=== PATIENT | female | born 1970 | race Caucasian/White ===

== ENCOUNTER 2016-08-20 00:03 | Observation (INO) | payer BC ==
[2016-08-20] VITALS (12 sets, daily range): BP systolic 111–189; BP diastolic 56–89; PULSE 49–61; RESP 12–18; TEMP 97.1–98; O2SAT 96–99
[~2016-08-20] VITALS: Ht 165.1 cm; Wt 93.0 kg
[~2016-08-20 00:03] MED LIST: CLOP75 PO; LEVEMIR SC; METO25 PO; NITR0.4S SL; NOVOLOGP2 SQ; PAXI20TA26 PO; ST J81CH PO
[2016-08-20] MEDS ORDERED: SODIUM CHLORIDE 0.9% FLUSH 5 ML FLUSH IVF PRN (00:30)
[2016-08-20] MEDS ORDERED: NITROGLYCERIN 2% OINT 1 GM PACKET TOP ONE (00:30)
[2016-08-20] MEDS ORDERED: NITROGLYCERIN 0.4 MG SL 25 TABS/BTL SL ONE (00:30)
[2016-08-20] MEDS ORDERED: PLAV75TA29 PO ×2 (00:32→17:28)
[2016-08-20 00:46] LABS: AUTOMATED NEUTROPHIL # 5.2 TH/MM3 (1.8-7.7); BASOPHIL # 0.1 TH/MM3 (0-0.2); BASOPHIL % 0.8 % (0.0-2.0); EOSINOPHIL # 0.2 TH/MM3 (0-0.4); EOSINOPHIL % 2.3 % (0.0-4.0); HEMO FLAGS DIFF FINAL; LYMPH % 34.3 % (9.0-44.0); LYMPHOCYTE # 3.3 TH/MM3 (1.0-4.8); MEAN CELL VOLUME 86.9 FL (80.0-100.0); MEAN CORPUSCULAR HEMOGLOBIN 29.4 PG (27.0-34.0); MEAN CORPUSCULAR HGB CONC 33.8 % (32.0-36.0); MONO % 8.4 % (0.0-8.0); NEUT % 54.2 % (16.0-70.0); PLATELET COUNT 249 TH/MM3 (150-450); RED CELL DISTRIBUTION WIDTH 14.1 % (11.6-17.2); WHITE BLOOD COUNT 9.5 TH/MM3 (4.0-11.0)
[2016-08-20 00:53] LABS: APTT (PATIENT) 27.6 SEC (24.3-30.1); INTERNATIONAL NORMALIZED RATIO 0.9 RATIO; PROTHROMBIN TIME - PATIENT 9.6 SEC (9.8-11.6)
--- NOTE | 2016-08-20 00:59 | RADRPT ---
EXAM DATE/TIME: 08/20/2016 00:28 [facility] COMPARISON: CHEST SINGLE AP, June 07, 2016, 5:30. INDICATIONS : Chest pain. MEDICAL HISTORY : None. SURGICAL HISTORY : None. ENCOUNTER: Initial ACUITY: 1 day PAIN SCORE: 5/10 LOCATION: Bilateral chest FINDINGS: A single view of the chest demonstrates the lungs to be symmetrically aerated without evidence of mas s, infiltrate or effusion. The cardiomediastinal contours are unremarkable. Osseous structures are intact. CONCLUSION: No acute disease. Phil Jang Jr., MD on August 20, 2016 at 0:58 Board Certified Radiologist. This report was verified electronically.
[2016-08-20 01:03] LABS: ALKALINE PHOSPHATASE 106 U/L (45-117); TOTAL BILIRUBIN ADULT 0.1 MG/DL (0.2-1.0)
[2016-08-20 01:05] LABS: ALT (GPT) 22 U/L (10-53); ANION GAP 9 MEQ/L (5-15); AST (GOT) 13 U/L (15-37); BLOOD UREA NITROGEN 13 MG/DL (7-18); CHLORIDE 103 MEQ/L (98-107); CREATINE KINASE 55 U/L (26-192); GLOMERULAR FILTRATION RATE 95 ML/MIN (>89); MAGNESIUM 1.8 MG/DL (1.5-2.5); POTASSIUM 3.7 MEQ/L (3.5-5.1); SODIUM (NA) 137 MEQ/L (136-145)
[2016-08-20] MEDS ORDERED: ASPI-110 PO (01:09)
[2016-08-20] MEDS ORDERED: NOVOLOGP2 SQ (01:09)
[2016-08-20] MEDS ORDERED: METO25TA3 PO (01:09)
[2016-08-20] MEDS ORDERED: PAXI20TA PO (01:09)
[2016-08-20] MEDS ORDERED: NITR0.4S SL (01:09)
[2016-08-20] MEDS ORDERED: LEVEMIR SQ (01:09)
[2016-08-20] MEDS ORDERED: ONDANSETRON HCL 4 MG/2 ML VIAL IV PUSH ONE (01:30)
[2016-08-20] MEDS ORDERED: SODIUM CHLORID 0.9% 500 ML INJ 500 ML IV ONE (01:30)
[2016-08-20] MEDS ORDERED: MORPHINE SULFATE 4 MG/ML INJ IV PUSH ONE (01:30)
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
[2016-08-20] MEDS ORDERED: PANTOPRAZOLE SODIUM 40 MG VIAL IV PUSH ONE (02:00)
[2016-08-20] MEDS ORDERED: CLOPIDOGREL 75 MG TAB PO ONE (02:00)
[2016-08-20] MEDS ORDERED: SODIUM CHLORIDE 0.9% FLUSH 5 ML FLUSH FLUSH PRN (04:45)
[2016-08-20] MEDS ORDERED: ONDANSETRON HCL 4 MG/2 ML VIAL IVP PRN (04:45)
[2016-08-20] MEDS ORDERED: NALOXONE HCL 0.4 MG/ML AMP IV PRN (04:45)
[2016-08-20] MEDS ORDERED: ENOXAPARIN SODIUM 40 MG/0.4 ML SYRINGE SQ SCH (05:00)
[2016-08-20] MEDS: ACETAMINOPHEN 325 MG TAB PO PRN ×2 (05:52→11:44)
[2016-08-20] MEDS ORDERED: SODIUM CHLORIDE 0.9% FLUSH 5 ML FLUSH FLUSH SCH (09:00)
[2016-08-20] MEDS ORDERED: INSULIN DETEMIR 100 UNITS/ML VIAL SQ SCH (10:00)
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
[2016-08-20] MEDS ORDERED: CLOPIDOGREL 75 MG TAB PO SCH (11:00)
[2016-08-20] MEDS ORDERED: PARoxetine HCL 20 MG TAB PO SCH (11:00)
[2016-08-20] MEDS ORDERED: PRAVASTATIN SOD 20 MG TAB PO ONE (11:00)
--- NOTE | 2016-08-20 13:08 | MB ---
cc: BRENDEN ROUSSEAU MD DATE OF CONSULTATION: 08/20/2016 REASON FOR CONSULTATION Chest pain. HISTORY OF PRESENT ILLNESS Ms. Jazz Lambert is a 46-year-old, patient of Dr. Ever Cardoso, for whom I am covering this weekend. The patient does have a prior history of hypertension, hyperlipidemia, diabetes and stenting of her LAD. She also has a history of atypical pain with a stable heart cath showing widely patent stents and no significant aortic gradient in January 2015. She subsequently presented for chest discomfort and underwent a stress test in April of 2015 that was remarkable. At this visit the patient reports that she had been doing well and subsequently had some left-sided chest discomfort that radiated to her left arm. She reports that it was moderately severe, persisted despite her nitroglycerin, and subsequently precipitated her emergency room visit. She is currently pain free. PAST MEDICAL HISTORY 1. Hypertension. 2. Hyperlipidemia. 3. Diabetes. 4. Obesity. 5. CAD as described above. FAMILY HISTORY Noncontributory. ALLERGIES PENICILLIN. MEDICATIONS Outpatient medications include: 1. Paxil. 2. Metoprolol. 3. Insulin. 4. Sublingual nitroglycerin. 5. Aspirin. 6. Plavix. SOCIAL HISTORY The patient does not drink or smoke. REVIEW OF SYSTEMS Except for what is mentioned in the HPI all 12 systems are negative. PHYSICAL EXAMINATION VITAL SIGNS: On presentation showed blood pressure 189/89. Currently 111/56, respiratory rate 18, heart rate 58, temperature of 97.1. GENERAL: An obese female in no apparent distress. NECK: Free from JVD. LUNGS: Bilaterally clear to auscultation. CARDIOVASCULAR: Normal S1 and S2. I do not appreciate any murmurs, rubs or gallops. ABDOMEN: Soft. EXTREMITIES: Free from edema. LABORATORY DATA Lab values are significant for serial troponins of less than 0.02/less than 0.02. EKG DATA EKG shows normal sinus rhythm and nonspecific ST-T wave changes. IMPRESSIONS/RECOMMENDATIONS 1. Atypical chest pain: The patient certainly does have a history of CAD. Her most recent cath was in January 2015 that revealed widely patent stents. She did have a subsequent stress test that was non-ischemic on May 16, 2015. She has not had any further testing since that time. At this point I do think she should have further evaluation with a stress test as it has been over a year. I will check a beta hCG prior to getting the study. It is possible that the pain may be secondary to hypertension as her blood pressure was quite high on arrival. In it has settled down and is reasonable today. I would like to add amlodipine, however, to assist with both the blood pressure and vasodilator properties for her CAD. If the study is non-ischemic, it is reasonable for her to be discharged to follow-up with Dr. Cardoso. 2. Hypertension: As above. 3. Hyperlipidemia: Consideration should be given towards putting the patient on a statin per guidelines. Brenden Rousseau M.D. MAGO/JOSIAH /12:17 PM /12:58 PM
[2016-08-20 13:10] LABS: BETA HCG QUANT LESS THAN 1 MIU/ML (0-5)
[2016-08-20] MEDS ORDERED: REGADENOSON INJ 0.4 MG/5 ML SYR ONE (13:53)
--- NOTE | 2016-08-20 14:54 | RADRPT ---
EXAM DATE/TIME: 08/20/2016 13:25 [facility] COMPARISON: MYOCARDIAL PERF PHARM SPECT, GATED W/EF, May 16, 2015, 11:02. INDICATIONS : Substernal chest pain radiating to left arm with dyspnea and nausea. Angina. Coronary artery disease. DOSE: 25.5 mCi Tc99m Myoview at stress. 8.1 mCi Tc99m Myoview at rest. 0.4 mg Lexiscan STRESS SYMPTOMS: Nausea. EJECTION FRACTION: 67% MEDICAL HISTORY : Hypertension. Diabetes mellitus type 2. SURGICAL HISTORY : Coronary artery stent. Tubal ligation. section. ENCOUNTER: Initial ACUITY: 1 day PAIN SCALE: 6/10 LOCATION: Substernal chest TECHNIQUE: The patient underwent pharmacologic stress with infusion of prescribed dose. Continuous ECG tracing was monitored during stress. Gated SPECT imaging was performed after stress and conventional SPECT i maging was performed at rest. The examination was performed on a SPECT/CT scanner, both attenuation and non-corrected datasets were reviewed. FINDINGS: DISTRIBUTION: The maximum perfused segment at stress is in the lateral wall. PERFUSION STUDY: The pattern of perfusion at stress is within normal limits. GATED STUDY: There is intact wall motion and thickening without hypokinetic or dyskinetic segments. CONCLUSION: No definite reversible perfusion defects are identified to suggest stress-induced myocardial ischemia . RISK CATEGORY: Low (<1% Annual Mortality Rate) Mason Ace MD on August 20, 2016 at 14:51 Board Certified Radiologist. This report was verified electronically.
[2016-08-20] MEDS ORDERED: AMLO2.5T PO (17:28)
[2016-08-20] MEDS ORDERED: PRAV20TA2 PO (17:28)
--- NOTE | 2016-08-20 17:30 | HHI.PR ---
Objective Objective Results - Vital Signs Date Time Temp Pulse Resp B/P Pulse Ox O2 Delivery O2 Flow Rate FiO2 08/20/16 15:05 97.6 50 16 149/73 99 08/20/16 13:10 18 08/20/16 12:00 97.9 53 12 131/67 96 08/20/16 07:29 97.1 58 18 111/56 98 08/20/16 07:28 98 21 08/20/16 07:15 50 08/20/16 05:58 49 08/20/16 05:37 96 08/20/16 05:34 97.8 54 16 119/63 98 08/20/16 05:18 51 16 125/57 97 Room Air 08/20/16 01:00 55 16 151/70 97 Room Air 08/20/16 00:23 53 16 144/83 98 Room Air 08/20/16 00:18 95 08/20/16 00:07 98.0 61 16 189/89 98 Room Air Result Diagram: 08/20/16 0020 08/20/16 0020 Other Results Laboratory Tests Test 08/20/16 08/20/16 08/20/16 00:20 05:01 11:30 White Blood Count 9.5 Red Blood Count 4.60 Hemoglobin 13.5 Hematocrit 40.0 Mean Corpuscular Volume 86.9 Mean Corpuscular Hemoglobin 29.4 Mean Corpuscular Hemoglobin 33.8 Concent Red Cell Distribution Width 14.1 Platelet Count 249 Mean Platelet Volume 9.2 Neutrophils (%) (Auto) 54.2 Lymphocytes (%) (Auto) 34.3 Monocytes (%) (Auto) 8.4 Eosinophils (%) (Auto) 2.3 Basophils (%) (Auto) 0.8 Neutrophils # (Auto) 5.2 Lymphocytes # (Auto) 3.3 Monocytes # (Auto) 0.8 Eosinophils # (Auto) 0.2 Basophils # (Auto) 0.1 CBC Comment DIFF FINAL Differential Comment Prothrombin Time 9.6 Prothromb Time International 0.9 Ratio Activated Partial 27.6 Thromboplast Time Sodium Level 137 Potassium Level 3.7 Chloride Level 103 Carbon Dioxide Level 25.0 Anion Gap 9 Blood Urea Nitrogen 13 Creatinine 0.67 Estimat Glomerular Filtration 95 Rate Random Glucose 244 Calcium Level 8.9 Magnesium Level 1.8 Total Bilirubin 0.1 Aspartate Amino Transf 13 (AST/SGOT) Alanine Aminotransferase 22 (ALT/SGPT) Alkaline Phosphatase 106 Total Creatine Kinase 55 Troponin I LESS THAN 0.02 LESS THAN 0.02 LESS THAN 0.02 B-Type Natriuretic Peptide 14 Total Protein 8.0 Albumin 3.6 Lipase 115 Human Chorionic Gonadotropin, LESS THAN 1 Quant Physical Exam Physical Exam ADDENDUM 5.30 pm APPRECIATE CARD INPUT STRESS TEST NEG FOR ISCHEMIA CLEARED BY CARD FOR D/C STABLE FOR D/C d/c home today ] see MRS see Orders f/u pcp f/u card d/w PT note for work written Gabriela Oscar MD Aug 20, 2016 17:30
--- NOTE | 2016-08-20 17:54 | EKG ---
Date Performed: 08/20/2016 Time Performed: 00:26:04 PTAGE: 46 years EKG: SINUS BRADYCARDIA Since previous tracing, no significant change noted BORDERLINE ECG PREVIOUS TRACING : 06/07/2016 11.16 DOCTOR: Carmella Agudelo Interpretating Date/Time 08/20/2016 18:05:53
--- NOTE | 2016-08-20 17:54 | EKG ---
Date Performed: 08/20/2016 Time Performed: 05:22:46 PTAGE: 46 years EKG: SINUS BRADYCARDIA Since previous tracing, no significant change noted BORDERLINE ECG PREVIOUS TRACING : 08/20/2016 00.26 DOCTOR: Carmella Agudelo Interpretating Date/Time 08/20/2016 18:03:08
[2016-08-20] MEDS ORDERED: METOPROLOL TARTRATE 25 MG TAB PO SCH (21:00)
[2016-08-21] MEDS ORDERED: PRAVASTATIN SOD 20 MG TAB PO SCH (09:00)
[2016-08-21] MEDS ORDERED: ASPIRIN EC 81 MG TABEC PO SCH (09:00)
[2016-08-21] MEDS ORDERED: amLODIPine BESYLATE 5 MG TAB PO SCH (09:00)
--- NOTE | 2016-08-22 00:02 | EKG ---
Date Performed: 08/20/2016 Time Performed: 12:21:32 PTAGE: 46 years EKG: SINUS BRADYCARDIA BORDERLINE ECG PREVIOUS TRACING : 08/20/2016 05.22 DOCTOR: Samantha Mcdowell Interpretating Date/Time 08/21/2016 23:51:55
== END 2016-08-20 21:18 | disposition home or self-care (01) ==
LOC: NEPE 00:03 → NEDA 02:10 → NEPGCP 05:27
PROVIDERS: ADMIT Specialist; ATTEND Specialist
DX: R07.9 Chest pain, unspecified (principal); M79.602 Pain in left arm; R20.0 Anesthesia of skin; R06.02 Shortness of breath; R61 Generalized hyperhidrosis; R11.0 Nausea; I25.10 Atherosclerotic heart disease of native coronary artery without angina pectoris; Z95.5 Presence of coronary angioplasty implant and graft; I10 Essential (primary) hypertension; E11.9 Type 2 diabetes mellitus without complications; F32.9 Major depressive disorder, single episode, unspecified; Z79.01 Long term (current) use of anticoagulants; F41.9 Anxiety disorder, unspecified; R01.1 Cardiac murmur, unspecified; E78.00 Pure hypercholesterolemia, unspecified; Z79.4 Long term (current) use of insulin; K21.9 Gastro-esophageal reflux disease without esophagitis; R51 Headache; Z79.899 Other long term (current) drug therapy; R00.1 Bradycardia, unspecified; E78.5 Hyperlipidemia, unspecified; E66.9 Obesity, unspecified; M54.9 Dorsalgia, unspecified; G89.21 Chronic pain due to trauma
CPT/HCPCS: 71010; 78452; 80053; 82550; 83690; 83735; 83880; 84484; 84702; 85025; 85610; 85730; 93005; 93017; 96361; 96374; 96375; 99285; A9502; C9113; G0378; J1650; J2270; J2405; J2785; J7040

== ENCOUNTER 2016-11-14 08:42 | Observation (INO) | payer BC ==
[~2016-11-14] VITALS: Ht 165.1 cm; Wt 108.0 kg
[2016-11-14] VITALS (10 sets, daily range): BP systolic 125–156; BP diastolic 60–77; PULSE 51–64; RESP 14–20; TEMP 98–98.2; O2SAT 96–99
[~2016-11-14 08:42] MED LIST changes: +AMLO2.5T PO; +ASPI-110 PO; -CLOP75 PO; -LEVEMIR SC; +LEVEMIR SQ; -METO25 PO; +METO25TA3 PO; +PAXI20TA PO; -PAXI20TA26 PO; +PLAV75TA29 PO; +PRAV20TA2 PO; -ST J81CH PO
[2016-11-14] MEDS ORDERED: SODIUM CHLORIDE 0.9% FLUSH 10 ML FLUSH IVF PRN (09:00)
[2016-11-14] MEDS ORDERED: SODIUM CHLORID 0.9% 500 ML INJ 500 ML IV ONE (09:00)
--- NOTE | 2016-11-14 09:07 | PD ---
HPI Chief Complaint: Chest Pain Time Seen by Provider: 08:57 Travel History International Travel<30 days: No Contact w/Intl Traveler<30days: No Traveled to known affect area: No History of Present Illness HPI Patient is a 46-year-old female with history of hypertension, hyperlipidemia, diabetes, coronary artery disease with history of 3 cardiac stents, presents to emergency room with complaints of chest pain. Patient reports that she was at work today and reports that she began to have left-sided chest pain which started around 7:52am. Patient reports that the chest pain radiates for her back, reports that it felt like a "pressure to my chest." Patient reports that she had diaphoresis with nausea with her symptoms. Patient reports that she felt lightheaded and felt near syncopal with this chest pain event. Patient reports that symptoms are similar to when she has had chest pain the past and had cardiac stents placed by Dr. tompkins. Patient reports that her last stent was placed in August [address] tompkins, she did follow with him a few months ago and reports that everything was fine. Reports that she does take aspirin and Plavix daily, she did take her morning doses today. She reports that she was prescribed a prescription for SL nitro, reports that she couldn't find her prescription this morning and may just need a refill. Patient at this point with continued pain to her left chest which radiates her back. PFSH Past Medical History Hx Anticoagulant Therapy: Yes Autoimmune Disease: No Anxiety: Yes Depression: Yes Heart Rhythm Problems: Yes (MURMUR) Cancer: No Cardiac Catheterization: Yes Cardiovascular Problems: Yes High Cholesterol: Yes Chest Pain: Yes Congestive Heart Failure: No Coronary Artery Disease: Yes Diabetes: Yes (INSULIN DEPENDENT) Patient Takes Glucophage: No Dialysis: No Diminished Hearing: No Endocrine: Yes GERD: Yes Glaucoma: No Genitourinary: No Headaches: Yes Hepatitis: No Hiatal Hernia: No Hypertension: Yes Immune Disorder: No Implanted Vascular Access Dvce: Yes Musculoskeletal: No Psychiatric: Yes Reproductive: No Respiratory: No Integumentary: No Immunizations Current: Yes Myocardial Infarction: No Thyroid Disease: No PNEUMOCCOCAL Vaccine (Year): 2 ?: Not : 2 Para: 2 Miscarriage: 0 : 0 Tubal Ligation: Yes Past Surgical History Body Medical Devices: CARDIAC STENT X3 Cardiac Surgery: Yes Section: Yes (X2) Coronary Artery Bypass Graft: No Coronary Stent: Yes (X 3 2012, 2014, 2015) Gynecologic Surgery: Yes ( X 2 ) Other Surgery: Yes (STENTS X3) Family History Family Myocardial Infarction: Yes Social History Alcohol Use: No Tobacco Use: No Substance Use: No Allergies-Medications (Allergen,Severity, Reaction): Coded Allergies: Prednisone (Verified Allergy, Severe, 11/14/16) Uncoded Allergies: STEROIDS (Allergy, Severe, Anaphylaxis, 03/18/14) Reported Meds & Prescriptions Reported Meds & Active Scripts Active Pravastatin 20 Mg Tab 20 Mg PO DAILY Plavix (Clopidogrel Bisulfate) 75 Mg Tab 75 Mg PO DAILY Reported Paxil (Paroxetine HCl) 20 Mg Tab 30 Mg PO DAILY Novolog Inj (Insulin Aspart) 1,000 Unit/10 Ml Vial 0 SQ TID PRN Sliding Scale as directed. Nitrostat SL (Nitroglycerin) 0.4 Mg Subl 0.4 Mg SL DIRECTED PRN 1 tablet under the tongue as needed for chest pain. Repeat every 5 minutes for a total of 3 DOSES or call 911 if NO relief. Metoprolol Tartrate 25 Mg Tab 25 Mg PO BID Levemir Inj (Insulin Detemir) 1,000 unit/ 10 ML Vial 5 Units SQ BID Do not mix with any other Insulin. Aspirin 81 (Aspirin) 81 Mg Tabdr 81 Mg PO DAILY Review of Systems General / Constitutional: No: Fever Eyes: No: Visual changes HENT: No: Headaches Cardiovascular: Positive: Chest Pain or Discomfort, Diaphoresis Respiratory: Positive: Shortness of Breath Gastrointestinal: No: Abdominal Pain Genitourinary: No: Dysuria Musculoskeletal: No: Pain Skin: No Rash Neurologic: No: Weakness Psychiatric: No: Depression Endocrine: No: Polydipsia Hematologic/Lymphatic: No: Easy Bruising Physical Exam Narrative GENERAL: Mild distress SKIN: Focused skin assessment warm/dry. HEAD: Atraumatic. Normocephalic. EYES: Pupils equal and round. ENT: No nasal bleeding or discharge. Mucous membranes pink and moist. NECK: Trachea midline. No JVD. CARDIOVASCULAR: Regular rate and rhythm. No murmur appreciated. RESPIRATORY: No accessory muscle use. Clear to auscultation. Breath sounds equal bilaterally. GASTROINTESTINAL: Abdomen soft, non-tender, nondistended. Hepatic and splenic margins not palpable. MUSCULOSKELETAL: No obvious deformities. No clubbing. No cyanosis. No edema. NEUROLOGICAL: Awake and alert. No obvious cranial nerve deficits. Motor grossly within normal limits. Normal speech. PSYCHIATRIC: Appropriate mood and affect; insight and judgment normal. Data Data Last Documented VS Vital Signs Date Time Temp Pulse Resp B/P Pulse Ox O2 Delivery O2 Flow Rate FiO2 11/14/16 11:15 55 14 144/60 99 11/14/16 09:00 Room Air 11/14/16 08:52 98.2 Orders B-Type Natriuretic Peptide (11/14/16 08:59) Ckmb (Isoenzyme) Profile (11/14/16 08:59) Complete Blood Count With Diff (11/14/16 08:59) Comprehensive Metabolic Panel (11/14/16 08:59) Magnesium (Mg) (11/14/16 08:59) Prothrombin Time / Inr (Pt) (11/14/16 08:59) Act Partial Throm Time (Ptt) (11/14/16 08:59) Troponin I (11/14/16 08:59) Chest, Single Ap (11/14/16 08:59) Ecg Monitoring (11/14/16 08:59) Bilateral Bp Monitoring (11/14/16 08:59) Iv Access Insert/Monitor (11/14/16 08:59) Oximetry (11/14/16 08:59) Sodium Chloride 0.9% Flush (Ns Flush) (11/14/16 09:00) Nitroglycerin Sl (Nitrostat Sl) (11/14/16 09:00) Sodium Chlorid 0.9% 500 Ml Inj (Ns 500 M (11/14/16 09:00) Cta Thor Abd Aorta W Iv C W3d (11/14/16 08:59) Ed Urine Pregnancytest Poc (11/14/16 08:59) Insulin Human Regular Inj (Novolin R Inj (11/14/16 10:45) Sodium Chlor 0.9% 1000 Ml Inj (Ns 1000 M (11/14/16 10:45) Iohexol 350 Inj (Omnipaque 350 Inj) (11/14/16 11:14) Bedside Glucose MAUDE.AC&HS (11/14/16 12:45) Admit Order (Ed Use Only) (11/14/16 12:52) Labs Laboratory Tests Test 11/14/16 09:06 White Blood Count 7.9 TH/MM3 Red Blood Count 4.74 MIL/MM3 Hemoglobin 13.3 GM/DL Hematocrit 41.2 % Mean Corpuscular Volume 86.7 FL Mean Corpuscular Hemoglobin 28.0 PG Mean Corpuscular Hemoglobin 32.3 % Concent Red Cell Distribution Width 13.3 % Platelet Count 240 TH/MM3 Mean Platelet Volume 9.1 FL Neutrophils (%) (Auto) 67.1 % Lymphocytes (%) (Auto) 24.7 % Monocytes (%) (Auto) 6.0 % Eosinophils (%) (Auto) 1.8 % Basophils (%) (Auto) 0.4 % Neutrophils # (Auto) 5.3 TH/MM3 Lymphocytes # (Auto) 2.0 TH/MM3 Monocytes # (Auto) 0.5 TH/MM3 Eosinophils # (Auto) 0.1 TH/MM3 Basophils # (Auto) 0.0 TH/MM3 CBC Comment DIFF FINAL Differential Comment Prothrombin Time 10.0 SEC Prothromb Time International 0.9 RATIO Ratio Activated Partial 27.2 SEC Thromboplast Time Sodium Level 134 MEQ/L Potassium Level 4.0 MEQ/L Chloride Level 98 MEQ/L Carbon Dioxide Level 23.9 MEQ/L Anion Gap 12 MEQ/L Blood Urea Nitrogen 15 MG/DL Creatinine 0.75 MG/DL Estimat Glomerular Filtration 84 ML/MIN Rate Random Glucose 434 MG/DL Calcium Level 9.1 MG/DL Magnesium Level 1.9 MG/DL Total Bilirubin 0.3 MG/DL Aspartate Amino Transf 14 U/L (AST/SGOT) Alanine Aminotransferase 22 U/L (ALT/SGPT) Alkaline Phosphatase 115 U/L Total Creatine Kinase 68 U/L Troponin I LESS THAN 0.02 NG/ML B-Type Natriuretic Peptide 22 PG/ML Total Protein 8.2 GM/DL Albumin 3.7 GM/DL MDM Medical Decision Making Medical Screen Exam Complete: Yes Emergency Medical Condition: Yes Interpretation(s) EKG at 0849: Sinus bradycardia at 58 bpm, QT/QTc: 418/415, no acute ST or T- wave changes Vital Signs Date Time Temp Pulse Resp B/P Pulse Ox O2 Delivery O2 Flow Rate FiO2 11/14/16 08:52 98.2 60 15 156/77 96 Laboratory Tests Test 11/14/16 09:06 White Blood Count 7.9 TH/MM3 (4.0-11.0) Red Blood Count 4.74 MIL/MM3 (4.00-5.30) Hemoglobin 13.3 GM/DL (11.6-15.3) Hematocrit 41.2 % (35.0-46.0) Mean Corpuscular Volume 86.7 FL (80.0-100.0) Mean Corpuscular Hemoglobin 28.0 PG (27.0-34.0) Mean Corpuscular Hemoglobin 32.3 % Concent (32.0-36.0) Red Cell Distribution Width 13.3 % (11.6-17.2) Platelet Count 240 TH/MM3 (150-450) Mean Platelet Volume 9.1 FL (7.0-11.0) Neutrophils (%) (Auto) 67.1 % (16.0-70.0) Lymphocytes (%) (Auto) 24.7 % (9.0-44.0) Monocytes (%) (Auto) 6.0 % (0.0-8.0) Eosinophils (%) (Auto) 1.8 % (0.0-4.0) Basophils (%) (Auto) 0.4 % (0.0-2.0) Neutrophils # (Auto) 5.3 TH/MM3 (1.8-7.7) Lymphocytes # (Auto) 2.0 TH/MM3 (1.0-4.8) Monocytes # (Auto) 0.5 TH/MM3 (0-0.9) Eosinophils # (Auto) 0.1 TH/MM3 (0-0.4) Basophils # (Auto) 0.0 TH/MM3 (0-0.2) CBC Comment DIFF FINAL Differential Comment Prothrombin Time 10.0 SEC (9.8-11.6) Prothromb Time International 0.9 RATIO Ratio Activated Partial 27.2 SEC Thromboplast Time (24.3-30.1) Sodium Level 134 MEQ/L (136-145) Potassium Level 4.0 MEQ/L (3.5-5.1) Chloride Level 98 MEQ/L (98-107) Carbon Dioxide Level 23.9 MEQ/L (21.0-32.0) Anion Gap 12 MEQ/L (5-15) Blood Urea Nitrogen 15 MG/DL (7-18) Creatinine 0.75 MG/DL (0.50-1.00) Estimat Glomerular Filtration 84 ML/MIN (>89) Rate Random Glucose 434 MG/DL (74-106) Calcium Level 9.1 MG/DL (8.5-10.1) Magnesium Level 1.9 MG/DL (1.5-2.5) Total Bilirubin 0.3 MG/DL (0.2-1.0) Aspartate Amino Transf 14 U/L (15-37) (AST/SGOT) Alanine Aminotransferase 22 U/L (10-53) (ALT/SGPT) Alkaline Phosphatase 115 U/L (45-117) Total Creatine Kinase 68 U/L (26-192) Troponin I LESS THAN 0.02 NG/ML (0.02-0.05) B-Type Natriuretic Peptide 22 PG/ML (0-100) Total Protein 8.2 GM/DL (6.4-8.2) Albumin 3.7 GM/DL (3.4-5.0) Last Impressions Chest X-Ray 11/14/16858 Signed Impressions: Service Date/Time: Monday, November 14, 2016 09:02 - CONCLUSION: No acute disease. Nixon Peña MD FACR Aorta CTA 11/14/16858 Signed Impressions: Service Date/Time: Monday, November 14, 2016 10:50 - CONCLUSION: 1. Thoracoabdominal aorta is normal in caliber throughout its length with minimal atherosclerotic calcification. No aneurysmal disease or dissection. 2. Single right with a main and accessory left renal artery. The renal and mesenteric vessels are patent. 3. Otherwise negative Roberth Finney MD ADDENDUM: Also noted, 2.8 cm, low density right adrenal mass lesion. Statistically, this likely represents an adenoma Roberth Finney MD Differential Diagnosis ACS, arrhythmia, electrolyte abnormality, aortic dissection, unstable angina, Narrative Course Patient is a 46-year-old female who presents to emergency room with complaints of left-sided chest pain radiating to her back. Patient does have history of coronary disease, hypertension, hyperlipidemia, diabetes, she does see Dr. tompkins in the office. Patient reports that her symptoms are very similar to her previous episodes where she required a coronary artery stent. Upon presentation to emergency room, EKG obtained. EKG was sinus bradycardia with no acute ST-T wave changes. Patient was placed on a machine stonecutter. Sublingual nitroglycerin ordered to see if this helps with her chest pain. Labs as well as cardiac enzymes ordered. X-ray of the chest ordered. Will rule out aortic dissection as patient does have complaints of chest pain radiating to her back with CTA. Blood sugar 434, patient is a type I diabetic and normally covers with 10 units of insulin for blood sugar over 400. 10 units of insulin SQ ordered case reviewed with dr. leone who accepts pt to service Diagnosis Primary Impression: Chest pain Qualified Code: R07.9 - Chest pain, unspecified type Additional Impression: Hyperglycemia Admitting Information Admitting Physician Requests: Ramandeep Merritt DO Nov 14, 2016 09:06
[2016-11-14] MEDS: NITROGLYCERIN 0.4 MG SL 25 TABS/BTL SL SCH ×3 (09:10→09:41)
[2016-11-14 09:18] LABS: AUTOMATED NEUTROPHIL # 5.3 TH/MM3 (1.8-7.7); BASOPHIL % 0.4 % (0.0-2.0); EOSINOPHIL # 0.1 TH/MM3 (0-0.4); EOSINOPHIL % 1.8 % (0.0-4.0); HEMATOCRIT 41.2 % (35.0-46.0); HEMO FLAGS DIFF FINAL; LYMPH % 24.7 % (9.0-44.0); MEAN CELL VOLUME 86.7 FL (80.0-100.0); MEAN CORPUSCULAR HGB CONC 32.3 % (32.0-36.0); NEUT % 67.1 % (16.0-70.0); PLATELET COUNT 240 TH/MM3 (150-450); RED BLOOD COUNT 4.74 MIL/MM3 (4.00-5.30); RED CELL DISTRIBUTION WIDTH 13.3 % (11.6-17.2); WHITE BLOOD COUNT 7.9 TH/MM3 (4.0-11.0)
[2016-11-14 09:35] LABS: APTT (PATIENT) 27.2 SEC (24.3-30.1); INTERNATIONAL NORMALIZED RATIO 0.9 RATIO
--- NOTE | 2016-11-14 09:38 | RADHPO ---
EXAM DATE/TIME: 11/14/2016 09:02 [facility] COMPARISON: CHEST SINGLE AP, August 20, 2016, 0:28. INDICATIONS : Chest pain, short of breath, dizziness. MEDICAL HISTORY : Cardiovascular disease. SURGICAL HISTORY : 3 cardiac stents ENCOUNTER: Initial ACUITY: 3 days PAIN SCORE: 6/10 LOCATION: Bilateral chest FINDINGS: The lungs are clear. The heart is minimally enlarged. The pulmonary vascularity is normal. There is n o evidence for infiltrate or failure. The portion of the bony skeleton visualized is unremarkable. CONCLUSION: No acute disease. Nixon Peña MD FACR on November 14, 2016 at 9:36 Board Certified Radiologist. This report was verified electronically.
[2016-11-14 09:58] LABS: CHLORIDE 98 MEQ/L (98-107); SODIUM (NA) 134 MEQ/L (136-145)
[2016-11-14 10:05] LABS: ANION GAP 12 MEQ/L (5-15); BICARBONATE 23.9 MEQ/L (21.0-32.0); MAGNESIUM 1.9 MG/DL (1.5-2.5)
[2016-11-14 10:21] LABS: ALKALINE PHOSPHATASE 115 U/L (45-117); ALT (GPT) 22 U/L (10-53); AST (GOT) 14 U/L (15-37); BLOOD UREA NITROGEN 15 MG/DL (7-18); GLOMERULAR FILTRATION RATE 84 ML/MIN (>89); TOTAL BILIRUBIN ADULT 0.3 MG/DL (0.2-1.0)
[2016-11-14 10:26] LABS: CREATINE KINASE 68 U/L (26-192)
[2016-11-14] MEDS ORDERED: SODIUM CHLOR 0.9% 1000 ML INJ 1,000 ML IV ONE (10:45)
[2016-11-14] MEDS ORDERED: INSULIN HUMAN REGULAR 1,000 UNITS/10 ML VIAL SQ ONE (10:45)
[2016-11-14] MEDS ORDERED: IOHEXOL 350 MG/ML 10 ML VIAL (for RAD DIAG) IV ONE (11:14)
--- NOTE | 2016-11-14 12:30 | RADHPO ---
EXAM DATE/TIME: 11/14/2016 10:50 This report includes an Addendum and supersedes previous reports for this exam. [facility] COMPARISON: No previous studies available for comparison. INDICATIONS : Left sided chest pain radiating posteriorly, with diaphoresis and nausea. Evaluate for aortic dissect ion. IV CONTRAST: 100 cc Omnipaque 350 (iohexol) IV RADIATION DOSE: 24.61 CTDIvol (mGy) MEDICAL HISTORY : Cardiovascular disease. Hypertension. Gastroesophageal reflux disease.Diabetes. SURGICAL HISTORY : Coronary artery stent. section.Tubal ligation. ENCOUNTER: Initial ACUITY: 1 day PAIN SCALE: 5/10 LOCATION: Left chest TECHNIQUE: Volumetric scanning was performed using a multi-row detector CT scanner. The data was post processed with a variety of visualization algorithms including full volume maximum intensity projection, multi -planar sliding thin slab reformation, curved planar reformation, and surface rendering techniques. Using automated exposure control and adjustment of the mA and/or kV according to patient size, radiat ion dose was kept as low as reasonably achievable to obtain optimal diagnostic quality images. FINDINGS: LUNGS: There is no consolidation or pneumothorax. No concerning pulmonary nodule is visualized. No pleural fluid is present. MEDIASTINUM: No abnormally enlarged lymph nodes by CT criteria. No axillary or hilar abnormalities are identified. ABDOMEN: The liver and spleen are free of focal defects. The gallbladder and pancreas demonstrate no abnormali ty. Low-density, 2.8 cm adrenal mass on the right.. The kidneys demonstrate no evidence of solid ojs l mass or hydronephrosis. No free fluid or abdominal masses are identified. No para-aortic adenopathy is seen. Air in the subcutaneous tissues of the right lower abdominal quadrant are characteristic of a recent hypodermic injection PELVIS: No evidence of free fluid or pelvic mass. No abnormally enlarged inguinal or retroperitoneal lymph no mark anthony are present. The bladder is unremarkable. THORACIC AORTA: The thoracic aortic root is normal with normal branching of the great vessels. There is no evidence of aneurysm or dissection. ABDOMINAL AORTA: The aorta is normal in caliber without aneurysm or dissection. The renal arteries are patent bilater ally with a single right and main and accessory left. The proximal celiac and superior mesenteric ar teries are patent and normal in diameter. PELVIC VESSELS: The internal iliac and external iliac vessels are patent without aneurysm or stenosis. CONCLUSION: 1. Thoracoabdominal aorta is normal in caliber throughout its length with minimal atherosclerotic kady cification. No aneurysmal disease or dissection. 2. Single right with a main and accessory left renal artery. The renal and mesenteric vessels are pat ent. 3. Otherwise negative Roberth Finney MD on November 14, 2016 at 12:01 Board Certified Radiologist. This report was verified electronically. ADDENDUM: Also noted, 2.8 cm, low density right adrenal mass lesion. Statistically, this likely represents an a denoma Roberth Finney MD on November 14, 2016 at 12:31 Board Certified Radiologist. This report was verified electronically.
[2016-11-14] MEDS ORDERED: SODIUM CHLORIDE 0.9% FLUSH 10 ML FLUSH IV FLUSH PRN (13:30)
[2016-11-14] MEDS ORDERED: ONDANSETRON HCL 4 MG/2 ML VIAL IVP PRN (13:30)
[2016-11-14] MEDS ORDERED: NALOXONE HCL 0.4 MG/ML AMP IV PRN (13:30)
[2016-11-14] MEDS ORDERED: ACETAMINOPHEN 325 MG TAB PO PRN (13:30)
[2016-11-14] MEDS ORDERED: NITROGLYCERIN 0.4 MG SL 25 TABS/BTL SL PRN (13:45)
[2016-11-14] MEDS ORDERED: PILL SPLITTER OTHER PRN (13:45)
[2016-11-14] MEDS ORDERED: DEXTROSE 50% IN WATER 50 ML VIAL(D50) IV PUSH PRN (14:30)
[2016-11-14] MEDS ORDERED: GLUCAGON 1 MG/ML VIAL OTHER PRN (14:30)
[2016-11-14] MEDS: ENOXAPARIN SODIUM 40 MG/0.4 ML SYRINGE SQ SCH (14:30)
[2016-11-14] MEDS: SODIUM CHLOR 0.9% 1000 ML INJ 1,000 ML IV SCH (14:30)
[2016-11-14] MEDS: INSULIN ASPART SUPPLEMENTAL SCALE SQ SCH ×2 (16:56→21:15)
[2016-11-14] MEDS: MORPHINE SULFATE 4 MG/ML INJ IV PRN ×2 (17:55→22:39)
[2016-11-14] MEDS: NITROGLYCERIN 2% OINT 1 GM PACKET TOPICAL SCH ×2 (18:33→23:49)
[2016-11-14] MEDS: METOPROLOL TARTRATE 25 MG TAB PO SCH (20:27)
[2016-11-14] MEDS: INSULIN DETEMIR 100 UNITS/ML VIAL SQ SCH (20:27)
[2016-11-14] MEDS: SODIUM CHLORIDE 0.9% FLUSH 10 ML FLUSH IV FLUSH SCH (20:27)
[2016-11-15] VITALS (11 sets, daily range): BP systolic 118–140; BP diastolic 53–90; PULSE 48–55; RESP 12–20; TEMP 96.4–98.3; O2SAT 96–99
[2016-11-15] MEDS: NITROGLYCERIN 2% OINT 1 GM PACKET TOPICAL SCH ×3 (06:28→18:00)
[2016-11-15] MEDS: INSULIN ASPART SUPPLEMENTAL SCALE SQ SCH ×4 (06:30→21:00)
[2016-11-15] MEDS: MORPHINE SULFATE 4 MG/ML INJ IV PRN ×4 (06:48→21:08)
[2016-11-15 08:24] LABS: AUTOMATED NEUTROPHIL # 3.2 TH/MM3 (1.8-7.7); BASOPHIL # 0.1 TH/MM3 (0-0.2); BASOPHIL % 0.9 % (0.0-2.0); EOSINOPHIL # 0.2 TH/MM3 (0-0.4); EOSINOPHIL % 2.8 % (0.0-4.0); HEMATOCRIT 38.3 % (35.0-46.0); HEMO FLAGS DIFF FINAL; LYMPH % 31.5 % (9.0-44.0); LYMPHOCYTE # 1.8 TH/MM3 (1.0-4.8); MEAN CELL VOLUME 87.3 FL (80.0-100.0); MEAN CORPUSCULAR HEMOGLOBIN 28.5 PG (27.0-34.0); MEAN CORPUSCULAR HGB CONC 32.6 % (32.0-36.0); MONO % 9.2 % (0.0-8.0); NEUT % 55.6 % (16.0-70.0); PLATELET COUNT 203 TH/MM3 (150-450); RED BLOOD COUNT 4.39 MIL/MM3 (4.00-5.30); RED CELL DISTRIBUTION WIDTH 13.1 % (11.6-17.2); WHITE BLOOD COUNT 5.8 TH/MM3 (4.0-11.0)
[2016-11-15 08:30] LABS: POTASSIUM 3.7 MEQ/L (3.5-5.1)
[2016-11-15 08:33] LABS: BICARBONATE 29.8 MEQ/L (21.0-32.0)
[2016-11-15] MEDS: INSULIN DETEMIR 100 UNITS/ML VIAL SQ SCH ×2 (09:00→21:06)
[2016-11-15] MEDS: SODIUM CHLORIDE 0.9% FLUSH 10 ML FLUSH IV FLUSH SCH ×2 (09:00→21:06)
[2016-11-15] MEDS: PARoxetine HCL 20 MG TAB PO SCH (09:00)
[2016-11-15] MEDS: PRAVASTATIN SOD 20 MG TAB PO SCH (09:00)
[2016-11-15] MEDS: CLOPIDOGREL 75 MG TAB PO SCH (09:01)
[2016-11-15] MEDS: METOPROLOL TARTRATE 25 MG TAB PO SCH ×2 (09:01→21:05)
[2016-11-15] MEDS: ASPIRIN EC 81 MG TABEC PO SCH (09:12)
[2016-11-15] MEDS: SODIUM CHLOR 0.9% 1000 ML INJ 1,000 ML IV SCH (09:23)
--- NOTE | 2016-11-15 11:29 | MH ---
cc: HECTOR JAVIER MD DATE OF ADMISSION 11/14/2016 CHIEF COMPLAINT Chest pain HISTORY OF PRESENT ILLNESS This is a 46-year-old female with a past medical-surgical history significant for hypertension, hyperlipidemia, diabetes mellitus, coronary artery disease, history of cardiac stent x3 in the past, history of anxiety/depression, history of heart murmur, gastroesophageal reflux disease, history of tubal ligation who came to the ER at [facility] complaining of chest pain. The pain started at work today and reported that she began to have left-sided chest pain which started around 07:52 a.m. The patient reports that the chest pain radiated to her back. Reports that it felt like a pressure to my chest. The patient reports that she has a diaphoresis with nausea with her symptoms. The patient reports that she felt lightheaded and felt near syncope with this chest pain event. The patient reports the symptoms are similar to when she had chest pain in the past. She had a cardiac stent placed by Dr. Cardoso. The patient reports that her last stent was placed in August [address] Cardoso. She did a followup with him a few months ago and reports that everything was fine. She reports that she does take aspirin and Plavix daily. She did take her morning doses today. She reports that she was prescribed a prescription of sublingual nitro and reported that she could not find her prescription this morning and may just need a refill. When I examined the patient, the patient was still having chest pain and denies any other symptom or complaint. Other than that, nothing significant. PAST MEDICAL/SURGICAL HISTORY As dictated above. SOCIAL HISTORY Denies smoking, drinking or taking any drugs. Lives at home with her and kids. 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 FAMILY HISTORY Significant for coronary artery disease in mom and dad. ALLERGIES PREDNISONE AND STEROIDS MEDICATIONS Include: 1. Pravastatin 20 mg p.o. daily 2. Plavix 75 mg daily 3. Paxil 30 mg p.o. daily 4. NovoLog injection according to sliding scale 5. Nitro sublingual 0.4 mg as directed p.r.n. chest pain 6. Metoprolol 25 mg p.o. b.i.d. 7. Levemir 5 units subcutaneous b.i.d. 8. Aspirin 81 mg p.o. daily REVIEW OF SYSTEMS Positive for chest pain, all other review of systems are negative. PHYSICAL EXAMINATION This is 46-year female sitting on the bed not in acute distress. VITAL SIGNS: Temperature 97.0, heart rate 50, respirations 16, blood pressure 120/90, O2 saturation 98% on room air. HEENT: Normocephalic, atraumatic. EOMI. PERRL. Oral mucosa moist. NECK: Supple. No visible thyromegaly or neck mass. Trachea is central. CVS: Regular rate and rhythm. Respirations clear to auscultation bilaterally. ABDOMEN: Soft, nontender. Bowel sounds. EXTREMITIES: No cyanosis or clubbing. Full range of motion of all extremities. NEUROLOGIC: Awake, alert, and oriented x4. No focal deficits. SKIN: Warm and dry. PSYCH: The patient is cooperative mood, affect is normal. LABORATORY DATA Include CBC is totally unremarkable. BMP totally unremarkable except for glucose 232 high, troponin-I less than 0.02, creatinine kinase 56 and 62, PT 10.0, INR 0.9, APTT 27.2. Chest x-ray was done shows no acute disease. Aorta CT done shows thoracoabdominal aorta is normal in caliber throughout its length with minimal atherosclerotic calcification no aneurysmal disease or dissection, single right with a main and accessory left renal artery. The renal and the mesenteric vessels are patent, otherwise negative. 2.8 cm low density right adrenal mass lesion. Statistically this likely represented adenoma. ASSESSMENT/PLAN 1. This is a 46-year female who came to the ER diagnosed with chest pain rule out acute coronary syndrome. The patient is on aspirin and Plavix. The patient has a history of coronary artery disease and stenting in the past. Cardiology consulted. Further recommendation per cardiology. 2. History of diabetes mellitus. The patient on insulin sliding scale. Monitor blood sugar closely. 3. History of hyperlipidemia. Continue pravastatin 20 mg p.o. daily. 4. History of hypertension. Continue home medication. 5. Insomnia. Continue with Ambien. 6. History of depression. Continue with Paxil. 7. DVT prophylaxis Lovenox 40 mg subcutaneous. 8. GI prophylaxis Protonix 40 mA daily. We are going to manage the patient on a daily basis and make recommendation on a daily basis. Hector Javier MD EA/JUANCHO /10:56 AM /11:10 AM
--- NOTE | 2016-11-15 13:35 | EKG ---
Date Performed: 11/14/2016 Time Performed: 08:49:22 PTAGE: 46 years EKG: Sinus bradycardia Normal ECG except for rate PREVIOUS TRACING : 08/20/2016 12.21 Compared to prior tracing no significant change DOCTOR: Isael Villa Interpretating Date/Time 11/15/2016 13:33:56
[2016-11-15] MEDS: ENOXAPARIN SODIUM 40 MG/0.4 ML SYRINGE SQ SCH (15:01)
[2016-11-15] MEDS ORDERED: ACETAMINOPHEN 325 MG TAB PO PRN (15:30)
[2016-11-15] MEDS ORDERED: NITROGLYCERIN 2% OINT 1 GM PACKET TOP SCH (18:00)
[2016-11-16] VITALS (36 sets, daily range): BP systolic 126–158; BP diastolic 66–82; PULSE 48–80; RESP 8–26; TEMP 98.2–99; O2SAT 95–98
[2016-11-16] MEDS: NITROGLYCERIN 2% OINT 1 GM PACKET TOPICAL SCH ×5 (00:04→23:40)
[2016-11-16] MEDS: MORPHINE SULFATE 4 MG/ML INJ IV PRN ×3 (00:53→20:44)
[2016-11-16] MEDS: INSULIN ASPART SUPPLEMENTAL SCALE SQ SCH ×4 (06:50→20:40)
--- NOTE | 2016-11-16 07:56 | PD.CONS ---
HPI Service CV Consult Requested By Primary Care Physician Hayden Mcgovern MD History of Present Illness Here with CAD with angina s/p PCI J CARLOS x 2 LAD (08/2014) s/p C 01/2015 showing patent stents, HTN and hyperlipidemia admitted for chest pain. She states this started Saturday. She say the it has been constantly waxing and waning. When it is on it lasts 2 hours. It radiates to her back. It is associated with nausea/ vomiting and diaphoresis.There are no precipitating or alleviating factors Review of Systems Consitutional: DENIES: Fatigue, Fever, Chills, Weight gain, Weight loss Eyes: DENIES: Amaurosis [place], Change in vision HEENT: DENIES: Lightheadedness, Change in hearing Respiratory: DENIES: See HPI, Cough, Snoring, Shortness of breath, Wheezing, Sputum production Cardiovascular: COMPLAINS OF: See HPI Gastrointestinal: DENIES: Nausea, Vomiting, Change in bowel habits, Reflux, Bloody stools, Melena Genitourinary: DENIES: Urinary incontinence, Difficulty voiding Integumentary: DENIES: Rash Neurologic: DENIES: Tingling or numbness, Memory problems, Poor Balance, Stroke symptoms Musculoskeletal: DENIES: Joint pain, Muscle pain, Limited range of motion, Back pain Psychiatric: DENIES: Anxiety, Depression, Sleep disturbances Hematologic: DENIES: Bruising tendencies, Bleeding tendencies Endocrine: DENIES: Weight gain, Weight loss, Thyroid disease Past Family Social History Allergies: Coded Allergies: Prednisone (Verified Allergy, Severe, 11/14/16) Uncoded Allergies: STEROIDS (Allergy, Severe, Anaphylaxis, 03/18/14) Past Medical History see HPI adjustment disorder with depressed mood anxiety type 2 Diabetes GERD Past Surgical History see HPI section tubal ligation Reported Medications Reported Meds & Active Scripts Active Pravastatin 20 Mg Tab 20 Mg PO DAILY Plavix (Clopidogrel Bisulfate) 75 Mg Tab 75 Mg PO DAILY Reported Paxil (Paroxetine HCl) 20 Mg Tab 30 Mg PO DAILY Novolog Inj (Insulin Aspart) 1,000 Unit/10 Ml Vial 0 SQ TID PRN Sliding Scale as directed. Nitrostat SL (Nitroglycerin) 0.4 Mg Subl 0.4 Mg SL DIRECTED PRN 1 tablet under the tongue as needed for chest pain. Repeat every 5 minutes for a total of 3 DOSES or call 911 if NO relief. Metoprolol Tartrate 25 Mg Tab 25 Mg PO BID Levemir Inj (Insulin Detemir) 1,000 unit/ 10 ML Vial 5 Units SQ BID Do not mix with any other Insulin. Aspirin 81 (Aspirin) 81 Mg Tabdr 81 Mg PO DAILY Active Ordered Medications Current Medications Medications (Trade) Dose Ordered Sig/Susanne Route Start Time Stop Time Status Last Admin (NS 1000 ml Inj) 1,000 ml @ 50 mls/hr Q20H IV 11/14/16 13:23 11/14/16 14:30 (NS Flush) 2 ml UNSCH PRN IV FLUSH 11/14/16 13:30 (NS Flush) 2 ml BID IV FLUSH 11/14/16 21:00 11/15/16 21:06 (Tylenol) 650 mg Q4H PRN PO 11/14/16 13:30 (Zofran Inj) 4 mg Q6H PRN IVP 11/14/16 13:30 11/16/16 06:41 (Narcan Inj) 0.4 mg UNSCH PRN IV 11/14/16 13:30 (Ecotrin Ec) 81 mg DAILY PO 11/15/16 09:00 11/15/16 09:12 (Plavix) 75 mg DAILY PO 11/15/16 09:00 11/15/16 09:01 (Levemir Inj) 5 units BID SQ 11/14/16 21:00 11/15/16 21:06 (Lopressor) 25 mg BID PO 11/14/16 21:00 11/15/16 21:05 (Paxil) 30 mg DAILY PO 11/15/16 09:00 11/15/16 09:00 (Pravachol) 20 mg DAILY PO 11/15/16 09:00 11/15/16 09:00 (Pill Splitter) 1 ea UNSCH PRN OTHER 11/14/16 13:45 (D50w (Vial) Inj) 25 ml UNSCH PRN IV PUSH 11/14/16 14:30 (Glucagon Inj) 1 mg UNSCH PRN OTHER 11/14/16 14:30 (Morphine Inj) 4 mg Q4H PRN IV 11/14/16 17:45 11/16/16 06:41 (Nitroglycerin 2% Oint) 1 inch Q6HR TOPICAL 11/14/16 18:00 11/16/16 06:00 (Tylenol) 650 mg Q6H PRN PO 11/15/16 15:30 11/15/16 15:37 Family History noncontributory Social History never smoker, rare EtOH, denies substance abuse Physical Exam Vital Signs Vital Signs Date Time Temp Pulse Resp B/P Pulse Ox O2 Delivery O2 Flow Rate FiO2 11/16/16 04:00 98.4 63 14 151/76 96 11/16/16 00:30 98.2 48 12 143/71 98 11/15/16 22:30 98.0 55 12 125/53 97 11/15/16 20:02 98.2 55 18 132/78 98 11/15/16 20:02 55 11/15/16 20:00 98.0 55 12 125/53 97 11/15/16 16:00 97.0 49 18 140/79 99 11/15/16 12:00 96.4 50 18 120/74 99 11/15/16 08:00 97.0 50 16 120/90 98 Physical Exam GENERAL: Well-nourished, well-developed patient in no apparent distress. NECK: No JVD. No carotid bruit. CARDIOVASCULAR: Regular rate and rhythm. S1/S2 no murmur, rub, or gallop. RESPIRATORY: No accessory muscle use. Clear to auscultation. Breath sounds equal bilaterally. GASTROINTESTINAL: Abdomen soft, non-tender, nondistended. MUSCULOSKELETAL: Extremities without clubbing, cyanosis, or edema. Laboratory Laboratory Tests Test 11/15/16 08:00 White Blood Count 5.8 Red Blood Count 4.39 Hemoglobin 12.5 Hematocrit 38.3 Mean Corpuscular Volume 87.3 Mean Corpuscular Hemoglobin 28.5 Mean Corpuscular Hemoglobin 32.6 Concent Red Cell Distribution Width 13.1 Platelet Count 203 Mean Platelet Volume 9.2 Neutrophils (%) (Auto) 55.6 Lymphocytes (%) (Auto) 31.5 Monocytes (%) (Auto) 9.2 Eosinophils (%) (Auto) 2.8 Basophils (%) (Auto) 0.9 Neutrophils # (Auto) 3.2 Lymphocytes # (Auto) 1.8 Monocytes # (Auto) 0.5 Eosinophils # (Auto) 0.2 Basophils # (Auto) 0.1 CBC Comment DIFF FINAL Differential Comment Sodium Level 139 Potassium Level 3.7 Chloride Level 102 Carbon Dioxide Level 29.8 Anion Gap 7 Blood Urea Nitrogen 11 Creatinine 0.52 Estimat Glomerular Filtration 128 Rate Random Glucose 232 Calcium Level 8.6 Result Diagram: 11/15/16 0800 11/15/16 0800 Assessment and Plan Problem List: (1) CAD (coronary artery disease) (2) Chest pain, rule out acute myocardial infarction (3) Hypertension Assessment and Plan Plan is for coronary angiogram this morning, further recommendations will depend on that outcome Will start amlodipine 5 mg daily which she takes as an outpatient Chintan Roper Nov 16, 2016 07:56
[2016-11-16] MEDS ORDERED: MIDAZOLAM HCL 2 MG/2 ML VIAL IV SCH (08:00)
[2016-11-16] MEDS: SODIUM CHLOR 0.9% 1000 ML INJ 1,000 ML IV SCH (08:30)
[2016-11-16] MEDS: amLODIPine BESYLATE 5 MG TAB PO SCH (08:55)
[2016-11-16] MEDS: ASPIRIN EC 81 MG TABEC PO SCH (08:55)
[2016-11-16] MEDS: METOPROLOL TARTRATE 25 MG TAB PO SCH ×2 (08:55→20:39)
[2016-11-16] MEDS: SODIUM CHLORIDE 0.9% FLUSH 10 ML FLUSH IV FLUSH SCH ×2 (08:56→20:41)
[2016-11-16] MEDS: CLOPIDOGREL 75 MG TAB PO SCH (08:56)
[2016-11-16] MEDS: PARoxetine HCL 20 MG TAB PO SCH (09:00)
[2016-11-16] MEDS: PRAVASTATIN SOD 20 MG TAB PO SCH (09:03)
[2016-11-16] MEDS ORDERED: HEPARIN-NS/PF INJ 500 ML ONE (09:46)
[2016-11-16] MEDS ORDERED: MIDAZOLAM HCL 2 MG/2 ML VIAL ONE (09:47)
[2016-11-16] MEDS ORDERED: HEPARIN SODIUM - IV 10,000 UNITS/10 ML VIAL ONE (09:47)
[2016-11-16] MEDS ORDERED: ONDANSETRON HCL 4 MG/2 ML VIAL ONE (10:12)
[2016-11-16] MEDS: INSULIN DETEMIR 100 UNITS/ML VIAL SQ SCH ×2 (11:00→20:40)
[2016-11-16] MEDS ORDERED: BACITRACIN OINT 0.9 GM PKT TOP ONE (11:00)
[2016-11-16] MEDS ORDERED: MISC INFORMATION XX ONE (11:00)
--- NOTE | 2016-11-16 12:46 | MA ---
cc: CELESTINO CURRIE DATE 11/16/2016 PROCEDURE PERFORMED 1. Fluoroscopy with interpretation 2. Coronary angiography 3. Left heart catheterization 4. Ascending aortography METHOD The risks, benefits and alternatives discussed with the patient. The patient understood and consented to the procedure. PROCEDURE The patient brought into the catheterization lab, placed on the catheterization table. The right wrist was prepped and draped in a sterile fashion. The right wrist was anesthetized with 2% lidocaine. The right radial artery was cannulated. A 6-[place] 7 cm sheath was placed without difficulty. LEFT HEART CATHETERIZATION A 6-[place] JR-5 catheter was advanced across the aortic valve without difficulty. Intraventricular hemodynamics measured at 132/60 mmHg. CORONARY ANGIOGRAPHY 1. Left main coronary is short but angiographically normal. 2. Left anterior descending coronary has a stent present in the mid segment. The stent appears to be patent without significant stenosis. At the distal stent margin, there is some mild in-stent restenosis, estimated severity 30%. The remainder of the left anterior descending coronary is widely patent. 3. Left circumflex has minor luminal irregularities. 4. Right coronary is a dominant vessel giving rise to a posterior descending branch. The right coronary artery has minor luminal irregularities. ASCENDING AORTOGRAPHY Ascending aortography; given the patient's continued chest pain, but no significant coronary obstruction, we elected to proceed with aortography. A 6-[place] pigtail catheter was advance to the ascending aorta. Ascending aortography was performed in a left anterior oblique view using a 40 cc contrast injection with good opacification. The ascending aorta is normal in size. No dissection noted. The origin of the great vessels appear to be normal. CONCLUSIONS 1. Widely patent left anterior descending coronary stent. 2. Normal left-sided filling pressures. 3. Normal ascending aorta. PLAN The patient will have to have a workup for potentially noncardiac causes. She has had some ongoing intermittent nausea. I suspect that this may be a GI etiology. We will defer the remainder of her care to the primary care physician. MD AUGIE Cloud/JUANCHO /10:53 AM /12:42 PM
--- NOTE | 2016-11-16 12:48 | HHI.PR ---
Subjective History of Present Illness Patient s/p cardic cath. within normal limits d/w cardiology. ok to dc home today. Review of Systems Constitutional Constitutional: Fatigue, Weakness Vitals/Results Intake & Output 11/15/16 11/15/16 11/16/16 15:00 23:00 07:00 Intake Total 600 ml 240 ml Balance 600 ml 240 ml Intake Oral 600 ml 240 ml # Voids 3 2 Vital Signs Vital Signs Date Time Temp Pulse Resp B/P Pulse Ox O2 Delivery O2 Flow Rate FiO2 11/16/16 12:03 59 16 148/78 11/16/16 12:00 58 11/16/16 12:00 98.4 11/16/16 11:33 56 16 158/81 11/16/16 11:18 55 20 145/76 11/16/16 11:03 59 16 137/72 95 11/16/16 11:00 58 11/16/16 10:48 98.4 55 16 147/72 96 11/16/16 09:00 57 11/16/16 08:00 98.8 58 8 145/66 95 11/16/16 08:00 56 11/16/16 07:00 58 11/16/16 06:00 54 11/16/16 05:00 64 11/16/16 04:00 98.4 63 14 151/76 96 11/16/16 04:00 56 11/16/16 03:00 55 11/16/16 02:00 56 11/16/16 01:00 50 11/16/16 00:30 98.2 48 12 143/71 98 11/16/16 00:00 50 11/15/16 23:00 48 11/15/16 22:30 98.0 55 12 125/53 97 11/15/16 22:00 54 11/15/16 21:00 52 11/15/16 20:02 98.2 55 18 132/78 98 11/15/16 20:02 55 11/15/16 20:00 98.0 55 12 125/53 97 11/15/16 16:00 97.0 49 18 140/79 99 CBC/BMP: 11/15/16 0800 11/15/16 0800 Physical Exam General General Appearance: No Acute Distress, Comfortable Eyes Eye Exam: Pupils Equal, Pupils Reactive, Sclera White, Extraocular Movement Intact Throat Throat Exam: Oral Mucosa [place] & Moist, Oral Pharynx Normal Neck Neck Exam: Neck Supple, Trachea Midline Pulmonary Resp Exam: Clear Bilaterally, Breath Sounds Equal Cardiology CV Exam: Regular, Normal Sinus Rhythm Gastrointestinal/Abdomen GI Exam: Soft, Non-Tender, Bowel Sounds Present Musculoskeletal MS Exam: Normal Tone Integumentary Skin Exam: Clear, Warm, Dry, Intact Neurologic Neuro Exam: Alert, Awake, Oriented, Speech Clear, Moving All Extremities, No Focal Deficits VTE Prophylaxis VTE Prophylaxis Meds: Heparin PUD Prophylasis PUD Prophylaxis: Protonix Assessment/Plan Assessment/Plan ASSESSMENT/PLAN 1. This is a 46-year female who came to the ER diagnosed with chest pain rule out acute coronary syndrome. The patient is on aspirin and Plavix. The patient has a history of coronary artery disease and stenting in the past. Cardiology input noted s/p cardic cath within normal limits ok to dc home today.. 2. History of diabetes mellitus. The patient on insulin sliding scale. Monitor blood sugar closely. 3. History of hyperlipidemia. Continue pravastatin 20 mg p.o. daily. 4. History of hypertension. Continue home medication. 5. Insomnia. Continue with Ambien. 6. History of depression. Continue with Paxil. 7. DVT prophylaxis Lovenox 40 mg subcutaneous. 8. GI prophylaxis Protonix 40 mA daily. s/p cardic cath within normal limits ok to dc home today. f/u with pcp /GI 1 week condition at discharge good activity as tolerated diet regular. medicine see discharge medicine list, Discussed Condition with: Patient Hector Arroyo MD Nov 16, 2016 12:48
[2016-11-16] MEDS ORDERED: diphenhydrAMINE HCL 25 MG CAP PO ONE (21:15)
[2016-11-17] VITALS (9 sets, daily range): BP systolic 119–123; BP diastolic 63–75; PULSE 46–54; RESP 14–16; TEMP 97.8–97.9; O2SAT 95–96
[2016-11-17] MEDS: MORPHINE SULFATE 4 MG/ML INJ IV PRN (05:56)
[2016-11-17] MEDS: NITROGLYCERIN 2% OINT 1 GM PACKET TOPICAL SCH (05:57)
[2016-11-17] MEDS: INSULIN ASPART SUPPLEMENTAL SCALE SQ SCH (06:00)
[2016-11-17 06:22] LABS: POTASSIUM 3.5 MEQ/L (3.5-5.1)
[2016-11-17 06:59] LABS: BASOPHIL # 0.1 TH/MM3 (0-0.2); BASOPHIL % 0.7 % (0.0-2.0); EOSINOPHIL # 0.1 TH/MM3 (0-0.4); EOSINOPHIL % 1.7 % (0.0-4.0); HEMATOCRIT 34.6 % (35.0-46.0); HEMO FLAGS DIFF FINAL; LYMPH % 31.9 % (9.0-44.0); LYMPHOCYTE # 2.2 TH/MM3 (1.0-4.8); MEAN CELL VOLUME 86.5 FL (80.0-100.0); MEAN CORPUSCULAR HGB CONC 33.6 % (32.0-36.0); MONO % 8.9 % (0.0-8.0); NEUT % 56.8 % (16.0-70.0); PLATELET COUNT 188 TH/MM3 (150-450); RED BLOOD COUNT 3.99 MIL/MM3 (4.00-5.30); RED CELL DISTRIBUTION WIDTH 13.5 % (11.6-17.2)
[2016-11-17] MEDS: SODIUM CHLOR 0.9% 1000 ML INJ 1,000 ML IV SCH ×3 (09:20→09:21)
[2016-11-17] MEDS: SODIUM CHLORIDE 0.9% FLUSH 10 ML FLUSH IV FLUSH SCH (09:21)
[2016-11-17] MEDS: CLOPIDOGREL 75 MG TAB PO SCH (09:22)
[2016-11-17] MEDS: ASPIRIN EC 81 MG TABEC PO SCH (09:22)
[2016-11-17] MEDS: PARoxetine HCL 20 MG TAB PO SCH (09:23)
[2016-11-17] MEDS: amLODIPine BESYLATE 5 MG TAB PO SCH (09:23)
[2016-11-17] MEDS: INSULIN DETEMIR 100 UNITS/ML VIAL SQ SCH (09:23)
[2016-11-17] MEDS: METOPROLOL TARTRATE 25 MG TAB PO SCH (09:23)
[2016-11-17] MEDS: PRAVASTATIN SOD 20 MG TAB PO SCH (09:23)
--- NOTE | 2016-11-17 09:32 | HHI.PR ---
Subjective History of Present Illness Patient s/p cardic cath. within normal limits d/w cardiology. ok to dc home today. Review of Systems Constitutional Constitutional: Fatigue, Weakness Vitals/Results Intake & Output 11/16/16 11/16/16 11/17/16 15:00 23:00 07:00 Intake Total 925 ml 720 ml Output Total 600 ml 200 ml Balance 325 ml 520 ml Intake Oral 425 ml 720 ml IV Total 500 ml Output Urine Total 600 ml 200 ml # Voids 6 3 Vital Signs Vital Signs Date Time Temp Pulse Resp B/P Pulse Ox O2 Delivery O2 Flow Rate FiO2 11/17/16 08:00 97.9 51 16 121/75 96 11/17/16 07:00 46 11/17/16 06:00 50 11/17/16 05:00 50 11/17/16 04:00 97.8 54 14 123/66 96 11/17/16 04:00 50 11/17/16 03:00 53 11/17/16 02:00 50 11/17/16 01:00 48 11/17/16 00:00 50 11/17/16 00:00 97.9 49 14 119/63 95 11/16/16 23:00 51 11/16/16 22:00 54 11/16/16 21:00 60 11/16/16 20:00 99.0 68 14 126/70 96 11/16/16 20:00 58 11/16/16 19:00 61 11/16/16 18:00 66 11/16/16 17:33 98.4 68 18 150/72 11/16/16 17:00 68 11/16/16 16:33 66 16 126/82 11/16/16 16:00 68 11/16/16 16:00 98.5 128/66 11/16/16 15:33 144/82 11/16/16 15:00 80 11/16/16 15:00 80 11/16/16 14:33 80 20 145/80 11/16/16 14:00 68 11/16/16 13:33 68 16 158/81 11/16/16 13:03 58 18 145/78 11/16/16 13:00 56 11/16/16 12:33 98.5 55 26 141/75 11/16/16 12:03 59 16 148/78 11/16/16 12:00 58 3/31/17 12:00 98.4 11/16/16 11:33 56 16 158/81 11/16/16 11:18 55 20 145/76 11/16/16 11:03 59 16 137/72 95 11/16/16 11:00 58 11/16/16 10:48 98.4 55 16 147/72 96 CBC/BMP: 11/17/16 0518 11/17/16 0518 Lab Results Laboratory Tests Test 11/17/16 05:18 White Blood Count 7.0 TH/MM3 Red Blood Count 3.99 MIL/MM3 Hemoglobin 11.6 GM/DL Hematocrit 34.6 % Mean Corpuscular Volume 86.5 FL Mean Corpuscular Hemoglobin 29.0 PG Mean Corpuscular Hemoglobin 33.6 % Concent Red Cell Distribution Width 13.5 % Platelet Count 188 TH/MM3 Mean Platelet Volume 9.1 FL Neutrophils (%) (Auto) 56.8 % Lymphocytes (%) (Auto) 31.9 % Monocytes (%) (Auto) 8.9 % Eosinophils (%) (Auto) 1.7 % Basophils (%) (Auto) 0.7 % Neutrophils # (Auto) 4.0 TH/MM3 Lymphocytes # (Auto) 2.2 TH/MM3 Monocytes # (Auto) 0.6 TH/MM3 Eosinophils # (Auto) 0.1 TH/MM3 Basophils # (Auto) 0.1 TH/MM3 CBC Comment DIFF FINAL Differential Comment Sodium Level 136 MEQ/L Potassium Level 3.5 MEQ/L Chloride Level 102 MEQ/L Carbon Dioxide Level 27.0 MEQ/L Anion Gap 7 MEQ/L Blood Urea Nitrogen 8 MG/DL Creatinine 0.44 MG/DL Estimat Glomerular Filtration 155 ML/MIN Rate Random Glucose 253 MG/DL Calcium Level 9.0 MG/DL Physical Exam General General Appearance: No Acute Distress, Comfortable Eyes Eye Exam: Pupils Equal, Pupils Reactive, Sclera White, Extraocular Movement Intact Throat Throat Exam: Oral Mucosa [place] & Moist, Oral Pharynx Normal Neck Neck Exam: Neck Supple, Trachea Midline Pulmonary Resp Exam: Clear Bilaterally, Breath Sounds Equal Cardiology CV Exam: Regular, Normal Sinus Rhythm Gastrointestinal/Abdomen GI Exam: Soft, Non-Tender, Bowel Sounds Present Musculoskeletal MS Exam: Normal Tone Integumentary Skin Exam: Clear, Warm, Dry, Intact Neurologic Neuro Exam: Alert, Awake, Oriented, Speech Clear, Moving All Extremities, No Focal Deficits VTE Prophylaxis VTE Prophylaxis Meds: Heparin PUD Prophylasis PUD Prophylaxis: Protonix Assessment/Plan Assessment/Plan ASSESSMENT/PLAN 1. This is a 46-year female who came to the ER diagnosed with chest pain rule out acute coronary syndrome. The patient is on aspirin and Plavix. The patient has a history of coronary artery disease and stenting in the past. Cardiology input noted s/p cardic cath within normal limits ok to dc home today.. 2. History of diabetes mellitus. The patient on insulin sliding scale. Monitor blood sugar closely. 3. History of hyperlipidemia. Continue pravastatin 20 mg p.o. daily. 4. History of hypertension. Continue home medication. 5. Insomnia. Continue with Ambien. 6. History of depression. Continue with Paxil. 7. DVT prophylaxis Lovenox 40 mg subcutaneous. 8. GI prophylaxis Protonix 40 mA daily. s/p cardic cath within normal limits ok to dc home today. f/u with pcp /GI 1 week condition at discharge good activity as tolerated diet regular. medicine see discharge medicine list, Discussed Condition with: Patient Hector Arroyo MD Nov 17, 2016 09:32
== END 2016-11-17 11:00 | disposition home or self-care (01) ==
LOC: PHED 08:42 → PHEDA 12:54 → PHEDH 16:54 → PH3A 21:27 → HCIS 11-15 20:38
PROVIDERS: ADMIT Family Medicine; ATTEND Family Medicine
DX: I25.10 Atherosclerotic heart disease of native coronary artery without angina pectoris (principal); T82.855A Stenosis of coronary artery stent, initial encounter; I10 Essential (primary) hypertension; E78.5 Hyperlipidemia, unspecified; E11.9 Type 2 diabetes mellitus without complications; F41.9 Anxiety disorder, unspecified; F32.9 Major depressive disorder, single episode, unspecified; K21.9 Gastro-esophageal reflux disease without esophagitis; G47.00 Insomnia, unspecified; E78.00 Pure hypercholesterolemia, unspecified; Z79.02 Long term (current) use of antithrombotics/antiplatelets; Z95.5 Presence of coronary angioplasty implant and graft; Z79.82 Long term (current) use of aspirin; Z79.4 Long term (current) use of insulin; Z88.8 Allergy status to other drugs, medicaments and biological substances; Y83.1 Surgical operation with implant of artificial internal device as the cause of abnormal reaction of the patient, or of later complication, without mention of misadventure at the time of the procedure
CPT/HCPCS: 71010; 71275; 74174; 80048; 80053; 82550; 82948; 83735; 83880; 84484; 84703; 85025; 85610; 85730; 93005; 93454; 93458; 93567; 96361; 96374; 99285; C1769; C1893; G0378; J1644; J1650; J1815; J2250; J2270; J2405; J3010; J7030; J7040; Q9967; C1760

== ENCOUNTER 2017-02-06 08:47 | Emergency (ER) | payer BC ==
[~2017-02-06] VITALS: Ht 165.1 cm; Wt 100.0 kg
[~2017-02-06 08:47] MED LIST changes: -AMLO2.5T PO
[2017-02-06 08:55] VITALS: BP 166/74; PULSE 69; RESP 20; TEMP 97.8; O2SAT 97
[2017-02-06 09:11] VITALS: O2SAT 97
--- NOTE | 2017-02-06 09:12 | PD ---
HPI Chief Complaint: Chest Pain Time Seen by Provider: 08:53 Travel History International Travel<30 days: No Contact w/Intl Traveler<30days: No Traveled to known affect area: No History of Present Illness HPI The patient is a 46-year-old female who presents emergency department for left-sided chest pain. The patient states her chest pain started yesterday , initially was intermittent, now is constant since last evening. The pain is described as pressure, gripping, nonradiating, and associated mild nausea, diaphoresis, and shortness of breath. The patient does have a history of CAD with previous stent placement, one stent placed by Dr. Lai and 2 stents placed by her products mechanical design engineer, Dr. Cardoso. The patient does have a history of hypertension, hyperlipidemia, CAD with previous stent placement, and significant family medical history. The patient denies any recent exertional symptoms. The patient's symptoms are moderate, there are no current alleviating or exacerbating factors. The patient did take her aspirin, Plavix, and nitroglycerin sublingual prior to arrival without any alleviation of her symptoms. She denies any history pancreatitis or gallbladder-related pathology. She does have a history of GERD but denies any history of esophageal spasm. PFSH Past Medical History Hx Anticoagulant Therapy: Yes Arthritis: No Autoimmune Disease: No Anxiety: Yes Depression: Yes Heart Rhythm Problems: Yes (MURMUR) Cancer: No Cardiac Catheterization: Yes Cardiovascular Problems: Yes High Cholesterol: Yes Chest Pain: Yes Congestive Heart Failure: No Cerebrovascular Accident: No Coronary Artery Disease: Yes Diabetes: Yes (INSULIN DEPENDENT) Dialysis: No Diminished Hearing: No Endocrine: Yes GERD: Yes Glaucoma: No Genitourinary: No Headaches: Yes Hepatitis: No Hiatal Hernia: No Hypertension: Yes Immune Disorder: No Implanted Vascular Access Dvce: Yes Kidney Stones: No Musculoskeletal: Yes Neurologic: Yes ( ) Psychiatric: Yes Reproductive: No Respiratory: No Integumentary: No Immunizations Current: Yes Migraines: No Myocardial Infarction: No Seizures: No Thyroid Disease: No Ulcer: No PNEUMOCCOCAL Vaccine (Year): 2 ?: Not : 2 Para: 2 Miscarriage: 0 : 0 Tubal Ligation: Yes Past Surgical History Abdominal Surgery: No Body Medical Devices: CARDIAC STENT X3 Cardiac Surgery: Yes (stent x 3.) Section: Yes (X2) Coronary Artery Bypass Graft: No Coronary Stent: Yes (X 3 2013, 2013, 2015) Ear Surgery: No Endocrine Surgery: No Eye Surgery: No Genitourinary Surgery: No Gynecologic Surgery: Yes ( X 2 /tubal) Thoracic Surgery: No Other Surgery: Yes (STENTS X3) Social History Alcohol Use: No Tobacco Use: No Substance Use: No Allergies-Medications (Allergen,Severity, Reaction): Coded Allergies: Prednisone (Verified Allergy, Severe, 02/06/17) Uncoded Allergies: STEROIDS (Allergy, Severe, Anaphylaxis, 03/18/14) Reported Meds & Prescriptions Reported Meds & Active Scripts Active Pravastatin 20 Mg Tab 20 Mg PO DAILY Plavix (Clopidogrel Bisulfate) 75 Mg Tab 75 Mg PO DAILY Reported Bupropion HCl ER 24 HR (Bupropion HCl) 150 Mg Tab 150 Mg PO DAILY Novolog Inj (Insulin Aspart) 1,000 Unit/10 Ml Vial 0 SQ TID PRN Sliding Scale as directed. Nitrostat SL (Nitroglycerin) 0.4 Mg Subl 0.4 Mg SL DIRECTED PRN 1 tablet under the tongue as needed for chest pain. Repeat every 5 minutes for a total of 3 DOSES or call 911 if NO relief. Metoprolol Tartrate 25 Mg Tab 25 Mg PO BID Levemir Inj (Insulin Detemir) 1,000 unit/ 10 ML Vial 5 Units SQ BID Do not mix with any other Insulin. Aspirin 81 (Aspirin) 81 Mg Tabdr 81 Mg PO DAILY Review of Systems Except as stated in HPI: all other systems reviewed are Neg General / Constitutional: No: Fever HENT: No: Lightheadedness Cardiovascular: Positive: Chest Pain or Discomfort, Diaphoresis, No: Dyspnea on exertion Respiratory: Positive: Shortness of Breath Gastrointestinal: Positive: Nausea, No: Vomiting, Abdominal Pain Musculoskeletal: No: Edema Neurologic: No: Dizziness Physical Exam Narrative GENERAL: Awake, alert, pleasant 46-year-old female who appears her stated age and is in no acute respiratory distress. SKIN: Focused skin assessment warm/dry. HEAD: Atraumatic. Normocephalic. Thinning of the hair noted. EYES: Pupils equal and round. No scleral icterus. No injection or drainage. ENT: No nasal bleeding or discharge. Mucous membranes pink and moist. NECK: Trachea midline. No JVD. CARDIOVASCULAR: Regular rate and rhythm. No murmur appreciated. RESPIRATORY: No accessory muscle use. Clear to auscultation. Breath sounds equal bilaterally. GASTROINTESTINAL: Abdomen soft, non-tender, nondistended. No rebound tenderness. Negative Harvey's. No epigastric tenderness. MUSCULOSKELETAL: No obvious deformities. No clubbing. No cyanosis. No edema. NEUROLOGICAL: Awake and alert. No obvious cranial nerve deficits. Motor grossly within normal limits. Normal speech. PSYCHIATRIC: Appropriate mood and affect; insight and judgment normal. Data Data Last Documented VS Vital Signs Date Time Temp Pulse Resp B/P Pulse Ox O2 Delivery O2 Flow Rate FiO2 02/06/17 12:20 58 18 108/55 97 Room Air 02/06/17 08:55 97.8 Orders Electrocardiogram (02/06/17 09:05) Basic Metabolic Panel (Bmp) (02/06/17 09:05) Ckmb (Isoenzyme) Profile (02/06/17 09:05) Complete Blood Count With Diff (02/06/17 09:05) Magnesium (Mg) (02/06/17 09:05) Prothrombin Time / Inr (Pt) (02/06/17 09:05) Act Partial Throm Time (Ptt) (02/06/17 09:05) Troponin I (02/06/17 09:05) Lipase (02/06/17 09:05) Chest, Single Ap (02/06/17 09:05) Ecg Monitoring (02/06/17 09:05) Bilateral Bp Monitoring (02/06/17 09:05) Iv Access Insert/Monitor (02/06/17 09:05) Oximetry (02/06/17 09:05) Oxygen Administration (02/06/17 09:05) Morphine Inj (Morphine Inj) (02/06/17 09:15) Nitroglycerin 2% Oint (Nitroglycerin 2% (02/06/17 09:15) Sodium Chloride 0.9% Flush (Ns Flush) (02/06/17 09:15) Sodium Chlorid 0.9% 500 Ml Inj (Ns 500 M (02/06/17 09:15) Ondansetron Inj (Zofran Inj) (02/06/17 09:15) Insulin Aspart Inj (Novolog Inj) (02/06/17 09:45) Ketorolac Inj (Toradol Inj) (02/06/17 10:30) Morphine Inj (Morphine Inj) (02/06/17 10:30) Troponin I (02/06/17 12:10) Labs Laboratory Tests Test 02/06/17 02/06/17 09:10 12:08 White Blood Count 8.5 TH/MM3 Red Blood Count 5.32 MIL/MM3 Hemoglobin 14.8 GM/DL Hematocrit 46.3 % Mean Corpuscular Volume 87.0 FL Mean Corpuscular Hemoglobin 27.8 PG Mean Corpuscular Hemoglobin 31.9 % Concent Red Cell Distribution Width 13.3 % Platelet Count 269 TH/MM3 Mean Platelet Volume 9.0 FL Neutrophils (%) (Auto) 59.8 % Lymphocytes (%) (Auto) 29.9 % Monocytes (%) (Auto) 6.2 % Eosinophils (%) (Auto) 3.5 % Basophils (%) (Auto) 0.6 % Neutrophils # (Auto) 5.1 TH/MM3 Lymphocytes # (Auto) 2.5 TH/MM3 Monocytes # (Auto) 0.5 TH/MM3 Eosinophils # (Auto) 0.3 TH/MM3 Basophils # (Auto) 0.1 TH/MM3 CBC Comment DIFF FINAL Differential Comment Prothrombin Time 10.0 SEC Prothromb Time International 0.9 RATIO Ratio Activated Partial 28.3 SEC Thromboplast Time Sodium Level 136 MEQ/L Potassium Level 4.0 MEQ/L Chloride Level 98 MEQ/L Carbon Dioxide Level 24.9 MEQ/L Anion Gap 11 MEQ/L Blood Urea Nitrogen 9 MG/DL Creatinine 0.40 MG/DL Estimat Glomerular Filtration 173 ML/MIN Rate Random Glucose 360 MG/DL Calcium Level 9.3 MG/DL Magnesium Level 1.8 MG/DL Total Creatine Kinase 47 U/L Troponin I LESS THAN 0.02 LESS THAN 0.02 NG/ML NG/ML Lipase 103 U/L Exceptions Acute Myocardial Infarction ASA Not Given on Arrival: Already taken by patient MDM Medical Decision Making Medical Screen Exam Complete: Yes Emergency Medical Condition: Yes Medical Record Reviewed: Yes Interpretation(s) EKG reveals normal sinus rhythm with a rate of 70. Inverted T waves noted in lead 3. No significant ST elevations or depressions noted. Last Impressions Chest X-Ray 02/06/17904 Signed Impressions: Service Date/Time: Monday, February 06, 2017 09:13 - CONCLUSION: 1. No acute cardiopulmonary findings identified. Bertin Peña MD Laboratory Tests Test 02/06/17 09:10 White Blood Count 8.5 TH/MM3 Red Blood Count 5.32 MIL/MM3 Hemoglobin 14.8 GM/DL Hematocrit 46.3 % Mean Corpuscular Volume 87.0 FL Mean Corpuscular Hemoglobin 27.8 PG Mean Corpuscular Hemoglobin 31.9 % Concent Red Cell Distribution Width 13.3 % Platelet Count 269 TH/MM3 Mean Platelet Volume 9.0 FL Neutrophils (%) (Auto) 59.8 % Lymphocytes (%) (Auto) 29.9 % Monocytes (%) (Auto) 6.2 % Eosinophils (%) (Auto) 3.5 % Basophils (%) (Auto) 0.6 % Neutrophils # (Auto) 5.1 TH/MM3 Lymphocytes # (Auto) 2.5 TH/MM3 Monocytes # (Auto) 0.5 TH/MM3 Eosinophils # (Auto) 0.3 TH/MM3 Basophils # (Auto) 0.1 TH/MM3 CBC Comment DIFF FINAL Differential Comment Prothrombin Time 10.0 SEC Prothromb Time International 0.9 RATIO Ratio Activated Partial 28.3 SEC Thromboplast Time Sodium Level 136 MEQ/L Potassium Level 4.0 MEQ/L Chloride Level 98 MEQ/L Carbon Dioxide Level 24.9 MEQ/L Anion Gap 11 MEQ/L Blood Urea Nitrogen 9 MG/DL Creatinine 0.40 MG/DL Estimat Glomerular Filtration 173 ML/MIN Rate Random Glucose 360 MG/DL Calcium Level 9.3 MG/DL Magnesium Level 1.8 MG/DL Total Creatine Kinase 47 U/L Troponin I LESS THAN 0.02 NG/ML Lipase 103 U/L Second troponin is less than 0.02 Differential Diagnosis Differential diagnoses includes ACS, GERD, esophageal spasm, pulmonary embolism , pneumonia, atelectasis, pancreatitis, biliary colic. Narrative Course IV was established, labs are drawn and sent, and the patient was placed on cardiac telemetry monitoring and continuous pulse oximetry monitoring. EKG was ordered and interpreted. Chest x-ray was obtained. The patient took aspirin and Plavix as well as nitroglycerin sublingual prior to arrival, without any alleviation of her symptoms. Therefore, the patient was administered IV fluids , morphine, Zofran, and Nitropaste. I reviewed the patient's EMR, she had a negative nuclear medicine myocardial perfusion scan performed on August 20, 2016 , negative, low risk. She also had a cardiac catheterization perform are 2016 by her products mechanical design engineer, Dr. Cardoso, which revealed widely patent arteries, possible 30% stenosis of distal stent, but no intervention indicated at that time. The patient was reassessed at 10:20 AM, still has pain. Therefore, patient was administered Morphine and Toradol, her initial troponin was negative. Dr. Cardoso was paged at 10:22 AM. I discussed the patient with Dr. Cardoso at 10:26 AM who states that if the patient's to enzymes are negative she can be discharged home on Imdur and follow-up as an outpatient, she recently had a negative cardiac catheterization. She may have some small vessel disease that is not amenable to catheterization/stent placement. The patient's second troponin is less than 0.02. The patient will be discharged home, she'll be placed on low-dose Imdur and is advised to follow-up with her primary physician for possible referral to GI. Patient agrees and understands. Diagnosis Primary Impression: Chest pain Qualified Code: R07.9 - Chest pain, unspecified type Patient Instructions: General Instructions, Narcotic given in the ED Additional Instructions: Work excuse for 3 days. Imdur as directed. Follow-up with her primary physician, you may benefit from outpatient referral to gastroenterology. Return if symptoms worsen or progress. Please provide the patient a copy of her x-ray results and lab results at discharge. Med/Other Pt SpecificInfo: Prescription(s) given Scripts Isosorbide Mononitrate ER 30 Mg Taber30 Mg PO DAILY #30 TAB Ref 0 Prov:Philip Torres MD 02/06/17 Disposition: 01 DISCHARGE HOME Condition: Stable Philip Torres MD Feb 06, 2017 09:12
[2017-02-06] MEDS ORDERED: SODIUM CHLORID 0.9% 500 ML INJ 500 ML IV ONE (09:15)
[2017-02-06] MEDS ORDERED: MORPHINE SULFATE 4 MG/ML INJ IV PUSH ONE ×2 (09:15→10:30)
[2017-02-06] MEDS ORDERED: SODIUM CHLORIDE 0.9% FLUSH 10 ML FLUSH IVF PRN (09:15)
[2017-02-06] MEDS ORDERED: ONDANSETRON HCL 4 MG/2 ML VIAL IV PUSH ONE (09:15)
[2017-02-06] MEDS ORDERED: NITROGLYCERIN 2% OINT 1 GM PACKET TOP ONE (09:15)
[2017-02-06 09:20] VITALS: BP_SYST 148; BP_SYST 166; BP_DIAS 74; BP_DIAS 76; PULSE 69
[2017-02-06 09:29] LABS: APTT (PATIENT) 28.3 SEC (24.3-30.1); AUTOMATED NEUTROPHIL # 5.1 TH/MM3 (1.8-7.7); BASOPHIL # 0.1 TH/MM3 (0-0.2); BASOPHIL % 0.6 % (0.0-2.0); EOSINOPHIL # 0.3 TH/MM3 (0-0.4); EOSINOPHIL % 3.5 % (0.0-4.0); HEMATOCRIT 46.3 % (35.0-46.0); HEMO FLAGS DIFF FINAL; INTERNATIONAL NORMALIZED RATIO 0.9 RATIO; LYMPH % 29.9 % (9.0-44.0); LYMPHOCYTE # 2.5 TH/MM3 (1.0-4.8); MEAN CORPUSCULAR HEMOGLOBIN 27.8 PG (27.0-34.0); MEAN CORPUSCULAR HGB CONC 31.9 % (32.0-36.0); MONO % 6.2 % (0.0-8.0); NEUT % 59.8 % (16.0-70.0); PLATELET COUNT 269 TH/MM3 (150-450); RED BLOOD COUNT 5.32 MIL/MM3 (4.00-5.30); RED CELL DISTRIBUTION WIDTH 13.3 % (11.6-17.2); WHITE BLOOD COUNT 8.5 TH/MM3 (4.0-11.0)
--- NOTE | 2017-02-06 09:30 | RADRPT ---
EXAM DATE/TIME: 02/06/2017 09:13 [facility] COMPARISON: CHEST SINGLE AP, November 14, 2016, 9:02. INDICATIONS : Chest pain. MEDICAL HISTORY : Hypercholesterolemia. Myocardial infarction. Gastroesophageal reflux disease. CAD. Hear murmur. D iabetic. SURGICAL HISTORY : section. Tubal ligation. Cardiac cath w/stent. ENCOUNTER: Initial ACUITY: 1 day PAIN SCORE: 7/10 LOCATION: chest FINDINGS: A single view of the chest demonstrates the lungs to be symmetrically aerated without evidence of mas s, infiltrate or effusion. The cardiomediastinal contours are unremarkable. Osseous structures are intact. CONCLUSION: 1. No acute cardiopulmonary findings identified. Bertin Peña MD on February 06, 2017 at 9:28 Board Certified Radiologist. This report was verified electronically.
[2017-02-06 09:33] LABS: BLOOD UREA NITROGEN 9 MG/DL (7-18); CHLORIDE 98 MEQ/L (98-107); GLOMERULAR FILTRATION RATE 173 ML/MIN (>89); SODIUM (NA) 136 MEQ/L (136-145)
[2017-02-06] MEDS ORDERED: INSULIN ASPART 1,000 UNITS/10 ML VIAL SQ ONE (09:45)
--- NOTE | 2017-02-06 09:50 | EKG ---
Date Performed: 02/06/2017 Time Performed: 08:54:36 PTAGE: 46 years EKG: Sinus rhythm NORMAL ECG NO PREVIOUS TRACING DOCTOR: Harry Natarajan Interpretating Date/Time 02/06/2017 09:49:24
[2017-02-06] MEDS ORDERED: BUPR150T3 PO (10:00)
[2017-02-06 10:04] LABS: ANION GAP 11 MEQ/L (5-15); BICARBONATE 24.9 MEQ/L (21.0-32.0); MAGNESIUM 1.8 MG/DL (1.5-2.5)
[2017-02-06 10:17] LABS: CREATINE KINASE 47 U/L (26-192)
[2017-02-06 10:20] VITALS: BP 132/69; PULSE 58; RESP 18; O2SAT 96
[2017-02-06] MEDS ORDERED: KETOROLAC TROMETHAMINE 30 MG/ML (IVP) VIAL IV PUSH ONE (10:30)
[2017-02-06 11:20] VITALS: BP 106/60; PULSE 55; RESP 18; O2SAT 95
[2017-02-06 12:20] VITALS: BP 108/55; PULSE 58; RESP 18; O2SAT 97
[2017-02-06] MEDS ORDERED: ISOS30TA3 PO (12:40)
== END 2017-02-06 13:03 | disposition home or self-care (01) ==
LOC: PHED 08:47
DX: R07.9 Chest pain, unspecified (principal); R11.0 Nausea; R61 Generalized hyperhidrosis; R06.02 Shortness of breath; E78.00 Pure hypercholesterolemia, unspecified; I10 Essential (primary) hypertension; E78.5 Hyperlipidemia, unspecified; I25.10 Atherosclerotic heart disease of native coronary artery without angina pectoris; E11.9 Type 2 diabetes mellitus without complications; K21.9 Gastro-esophageal reflux disease without esophagitis; Z95.5 Presence of coronary angioplasty implant and graft; Z79.01 Long term (current) use of anticoagulants
CPT/HCPCS: 71010; 80048; 82550; 83690; 83735; 84484; 85025; 85610; 85730; 93005; 96361; 96372; 96374; 96375; 96376; 99285; J1815; J1885; J2270; J2405; J7040

== ENCOUNTER 2017-02-21 08:08 | Observation (INO) | payer BC ==
[2017-02-21] VITALS (10 sets, daily range): BP systolic 141–167; BP diastolic 65–72; PULSE 50–142; RESP 18; TEMP 96.6–98.5; O2SAT 97–99
[~2017-02-21] VITALS: Ht 165.1 cm; Wt 95.0 kg
[~2017-02-21 08:08] MED LIST changes: +BUPR150T3 PO; +ISOS30TA3 PO; -PAXI20TA PO
[2017-02-21] MEDS ORDERED: SODIUM CHLOR 0.9% 1000 ML INJ 1,000 ML IV ONE ×2 (08:20→09:45)
[2017-02-21] MEDS ORDERED: MECLIZINE HCL 25 MG TAB PO ONE (08:30)
[2017-02-21] MEDS ORDERED: ONDANSETRON ODT 4 MG TAB PO/SL ONE (08:30)
[2017-02-21] MEDS ORDERED: SODIUM CHLORIDE 0.9% FLUSH 10 ML FLUSH IVF PRN (08:30)
[2017-02-21 08:40] LABS: AUTOMATED NEUTROPHIL # 4.1 TH/MM3 (1.8-7.7); BASOPHIL # 0.1 TH/MM3 (0-0.2); BASOPHIL % 0.9 % (0.0-2.0); EOSINOPHIL # 0.2 TH/MM3 (0-0.4); EOSINOPHIL % 2.4 % (0.0-4.0); HEMATOCRIT 39.7 % (35.0-46.0); HEMO FLAGS DIFF FINAL; LYMPH % 28.5 % (9.0-44.0); LYMPHOCYTE # 1.9 TH/MM3 (1.0-4.8); MEAN CELL VOLUME 86.1 FL (80.0-100.0); MEAN CORPUSCULAR HEMOGLOBIN 28.6 PG (27.0-34.0); MEAN CORPUSCULAR HGB CONC 33.2 % (32.0-36.0); NEUT % 61.2 % (16.0-70.0); PLATELET COUNT 211 TH/MM3 (150-450); RED BLOOD COUNT 4.61 MIL/MM3 (4.00-5.30); RED CELL DISTRIBUTION WIDTH 14.2 % (11.6-17.2); WHITE BLOOD COUNT 6.8 TH/MM3 (4.0-11.0)
--- NOTE | 2017-02-21 08:49 | PD ---
HPI Chief Complaint: Syncope/Near-Syncope Time Seen by Provider: 08:19 Travel History International Travel<30 days: No Contact w/Intl Traveler<30days: No Traveled to known affect area: No History of Present Illness HPI 46-year-old female arrives to the ER due to syncope while working. 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 While working this morning she became very weak and dizzy, vertiginous in nature. She went to sit down and then lost consciousness. EMS reports blood pressure on scene of 144/68 with a heart rate of 53 and an O2 sat of 99% and a fingerstick glucose of 323. She reports feeling generally quite weak for the past couple days. There has been no new or different medication or change in medications. The right at the time of onset of the loss of consciousness and she experienced some sweating and nausea. In the ER she describes some mild lightheadedness however has had no chest pain or shortness of breath. She's had no abdominal pain. No blood in her stool has been observed recently. PFSH Past Medical History Hx Anticoagulant Therapy: Yes Arthritis: No Autoimmune Disease: No Anxiety: Yes Depression: Yes Heart Rhythm Problems: Yes (MURMUR) Cancer: No Cardiac Catheterization: Yes Cardiovascular Problems: Yes High Cholesterol: Yes Chest Pain: Yes Congestive Heart Failure: No Cerebrovascular Accident: No Coronary Artery Disease: Yes Diabetes: Yes (INSULIN DEPENDENT) Patient Takes Glucophage: No Dialysis: No Diminished Hearing: No Endocrine: Yes GERD: Yes Glaucoma: No Genitourinary: No Headaches: Yes Hepatitis: No Hiatal Hernia: No Hypertension: Yes Immune Disorder: No Implanted Vascular Access Dvce: Yes Kidney Stones: No Musculoskeletal: Yes Neurologic: Yes ( ) Psychiatric: Yes Reproductive: No Respiratory: No Integumentary: No Immunizations Current: Yes Migraines: No Myocardial Infarction: No Seizures: No Thyroid Disease: No Ulcer: No Tetanus Vaccination: > 5 Years Influenza Vaccination: Yes PNEUMOCCOCAL Vaccine (Year): 2 ?: Not : 2 Para: 2 Miscarriage: 0 : 0 Tubal Ligation: Yes Past Surgical History Abdominal Surgery: No Body Medical Devices: CARDIAC STENT X3 Cardiac Surgery: Yes (stent x 3.) Section: Yes (X2) Coronary Artery Bypass Graft: No Coronary Stent: Yes (X 3 2012, 2013, 2014) Ear Surgery: No Endocrine Surgery: No Eye Surgery: No Genitourinary Surgery: No Gynecologic Surgery: Yes ( X 2 /tubal) Thoracic Surgery: No Other Surgery: Yes (STENTS X3) Family History Family Myocardial Infarction: Yes (FATHER AND MOTHER BOTH ALIVE) Social History Alcohol Use: No Tobacco Use: No Substance Use: No Allergies-Medications (Allergen,Severity, Reaction): Coded Allergies: Prednisone (Verified Allergy, Severe, 02/21/17) Uncoded Allergies: STEROIDS (Allergy, Intermediate, Anaphylaxis, 02/21/17) Reported Meds & Prescriptions Reported Meds & Active Scripts Active Isosorbide Mononitrate ER (Isosorbide Mononitrate) 30 Mg Hayes 30 Mg PO DAILY Pravastatin 20 Mg Tab 20 Mg PO DAILY Plavix (Clopidogrel Bisulfate) 75 Mg Tab 75 Mg PO DAILY Reported Bupropion HCl ER 24 HR (Bupropion HCl) 150 Mg Tab 150 Mg PO DAILY Novolog Inj (Insulin Aspart) 1,000 Unit/10 Ml Vial 0 SQ TID PRN Sliding Scale as directed. Nitrostat SL (Nitroglycerin) 0.4 Mg Subl 0.4 Mg SL DIRECTED PRN 1 tablet under the tongue as needed for chest pain. Repeat every 5 minutes for a total of 3 DOSES or call 911 if NO relief. Metoprolol Tartrate 25 Mg Tab 25 Mg PO BID Levemir Inj (Insulin Detemir) 1,000 unit/ 10 ML Vial 5 Units SQ BID Do not mix with any other Insulin. Aspirin 81 (Aspirin) 81 Mg Tabdr 81 Mg PO DAILY Review of Systems Except as stated in HPI: all other systems reviewed are Neg General / Constitutional: No: Fever Cardiovascular: Positive: Diaphoresis, Syncope Physical Exam Narrative GENERAL: 46-year-old female pleasant well-nourished well-developed SKIN: Focused skin assessment warm/dry. HEAD: Atraumatic. Normocephalic. EYES: Pupils equal and round. No scleral icterus. No injection or drainage. ENT: No nasal bleeding or discharge. Mucous membranes pink and moist. NECK: Trachea midline. No JVD. CARDIOVASCULAR: Regular rate and rhythm. No murmur appreciated. RESPIRATORY: No accessory muscle use. Clear to auscultation. Breath sounds equal bilaterally. GASTROINTESTINAL: Abdomen soft, non-tender, nondistended. Hepatic and splenic margins not palpable. MUSCULOSKELETAL: No obvious deformities. No clubbing. No cyanosis. No edema. NEUROLOGICAL: Awake and alert. No obvious cranial nerve deficits. Motor grossly within normal limits. Normal speech. PSYCHIATRIC: Appropriate mood and affect; insight and judgment normal. Data Data Last Documented VS Vital Signs Date Time Temp Pulse Resp B/P Pulse Ox O2 Delivery O2 Flow Rate FiO2 02/21/17 08:36 18 97 Room Air 02/21/17 08:32 54 162/72 57 157/68 70 144/65 02/21/17 08:22 98.5 Orders Electrocardiogram (02/21/17 08:20) Basic Metabolic Panel (Bmp) (02/21/17 08:20) Ed Urine Pregnancytest Poc (02/21/17 08:20) Complete Blood Count With Diff (02/21/17 08:20) Magnesium (Mg) (02/21/17 08:20) Ckmb (Isoenzyme) Profile (02/21/17 08:20) Troponin I (02/21/17 08:20) Urinalysis - C+S If Indicated (02/21/17 08:20) Chest, Single Ap (02/21/17 08:20) Blood Glucose (02/21/17 08:20) Ecg Monitoring (02/21/17 08:20) Iv Access Insert/Monitor (02/21/17 08:20) Oximetry (02/21/17 08:20) Oxygen Administration (02/21/17 08:20) Meclizine (Antivert) (02/21/17 08:30) Ondansetron Odt (Zofran Odt) (02/21/17 08:30) Sodium Chloride 0.9% Flush (Ns Flush) (02/21/17 08:30) Sodium Chlor 0.9% 1000 Ml Inj (Ns 1000 M (02/21/17 08:20) Orthostatic Vital Signs (02/21/17 08:20) Labs Laboratory Tests Test 02/21/17 02/21/17 08:25 08:41 White Blood Count 6.8 TH/MM3 Red Blood Count 4.61 MIL/MM3 Hemoglobin 13.2 GM/DL Hematocrit 39.7 % Mean Corpuscular Volume 86.1 FL Mean Corpuscular Hemoglobin 28.6 PG Mean Corpuscular Hemoglobin 33.2 % Concent Red Cell Distribution Width 14.2 % Platelet Count 211 TH/MM3 Mean Platelet Volume 9.5 FL Neutrophils (%) (Auto) 61.2 % Lymphocytes (%) (Auto) 28.5 % Monocytes (%) (Auto) 7.0 % Eosinophils (%) (Auto) 2.4 % Basophils (%) (Auto) 0.9 % Neutrophils # (Auto) 4.1 TH/MM3 Lymphocytes # (Auto) 1.9 TH/MM3 Monocytes # (Auto) 0.5 TH/MM3 Eosinophils # (Auto) 0.2 TH/MM3 Basophils # (Auto) 0.1 TH/MM3 CBC Comment DIFF FINAL Differential Comment Sodium Level 134 MEQ/L Potassium Level 4.1 MEQ/L Chloride Level 101 MEQ/L Carbon Dioxide Level 24.1 MEQ/L Anion Gap 9 MEQ/L Blood Urea Nitrogen 11 MG/DL Creatinine 0.70 MG/DL Estimat Glomerular Filtration 90 ML/MIN Rate Random Glucose 356 MG/DL Calcium Level 8.9 MG/DL Magnesium Level 1.7 MG/DL Total Creatine Kinase 60 U/L Troponin I LESS THAN 0.02 NG/ML Urine Color LIGHT-YELLOW Urine Turbidity CLEAR Urine pH 5.0 Urine Specific [place] 1.031 Urine Protein NEG mg/dL Urine Glucose (UA) 1000 mg/dL Urine Ketones NEG mg/dL Urine Occult Blood NEG Urine Nitrite NEG Urine Bilirubin NEG Urine Urobilinogen LESS THAN 2.0 MG/DL Urine Leukocyte Esterase TRACE Urine RBC 1 /hpf Urine WBC 2 /hpf Urine Squamous Epithelial 2 /hpf Cells Urine Bacteria RARE /hpf Urine Mucus FEW /lpf Microscopic Urinalysis Comment CULT NOT INDICATED MDM Medical Decision Making Medical Screen Exam Complete: Yes Emergency Medical Condition: Yes Medical Record Reviewed: Yes Differential Diagnosis Arrhythmia, anemia, likely imbalance, renal failure, vasovagal episode Narrative Course EKG reveals a sinus bradycardia with a rate of 51, normal axis and intervals CBC & BMP Diagram 02/21/17 08:25 Troponin less than 0.02 Urinalysis: No UTI Plan care negative Chest x-ray: No acute cardiopulmonary disease Reassessment at 9:10 AM the patient's found resting comfortably in bed. She reports mild persistent dizziness. We discussed possible benefit of outpatient Holter monitor evaluation. Patient reports she'll follow-up with her primary care provider in 2 days. 17 point change in heart rate with orthostasis evaluation as noted concerning for possible low volume. Peripheral vertigo is also concerned. Diagnosis Primary Impression: Sinus bradycardia Additional Impressions: Syncope Qualified Code: R55 - Syncope, unspecified syncope type Dizziness Referrals: Hayden Mcgovern MD 2 days Additional Instructions: You have a choice when it comes to health care, and we are glad that you chose [facility]. Hopefully, we have met your expectations on today's visit. You are welcome to return to [facility] at any time, as we are committed to meeting the health care needs of our community. Med/Other Pt SpecificInfo: Prescription(s) given Scripts Meclizine 25 Mg Tab25 Mg PO DIRECTED PRN (VERTIGO) #30 TAB Ref 0 Prov:Bertin Fuentes MD 02/21/17 Disposition: 01 DISCHARGE HOME Condition: Stable Bertin Fuentes MD Feb 21, 2017 08:49
[2017-02-21 08:57] LABS: ANION GAP 9 MEQ/L (5-15); BICARBONATE 24.1 MEQ/L (21.0-32.0); BLOOD UREA NITROGEN 11 MG/DL (7-18); CHLORIDE 101 MEQ/L (98-107); CREATINE KINASE 60 U/L (26-192); GLOMERULAR FILTRATION RATE 90 ML/MIN (>89); MAGNESIUM 1.7 MG/DL (1.5-2.5); POTASSIUM 4.1 MEQ/L (3.5-5.1); SODIUM (NA) 134 MEQ/L (136-145)
[2017-02-21 08:59] LABS: BACTERIA, URINE RARE /hpf; BLOOD, URINE NEG (NEG); COMMENT (UR) CULT NOT INDICATED; CULTURE IF INDICATED CULT NOT INDICATED; GLUCOSE,URINE 1000 mg/dL (NEG); KETONE, URINE NEG (NEG); MUCUS URINE FEW /lpf (OCC); NITRITE,URINE NEG (NEG); SQUAMOUS EPITHELIAL CELL URINE 2 /hpf (0-5); URINE COLOR LIGHT-YELLOW (YELLW/STRAW)
--- NOTE | 2017-02-21 09:02 | RADRPT ---
EXAM DATE/TIME: 02/21/2017 08:16 [facility] COMPARISON: CHEST SINGLE AP, February 06, 2017, 9:13. INDICATIONS : Syncope MEDICAL HISTORY : Hypercholesterolemia. Myocardial infarction. Gastroesophageal reflux disease. CAD. Hear murmur. D iabetic. SURGICAL HISTORY : section. Tubal ligation. Cardiac cath w/stent. ENCOUNTER: Initial ACUITY: 2 days PAIN SCORE: 5/10 LOCATION: chest FINDINGS: A single view of the chest demonstrates the lungs to be symmetrically aerated without evidence of mas s, infiltrate or effusion. The cardiomediastinal contours are unremarkable. Osseous structures are intact.CONCLUSION: 1. No acute cardiopulmonary disease. Jonatan Farley MD on February 21, 2017 at 8:59 Board Certified Radiologist. This report was verified electronically.
[2017-02-21] MEDS ORDERED: MECL-62 PO (09:12)
[2017-02-21] MEDS ORDERED: ACETAMINOPHEN 325 MG TAB PO ONE (09:45)
[2017-02-21] MEDS ORDERED: NITROGLYCERIN 0.4 MG SL 25 TABS/BTL SL PRN (10:45)
[2017-02-21] MEDS ORDERED: SENNOSIDES 8.6 MG TAB PO PRN (10:45)
[2017-02-21] MEDS ORDERED: BISACODYL 10 MG SUPP RECTAL PRN (10:45)
[2017-02-21] MEDS ORDERED: ONDANSETRON HCL 4 MG/2 ML VIAL IVP PRN (10:45)
[2017-02-21] MEDS ORDERED: LACTULOSE SYRUP 20 GM/30 ML CUP PO PRN (10:45)
[2017-02-21] MEDS ORDERED: GLUCAGON 1 MG/ML VIAL OTHER PRN (10:45)
[2017-02-21] MEDS ORDERED: MECLIZINE HCL 25 MG TAB PO PRN (10:45)
[2017-02-21] MEDS ORDERED: LORazepam 2 MG/ML VIAL IV PUSH ONE (10:45)
[2017-02-21] MEDS ORDERED: DEXTROSE 50% IN WATER 50 ML VIAL(D50) IV PRN (10:45)
[2017-02-21] MEDS ORDERED: MAGNESIUM HYDROXIDE SUSP 30 ML CUP PO PRN (10:45)
[2017-02-21] MEDS ORDERED: NALOXONE HCL 0.4 MG/ML AMP IV PRN (10:45)
[2017-02-21] MEDS: HEPARIN SODIUM - SQ 10,000 UNITS/ML VIAL SQ SCH ×2 (11:00→23:55)
[2017-02-21] MEDS: INSULIN ASPART SUPPLEMENTAL SCALE SQ SCH ×3 (11:35→21:41)
[2017-02-21] MEDS: ASPIRIN EC 81 MG TABEC PO SCH (11:39)
[2017-02-21] MEDS: CLOPIDOGREL 75 MG TAB PO SCH (11:39)
[2017-02-21] MEDS: SODIUM CHLOR 0.9% 1000 ML INJ 1,000 ML IV SCH ×2 (11:39→20:38)
[2017-02-21 13:11] LABS: CREATINE KINASE 46 U/L (26-192)
--- NOTE | 2017-02-21 16:06 | HHI.HP ---
HPI Service [facility] Primary Care Physician Hayden Mcgovern MD Admission Diagnosis Syncope, Orthostasis, Vertigo Diagnoses: Travel History International Travel<30 Days: No Contact w/Intl Traveler <30 Da: No Traveled to Known Affected Are: No History of Present Illness This is a 46-year-old female who was brought into the emergency department at the [facility] due to an episode of syncope while working. 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 She became very dizzy standing up and the next thing she knew she was on the floor and woken up by her coworkers. She was seen by the undersigned in room H 96. She is alert and oriented. She denies any chest pain. Difficulty breathing. No cough no sputum. No difficulty with bowel habits. No dysuria. Her fingerstick on arrival was 323. She has been feeling weak for the last 2 days. Review of Systems Other 10 systems reviewed and negative except for the above Past Family Social History Past Medical History Diabetes Obesity Chronic neck pain Headache Myocardial infarction Coronary disease Cardiac catheterization Hyperlipidemia Cardiac murmur Hypertension Acid reflux Depression Anxiety Past Surgical History Coronary stenting, 3 times, 2012, 2013, 2014 section Tubal ligation Reported Medications Reported Meds & Active Scripts Active Meclizine (Meclizine HCl) 25 Mg Tab 25 Mg PO DIRECTED PRN Isosorbide Mononitrate ER (Isosorbide Mononitrate) 30 Mg Hayes 30 Mg PO DAILY Pravastatin 20 Mg Tab 20 Mg PO DAILY Plavix (Clopidogrel Bisulfate) 75 Mg Tab 75 Mg PO DAILY Reported Bupropion HCl ER 24 HR (Bupropion HCl) 150 Mg Tab 150 Mg PO DAILY Novolog Inj (Insulin Aspart) 1,000 Unit/10 Ml Vial 0 SQ TID PRN Sliding Scale as directed. Nitrostat SL (Nitroglycerin) 0.4 Mg Subl 0.4 Mg SL DIRECTED PRN 1 tablet under the tongue as needed for chest pain. Repeat every 5 minutes for a total of 3 DOSES or call 911 if NO relief. Metoprolol Tartrate 25 Mg Tab 25 Mg PO BID Levemir Inj (Insulin Detemir) 1,000 unit/ 10 ML Vial 5 Units SQ BID Do not mix with any other Insulin. 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 SKIN: No rashes, ecchymoses or lesions. Cool and dry. HEAD: Atraumatic. Normocephalic. No temporal or scalp tenderness. EYES: Pupils equal round and reactive. Extraocular motions intact. No scleral icterus. No injection or drainage. ENT: Nose without bleeding, purulent drainage or septal hematoma. Throat without erythema, tonsillar hypertrophy or exudate. Uvula midline. Airway patent. NECK: Trachea midline. No JVD or lymphadenopathy. Supple, nontender, no meningeal signs. CARDIOVASCULAR: Regular rate and rhythm without murmurs, gallops, or rubs. RESPIRATORY: Clear to auscultation. Breath sounds equal bilaterally. No wheezes , rales, or rhonchi. GASTROINTESTINAL: Abdomen soft, non-tender, nondistended. No hepato-splenomegaly , or palpable masses. No guarding. MUSCULOSKELETAL: Extremities without clubbing, cyanosis, or edema. No joint tenderness, effusion, or edema noted. No calf tenderness. Negative Homans sign bilaterally. NEUROLOGICAL: Awake and alert. Cranial nerves II through XII intact. Normal speech. Laboratory Laboratory Tests Test 02/21/17 02/21/17 02/21/17 08:25 08:41 12:08 White Blood Count 6.8 Red Blood Count 4.61 Hemoglobin 13.2 Hematocrit 39.7 Mean Corpuscular Volume 86.1 Mean Corpuscular Hemoglobin 28.6 Mean Corpuscular Hemoglobin 33.2 Concent Red Cell Distribution Width 14.2 Platelet Count 211 Mean Platelet Volume 9.5 Neutrophils (%) (Auto) 61.2 Lymphocytes (%) (Auto) 28.5 Monocytes (%) (Auto) 7.0 Eosinophils (%) (Auto) 2.4 Basophils (%) (Auto) 0.9 Neutrophils # (Auto) 4.1 Lymphocytes # (Auto) 1.9 Monocytes # (Auto) 0.5 Eosinophils # (Auto) 0.2 Basophils # (Auto) 0.1 CBC Comment DIFF FINAL Differential Comment Sodium Level 134 Potassium Level 4.1 Chloride Level 101 Carbon Dioxide Level 24.1 Anion Gap 9 Blood Urea Nitrogen 11 Creatinine 0.70 Estimat Glomerular Filtration 90 Rate Random Glucose 356 Calcium Level 8.9 Magnesium Level 1.7 Total Creatine Kinase 60 46 Troponin I LESS THAN 0.02 LESS THAN 0.02 Urine Color LIGHT-YELLOW Urine Turbidity CLEAR Urine pH 5.0 Urine Specific [place] 1.031 Urine Protein NEG Urine Glucose (UA) 1000 Urine Ketones NEG Urine Occult Blood NEG Urine Nitrite NEG Urine Bilirubin NEG Urine Urobilinogen LESS THAN 2.0 Urine Leukocyte Esterase TRACE Urine RBC 1 Urine WBC 2 Urine Squamous Epithelial 2 Cells Urine Bacteria RARE Urine Mucus FEW Microscopic Urinalysis Comment CULT NOT INDICATED Result Diagram: 02/21/17 0825 02/21/17 0825 Assessment and Plan Assessment and Plan Assessment Syncope Orthostatic hypotension Strong history of coronary disease Obesity Diabetes Hyperlipidemia Management Place on observation Telemetry IV fluids Serial CKs and troponins Continue home medications Accu-Cheks Sliding scale of insulin Consult her pitching coach Dr. Cardoso Discussed with patient Discussed with nurse Discussed with emergency physician 40 minutes spent Discussed With: Nurse Jc Lagunas MD Feb 21, 2017 16:06
--- NOTE | 2017-02-21 18:03 | EKG ---
Date Performed: 02/21/2017 Time Performed: 08:20:41 PTAGE: 46 years EKG: SINUS BRADYCARDIA BORDERLINE ECG PREVIOUS TRACING : 02/06/2017 08.54 Compared to prior tracing no significant change DOCTOR: Lalitha Causey Interpretating Date/Time 02/21/2017 18:01:51
[2017-02-21] MEDS: SODIUM CHLORIDE 0.9% FLUSH 10 ML FLUSH IV FLUSH SCH (21:00)
[2017-02-21] MEDS ORDERED: METOPROLOL TARTRATE 25 MG TAB PO SCH (21:00)
[2017-02-21 21:12] LABS: CREATINE KINASE 44 U/L (26-192)
[2017-02-21] MEDS: INSULIN DETEMIR 100 UNITS/ML VIAL SQ SCH (21:40)
[2017-02-21] MEDS: PRAVASTATIN SOD 20 MG TAB PO SCH (21:42)
[2017-02-21] MEDS: DOCUSATE SODIUM 50 MG/SENNA 8.6 MG TAB PO SCH (21:43)
[2017-02-22] VITALS (10 sets, daily range): BP systolic 124–159; BP diastolic 57–73; PULSE 45–63; RESP 14–20; TEMP 98–98.2; O2SAT 94–98
[2017-02-22] MEDS: SODIUM CHLOR 0.9% 1000 ML INJ 1,000 ML IV SCH ×2 (04:14→18:15)
[2017-02-22] MEDS: INSULIN ASPART SUPPLEMENTAL SCALE SQ SCH ×4 (06:31→22:20)
[2017-02-22 06:51] LABS: AUTOMATED NEUTROPHIL # 2.6 TH/MM3 (1.8-7.7); BASOPHIL % 0.7 % (0.0-2.0); EOSINOPHIL # 0.2 TH/MM3 (0-0.4); EOSINOPHIL % 2.9 % (0.0-4.0); HEMATOCRIT 37.6 % (35.0-46.0); HEMO FLAGS DIFF FINAL; LYMPH % 40.7 % (9.0-44.0); LYMPHOCYTE # 2.2 TH/MM3 (1.0-4.8); MEAN CELL VOLUME 86.8 FL (80.0-100.0); MEAN CORPUSCULAR HEMOGLOBIN 27.5 PG (27.0-34.0); MEAN CORPUSCULAR HGB CONC 31.7 % (32.0-36.0); MONO % 7.9 % (0.0-8.0); NEUT % 47.8 % (16.0-70.0); PLATELET COUNT 166 TH/MM3 (150-450); RED BLOOD COUNT 4.33 MIL/MM3 (4.00-5.30); WHITE BLOOD COUNT 5.4 TH/MM3 (4.0-11.0)
--- NOTE | 2017-02-22 07:22 | PD.CONS ---
HPI Service CV Consult Requested By Reason for Consult syncope Primary Care Physician Hayden Mcgovern MD History of Present Illness Here with CAD with angina s/p PCI J CARLOS x 2 LAD (08/2014) s/p C 01/2015 and 2016 showing patent stents, HTN and hyperlipidemia admitted for syncope. She states this happened at work and just before the room started spinning. She denies chest pain, shortness of breath or palpitation. Here it is noted that her heart rate is in the 40's (Chintan Roper) Review of Systems Consitutional: DENIES: Fatigue, Fever, Chills, Weight gain, Weight loss Eyes: DENIES: Amaurosis Fugax, Change in vision HEENT: DENIES: Lightheadedness, Change in hearing Respiratory: DENIES: See HPI, Cough, Snoring, Shortness of breath, Wheezing, Sputum production Cardiovascular: COMPLAINS OF: See HPI Gastrointestinal: DENIES: Nausea, Vomiting, Change in bowel habits, Reflux, Bloody stools, Melena Genitourinary: DENIES: Urinary incontinence, Difficulty voiding Integumentary: DENIES: Rash Neurologic: DENIES: Tingling or numbness, Memory problems, Poor Balance, Stroke symptoms Musculoskeletal: DENIES: Joint pain, Muscle pain, Limited range of motion, Back pain Psychiatric: DENIES: Anxiety, Depression, Sleep disturbances Hematologic: DENIES: Bruising tendencies, Bleeding tendencies Endocrine: DENIES: Weight gain, Weight loss, Thyroid disease (Chintan Roper ) Past Family Social History Allergies: Coded Allergies: Prednisone (Verified Allergy, Severe, 02/21/17) Uncoded Allergies: STEROIDS (Allergy, Intermediate, Anaphylaxis, 02/21/17) Past Medical History see HPI adjustment disorder with depressed mood anxiety type 2 Diabetes GERD Past Surgical History see HPI section tubal ligation Reported Medications Reported Meds & Active Scripts Active Meclizine (Meclizine HCl) 25 Mg Tab 25 Mg PO DIRECTED PRN Isosorbide Mononitrate ER (Isosorbide Mononitrate) 30 Mg Hayes 30 Mg PO DAILY Pravastatin 20 Mg Tab 20 Mg PO DAILY Plavix (Clopidogrel Bisulfate) 75 Mg Tab 75 Mg PO DAILY Reported Bupropion HCl ER 24 HR (Bupropion HCl) 150 Mg Tab 150 Mg PO DAILY Novolog Inj (Insulin Aspart) 1,000 Unit/10 Ml Vial 0 SQ TID PRN Sliding Scale as directed. Nitrostat SL (Nitroglycerin) 0.4 Mg Subl 0.4 Mg SL DIRECTED PRN 1 tablet under the tongue as needed for chest pain. Repeat every 5 minutes for a total of 3 DOSES or call 911 if NO relief. Metoprolol Tartrate 25 Mg Tab 25 Mg PO BID Levemir Inj (Insulin Detemir) 1,000 unit/ 10 ML Vial 5 Units SQ BID Do not mix with any other Insulin. Aspirin 81 (Aspirin) 81 Mg Tabdr 81 Mg PO DAILY Active Ordered Medications Current Medications Medications (Trade) Dose Ordered Sig/Susanne Route Start Time Stop Time Status Last Admin (NS 1000 ml Inj) 1,000 ml @ 100 mls/hr Q10H IV 02/21/17 10:38 02/22/17 04:14 (NS Flush) 2 ml UNSCH PRN IV FLUSH 02/21/17 10:45 (NS Flush) 2 ml BID IV FLUSH 02/21/17 21:00 (Zofran Inj) 4 mg Q6H PRN IVP 02/21/17 10:45 02/21/17 21:54 (Heparin Inj) 5,000 units Q12H SQ 02/21/17 11:00 02/21/17 23:55 (Narcan Inj) 0.4 mg UNSCH PRN IV 02/21/17 10:45 (Jhoana-Colace) 1 tab BID PO 02/21/17 21:00 02/21/17 21:43 (Milk Of Magnesia Liq) 30 ml Q12H PRN PO 02/21/17 10:45 (Senokot) 17.2 mg Q12H PRN PO 02/21/17 10:45 (Dulcolax Supp) 10 mg DAILY PRN RECTAL 02/21/17 10:45 (Lactulose Liq) 30 ml DAILY PRN PO 02/21/17 10:45 (Ecotrin Ec) 81 mg DAILY PO 02/21/17 10:45 02/21/17 11:39 (Wellbutrin Sr) 150 mg DAILY PO 02/22/17 09:00 (Plavix) 75 mg DAILY PO 02/21/17 10:45 02/21/17 11:39 (Levemir Inj) 5 units BID SQ 02/21/17 21:00 02/21/17 21:40 (Imdur) 30 mg DAILY PO 02/22/17 09:00 (Antivert) 25 mg Q6H PRN PO 02/21/17 10:45 (Lopressor) 25 mg BID PO 02/21/17 21:00 02/21/17 21:44 (Pravachol) 20 mg HS PO 02/21/17 21:00 02/21/17 21:42 (D50w (Vial) Inj) 50 ml UNSCH PRN IV 02/21/17 10:45 (Glucagon Inj) 1 mg UNSCH PRN OTHER 02/21/17 10:45 Family History noncontributory Social History never smoker, rare EtOH, denies substance abuse (Chintan Roper) Physical Exam Vital Signs Vital Signs Date Time Temp Pulse Resp B/P Pulse Ox O2 Delivery O2 Flow Rate FiO2 02/22/17 04:06 45 02/22/17 03:27 98.1 48 17 139/66 94 02/22/17 00:31 51 02/21/17 23:06 98.2 50 18 155/70 98 02/21/17 20:05 57 02/21/17 19:09 98.0 62 18 147/69 97 02/21/17 18:35 63 02/21/17 14:40 96.6 55 18 141/72 99 02/21/17 10:58 53 18 154/69 97 Room Air 02/21/17 08:36 18 97 Room Air 02/21/17 08:32 54 18 162/72 57 18 157/68 70 18 144/65 02/21/17 08:27 52 18 97 Room Air 02/21/17 08:22 98.5 55 18 167/70 97 Physical Exam GENERAL: Well-nourished, well-developed patient in no apparent distress. NECK: No JVD. No carotid bruit. CARDIOVASCULAR: Bradycardic, regular rhythm. S1/S2 no rub, or gallop. II/ CHUN RSB RESPIRATORY: No accessory muscle use. Clear to auscultation. Breath sounds equal bilaterally. GASTROINTESTINAL: Abdomen soft, non-tender, nondistended. MUSCULOSKELETAL: Extremities without clubbing, cyanosis, or edema. Laboratory Laboratory Tests Test 02/21/17 02/21/17 02/21/17 02/21/17 08:25 08:41 12:08 19:55 White Blood Count 6.8 Red Blood Count 4.61 Hemoglobin 13.2 Hematocrit 39.7 Mean Corpuscular Volume 86.1 Mean Corpuscular Hemoglobin 28.6 Mean Corpuscular Hemoglobin 33.2 Concent Red Cell Distribution Width 14.2 Platelet Count 211 Mean Platelet Volume 9.5 Neutrophils (%) (Auto) 61.2 Lymphocytes (%) (Auto) 28.5 Monocytes (%) (Auto) 7.0 Eosinophils (%) (Auto) 2.4 Basophils (%) (Auto) 0.9 Neutrophils # (Auto) 4.1 Lymphocytes # (Auto) 1.9 Monocytes # (Auto) 0.5 Eosinophils # (Auto) 0.2 Basophils # (Auto) 0.1 CBC Comment DIFF FINAL Differential Comment Sodium Level 134 Potassium Level 4.1 Chloride Level 101 Carbon Dioxide Level 24.1 Anion Gap 9 Blood Urea Nitrogen 11 Creatinine 0.70 Estimat Glomerular Filtration 90 Rate Random Glucose 356 Calcium Level 8.9 Magnesium Level 1.7 Total Creatine Kinase 60 46 44 Troponin I LESS THAN 0.02 LESS THAN 0.02 LESS THAN 0.02 Urine Color LIGHT-YELLOW Urine Turbidity CLEAR Urine pH 5.0 Urine Specific [place] 1.031 Urine Protein NEG Urine Glucose (UA) 1000 Urine Ketones NEG Urine Occult Blood NEG Urine Nitrite NEG Urine Bilirubin NEG Urine Urobilinogen LESS THAN 2.0 Urine Leukocyte Esterase TRACE Urine RBC 1 Urine WBC 2 Urine Squamous Epithelial 2 Cells Urine Bacteria RARE Urine Mucus FEW Microscopic Urinalysis Comment CULT NOT INDICATED Test 02/22/17 05:56 White Blood Count 5.4 Red Blood Count 4.33 Hemoglobin 11.9 Hematocrit 37.6 Mean Corpuscular Volume 86.8 Mean Corpuscular Hemoglobin 27.5 Mean Corpuscular Hemoglobin 31.7 Concent Red Cell Distribution Width 14.0 Platelet Count 166 Mean Platelet Volume 9.3 Neutrophils (%) (Auto) 47.8 Lymphocytes (%) (Auto) 40.7 Monocytes (%) (Auto) 7.9 Eosinophils (%) (Auto) 2.9 Basophils (%) (Auto) 0.7 Neutrophils # (Auto) 2.6 Lymphocytes # (Auto) 2.2 Monocytes # (Auto) 0.4 Eosinophils # (Auto) 0.2 Basophils # (Auto) 0.0 CBC Comment DIFF FINAL Differential Comment (Chintan Roper) Result Diagram: 02/22/17 0556 02/21/17 0825 Assessment and Plan Problem List: (1) Coronary artery disease (2) Hypertension (3) Bradycardia Assessment and Plan bradycardia/syncope - stop metoprolol and get 24 hour Holter CAD - cardiac work up negative, if her heart rate remains low after stopping beta rene we will get SPECT to r/o inferior ischemia (Chintan Roper) Assessment and Plan syncope - unclear etiology. EKG unremarkable. no prodrome symptoms of palpitions, just dizziness. Telemetry shows bradycardia, particularly at night , which is due to increased vagal tone. hold metoprolol encourage aggressive PO hydration 24 hr holter pending ok for DC and FU in OPD. + murmur. last echo 2014 showed mild MR. plan for outpatient echo. if recurrence of syncope, will need loop recorder. (Ever Cardoso MD) Chintan Roper Feb 22, 2017 07:22 Ever Cardoso MD Feb 22, 2017 12:43
[2017-02-22 07:23] LABS: BICARBONATE 27.5 MEQ/L (21.0-32.0)
[2017-02-22] MEDS: SODIUM CHLORIDE 0.9% FLUSH 10 ML FLUSH IV FLUSH SCH ×2 (09:00→22:13)
[2017-02-22] MEDS: CLOPIDOGREL 75 MG TAB PO SCH (09:06)
[2017-02-22] MEDS: DOCUSATE SODIUM 50 MG/SENNA 8.6 MG TAB PO SCH ×2 (09:06→22:13)
[2017-02-22] MEDS: ASPIRIN EC 81 MG TABEC PO SCH (09:07)
[2017-02-22] MEDS: ISOSORBIDE MONONITRATE 30 MG TAB PO SCH (09:07)
[2017-02-22] MEDS: buPROPion HCL 150 MG SUSTAINED RELEASE TAB PO SCH (09:07)
[2017-02-22] MEDS: INSULIN DETEMIR 100 UNITS/ML VIAL SQ SCH ×2 (09:08→22:19)
[2017-02-22 10:56] LABS: BETA HCG QUANT 1 MIU/ML (0-5)
--- NOTE | 2017-02-22 11:00 | RADRPT ---
EXAM DATE/TIME: 02/22/2017 10:39 [place] COMPARISON: No previous studies available for comparison. INDICATIONS : Abdominal pain. MEDICAL HISTORY : Gastroesophageal reflux disease. SURGICAL HISTORY : Tubal ligation. ENCOUNTER: Initial ACUITY: 2 days PAIN SCORE: 7/10 LOCATION: Right lower quadrant abdomen FINDINGS: Large amount of stool throughout the colon. No dilated loops of bowel. General paucity of small bowel gas. No air-fluid levels. No pneumatosis or gross free air. No abnormal calcifications. Osseous stru ctures appear intact. CONCLUSION: 1. Findings consistent with moderate constipation. 2. Paucity of small bowel gas is a nonspecific finding. Jonatan Farley MD on February 22, 2017 at 10:56 Board Certified Radiologist. This report was verified electronically.
--- NOTE | 2017-02-22 11:15 | HHI.PR ---
Subjective Interval History Alert, oriented, complaining of right lower quadrant abdominal pain, no more lightheadedness or syncope, no chest pain Review of Systems Constitutional Constitutional Remarks 10 systems reviewed and otherwise negative Vitals/Results Intake & Output 02/21/17 02/21/17 02/22/17 15:00 23:00 07:00 Intake Total 1180 ml Balance 1180 ml Intake IV Total 1180 ml # Voids 2 Vital Signs Vital Signs Date Time Temp Pulse Resp B/P Pulse Ox O2 Delivery O2 Flow Rate FiO2 02/22/17 08:11 98.0 16 130/61 96 146/63 159/70 02/22/17 04:06 45 02/22/17 03:27 98.1 48 17 139/66 94 02/22/17 00:31 51 02/21/17 23:06 98.2 50 18 155/70 98 02/21/17 20:05 57 02/21/17 19:09 98.0 62 18 147/69 97 02/21/17 18:35 63 02/21/17 14:40 96.6 55 18 141/72 99 CBC/BMP: 02/22/17 0556 02/22/17 0556 Lab Results Laboratory Tests Test 02/21/17 02/21/17 02/22/17 02/22/17 12:08 19:55 05:56 10:32 Total Creatine Kinase 46 U/L 44 U/L Troponin I LESS THAN 0.02 LESS THAN 0.02 NG/ML NG/ML White Blood Count 5.4 TH/MM3 Red Blood Count 4.33 MIL/MM3 Hemoglobin 11.9 GM/DL Hematocrit 37.6 % Mean Corpuscular Volume 86.8 FL Mean Corpuscular Hemoglobin 27.5 PG Mean Corpuscular Hemoglobin 31.7 % Concent Red Cell Distribution Width 14.0 % Platelet Count 166 TH/MM3 Mean Platelet Volume 9.3 FL Neutrophils (%) (Auto) 47.8 % Lymphocytes (%) (Auto) 40.7 % Monocytes (%) (Auto) 7.9 % Eosinophils (%) (Auto) 2.9 % Basophils (%) (Auto) 0.7 % Neutrophils # (Auto) 2.6 TH/MM3 Lymphocytes # (Auto) 2.2 TH/MM3 Monocytes # (Auto) 0.4 TH/MM3 Eosinophils # (Auto) 0.2 TH/MM3 Basophils # (Auto) 0.0 TH/MM3 CBC Comment DIFF FINAL Differential Comment Sodium Level 139 MEQ/L Potassium Level 4.0 MEQ/L Chloride Level 106 MEQ/L Carbon Dioxide Level 27.5 MEQ/L Anion Gap 6 MEQ/L Blood Urea Nitrogen 7 MG/DL Creatinine 0.46 MG/DL Estimat Glomerular Filtration 147 ML/MIN Rate Random Glucose 216 MG/DL Calcium Level 8.6 MG/DL Human Chorionic Gonadotropin, 1 MIU/ML Quant Physical Exam General General Appearance: Comfortable, Obese Eyes Eye Exam: Pupils Reactive Ears & Nose Ears & Nose Exam: Nasal Mucosa [place] Throat Throat Exam: Oral Mucosa [place] & Moist Neck Neck Exam: Trachea Midline Pulmonary Resp Exam: Breath Sounds Equal, No Distress Cardiology CV Exam: Normal Sinus Rhythm, Good Perfusion Gastrointestinal/Abdomen GI Exam: Bowel Sounds Hypoactive GI Remarks Tender right lower quadrant Musculoskeletal MS Exam: Normal Tone Integumentary Skin Exam: Warm, Dry Neurologic Neuro Exam: Alert, Awake, Oriented, Speech Clear, Moving All Extremities, Huc Equal, No Focal Deficits Psychiatric Psych Exam: Appropriate Responses VTE Prophylaxis VTE Prophylaxis Meds: Heparin Assessment/Plan Assessment/Plan Assessment Syncope on admission Bradycardia, unclear if it is related to the presenting syncope Orthostatic hypotension, improved Strong history of coronary disease Obesity Diabetes Hyperlipidemia Management Stop metoprolol Telemetry IV fluids Cardiology following Accu-Cheks Sliding scale of insulin Possible need for a SPECT scan per cardiology She will be staying in hospital again tonight Discussed with patient Discussed with nurse 35 minutes Jc Lagunas MD Feb 22, 2017 11:15
[2017-02-22] MEDS ORDERED: DOCUSATE SODIUM 100 MG CAP PO ONE (12:00)
[2017-02-22] MEDS: SODIUM CHLORIDE 0.9% FLUSH 10 ML FLUSH IV FLUSH PRN ×2 (12:09→18:16)
[2017-02-22] MEDS: MORPHINE SULFATE 4 MG/ML INJ IV PUSH PRN ×2 (12:09→18:16)
[2017-02-22] MEDS: HEPARIN SODIUM - SQ 10,000 UNITS/ML VIAL SQ SCH ×2 (12:10→22:13)
[2017-02-22] MEDS: PSYLLIUM FIBER SF/GF 6 GM POWD PKT PO SCH (15:07)
[2017-02-22] MEDS: PRAVASTATIN SOD 20 MG TAB PO SCH (22:13)
[2017-02-23] VITALS (8 sets, daily range): BP systolic 122–190; BP diastolic 61–94; PULSE 50–96; RESP 14–16; TEMP 97.6–98.3; O2SAT 60–97
[2017-02-23] MEDS: SODIUM CHLOR 0.9% 1000 ML INJ 1,000 ML IV SCH ×2 (02:38→13:03)
[2017-02-23] MEDS: INSULIN ASPART SUPPLEMENTAL SCALE SQ SCH ×3 (07:30→17:40)
[2017-02-23] MEDS ORDERED: MAGNESIUM CITRATE SOLN 300 ML BTL PO ONE (07:45)
[2017-02-23] MEDS ORDERED: hydrALAZINE HCL 20 MG/ML VIAL IV PUSH PRN (07:45)
[2017-02-23] MEDS: PSYLLIUM FIBER SF/GF 6 GM POWD PKT PO SCH (09:00)
[2017-02-23] MEDS: SODIUM CHLORIDE 0.9% FLUSH 10 ML FLUSH IV FLUSH SCH (09:00)
[2017-02-23] MEDS: ASPIRIN EC 81 MG TABEC PO SCH (09:38)
[2017-02-23] MEDS: buPROPion HCL 150 MG SUSTAINED RELEASE TAB PO SCH (09:39)
[2017-02-23] MEDS: DOCUSATE SODIUM 50 MG/SENNA 8.6 MG TAB PO SCH (09:39)
[2017-02-23] MEDS: CLOPIDOGREL 75 MG TAB PO SCH (09:39)
[2017-02-23] MEDS: ISOSORBIDE MONONITRATE 30 MG TAB PO SCH (09:39)
[2017-02-23] MEDS: INSULIN DETEMIR 100 UNITS/ML VIAL SQ SCH (09:54)
[2017-02-23] MEDS ORDERED: ENALAPRILAT 1.25 MG/ML VIAL IV PUSH PRN (10:15)
--- NOTE | 2017-02-23 10:49 | HHI.PR ---
Subjective Remarks Resting in bed Constipation, BM 2 days ago small formed Afebrile Still has some syncope with room spinning around her Nausea no emesis Hyperglycemia Objective Objective Results - Vital Signs Date Time Temp Pulse Resp B/P Pulse Ox O2 Delivery O2 Flow Rate FiO2 02/23/17 07:17 98.1 60 14 187/85 95 02/23/17 04:25 98.3 61 16 163/70 60 02/22/17 23:54 98.0 55 18 144/70 96 02/22/17 19:27 98.2 63 20 133/70 96 02/22/17 15:28 98.0 58 14 124/57 98 02/22/17 13:10 56 02/22/17 11:32 98.0 16 127/67 98 125/64 136/73 I/O 02/22/17 02/22/17 02/22/17 02/23/17 02/23/17 02/23/17 07:00 15:00 23:00 07:00 15:00 23:00 Intake Total 1180 ml 1860 ml 400 ml Balance 1180 ml 1860 ml 400 ml Intake Oral 960 ml 400 ml IV Total 1180 ml 900 ml # Voids 3 Result Diagram: 02/22/17 0556 02/22/17 0556 ROS General: Fatigue, Weakness, Other (10 point ROS done positives noted including obesity, hypertension mild) GI: N/V (nausea but no vomiting) Neuro/MS: Lightheaded (room spins around her) Physical Exam Physical Exam PHYSICAL EXAMINATION GENERAL: This is a well-developed, obese female who appears to be in no acute distress. She is alert and awake, HEAD: Normocephalic Facial features appear symmetric. OROPHARYNGEAL: Oropharynx clear NECK: Supple. Trachea midline without deviation. CARDIAC: Regular rhythm, regular rate, S1 and S2 are heard LUNGS: Clear to auscultation bilaterally. No rhonchi or wheezing. Adequate lung volumes ABDOMEN: Soft, nontender, obese Bowel sounds active. EXTREMITIES: edema. Pulses equal bilateral. NEUROLOGICAL: Patient mood and affect appropriate. 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 216, still uncontrolled over the past 24 hours, increase Levemir dose to 10 units subcutaneous twice a day Hyperlipidemia, medical management Constipation, possibly secondary to some dehydration. Encourage patient to attempt BM this a.m., if not mag citrate 1 ordered monitor bowel regimen Headache, Motrin ordered as needed, to be taken with food Discussed with patient Discussed with nurse Discussed with Dr. Hernandez, seen on his behalf 3 Discussed With: Trish Kapoor Feb 23, 2017 10:49
[2017-02-23] MEDS: HEPARIN SODIUM - SQ 10,000 UNITS/ML VIAL SQ SCH (13:03)
[2017-02-23] MEDS: MORPHINE SULFATE 4 MG/ML INJ IV PUSH PRN (13:04)
--- NOTE | 2017-02-23 17:13 | HM ---
Date Performed: 02/22/2017 Time Performed: 08:04:00 HOOKUP DATE: 02/22/17 08:04:00 AM Fri ANALYSIS START TIME: 02/22/2017 8:09:00 AM ANALYSIS END TIME: 02/23/2017 8:12:59 AM PATIENT AGE: 46 PATIENT HEIGHT: 65 PATIENT WEIGHT: 209 DRUG LIST PATIENT DIAGNOSIS: SYNCOPE ORTHOSTASIS VERTIGO TEST NARRATIVE: The patient's average heart rate was 59 BPM. Heart rates greater than 120 B PM were noted < 1% of the time. Heart rates less than 50 BPM were noted 21% of the time. No paus es exceeding 2.0 seconds were noted. 1 ventricular ectopics, which represented < 1% of the total beat count, were noted. The highest ventricular ectopic frequency occurred from 10:00 PM to 11:00 PM Fri. During this time 1 VE(s) occurred. Ventricular ectopics were observed as 1 isolated beat(s) o nly. No couplets or runs were noted. 67 supraventricular ectopics, which represented < 1% of the total beat count, were noted. The highest supraventricular ectopic frequency occurred from 06:00 AM to 07:00 AM Sat. During this time 15 SVE(s) occurred. No episodes of ST depression (defined as -1.0 mm or more) were noted in channel 1. No episodes of ST depression (defined as -1.0 mm or more) were noted in channel 2. No episodes of ST depression (defined as -1.0 mm or more) were noted in benjamin nnel 3. No diary events were reported by the patient. TEST INTERPRETATION: 1) Sinus/Sinus Bradycardia, heart rate less than 50 BPM 21% of the time 2) Rare PAC, with occasional Atrial Couplet/Triplet 3) No episodes of ST depression noted 4) No AV murtaza blocks noted 5) No diary with symptoms return Signed by : Mc Fuentes
[2017-02-23] MEDS ORDERED: IBUPROFEN 800 MG TAB PO PRN (18:00)
[2017-02-23] MEDS ORDERED: INSULIN DETEMIR 100 UNITS/ML VIAL SQ SCH (21:00)
== END 2017-02-23 20:52 | disposition home or self-care (01) ==
LOC: NEPE 08:08 → NEDA 10:38 → NEPHCDU 13:52
PROVIDERS: ADMIT Specialist; ATTEND Specialist
DX: R55 Syncope and collapse (principal); I95.1 Orthostatic hypotension; R42 Dizziness and giddiness; R53.1 Weakness; R11.0 Nausea; R61 Generalized hyperhidrosis; R00.1 Bradycardia, unspecified; H81.399 Other peripheral vertigo, unspecified ear; R10.31 Right lower quadrant pain; K59.00 Constipation, unspecified; R53.83 Other fatigue; R60.0 Localized edema; R51 Headache; I25.119 Atherosclerotic heart disease of native coronary artery with unspecified angina pectoris; R01.1 Cardiac murmur, unspecified; I34.0 Nonrheumatic mitral (valve) insufficiency; I25.2 Old myocardial infarction; I10 Essential (primary) hypertension; E78.5 Hyperlipidemia, unspecified; E78.00 Pure hypercholesterolemia, unspecified; E11.9 Type 2 diabetes mellitus without complications; K21.9 Gastro-esophageal reflux disease without esophagitis; M54.2 Cervicalgia; G89.29 Other chronic pain; F41.9 Anxiety disorder, unspecified; E66.9 Obesity, unspecified; Z95.5 Presence of coronary angioplasty implant and graft; Z79.899 Other long term (current) drug therapy; Z79.02 Long term (current) use of antithrombotics/antiplatelets; Z79.82 Long term (current) use of aspirin; Z79.4 Long term (current) use of insulin
CPT/HCPCS: 71010; 74020; 80048; 81001; 82550; 82948; 83735; 84484; 84702; 84703; 85025; 93005; 93225; 93226; 99285; G0378; J1644; J1815; J2060; J2270; J2405; J7030

== ENCOUNTER 2017-05-19 10:47 | Emergency (ER) | payer BC ==
[~2017-05-19] VITALS: Ht 165.1 cm; Wt 104.1 kg
[~2017-05-19 10:47] MED LIST changes: +MECL-62 PO; -METO25TA3 PO
[2017-05-19 11:01] VITALS: BP 165/74; PULSE 57; RESP 16; TEMP 99.2; O2SAT 97
[2017-05-19] MEDS ORDERED: ARIP1TAB5 PO (11:30)
[2017-05-19] MEDS ORDERED: METO25TA3 PO (11:30)
--- NOTE | 2017-05-19 11:37 | PD ---
HPI Chief Complaint: GI Complaint Time Seen by Provider: 11:16 Travel History International Travel<30 days: No Contact w/Intl Traveler<30days: No Traveled to known affect area: No History of Present Illness HPI This 46-year-old female is complaining of a stabbing pain in the left upper quadrant. She says this started 2 days ago. It was somewhat intermittent but is been fairly constant since last night. It aggravated by certain movements. She has a history of coronary artery disease and has 3 stents in her heart. She says the pain she is having today does not feel like the pain she had her heart before. She has no history of ulcer. 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 PFSH Past Medical History Hx Anticoagulant Therapy: Yes Arthritis: No Autoimmune Disease: No Blood Disorders: No Anxiety: Yes Depression: Yes Heart Rhythm Problems: Yes (MURMUR) Cancer: No Cardiac Catheterization: Yes Cardiovascular Problems: No High Cholesterol: Yes Chest Pain: Yes Congestive Heart Failure: No Cerebrovascular Accident: No Coronary Artery Disease: Yes Diabetes: Yes (INSULIN DEPENDENT) Patient Takes Glucophage: No Dialysis: No Diminished Hearing: No Endocrine: Yes GERD: Yes Glaucoma: No Genitourinary: Yes (cyst on kidney) Headaches: Yes Hepatitis: No Hiatal Hernia: No Hypertension: Yes Immune Disorder: No Implanted Vascular Access Dvce: Yes Kidney Stones: No Musculoskeletal: Yes Psychiatric: Yes Reproductive: No Respiratory: No Integumentary: No Immunizations Current: Yes Migraines: No Myocardial Infarction: No Seizures: No Thyroid Disease: No Ulcer: No Tetanus Vaccination: < 5 Years PNEUMOCCOCAL Vaccine (Year): 2 ?: Not : 2 Para: 2 Miscarriage: 0 : 0 Tubal Ligation: Yes Past Surgical History Abdominal Surgery: No Body Medical Devices: CARDIAC STENT X3 Cardiac Surgery: Yes (stent x 3.) Section: Yes (X2) Coronary Artery Bypass Graft: No Coronary Stent: Yes (X 3 2012, 2013, 2014) Ear Surgery: No Endocrine Surgery: No Eye Surgery: No Genitourinary Surgery: No Gynecologic Surgery: Yes ( X 2 /tubal) Thoracic Surgery: No Other Surgery: Yes (STENTS X3) Family History Family Myocardial Infarction: Yes (FATHER AND MOTHER BOTH ALIVE) Social History Alcohol Use: No Tobacco Use: No Substance Use: No Allergies-Medications (Allergen,Severity, Reaction): Coded Allergies: prednisone (Unverified Allergy, Severe, 05/19/17) Uncoded Allergies: STEROIDS (Allergy, Intermediate, Anaphylaxis, 02/21/17) Reported Meds & Prescriptions Reported Meds & Active Scripts Active Meclizine (Meclizine HCl) 25 Mg Tab 25 Mg PO DIRECTED PRN Isosorbide Mononitrate ER (Isosorbide Mononitrate) 30 Mg Hayes 30 Mg PO DAILY Pravastatin 20 Mg Tab 20 Mg PO DAILY Plavix (Clopidogrel Bisulfate) 75 Mg Tab 75 Mg PO DAILY Reported Abilify (Aripiprazole) 10 Mg Tab 10 Mg PO DAILY Metoprolol Tartrate 25 Mg Tab 25 Mg PO BID Bupropion HCl ER 24 HR (Bupropion HCl) 150 Mg Tab 150 Mg PO DAILY Novolog Inj (Insulin Aspart) 1,000 Unit/10 Ml Vial 0 SQ TID PRN Sliding Scale as directed. Nitrostat SL (Nitroglycerin) 0.4 Mg Subl 0.4 Mg SL DIRECTED PRN 1 tablet under the tongue as needed for chest pain. Repeat every 5 minutes for a total of 3 DOSES or call 911 if NO relief. Levemir Inj (Insulin Detemir) 1,000 unit/ 10 ML Vial 5 Units SQ BID Do not mix with any other Insulin. Aspirin 81 (Aspirin) 81 Mg Tabdr 81 Mg PO DAILY Review of Systems General / Constitutional: No: Fever, Chills Eyes: No: Diploplia, Blurred Vision HENT: No: Headaches, Vertigo Cardiovascular: Positive: Chest Pain or Discomfort Respiratory: No: Cough, Shortness of Breath Gastrointestinal: No: Nausea, Vomiting Genitourinary: No: Urgency, Frequency Musculoskeletal: Positive: Myalgias, Pain Skin: No Rash Neurologic: No: Weakness Physical Exam Narrative GENERAL: [-] SKIN: Focused skin assessment warm/dry. HEAD: Atraumatic. Normocephalic. EYES: Pupils equal and round. No scleral icterus. No injection or drainage. ENT: No nasal bleeding or discharge. Mucous membranes pink and moist. NECK: Trachea midline. No JVD. CARDIOVASCULAR: Regular rate and rhythm. No murmur appreciated. RESPIRATORY: No accessory muscle use. Clear to auscultation. Breath sounds equal bilaterally. There is some tenderness in the left lower costochondral area on the lower ribs on the left. GASTROINTESTINAL: Abdomen soft, non-tender, nondistended. Hepatic and splenic margins not palpable. MUSCULOSKELETAL: No obvious deformities. No clubbing. No cyanosis. No edema. NEUROLOGICAL: Awake and alert. No obvious cranial nerve deficits. Motor grossly within normal limits. Normal speech. PSYCHIATRIC: Appropriate mood and affect; insight and judgment normal. Data Data Last Documented VS Vital Signs Date Time Temp Pulse Resp B/P (MAP) Pulse Ox O2 Delivery O2 Flow Rate FiO2 05/19/17 13:08 16 05/19/17 12:00 58 143/62 (89) 98 Room Air 05/19/17 11:01 99.2 Orders Orders Troponin I (05/19/17 11:35) Oxycodone-Acetamin 5-325 Mg (Percocet (05/19/17 12:00) Place Ng Tube To Low Intermit (05/19/17 13:13) Ng Gastric Tube Insert/Monitor (05/19/17 13:13) Labs Laboratory Tests Test 05/19/17 11:49 Troponin I LESS THAN 0.02 NG/ML MDM Medical Decision Making Medical Screen Exam Complete: Yes Emergency Medical Condition: Yes Medical Record Reviewed: Yes Differential Diagnosis Differential includes coronary artery disease, musculoskeletal pain, chest wall pain Narrative Course EKG shows normal sinus rhythm. Troponin is normal. I believe this is musculoskeletal pain. Diagnosis Primary Impression: Musculoskeletal pain Departure Forms: Tests/Procedures, Work Release Enter return to work date: May 22, 2017 Scripts Oxycodone-Acetaminophen (Percocet) 7.5-325 mg Tab 1 TAB PO Q4H Y for PAIN, #20 TAB 0 Refills Prov: Hardy Guzmán MD 05/19/17 Disposition: 01 DISCHARGE HOME Condition: Stable Hardy Guzmán MD May 19, 2017 11:37
[2017-05-19 12:00] VITALS: BP_SYST 143; BP_DIAS 143; BP_DIAS 62; PULSE 58; RESP 16; O2SAT 98
[2017-05-19] MEDS ORDERED: oxyCODONE/ACETAMINOPHEN 5 MG/325 MG TAB PO ONE (12:00)
[2017-05-19 13:08] VITALS: RESP 16
[2017-05-19] MEDS ORDERED: PERC7.5T13 PO (13:23)
[2017-05-19 13:52] VITALS: BP 134/70
--- NOTE | 2017-05-20 19:43 | EKG ---
Date Performed: 05/19/2017 Time Performed: 11:13:39 PTAGE: 46 years EKG: SINUS BRADYCARDIA BORDERLINE ECG NO PREVIOUS TRACING DOCTOR: Sumeet Pemberton Interpretating Date/Time 05/20/2017 19:38:52
== END 2017-05-19 14:06 | disposition home or self-care (01) ==
LOC: PHED 10:47
DX: M79.1 Myalgia (principal); R07.9 Chest pain, unspecified; Z79.01 Long term (current) use of anticoagulants; E78.00 Pure hypercholesterolemia, unspecified; I25.10 Atherosclerotic heart disease of native coronary artery without angina pectoris; E11.9 Type 2 diabetes mellitus without complications; Z79.4 Long term (current) use of insulin; K21.9 Gastro-esophageal reflux disease without esophagitis; I10 Essential (primary) hypertension
CPT/HCPCS: 84484; 93005; 99283

== ENCOUNTER 2017-07-15 12:50 | Observation (INO) | payer BC, MEDICAID ==
[~2017-07-15] VITALS: Ht 165.1 cm; Wt 100.0 kg
[~2017-07-15 12:50] MED LIST changes: +ABIL10TA8 PO; -ASPI-110 PO; +ASPI1TAB57 PO; +METO25TA3 PO; +PERC7.5T13 PO
[2017-07-15 13:12] VITALS: BP_SYST 132; BP_SYST 134; BP_DIAS 61; BP_DIAS 65; PULSE 68; RESP 14; O2SAT 98
[2017-07-15 13:15] VITALS: TEMP 98.2
[2017-07-15] MEDS ORDERED: SODIUM CHLORIDE 0.9% FLUSH 10 ML FLUSH IVF PRN (13:15)
[2017-07-15] MEDS ORDERED: NITROGLYCERIN 2% OINT 1 GM PACKET TOP ONE (13:15)
--- NOTE | 2017-07-15 13:21 | PD ---
HPI Chief Complaint: Chest Pain Time Seen by Provider: 13:07 Travel History International Travel<30 days: No Contact w/Intl Traveler<30days: No Traveled to known affect area: No History of Present Illness HPI 46-year-old female patient with history of CAD status post stents, follows up with Dr. tompkins, presents to the ER today because she has been having chest pains today which she currently measures is an 8 out of 10 along with nausea and radiation down the left arm. She states that it feels similar to her prior history of chest pain which are cardiac related. She was given aspirin and nitroglycerin by EMS with not significant relief. She denies any vomiting, fevers, or other symptoms. Modifying Factors: None Associated Signs & Symptoms: Chest pains Risk factors: CAD with stents PFSH Past Medical History Hx Anticoagulant Therapy: Yes Arthritis: No Autoimmune Disease: No Blood Disorders: No Anxiety: Yes Depression: Yes Heart Rhythm Problems: Yes (MURMUR) Cancer: No Cardiac Catheterization: Yes Cardiovascular Problems: Yes High Cholesterol: Yes Chest Pain: Yes Congestive Heart Failure: No Cerebrovascular Accident: No Coronary Artery Disease: Yes Diabetes: Yes Dialysis: No Diminished Hearing: No Endocrine: Yes GERD: Yes Glaucoma: No Genitourinary: Yes (cyst on kidney) Headaches: Yes Hepatitis: No Hiatal Hernia: No Hypertension: Yes Immune Disorder: No Implanted Vascular Access Dvce: Yes Kidney Stones: No Musculoskeletal: Yes Psychiatric: Yes Reproductive: No Respiratory: No Integumentary: No Immunizations Current: Yes Migraines: No Myocardial Infarction: No Seizures: No Thyroid Disease: No Ulcer: No PNEUMOCCOCAL Vaccine (Year): 2 ?: Not : 2 Para: 2 Miscarriage: 0 : 0 Tubal Ligation: Yes Past Surgical History Abdominal Surgery: No Body Medical Devices: CARDIAC STENT X3 Cardiac Surgery: Yes (stent x 3.) Section: Yes (X2) Coronary Artery Bypass Graft: No Coronary Stent: Yes (X 3 2012, 2014, 2014) Ear Surgery: No Endocrine Surgery: No Eye Surgery: No Genitourinary Surgery: No Gynecologic Surgery: Yes ( X 2 /tubal) Thoracic Surgery: No Other Surgery: Yes (STENTS X3) Social History Alcohol Use: No Tobacco Use: No Substance Use: No Allergies-Medications (Allergen,Severity, Reaction): Coded Allergies: prednisone (Unverified Allergy, Severe, 05/19/17) Uncoded Allergies: STEROIDS (Allergy, Intermediate, Anaphylaxis, 02/21/17) Reported Meds & Prescriptions Reported Meds & Active Scripts Active Percocet (Oxycodone-Acetaminophen) 7.5-325 mg Tab 1 Tab PO Q4H PRN Meclizine (Meclizine HCl) 25 Mg Tab 25 Mg PO DIRECTED PRN Isosorbide Mononitrate ER (Isosorbide Mononitrate) 30 Mg Hayes 30 Mg PO DAILY Pravastatin 20 Mg Tab 20 Mg PO DAILY Plavix (Clopidogrel Bisulfate) 75 Mg Tab 75 Mg PO DAILY Reported Abilify (Aripiprazole) 10 Mg Tab 10 Mg PO DAILY Metoprolol Tartrate 25 Mg Tab 25 Mg PO BID Bupropion HCl ER 24 HR (Bupropion HCl) 150 Mg Tab 150 Mg PO DAILY Novolog Inj (Insulin Aspart) 1,000 Unit/10 Ml Vial 0 SQ TID PRN Sliding Scale as directed. Nitrostat SL (Nitroglycerin) 0.4 Mg Subl 0.4 Mg SL DIRECTED PRN 1 tablet under the tongue as needed for chest pain. Repeat every 5 minutes for a total of 3 DOSES or call 911 if NO relief. Levemir Inj (Insulin Detemir) 1,000 unit/ 10 ML Vial 5 Units SQ BID Do not mix with any other Insulin. Aspirin 81 (Aspirin) 81 Mg Tabdr 81 Mg PO DAILY Review of Systems Except as stated in HPI: all other systems reviewed are Neg Physical Exam Narrative GENERAL: Well-developed middle age female patient currently in mild distress. Awake and oriented 3. SKIN: Focused skin assessment warm/dry. HEAD: Atraumatic. Normocephalic. EYES: Pupils equal and round. No scleral icterus. No injection or drainage. ENT: No nasal bleeding or discharge. Mucous membranes pink and moist. NECK: Trachea midline. No JVD. CARDIOVASCULAR: Regular rate and rhythm. No murmur appreciated. Pulses are present and equal bilaterally. RESPIRATORY: No accessory muscle use. Clear to auscultation. Breath sounds equal bilaterally. GASTROINTESTINAL: Abdomen soft, non-tender, nondistended. Hepatic and splenic margins not palpable. MUSCULOSKELETAL: No obvious deformities. No clubbing. No cyanosis. No edema. NEUROLOGICAL: Awake and alert. No obvious cranial nerve deficits. Motor grossly within normal limits. Normal speech. PSYCHIATRIC: Appropriate mood and affect; insight and judgment normal. Data Data Last Documented VS Vital Signs Date Time Temp Pulse Resp B/P (MAP) Pulse Ox O2 Delivery O2 Flow Rate FiO2 07/15/17 13:15 98.2 07/15/17 13:15 Room Air 07/15/17 13:15 98 07/15/17 13:12 68 14 Orders Orders Electrocardiogram (07/15/17 13:08) Basic Metabolic Panel (Bmp) (07/15/17 13:08) Ckmb (Isoenzyme) Profile (07/15/17 13:08) Complete Blood Count With Diff (07/15/17 13:08) Magnesium (Mg) (07/15/17 13:08) Prothrombin Time / Inr (Pt) (07/15/17 13:08) Act Partial Throm Time (Ptt) (07/15/17 13:08) Troponin I (07/15/17 13:08) Chest, Single Ap (07/15/17 13:08) Ecg Monitoring (07/15/17 13:08) Bilateral Bp Monitoring (07/15/17 13:08) Iv Access Insert/Monitor (07/15/17 13:08) Oximetry (07/15/17 13:08) Oxygen Administration (07/15/17 13:08) Nitroglycerin 2% Oint (Nitroglycerin 2% (07/15/17 13:15) Sodium Chloride 0.9% Flush (Ns Flush) (07/15/17 13:15) Acetaminophen (Tylenol) (07/15/17 14:15) Insulin Human Regular Inj (Novolin R Inj (07/15/17 14:30) Heparin Inj (Heparin Inj) (07/15/17 15:00) Heparin Inj (Heparin Inj) (07/15/17 21:00) Heparin Inj (Heparin Inj) (07/15/17 21:00) Heparin-D5w 25,000 U/250 Ml (Heparin-D5w (07/15/17 15:00) Act Partial Throm Time (Ptt) (07/15/17 15:00) Cbc No Diff, Includes Plts (07/15/17 15:00) Cbc No Diff, Includes Plts (07/18/17 06:00) Act Partial Throm Time (Ptt) (07/15/17 22:00) Occult Blood (Hemoccult) Stool (07/15/17 15:00) Admit Order (Ed Use Only) (07/15/17 15:20) Labs Laboratory Tests Test 07/15/17 13:25 White Blood Count 7.4 TH/MM3 Red Blood Count 4.10 MIL/MM3 Hemoglobin 12.2 GM/DL Hematocrit 36.4 % Mean Corpuscular Volume 88.8 FL Mean Corpuscular Hemoglobin 29.7 PG Mean Corpuscular Hemoglobin Concent 33.4 % Red Cell Distribution Width 13.3 % Platelet Count 215 TH/MM3 Mean Platelet Volume 9.0 FL Neutrophils (%) (Auto) 58.8 % Lymphocytes (%) (Auto) 28.6 % Monocytes (%) (Auto) 9.4 % Eosinophils (%) (Auto) 2.5 % Basophils (%) (Auto) 0.7 % Neutrophils # (Auto) 4.4 TH/MM3 Lymphocytes # (Auto) 2.1 TH/MM3 Monocytes # (Auto) 0.7 TH/MM3 Eosinophils # (Auto) 0.2 TH/MM3 Basophils # (Auto) 0.1 TH/MM3 CBC Comment DIFF FINAL Differential Comment Prothrombin Time 10.6 SEC Prothromb Time International Ratio 1.0 RATIO Activated Partial Thromboplast Time 27.3 SEC Blood Urea Nitrogen 9 MG/DL Creatinine 0.57 MG/DL Random Glucose 293 MG/DL Calcium Level 8.4 MG/DL Magnesium Level 1.6 MG/DL Sodium Level 136 MEQ/L Potassium Level 3.5 MEQ/L Chloride Level 103 MEQ/L Carbon Dioxide Level 24.8 MEQ/L Anion Gap 8 MEQ/L Estimat Glomerular Filtration Rate 115 ML/MIN Total Creatine Kinase 73 U/L Troponin I LESS THAN 0.02 NG/ML [facility] Medical Decision Making Medical Screen Exam Complete: Yes Emergency Medical Condition: Yes Medical Record Reviewed: Yes Interpretation(s) EKG shows NSR, no ST elevation or depression, and no arrhythmias. No significant T-wave inversions. Laboratory Tests Test 07/15/17 13:25 Monocytes (%) (Auto) 9.4 % (0.0-8.0) Random Glucose 293 MG/DL (74-106) Calcium Level 8.4 MG/DL (8.5-10.1) Troponin I LESS THAN 0.02 NG/ML Differential Diagnosis Chest pains: ACS versus dysrhythmias versus anxiety attack versus acute pulmonary processes Narrative Course EKG did not show any signs of acute ST-T changes. Cardiac enzymes are negative. Patient had been given aspirin and nitroglycerin by EMS. Patient was still having chest pains in the ER and considering possible underlying unstable angina, heparin was initiated in the ER. Planning to admit the patient for further treatment. Consult Dr. tompkins. Case was discussed with Dr. Pena for admission. Case was discussed with Dr. tompkins who had catheterized her twice, states that if she is coming in to medicine, he can see her on consult. Diagnosis Primary Impression: Chest pain, rule out acute myocardial infarction Admitting Information Admitting Physician Requests: Admit Kathy Carias MD Jul 15, 2017 13:21
[2017-07-15 13:51] LABS: AUTOMATED NEUTROPHIL # 4.4 TH/MM3 (1.8-7.7); BASOPHIL # 0.1 TH/MM3 (0-0.2); BASOPHIL % 0.7 % (0.0-2.0); EOSINOPHIL # 0.2 TH/MM3 (0-0.4); EOSINOPHIL % 2.5 % (0.0-4.0); HEMATOCRIT 36.4 % (35.0-46.0); HEMO FLAGS DIFF FINAL; LYMPH % 28.6 % (9.0-44.0); LYMPHOCYTE # 2.1 TH/MM3 (1.0-4.8); MEAN CELL VOLUME 88.8 FL (80.0-100.0); MEAN CORPUSCULAR HEMOGLOBIN 29.7 PG (27.0-34.0); MEAN CORPUSCULAR HGB CONC 33.4 % (32.0-36.0); MONO % 9.4 % (0.0-8.0); NEUT % 58.8 % (16.0-70.0); PLATELET COUNT 215 TH/MM3 (150-450); RED CELL DISTRIBUTION WIDTH 13.3 % (11.6-17.2); WHITE BLOOD COUNT 7.4 TH/MM3 (4.0-11.0)
[2017-07-15 14:00] LABS: APTT (PATIENT) 27.3 SEC (24.3-30.1); PROTHROMBIN TIME - PATIENT 10.6 SEC (9.8-11.6)
[2017-07-15 14:03] LABS: ANION GAP 8 MEQ/L (5-15); BICARBONATE 24.8 MEQ/L (21.0-32.0); BLOOD UREA NITROGEN 9 MG/DL (7-18); CHLORIDE 103 MEQ/L (98-107); GLOMERULAR FILTRATION RATE 115 ML/MIN (>89); MAGNESIUM 1.6 MG/DL (1.5-2.5); POTASSIUM 3.5 MEQ/L (3.5-5.1); SODIUM (NA) 136 MEQ/L (136-145)
[2017-07-15 14:14] LABS: CREATINE KINASE 73 U/L (26-192)
[2017-07-15] MEDS ORDERED: ACETAMINOPHEN 325 MG TAB PO ONE (14:15)
--- NOTE | 2017-07-15 14:29 | RADRPT ---
EXAM DATE/TIME: 07/15/2017 14:08 [facility] COMPARISON: CHEST SINGLE AP, February 21, 2017, 8:16. INDICATIONS : Chest pains MEDICAL HISTORY : Myocardial infarction. SURGICAL HISTORY : Coronary artery stent. ENCOUNTER: Initial ACUITY: 1 day PAIN SCORE: 8/10 LOCATION: Bilateral chest FINDINGS: Moderate elevation right hemidiaphragm. The left lung is clear. The cardiomediastinal contours are unremarkable. Osseous structures are intact. CONCLUSION: Moderate elevation right hemidiaphragm otherwise negative, stable in the interval. Nixon Peña MD FACR on July 15, 2017 at 14:27 Board Certified Radiologist. This report was verified electronically.
[2017-07-15] MEDS ORDERED: INSULIN HUMAN REGULAR 1,000 UNITS/10 ML VIAL IV PUSH ONE (14:30)
[2017-07-15] MEDS ORDERED: HEPARIN-D5W 25,000 U/250 ML 250 ML IV PRN (15:00)
[2017-07-15] MEDS ORDERED: HEPARIN SODIUM - IV 10,000 UNITS/10 ML VIAL IV PUSH ONE (15:00)
[2017-07-15 15:45] VITALS: BP 120/66; PULSE 54; RESP 17; O2SAT 98
[2017-07-15 16:39] LABS: APTT (PATIENT) 26.4 SEC (24.3-30.1)
[2017-07-15] MEDS ORDERED: ONDANSETRON HCL 4 MG/2 ML VIAL IV PUSH PRN (16:45)
[2017-07-15] MEDS ORDERED: MECLIZINE HCL 25 MG TAB PO PRN (16:45)
[2017-07-15] MEDS ORDERED: oxyCODONE/ACETAMINOPHEN 7.5 MG/325 MG TAB PO PRN (16:45)
[2017-07-15] MEDS ORDERED: DEXTROSE 50% IN WATER 50 ML VIAL(D50) IV PUSH PRN (16:45)
[2017-07-15] MEDS ORDERED: GLUCAGON 1 MG/ML VIAL OTHER PRN (16:45)
--- NOTE | 2017-07-15 18:20 | HHI.HP ---
[facility] Service [facility] Primary Care Physician Hayden Mcgovern MD Admission Diagnosis chest pain Diagnoses: Chief Complaint: Chest pain Travel History International Travel<30 Days: No Contact w/Intl Traveler <30 Da: No Traveled to Known Affected Are: No History of Present Illness 46 years old female with significant history of coronary artery disease status post 3 heart catheter 3 stents, also hyperlipidemia, diabetes mellitus presented to the ED complaining of another episode of chest pain which seems to be typical 9 out of 10, steady, positive nausea no vomiting, positive lightheaded, positive short of breath and diaphoresis, pain improved with nitroglycerin slightly. 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 Here in ED First set of troponin is negative, EKG no significant changes, the pain transferred to her left arm and neck, patient started on heparin drip in ED. Patient denied any other symptoms such as dysuria abdominal pain, diarrhea or constipation. Review of Systems All systems reviewed and was positive for what is mentioned in history of present illness otherwise negative Past Family Social History Past Medical History Diabetes Obesity Chronic neck pain Headache Myocardial infarction Coronary disease Cardiac catheterization Hyperlipidemia Cardiac murmur Hypertension Acid reflux Depression Anxiety Past Surgical History Coronary stenting, 3 times, 2012, 2013, 2014 section Tubal ligation Allergies: Coded Allergies: prednisone (Unverified Allergy, Severe, 05/19/17) Uncoded Allergies: STEROIDS (Allergy, Intermediate, Anaphylaxis, 02/21/17) Family History Positive for coronary artery disease Social History Denied tobacco alcohol or illicit drug abuse Physical Exam Vital Signs Vital Signs Date Time Temp Pulse Resp B/P (MAP) Pulse Ox O2 Delivery O2 Flow Rate FiO2 07/15/17 17:50 (84) 07/15/17 15:45 54 17 120/66 (84) 98 Room Air 07/15/17 13:15 98.2 07/15/17 13:15 (84) Room Air 07/15/17 13:15 98 Room Air 07/15/17 13:12 68 14 132/61 (84) 98 Room Air 134/65 (88) 07/15/17 13:11 57 14 98 Room Air Physical Exam GENERAL: This is a well-nourished, well-developed patient, in no apparent distress. SKIN: No rashes, warm and dry HEAD: Atraumatic. Normocephalic. EYES: Pupils equal round and reactive. Extraocular motions intact. No scleral icterus. ENT: Nose without bleeding, or drainage, Airway patent. NECK: Trachea midline. Supple CARDIOVASCULAR: Regular rate and rhythm without murmurs, gallops, or rubs. RESPIRATORY: Fair air entry bilaterally. No wheezes, rales, or rhonchi. GASTROINTESTINAL: Abdomen soft, non-tender, nondistended. Positive bowel sounds MUSCULOSKELETAL: Extremities without clubbing, cyanosis, or edema. Pedal pulses appreciated NEUROLOGICAL: Awake and alert. Moves all extremity. Normal speech.no focal neurological deficit Laboratory Laboratory Tests Test 07/15/17 13:25 07/15/17 15:20 White Blood Count 7.4 Red Blood Count 4.10 Hemoglobin 12.2 Hematocrit 36.4 Mean Corpuscular Volume 88.8 Mean Corpuscular Hemoglobin 29.7 Mean Corpuscular Hemoglobin Concent 33.4 Red Cell Distribution Width 13.3 Platelet Count 215 Mean Platelet Volume 9.0 Neutrophils (%) (Auto) 58.8 Lymphocytes (%) (Auto) 28.6 Monocytes (%) (Auto) 9.4 Eosinophils (%) (Auto) 2.5 Basophils (%) (Auto) 0.7 Neutrophils # (Auto) 4.4 Lymphocytes # (Auto) 2.1 Monocytes # (Auto) 0.7 Eosinophils # (Auto) 0.2 Basophils # (Auto) 0.1 CBC Comment DIFF FINAL Differential Comment Prothrombin Time 10.6 Prothromb Time International Ratio 1.0 Activated Partial Thromboplast Time 27.3 26.4 Blood Urea Nitrogen 9 Creatinine 0.57 Random Glucose 293 Calcium Level 8.4 Magnesium Level 1.6 Sodium Level 136 Potassium Level 3.5 Chloride Level 103 Carbon Dioxide Level 24.8 Anion Gap 8 Estimat Glomerular Filtration Rate 115 Total Creatine Kinase 73 Troponin I LESS THAN 0.02 Result Diagram: 07/15/17 1325 07/15/17 1325 Imaging Last Impressions Chest X-Ray 07/15/17 1308 Signed Impressions: Service Date/Time: Saturday, July 15, 2017 14:08 - CONCLUSION: Moderate elevation right hemidiaphragm otherwise negative, stable in the interval. Nixon Peña MD FACR EKG sinus bradycardia with low voltage QRS no ST elevation or depression or T- wave inversion Caprini VTE Risk Assessment Caprini VTE Risk Assessment: Mod/High Risk (score >= 2) Caprini Risk Assessment Model Point Value = 1 Point Value = 2 Point Value = 3 Point Value = 5 Age 41-60 Minor surgery BMI > 25 kg/m2 Swollen legs Varicose veins or History of unexplained or recurrent spontaneous Oral contraceptives or hormone replacement Sepsis (< 1 month) Serious lung disease, including pneumonia (< 1 month) Abnormal pulmonary function Acute myocardial infarction Congestive heart failure (< 1 month) History of inflammatory bowel disease Medical patient at bed rest Age 61-74 Arthroscopic surgery Major open surgery (> 45 min) Laparoscopic surgery (> 45 min) Malignancy Confined to bed (> 72 hours) Immobilizing plaster cast Central venous access Age >= 75 History of VTE Family history of VTE Factor V Leiden Prothrombin [id number] Lupus anticoagulant Anticardiolipin antibodies Elevated serum homocysteine Heparin-induced thrombocytopenia Other congenital or acquired thrombophilia Stroke (< 1 month) Elective arthroplasty Hip, pelvis, or leg fracture Acute spinal cord injury (< 1 month) Prophylaxis Regimen Total Risk Factor Score Risk Level Prophylaxis Regimen 0-1 Low Early ambulation 2 Moderate Order ONE of the following: *Sequential Compression Device (SCD) *Heparin 5000 units SQ BID 3-4 Higher Order ONE of the following medications: *Heparin 5000 units SQ TID *Enoxaparin/Lovenox 40 mg SQ daily (WT < 150 kg, CrCl > 30 mL/min) *Enoxaparin/Lovenox 30 mg SQ daily (WT < 150 kg, CrCl > 10-29 mL/min) *Enoxaparin/Lovenox 30 mg SQ BID (WT < 150 kg, CrCl > 30 mL/min) AND/OR *Sequential Compression Device (SCD) 5 or more Highest Order ONE of the following medications: *Heparin 5000 units SQ TID (Preferred with Epidurals) *Enoxaparin/Lovenox 40 mg SQ daily (WT < 150 kg, CrCl > 30 mL/min) *Enoxaparin/Lovenox 30 mg SQ daily (WT < 150 kg, CrCl > 10-29 mL/min) *Enoxaparin/Lovenox 30 mg SQ BID (WT < 150 kg, CrCl > 30 mL/min) AND *Sequential Compression Device (SCD) Assessment and Plan Assessment and Plan 46 years old female with significant history of coronary artery disease status post 3 times heart catheter and 3 stent came with: Acute atypical chest pain rule out acute coronary syndrome -Cycle cardiac enzyme first set negative - EKG reviewed by me no acute changes - Patient started on heparin drip per cardiology recommendation was consulted in ED - Aspirin 325, continue Plavix, beta rene, SLIME inhibitor, nitroglycerin, morphine - 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
[2017-07-15 18:23] VITALS: BP 123/58; PULSE 55; RESP 18; TEMP 96.1; O2SAT 95
[2017-07-15] MEDS: ASPIRIN EC 325 MG TABEC PO SCH (19:17)
[2017-07-15] MEDS: INSULIN NovoLIN REGULAR SUPPLEMENTAL SCALE SQ SCH ×2 (19:22→22:50)
[2017-07-15] MEDS: NITROGLYCERIN 0.4 MG SL 25 TABS/BTL SL PRN ×3 (19:46→20:08)
[2017-07-15 20:04] VITALS: BP 121/62; PULSE 52; RESP 18; TEMP 97.8; O2SAT 97
[2017-07-15 20:06] VITALS: PULSE 52
[2017-07-15] MEDS: MORPHINE SULFATE 4 MG/ML INJ IV PUSH PRN (20:23)
[2017-07-15] MEDS ORDERED: METOPROLOL TARTRATE 25 MG TAB PO SCH (21:00)
[2017-07-15] MEDS ORDERED: HEPARIN SODIUM - IV 10,000 UNITS/10 ML VIAL IV PUSH PRN (21:00)
[2017-07-15 22:27] LABS: CREATINE KINASE 71 U/L (26-192)
[2017-07-15 22:53] LABS: APTT (PATIENT) 30.5 SEC (24.3-30.1)
[2017-07-15] MEDS: HEPARIN SODIUM - IV 10,000 UNITS/10 ML VIAL IV PUSH PRN (23:21)
[2017-07-16] VITALS (9 sets, daily range): BP systolic 103–139; BP diastolic 53–67; PULSE 52–62; RESP 18–20; TEMP 97.8–98.6; O2SAT 96–98
[2017-07-16 04:43] LABS: APTT (PATIENT) 25.8 SEC (24.3-30.1)
[2017-07-16 04:55] LABS: ALT (GPT) 26 U/L (10-53); ANION GAP 10 MEQ/L (5-15); AST (GOT) 13 U/L (15-37); BLOOD UREA NITROGEN 9 MG/DL (7-18); CHLORIDE 103 MEQ/L (98-107); GLOMERULAR FILTRATION RATE 151 ML/MIN (>89); POTASSIUM 3.6 MEQ/L (3.5-5.1); SODIUM (NA) 138 MEQ/L (136-145)
[2017-07-16 04:59] LABS: ALKALINE PHOSPHATASE 81 U/L (45-117); HDL CHOLESTEROL 30.8 MG/DL (40.0-60.0); TOTAL BILIRUBIN ADULT 0.2 MG/DL (0.2-1.0)
[2017-07-16 05:08] LABS: CREATINE KINASE 58 U/L (26-192)
[2017-07-16] MEDS: HEPARIN SODIUM - IV 10,000 UNITS/10 ML VIAL IV PUSH PRN (05:13)
--- NOTE | 2017-07-16 07:32 | PD.CONS ---
HPI Reason for Consult Chest pain Primary Care Physician Hayden Mcgovern MD History of Present Illness 46-year-old female with past medical history of CAD, DM, HLD who presented for chest pain. The patient states that yesterday while getting ready for work, she began having left-sided chest pain with associated shortness of breath, nausea, diaphoresis, and radiation down her left arm. She states that since that time she's been having intermittent chest pain lasting approximately 30 minutes at a time. She has not had any recurrent chest pain since her previous episode back in October. She states the chest pain was relieved some with pain medication. She reports compliance with her aspirin and Plavix. The patient's last stress test here was 08/20/16 which showed no ischemia. The patient's last cardiac catheterization was 11/16/16 which showed widely patent LAD stent, nonobstructive CAD. (Garrett Leal) Review of Systems Reviewed and unremarkable except as stated in the history of present illness (Garrtet Leal) Past Family Social History Allergies: Coded Allergies: prednisone (Unverified Allergy, Severe, 05/19/17) Uncoded Allergies: STEROIDS (Allergy, Intermediate, Anaphylaxis, 02/21/17) Past Medical History Diabetes Obesity Chronic neck pain Headache Myocardial infarction Coronary disease Cardiac catheterization Hyperlipidemia Cardiac murmur Hypertension Acid reflux Depression Anxiety Past Surgical History Coronary stenting, 3 times, 2012, 2013, 2014 section Tubal ligation Reported Medications Reported Meds & Active Scripts Active Percocet (Oxycodone-Acetaminophen) 7.5-325 mg Tab 1 Tab PO Q4H PRN Meclizine (Meclizine HCl) 25 Mg Tab 25 Mg PO DIRECTED PRN Isosorbide Mononitrate ER (Isosorbide Mononitrate) 30 Mg Hayes 30 Mg PO DAILY Pravastatin 20 Mg Tab 20 Mg PO DAILY Plavix (Clopidogrel Bisulfate) 75 Mg Tab 75 Mg PO DAILY Reported Abilify (Aripiprazole) 10 Mg Tab 10 Mg PO DAILY Metoprolol Tartrate 25 Mg Tab 25 Mg PO BID Bupropion HCl ER 24 HR (Bupropion HCl) 150 Mg Tab 150 Mg PO DAILY Novolog Inj (Insulin Aspart) 1,000 Unit/10 Ml Vial 0 SQ TID PRN Sliding Scale as directed. Nitrostat SL (Nitroglycerin) 0.4 Mg Subl 0.4 Mg SL DIRECTED PRN 1 tablet under the tongue as needed for chest pain. Repeat every 5 minutes for a total of 3 DOSES or call 911 if NO relief. Levemir Inj (Insulin Detemir) 1,000 unit/ 10 ML Vial 5 Units SQ BID Do not mix with any other Insulin. Aspirin 81 (Aspirin) 81 Mg Tabdr 81 Mg PO DAILY Active Ordered Medications Current Medications Medications (Trade) Dose Ordered Sig/Susanne Route Start Time Stop Time Status Last Admin (NS Flush) 2 ml UNSCH PRN IVF 07/15/17 13:15 07/15/17 13:28 (Heparin Inj) 5,000 units UNSCH PRN IV PUSH 07/15/17 21:00 (Heparin Inj) 2,500 units UNSCH PRN IV PUSH 07/15/17 21:00 07/16/17 05:13 Heparin Sodium/ Dextrose 250 ml @ 10 mls/hr TITRATE PRN IV 07/15/17 15:00 07/15/17 15:37 (Ecotrin Ec) 325 mg DAILY PO 07/15/17 16:45 07/15/17 19:17 (Nitrostat Sl) 0.4 mg Q5M PRN SL 07/15/17 16:45 07/15/17 20:08 (Morphine Inj) 2 mg Q30M PRN IV PUSH 07/15/17 16:45 07/15/17 20:23 (Zofran Inj) 4 mg Q6H PRN IV PUSH 07/15/17 16:45 (D50w (Vial) Inj) 50 ml UNSCH PRN IV PUSH 07/15/17 16:45 (Glucagon Inj) 1 mg UNSCH PRN OTHER 07/15/17 16:45 (NovoLIN R SUPPLEMENTAL SCALE) 1 ACHS SLIDING SCALE SQ 07/15/17 17:00 07/15/17 22:50 (Abilify) 10 mg DAILY PO 07/16/17 09:00 (Wellbutrin Xl 24 Hr) 150 mg DAILY PO 07/16/17 09:00 (Plavix) 75 mg DAILY PO 07/16/17 09:00 (Imdur) 30 mg DAILY PO 07/16/17 09:00 (Antivert) 25 mg DAILY PRN PO 07/15/17 16:45 (Lopressor) 25 mg BID PO 07/15/17 21:00 (Percocet 7.5-325 Mg) 1 tab Q4H PRN PO 07/15/17 16:45 (Pravachol) 20 mg DAILY PO 07/16/17 09:00 (Flu (Quadrivalent) Vaccine Inj) 0.5 ml ONCE ONCE IM 07/16/17 10:00 07/16/17 10:01 Family History Noncontributory Social History No smoking, no excessive alcohol, no illicit drug use (Garrett Leal) Physical Exam Vital Signs Vital Signs Date Time Temp Pulse Resp B/P (MAP) Pulse Ox O2 Delivery O2 Flow Rate FiO2 07/16/17 05:30 97.9 52 18 120/58 (78) 97 07/16/17 04:14 56 07/16/17 03:37 High Flow Nasal Cannula 21 07/16/17 00:22 97.8 62 18 103/53 (70) 96 07/16/17 00:01 54 07/15/17 20:06 52 07/15/17 20:04 97.8 52 18 121/62 (81) 97 07/15/17 18:23 96.1 55 18 123/58 (79) 95 07/15/17 17:50 (84) 07/15/17 15:45 54 17 120/66 (84) 98 Room Air 07/15/17 13:15 98.2 07/15/17 13:15 (84) Room Air 07/15/17 13:15 98 Room Air 07/15/17 13:12 68 14 132/61 (84) 98 Room Air 134/65 (88) 07/15/17 13:11 57 14 98 Room Air Physical Exam GENERAL: Well-developed well-nourished. In no acute distress. NECK: No carotid bruits. No JVD. CARDIOVASCULAR: Regular rate and rhythm. Systolic murmur appreciated. RESPIRATORY: No accessory muscle use. Clear to auscultation. Breath sounds equal bilaterally. MUSCULOSKELETAL: No clubbing or cyanosis. No edema. NEUROLOGICAL: Awake and alert. Normal speech. Laboratory Laboratory Tests Test 07/15/17 13:25 07/15/17 15:20 07/15/17 20:26 07/15/17 21:20 White Blood Count 7.4 Red Blood Count 4.10 Hemoglobin 12.2 Hematocrit 36.4 Mean Corpuscular Volume 88.8 Mean Corpuscular Hemoglobin 29.7 Mean Corpuscular Hemoglobin Concent 33.4 Red Cell Distribution Width 13.3 Platelet Count 215 Mean Platelet Volume 9.0 Neutrophils (%) (Auto) 58.8 Lymphocytes (%) (Auto) 28.6 Monocytes (%) (Auto) 9.4 Eosinophils (%) (Auto) 2.5 Basophils (%) (Auto) 0.7 Neutrophils # (Auto) 4.4 Lymphocytes # (Auto) 2.1 Monocytes # (Auto) 0.7 Eosinophils # (Auto) 0.2 Basophils # (Auto) 0.1 CBC Comment DIFF FINAL Differential Comment Prothrombin Time 10.6 Prothromb Time International Ratio 1.0 Activated Partial Thromboplast Time 27.3 26.4 30.5 Blood Urea Nitrogen 9 Creatinine 0.57 Random Glucose 293 Calcium Level 8.4 Magnesium Level 1.6 Sodium Level 136 Potassium Level 3.5 Chloride Level 103 Carbon Dioxide Level 24.8 Anion Gap 8 Estimat Glomerular Filtration Rate 115 Total Creatine Kinase 73 71 Troponin I LESS THAN 0.02 LESS THAN 0.02 Test 07/16/17 03:56 Activated Partial Thromboplast Time 25.8 Blood Urea Nitrogen 9 Creatinine 0.45 Random Glucose 211 Total Protein 6.8 Albumin 3.3 Calcium Level 8.7 Alkaline Phosphatase 81 Aspartate Amino Transf (AST/SGOT) 13 Alanine Aminotransferase (ALT/SGPT) 26 Total Bilirubin 0.2 Sodium Level 138 Potassium Level 3.6 Chloride Level 103 Carbon Dioxide Level 25.0 Anion Gap 10 Estimat Glomerular Filtration Rate 151 Total Creatine Kinase 58 Troponin I LESS THAN 0.02 Triglycerides Level 464 Cholesterol Level 178 LDL Cholesterol HDL Cholesterol 30.8 Cholesterol/HDL Ratio 5.77 (Garrett Leal) Result Diagram: 07/15/17 1325 07/16/17 0356 Imaging Last Impressions Chest X-Ray 07/15/17 1308 Signed Impressions: Service Date/Time: Saturday, July 15, 2017 14:08 - CONCLUSION: Moderate elevation right hemidiaphragm otherwise negative, stable in the interval. Nixon Peña MD FACR (Garrett Leal) Assessment and Plan Assessment and Plan 46-year-old female with past medical history of CAD, DM, HLD who presented for chest pain Chest pain: Troponins are not elevated. EKG with no acute ischemic changes. Extensive previous cardiac workup as above. Continue aspirin, Plavix, Imdur, statin. Keep nothing by mouth for now. (Garrett Leal) Assessment and Plan atypical symptoms negative trop negative EKG suspect noncardiac etiology consider isosorbide 60 mg daily FU PCP ok for DC no plans for ischemic workup. [facility] and lexiscan within last 1 year (Ever Cardoso MD) Garrett Leal Jul 16, 2017 07:32 Ever Cardoso MD Jul 17, 2017 12:18
[2017-07-16] MEDS ORDERED: CLOPIDOGREL 75 MG TAB PO SCH (09:00)
[2017-07-16] MEDS ORDERED: ISOSORBIDE MONONITRATE 30 MG TAB PO SCH (09:00)
[2017-07-16] MEDS ORDERED: ARIPiprazole 10 MG TAB PO SCH (09:00)
[2017-07-16] MEDS ORDERED: buPROPion HCL 150 MG EXTENDED RELEASE TAB PO SCH (09:00)
[2017-07-16] MEDS ORDERED: PRAVASTATIN SOD 20 MG TAB PO SCH (09:00)
[2017-07-16] MEDS: ASPIRIN EC 325 MG TABEC PO SCH (09:20)
[2017-07-16] MEDS: NITROGLYCERIN 0.4 MG SL 25 TABS/BTL SL PRN (09:34)
[2017-07-16] MEDS: MORPHINE SULFATE 4 MG/ML INJ IV PUSH PRN (09:48)
[2017-07-16] MEDS ORDERED: INFLUENZA VIRUS VACCINE (QUADRIVALENT) 0.5 ML SYR IM ONE (10:00)
[2017-07-16] MEDS: INSULIN NovoLIN REGULAR SUPPLEMENTAL SCALE SQ SCH ×2 (10:08→13:22)
[2017-07-16 10:23] LABS: APTT (PATIENT) 33.8 SEC (24.3-30.1)
[2017-07-16 10:55] LABS: CREATINE KINASE 55 U/L (26-192)
[2017-07-16] MEDS ORDERED: PILL SPLITTER OTHER PRN (11:00)
[2017-07-16] MEDS ORDERED: ISOS60TA PO (12:41)
--- NOTE | 2017-07-16 16:14 | HHI.PR ---
Subjective Remarks Patient seen today around 2 PM. She says that left lower thoracic tenderness to palpation continues. Denies any shortness breath. No worsening with deep breath. She feels like she can go home. Objective Vital Signs Date Time Temp Pulse Resp B/P (MAP) Pulse Ox O2 Delivery O2 Flow Rate FiO2 07/16/17 11:56 98.6 56 20 130/62 (84) 98 07/16/17 09:40 128/67 (87) 07/16/17 09:11 98.6 59 20 139/67 (91) 96 07/16/17 08:32 54 07/16/17 08:20 97 21 07/16/17 05:30 97.9 52 18 120/58 (78) 97 07/16/17 04:14 56 07/16/17 03:37 High Flow Nasal Cannula 21 07/16/17 00:22 97.8 62 18 103/53 (70) 96 07/16/17 00:01 54 07/15/17 20:06 52 07/15/17 20:04 97.8 52 18 121/62 (81) 97 07/15/17 18:23 96.1 55 18 123/58 (79) 95 07/15/17 17:50 (84) Result Diagram: 07/15/17 1325 07/16/17 0356 Objective Remarks GENERAL: Sitting up in bed. Appears comfortable. SKIN: Warm and dry. HEAD: Normocephalic. EYES: No scleral icterus. No injection or drainage. NECK: Supple, trachea midline. No JVD or lymphadenopathy. CARDIOVASCULAR: Regular rate and rhythm without murmurs, gallops, or rubs. RESPIRATORY: Breath sounds equal bilaterally. No accessory muscle use. Left 11th rib tenderness to palpation. No rashes. GASTROINTESTINAL: Abdomen soft, non-tender, nondistended. MUSCULOSKELETAL: No cyanosis, or edema. BACK: Nontender without obvious deformity. No CVA tenderness. A/P Assessment and Plan 46 years old female with significant history of coronary artery disease status post 3 times heart catheter and 3 stent came with: //Acute atypical chest pain rule out acute coronary syndrome -Cycle cardiac enzyme first set negative - EKG reviewed by me no acute changes - Patient started on heparin drip per cardiology recommendation was consulted in ED - Aspirin 325, continue Plavix, beta rene, SLIME inhibitor, nitroglycerin, morphine - Patient tax compliance representative has been consulted for possible heart catheter =Negative troponins, EKGs with no changes. suspect costochondritis. Cleared for discharge by cardiology. Charge home with increased dose of Imdur. //Sinus bradycardia: Hold metoprolol for heart rate less than 60 //Hyperlipidemia: Continue statin //Diabetes mellitus: Diabetic diet, Accu-Chek with ISS //Hypertension: Continue home med DVT prophylaxis patient on heparin drip Discharge Planning Discharge home in good condition. Continue diabetic diet. Activity ad brennan. Please see discharge medication reconciliation for medication list. Follow-up with cardiology and primary care. Rubens Jeronimo MD Jul 16, 2017 16:14
--- NOTE | 2017-07-16 17:56 | EKG ---
Date Performed: 07/15/2017 Time Performed: 13:20:22 PTAGE: 46 years EKG: SINUS BRADYCARDIA LOW QRS VOLTAGE IN PRECORDIAL LEADS Since previous tracing, no significan t change noted BORDERLINE ECG PREVIOUS TRACING : 05/19/2017 11.13 DOCTOR: Carmella Agudelo Interpretating Date/Time 07/16/2017 17:56:28
--- NOTE | 2017-07-16 17:57 | EKG ---
Date Performed: 07/15/2017 Time Performed: 20:01:24 PTAGE: 46 years EKG: SINUS BRADYCARDIA Since previous tracing, no significant change noted BORDERLINE ECG PREVIOUS TRACING : 07/15/2017 13.20 DOCTOR: Carmella Agudelo Interpretating Date/Time 07/16/2017 17:56:42
--- NOTE | 2017-07-16 18:01 | EKG ---
Date Performed: 07/16/2017 Time Performed: 06:00:11 PTAGE: 46 years EKG: SINUS BRADYCARDIA Since previous tracing, no significant change noted BORDERLINE ECG PREVIOUS TRACING : 07/15/2017 20.01 DOCTOR: Carmella Agudelo Interpretating Date/Time 07/16/2017 18:00:20
[2017-07-16] MEDS ORDERED: METOPROLOL TARTRATE 25 MG TAB PO SCH (21:00)
[2017-07-17] MEDS ORDERED: ISOSORBIDE MONONITRATE 60 MG TAB PO SCH (07:00)
== END 2017-07-16 14:33 | disposition home or self-care (01) ==
LOC: NEPC 12:50 → NEDA 15:22 → NEPFCDU 18:09
PROVIDERS: ADMIT Internal Medicine; ATTEND Internal Medicine
DX: R07.89 Other chest pain (principal); R00.1 Bradycardia, unspecified; E11.9 Type 2 diabetes mellitus without complications; I10 Essential (primary) hypertension; E78.5 Hyperlipidemia, unspecified; I25.10 Atherosclerotic heart disease of native coronary artery without angina pectoris; R11.0 Nausea; R06.02 Shortness of breath; M54.2 Cervicalgia; G89.29 Other chronic pain; I25.2 Old myocardial infarction; R51 Headache; R01.1 Cardiac murmur, unspecified; K21.9 Gastro-esophageal reflux disease without esophagitis; Z95.5 Presence of coronary angioplasty implant and graft; Z79.4 Long term (current) use of insulin; Z23 Encounter for immunization
CPT/HCPCS: 71010; 80048; 80053; 80061; 82550; 82948; 83735; 84484; 85025; 85610; 85730; 90471; 90686; 93005; 96372; 96374; 96376; 99285; G0378; J1644; J1815; J2270; G0008; Q2038

== ENCOUNTER 2017-07-25 05:32 | Emergency (ER) | payer MEDICAID ==
[~2017-07-25] VITALS: Ht 165.1 cm; Wt 101.4 kg
[~2017-07-25 05:32] MED LIST changes: -ISOS30TA3 PO; +ISOS60TA PO
[2017-07-25 05:37] VITALS: BP 154/65; PULSE 57; RESP 18; TEMP 97.8; O2SAT 97
--- NOTE | 2017-07-25 06:20 | PD ---
HPI Chief Complaint: Musculoskeletal Complaint Time Seen by Provider: 06:00 Travel History International Travel<30 days: No Contact w/Intl Traveler<30days: No Traveled to known affect area: No History of Present Illness HPI The patient is a 46-year-old female that complains of pain down her left leg for 3 days. She has never had pain radiating down her left leg. She has had back pain in the past but never came in to the emergency department for this. The pain shoots down the back of her leg all the way to the foot. She does have some slight numbness on the distal part of the left leg. She denies any bladder or bowel dysfunction. She states that there is no possibility of . PFSH Past Medical History Hx Anticoagulant Therapy: Yes Arthritis: No Autoimmune Disease: No Blood Disorders: No Anxiety: Yes Depression: Yes Heart Rhythm Problems: Yes Cancer: No Cardiac Catheterization: Yes Cardiovascular Problems: Yes High Cholesterol: Yes Chest Pain: Yes Congestive Heart Failure: No Cerebrovascular Accident: No Coronary Artery Disease: Yes Diabetes: Yes Patient Takes Glucophage: No Dialysis: No Diminished Hearing: No Endocrine: Yes Gastrointestinal Disorders: No ( ) GERD: Yes Glaucoma: No Genitourinary: No Headaches: Yes Hepatitis: No Hiatal Hernia: No Heparin Induced Thrombocytopen: No Hypertension: Yes Immune Disorder: No Implanted Vascular Access Dvce: Yes Kidney Stones: No Musculoskeletal: No Neurologic: No Psychiatric: Yes Reproductive: No Respiratory: No Integumentary: No Immunizations Current: Yes Migraines: No Myocardial Infarction: No Seizures: No Thyroid Disease: No Ulcer: No Tetanus Vaccination: > 5 Years Influenza Vaccination: Yes PNEUMOCCOCAL Vaccine (Year): 2 ?: Not LMP: irreg, 1yr ago : 2 Para: 2 Miscarriage: 0 : 0 Tubal Ligation: Yes Past Surgical History Abdominal Surgery: No Body Medical Devices: CARDIAC STENT X3 Cardiac Surgery: Yes (stent x 3.) Section: Yes (X2) Coronary Artery Bypass Graft: No Coronary Stent: Yes (X 3 2012, 2013, 2014) Ear Surgery: No Endocrine Surgery: No Eye Surgery: No Genitourinary Surgery: No Gynecologic Surgery: Yes ( X 2 /tubal) Neurologic Surgery: No Thoracic Surgery: No Other Surgery: Yes (STENTS X3) Family History Family Myocardial Infarction: Yes (FATHER AND MOTHER BOTH ALIVE) Social History Alcohol Use: No Tobacco Use: No Substance Use: No Allergies-Medications (Allergen,Severity, Reaction): Coded Allergies: prednisone (Unverified Allergy, Severe, 07/25/17) Uncoded Allergies: STEROIDS (Allergy, Intermediate, Anaphylaxis, 02/21/17) Reported Meds & Prescriptions Reported Meds & Active Scripts Active Percocet (Oxycodone-Acetaminophen) 7.5-325 mg Tab 1 Tab PO Q6H PRN Flexeril (Cyclobenzaprine HCl) 10 Mg Tab 10 Mg PO TID Isosorbide Mononitrate ER (Isosorbide Mononitrate) 60 Mg Tab 60 Mg PO DAILY@ 0700 30 Days Percocet (Oxycodone-Acetaminophen) 7.5-325 mg Tab 1 Tab PO Q4H PRN Meclizine (Meclizine HCl) 25 Mg Tab 25 Mg PO DIRECTED PRN Pravastatin 20 Mg Tab 20 Mg PO DAILY Plavix (Clopidogrel Bisulfate) 75 Mg Tab 75 Mg PO DAILY Reported Abilify (Aripiprazole) 10 Mg Tab 10 Mg PO DAILY Metoprolol Tartrate 25 Mg Tab 25 Mg PO BID Bupropion HCl ER 24 HR (Bupropion HCl) 150 Mg Tab 150 Mg PO DAILY Novolog Inj (Insulin Aspart) 1,000 Unit/10 Ml Vial 0 SQ TID PRN Sliding Scale as directed. Nitrostat SL (Nitroglycerin) 0.4 Mg Subl 0.4 Mg SL DIRECTED PRN 1 tablet under the tongue as needed for chest pain. Repeat every 5 minutes for a total of 3 DOSES or call 911 if NO relief. Levemir Inj (Insulin Detemir) 1,000 unit/ 10 ML Vial 5 Units SQ BID Do not mix with any other Insulin. Aspirin 81 (Aspirin) 81 Mg Tabdr 81 Mg PO DAILY Review of Systems Except as stated in HPI: all other systems reviewed are Neg Physical Exam Narrative GENERAL: The patient is alert, oriented 3 in moderate apparent distress with her low back and left leg discomfort. Her vital signs show blood pressure 154/ 65 but are otherwise normal. SKIN: Focused skin assessment warm/dry. HEAD: Atraumatic. Normocephalic. EYES: Pupils equal and round. No scleral icterus. No injection or drainage. ENT: No nasal bleeding or discharge. Mucous membranes pink and moist. NECK: Trachea midline. No JVD. CARDIOVASCULAR: Regular rate and rhythm. No murmur appreciated. RESPIRATORY: No accessory muscle use. Clear to auscultation. Breath sounds equal bilaterally. GASTROINTESTINAL: Abdomen soft, non-tender, nondistended. Hepatic and splenic margins not palpable. MUSCULOSKELETAL: No obvious deformities. No clubbing. No cyanosis. No edema. Straight leg raising causes pain at 10. Deep tendon reflexes are 0 bilaterally both patella and Achilles. The patient finds it difficult to relax for the exam. Pinprick shows decreased pinprick sensation on the dorsum of the left foot and ankle. The right pinprick exam is normal. NEUROLOGICAL: Awake and alert. No obvious cranial nerve deficits. Motor grossly within normal limits. Normal speech. PSYCHIATRIC: Appropriate mood and affect; insight and judgment normal. Data Data Last Documented VS Vital Signs Date Time Temp Pulse Resp B/P (MAP) Pulse Ox O2 Delivery O2 Flow Rate FiO2 07/25/17 07:13 18 07/25/17 07:10 55 149/70 (96) 97 Room Air 07/25/17 05:[address] Lumb Spine W/O Contrast (07/25/17 06:20) Ketorolac Inj (Toradol Inj) (07/25/17 06:30) Orphenadrine Inj (Norflex Inj) (07/25/17 06:30) MDM Medical Decision Making Medical Screen Exam Complete: Yes Emergency Medical Condition: Yes Medical Record Reviewed: Yes Interpretation(s) The CT of the lumbar spine shows moderate canal stenosis at L4-5 level secondary to disc bulge and degenerative change involving the facets. There is bilateral narrowing of the neural foramina as well. 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 There is mild scoliosis and incidentally noted a right adrenal adenoma. Differential Diagnosis Herniated nucleus pulposus, compression fracture, acute lumbar strain, lumbar radiculopathy Narrative Course The patient likely has a herniated nucleus the pulses that is irritating the associated nerve root. She is given Percocet 7.5 and Flexeril. I cannot give her nonsteroidal anti-inflammatory medications because she is taking Plavix. Also, she is allergic to prednisone and steroids. She is to follow-up with her primary care physician and is given a 7 day work excuse. Diagnosis Primary Impression: Herniated nucleus pulposus Additional Instructions: Follow-up with your primary care physician. Conservative treatment like rest, pain medications and muscle relaxant usually work but if this does not work you may need referral. Med/Other Pt SpecificInfo: Prescription(s) given Scripts Oxycodone-Acetaminophen (Percocet) 7.5-325 mg Tab 1 TAB PO Q6H Y for PAIN, #21 TAB 0 Refills Prov: Paulie Alvarado MD 07/25/17 Cyclobenzaprine (Flexeril) 10 Mg Tab 10 MG PO TID for Muscle Spasm, #60 TAB 0 Refills Prov: Paulie Alvarado MD 07/25/17 Disposition: 01 DISCHARGE HOME Condition: Stable Paulie Alvarado MD Jul 25, 2017 06:20
[2017-07-25] MEDS ORDERED: ORPHENADRINE INJ 60 MG/2 ML AMP IM ONE (06:30)
[2017-07-25] MEDS ORDERED: KETOROLAC TROMETHAMINE 60 MG/2 ML (IM) VIAL IM ONE (06:30)
--- NOTE | 2017-07-25 07:06 | RADRPT ---
EXAM DATE/TIME: 07/25/2017 06:35 [facility] COMPARISON: No previous studies available for comparison. INDICATIONS : Left lumbar pain with radiation to left leg. RADIATION DOSE: 39.81 CTDIvol (mGy) MEDICAL HISTORY : Hypertension. Diabetes mellitus type 2. SURGICAL HISTORY : None. ENCOUNTER: Initial ACUITY: 3 days PAIN SCALE: 8/10 LOCATION: Left Parasp[facility] TECHNIQUE: Volumetric scanning of the lumbar spine was performed. Multiplanar reconstructions in the sagittal, coronal and oblique axial planes were performed. Using automated exposure control and adjustment of the mA and/or kV according to patient size, radiation dose was kept as low as reasonably achievable t o obtain optimal diagnostic quality images. DICOM format image data is available electronically for review and comparison. FINDINGS: VERTEBRAE: Normal vertebral body height. A partial fusion of the L3 and L4 vertebral bodies and posterior elemen ts which are congenital. There is mild scoliosis. ALIGNMENT: No evidence of subluxation. A low density right adrenal adenoma is noted measuring 2.3 x 2.1 cm density. T12-L1: The thecal sac has a normal diameter. No evidence of disc bulge or protrusion. The neural foramina are patent bilaterally. L1-L2: The thecal sac has a normal diameter. No evidence of disc bulge or protrusion. The neural foramina are patent bilaterally. L2-L3: The thecal sac has a normal diameter. No evidence of disc bulge or protrusion. The neural foramina are patent bilaterally. L3-L4: The thecal sac has a normal diameter. No evidence of disc bulge or protrusion. The neural foramina are patent bilaterally. L4-L5: There is a mild to moderate disc bulge with flattening of the thecal sac and narrowing the neural for bennie bilaterally. The exiting nerve contact with the disc margin. Degenerative changes noted both fa cet joints with hypertrophy of ligamentum flavum. There is moderate central canal stenosis. L5-S1: The thecal sac has a normal diameter. No evidence of disc bulge or protrusion. The neural foramina are patent bilaterally. CONCLUSION: 1. Moderate central canal stenosis at the L4-5 level secondary to disc bulge and degenerative change involving the facets. There is bilateral narrowing of the neural foramina as well. 2. 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 3. Mild scoliosis. 4. Incidental note is made of a right adrenal adenoma. Vj Waller MD on July 25, 2017 at 7:02 Board Certified Radiologist. This report was verified electronically.
[2017-07-25 07:10] VITALS: BP 149/70; PULSE 55; RESP 18; O2SAT 97
[2017-07-25 07:13] VITALS: RESP 18
[2017-07-25] MEDS ORDERED: PERC7.5T13 PO (07:15)
[2017-07-25] MEDS ORDERED: CYCL10TA PO (07:15)
== END 2017-07-25 07:34 | disposition home or self-care (01) ==
LOC: PHED 05:32
DX: M51.26 Other intervertebral disc displacement, lumbar region (principal); M48.061 Spinal stenosis, lumbar region without neurogenic claudication; E11.9 Type 2 diabetes mellitus without complications; I10 Essential (primary) hypertension; I25.10 Atherosclerotic heart disease of native coronary artery without angina pectoris; Z79.4 Long term (current) use of insulin
CPT/HCPCS: 72131; 96372; 99285; J1885; J2360

== ENCOUNTER 2017-08-20 04:31 | Observation (INO) | payer BC ==
[~2017-08-20] VITALS: Ht 165.1 cm; Wt 102.8 kg
[2017-08-20] VITALS (8 sets, daily range): BP systolic 135–191; BP diastolic 70–93; PULSE 61–77; RESP 16–18; TEMP 96.9–97.7; O2SAT 96–100
[~2017-08-20 04:31] MED LIST changes: +CYCL10TA PO
[2017-08-20] MEDS ORDERED: SODIUM CHLORIDE 0.9% FLUSH 10 ML FLUSH IVF PRN (05:00)
[2017-08-20 05:04] LABS: AUTOMATED NEUTROPHIL # 4.9 TH/MM3 (1.8-7.7); BASOPHIL % 0.6 % (0.0-2.0); EOSINOPHIL # 0.2 TH/MM3 (0-0.4); EOSINOPHIL % 2.4 % (0.0-4.0); HEMATOCRIT 45.9 % (35.0-46.0); HEMOGLOBIN 14.9 GM/DL (11.6-15.3); LYMPH % 30.1 % (9.0-44.0); LYMPHOCYTE # 2.4 TH/MM3 (1.0-4.8); MEAN CELL VOLUME 87.7 FL (80.0-100.0); MEAN CORPUSCULAR HEMOGLOBIN 28.5 PG (27.0-34.0); MEAN CORPUSCULAR HGB CONC 32.5 % (32.0-36.0); MEAN PLATELET VOLUME 9.1 FL (7.0-11.0); MONO % 6.6 % (0.0-8.0); MONOCYTE # 0.5 TH/MM3 (0-0.9); NEUT % 60.3 % (16.0-70.0); PLATELET COUNT 252 TH/MM3 (150-450); RED BLOOD COUNT 5.24 MIL/MM3 (4.00-5.30); RED CELL DISTRIBUTION WIDTH 12.8 % (11.6-17.2)
--- NOTE | 2017-08-20 05:04 | PD ---
HPI Chief Complaint: Chest Pain Time Seen by Provider: 04:44 Travel History International Travel<30 days: No Contact w/Intl Traveler<30days: No Traveled to known affect area: No History of Present Illness HPI The patient is a 47-year-old female that at 3 AM begin having below her left breast a squeezing pain lasting for about an hour. It briefly went away and then came on again. She claims a pain level of 9/10 with her pain. She states she does have nausea, diaphoresis and shortness of breath. She does have a history of coronary artery disease and had stents in about 2012. She states she passed out but does know why she passed out she denies any palpitations. She does not smoke. She had a sonogram of her heart a year ago done by Dr. tompkins. Dr. tompkins is her saddle stitcher and Dr. Mcgovern is her primary care physician. She states she ran out of her Plavix about 8 days ago but started on Plavix yesterday. She also takes aspirin along with her Plavix. She states her diabetes is under relatively good control and she is not missing any of her other medications. She is a frequent visitor for chest pain and has been here multiple times for chest pain. She states Dr. tompkins mentioned that he wanted to do another sonogram of her heart. The patient does have some psychiatric is use with a history of anxiety/depression, adjustment disorder and depressed mood. She does have diabetes, hyperlipidemia, hypertension, coronary artery disease and a history of syncope in the past. In the last year this is her sixth visit for cardiac related pain/syncope. Her last cardiac catheterization was done in October 2016 and showed a normal left main coronary artery a left anterior distending artery with a stent in its midsegment without significant stenosis. At the distal stent margin there is some mild in-stent restenosis estimated at 30%. The left circumflex had minor luminal irregularities in the right coronary artery has minor luminal irregularities. In short, the patient had no significant stenosis on the exam. A myocardial perfusion study was done in August 2016 showed no definite reversible perfusion defects identified to suggest stress-induced myocardial ischemia. PFSH Past Medical History Hx Anticoagulant Therapy: Yes Arthritis: No Autoimmune Disease: No Blood Disorders: No Anxiety: Yes Depression: Yes Heart Rhythm Problems: Yes Cancer: No Cardiac Catheterization: Yes Cardiovascular Problems: Yes High Cholesterol: Yes Chest Pain: Yes Congestive Heart Failure: No Cerebrovascular Accident: No Coronary Artery Disease: Yes Diabetes: Yes Patient Takes Glucophage: No Dialysis: No Diminished Hearing: No Endocrine: Yes GERD: Yes Glaucoma: No Genitourinary: No Headaches: Yes Hepatitis: No Hiatal Hernia: No Heparin Induced Thrombocytopen: No Hypertension: Yes Immune Disorder: No Implanted Vascular Access Dvce: Yes Kidney Stones: No Musculoskeletal: No Neurologic: No Psychiatric: Yes Reproductive: No Respiratory: No Integumentary: No Immunizations Current: Yes Migraines: No Myocardial Infarction: No Seizures: No Thyroid Disease: No Ulcer: No Tetanus Vaccination: > 5 Years Influenza Vaccination: Yes PNEUMOCCOCAL Vaccine (Year): 2 ?: Not : 2 Para: 2 Miscarriage: 0 : 0 Tubal Ligation: Yes Past Surgical History Abdominal Surgery: No Body Medical Devices: CARDIAC STENT X3 Cardiac Surgery: Yes (stent x 3.) Section: Yes (X2) Coronary Artery Bypass Graft: No Coronary Stent: Yes (X 3 2012, 2013, 2014) Ear Surgery: No Endocrine Surgery: No Eye Surgery: No Genitourinary Surgery: No Gynecologic Surgery: Yes ( X 2 /tubal) Neurologic Surgery: No Thoracic Surgery: No Other Surgery: Yes (STENTS X3) Social History Alcohol Use: No Tobacco Use: No Substance Use: No Allergies-Medications (Allergen,Severity, Reaction): Coded Allergies: prednisone (Unverified Allergy, Severe, 08/20/17) Reported Meds & Prescriptions Reported Meds & Active Scripts Active Flexeril (Cyclobenzaprine HCl) 10 Mg Tab 10 Mg PO TID Isosorbide Mononitrate ER (Isosorbide Mononitrate) 60 Mg Tab 60 Mg PO DAILY@ 0700 30 Days Percocet (Oxycodone-Acetaminophen) 7.5-325 mg Tab 1 Tab PO Q4H PRN Meclizine (Meclizine HCl) 25 Mg Tab 25 Mg PO DIRECTED PRN Pravastatin 20 Mg Tab 20 Mg PO DAILY Plavix (Clopidogrel Bisulfate) 75 Mg Tab 75 Mg PO DAILY Reported Abilify (Aripiprazole) 10 Mg Tab 10 Mg PO DAILY Metoprolol Tartrate 25 Mg Tab 25 Mg PO BID Bupropion HCl ER 24 HR (Bupropion HCl) 150 Mg Tab 150 Mg PO DAILY Novolog Inj (Insulin Aspart) 1,000 Unit/10 Ml Vial 0 SQ TID PRN Sliding Scale as directed. Nitrostat SL (Nitroglycerin) 0.4 Mg Subl 0.4 Mg SL DIRECTED PRN 1 tablet under the tongue as needed for chest pain. Repeat every 5 minutes for a total of 3 DOSES or call 911 if NO relief. Levemir Inj (Insulin Detemir) 1,000 unit/ 10 ML Vial 5 Units SQ BID Do not mix with any other Insulin. Aspirin 81 (Aspirin) 81 Mg Tabdr 81 Mg PO DAILY Review of Systems Except as stated in HPI: all other systems reviewed are Neg Physical Exam Narrative GENERAL: The patient is obese, alert, oriented 3 and minimal apparent distress with her chest discomfort. Her vital signs show blood pressure 191/74 but otherwise normal. SKIN: Focused skin assessment warm/dry. No skin rash is present. Her skin is dry and not diaphoretic. HEAD: Atraumatic. Normocephalic. EYES: Pupils equal and round. No scleral icterus. No injection or drainage. ENT: No nasal bleeding or discharge. Mucous membranes pink and moist. NECK: Trachea midline. No JVD. No neck vein distention is present. CARDIOVASCULAR: Regular rate and rhythm. No murmur appreciated. I pressed below the left breast and the patient does have considerable pain but she states this is different pain than what she came in for. RESPIRATORY: No accessory muscle use. Clear to auscultation. Breath sounds equal bilaterally. GASTROINTESTINAL: Abdomen soft, non-tender, nondistended. Hepatic and splenic margins not palpable. No guarding or rebound is present. MUSCULOSKELETAL: No obvious deformities. No clubbing. No cyanosis. No edema. NEUROLOGICAL: Awake and alert. No obvious cranial nerve deficits. Motor grossly within normal limits. Normal speech. PSYCHIATRIC: Appropriate mood and affect; insight and judgment normal. Data Data Last Documented VS Vital Signs Date Time Temp Pulse Resp B/P (MAP) Pulse Ox O2 Delivery O2 Flow Rate FiO2 08/20/17 05:32 70 18 174/78 (110) 100 Room Air 08/20/17 04:43 97.7 Orders Orders Electrocardiogram (08/20/17 04:55) Basic Metabolic Panel (Bmp) (08/20/17 04:55) Complete Blood Count With Diff (08/20/17 04:55) Magnesium (Mg) (08/20/17 04:55) Prothrombin Time / Inr (Pt) (08/20/17 04:55) Act Partial Throm Time (Ptt) (08/20/17 04:55) Troponin I (08/20/17 04:55) Chest, Single Ap (08/20/17 04:55) Ecg Monitoring (08/20/17 04:55) Iv Access Insert/Monitor (08/20/17 04:55) Oximetry (08/20/17 04:55) Oxygen Administration (08/20/17 04:55) Sodium Chloride 0.9% Flush (Ns Flush) (08/20/17 05:00) Nitroglycerin Sl (Nitrostat Sl) (08/20/17 05:00) Labs Laboratory Tests Test 08/20/17 04:50 White Blood Count 8.0 TH/MM3 Red Blood Count 5.24 MIL/MM3 Hemoglobin 14.9 GM/DL Hematocrit 45.9 % Mean Corpuscular Volume 87.7 FL Mean Corpuscular Hemoglobin 28.5 PG Mean Corpuscular Hemoglobin Concent 32.5 % Red Cell Distribution Width 12.8 % Platelet Count 252 TH/MM3 Mean Platelet Volume 9.1 FL Neutrophils (%) (Auto) 60.3 % Lymphocytes (%) (Auto) 30.1 % Monocytes (%) (Auto) 6.6 % Eosinophils (%) (Auto) 2.4 % Basophils (%) (Auto) 0.6 % Neutrophils # (Auto) 4.9 TH/MM3 Lymphocytes # (Auto) 2.4 TH/MM3 Monocytes # (Auto) 0.5 TH/MM3 Eosinophils # (Auto) 0.2 TH/MM3 Basophils # (Auto) 0.0 TH/MM3 CBC Comment DIFF FINAL Differential Comment Blood Urea Nitrogen 12 MG/DL Creatinine 0.64 MG/DL Random Glucose 316 MG/DL Calcium Level 9.4 MG/DL Magnesium Level 2.0 MG/DL Sodium Level 133 MEQ/L Potassium Level 4.2 MEQ/L Chloride Level 99 MEQ/L Carbon Dioxide Level 26.2 MEQ/L Anion Gap 8 MEQ/L Estimat Glomerular Filtration Rate 100 ML/MIN Troponin I LESS THAN 0.02 NG/ML MDM Medical Decision Making Medical Screen Exam Complete: Yes Emergency Medical Condition: Yes Medical Record Reviewed: Yes Interpretation(s) The EKG shows sinus rhythm with a rate of 68 and is completely normal. The chest x-ray shows no acute cardiopulmonary disease. The CBC is normal. The basic metabolic profile shows a sodium of 133 and glucose 316 but is otherwise normal. The magnesium is normal and the troponin I is normal. Differential Diagnosis Atypical chest pain, chest wall pain, pleuritic pain, acute coronary syndrome, esophageal pain, gastrointestinal pain, syncope, chest pain etiology undetermined Narrative Course The patient has chest pain etiology undetermined. She also has a syncopal spell which he has had before. She states that Dr. Tompkins wants to do a sonogram on her heart. She claims a pain of 10 over 10 initially and now an 8/ 10 after nitroglycerin. She looks comfortable and does not look like she is in significant amount of pain. She did actually fall asleep here in emergency department. She said she had diaphoresis and yet her skin was completely dry. I discussed the patient with Dr. Falk and the patient will be 23 hour observation to her. The patient is a difficult to assess at this time in the emergency department with her psychiatric issues as well as her pain issues and syncopal episode. Diagnosis Primary Impression: Chest pain of unknown etiology Additional Impression: Syncope Admitting Information Admitting Physician Requests: Observation Paulie Alvarado MD Aug 20, 2017 05:04
[2017-08-20] MEDS: NITROGLYCERIN 0.4 MG SL 25 TABS/BTL SL SCH ×3 (05:06→05:20)
[2017-08-20 05:15] LABS: CHLORIDE 99 MEQ/L (98-107); SODIUM (NA) 133 MEQ/L (136-145)
[2017-08-20 05:18] LABS: BICARBONATE 26.2 MEQ/L (21.0-32.0); BLOOD UREA NITROGEN 12 MG/DL (7-18); CALCIUM 9.4 MG/DL (8.5-10.1); GLUCOSE,RANDOM 316 MG/DL (74-106)
[2017-08-20 05:21] LABS: CREATININE 0.64 MG/DL (0.50-1.00); GLOMERULAR FILTRATION RATE 100 ML/MIN (>89)
[2017-08-20 05:26] LABS: TROPONIN I LESS THAN 0.02 NG/ML (0.02-0.05)
--- NOTE | 2017-08-20 05:26 | RADRPT ---
EXAM DATE/TIME: 08/20/2017 05:04 [facility] COMPARISON: CHEST SINGLE AP, July 15, 2017, 14:08. INDICATIONS : Chest pain. MEDICAL HISTORY : Hypertension. Diabetes mellitus type 2. SURGICAL HISTORY : Tubal ligation. ENCOUNTER: Initial ACUITY: 1 day PAIN SCORE: 7/10 LOCATION: Bilateral chest FINDINGS: A single view of the chest demonstrates the lungs to be symmetrically aerated without evidence of mas s, infiltrate or effusion. The cardiomediastinal contours are unremarkable. Osseous structures are intact. CONCLUSION: No acute disease. Phil Jang Jr., MD on August 20, 2017 at 5:24 Board Certified Radiologist. This report was verified electronically.
[2017-08-20] MEDS ORDERED: SODIUM CHLORIDE 0.9% FLUSH 10 ML FLUSH IV FLUSH PRN (06:15)
[2017-08-20] MEDS ORDERED: DEXTROSE 50% IN WATER 50 ML VIAL(D50) IV PUSH PRN (06:15)
[2017-08-20] MEDS ORDERED: GLUCAGON 1 MG/ML VIAL OTHER PRN (06:15)
[2017-08-20] MEDS ORDERED: ONDANSETRON HCL 4 MG/2 ML VIAL IV PUSH PRN (06:15)
[2017-08-20] MEDS: ACETAMINOPHEN 500 MG CPLT PO PRN ×2 (06:30→11:33)
[2017-08-20] MEDS ORDERED: ACETAMINOPHEN 325 MG TAB PO PRN (06:30)
[2017-08-20] MEDS: HEPARIN SODIUM - SQ 10,000 UNITS/ML VIAL SQ SCH ×2 (06:31→12:32)
[2017-08-20] MEDS: NITROGLYCERIN 2% OINT 1 GM PACKET TOP SCH ×2 (06:34→12:32)
[2017-08-20 06:36] LABS: PROTHROMBIN TIME - PATIENT 9.7 SEC (9.8-11.6)
[2017-08-20 06:54] LABS: AUTOMATED NEUTROPHIL # 4.4 TH/MM3 (1.8-7.7); BASOPHIL % 0.5 % (0.0-2.0); EOSINOPHIL # 0.2 TH/MM3 (0-0.4); EOSINOPHIL % 2.4 % (0.0-4.0); HEMATOCRIT 42.9 % (35.0-46.0); HEMOGLOBIN 13.9 GM/DL (11.6-15.3); LYMPH % 26.4 % (9.0-44.0); LYMPHOCYTE # 1.9 TH/MM3 (1.0-4.8); MEAN CELL VOLUME 86.9 FL (80.0-100.0); MEAN CORPUSCULAR HEMOGLOBIN 28.1 PG (27.0-34.0); MEAN CORPUSCULAR HGB CONC 32.4 % (32.0-36.0); MEAN PLATELET VOLUME 8.8 FL (7.0-11.0); MONO % 7.3 % (0.0-8.0); MONOCYTE # 0.5 TH/MM3 (0-0.9); NEUT % 63.4 % (16.0-70.0); PLATELET COUNT 213 TH/MM3 (150-450); RED BLOOD COUNT 4.94 MIL/MM3 (4.00-5.30); RED CELL DISTRIBUTION WIDTH 12.4 % (11.6-17.2)
[2017-08-20] MEDS ORDERED: ISOSORBIDE MONONITRATE 60 MG TAB PO SCH (07:00)
[2017-08-20 07:06] LABS: CALCIUM 9.3 MG/DL (8.5-10.1)
[2017-08-20 07:07] LABS: BICARBONATE 24.2 MEQ/L (21.0-32.0)
[2017-08-20 07:10] LABS: CREATININE 0.57 MG/DL (0.50-1.00)
[2017-08-20] MEDS: INSULIN ASPART SUPPLEMENTAL SCALE SQ SCH ×2 (08:00→12:00)
[2017-08-20] MEDS ORDERED: INSULIN DETEMIR 100 UNITS/ML VIAL SQ SCH (09:00)
[2017-08-20] MEDS ORDERED: SODIUM CHLORIDE 0.9% FLUSH 10 ML FLUSH IV FLUSH SCH (09:00)
[2017-08-20] MEDS ORDERED: ASPIRIN EC 81 MG TABEC PO SCH (09:00)
[2017-08-20] MEDS ORDERED: buPROPion HCL 150 MG SUSTAINED RELEASE TAB PO SCH (09:00)
[2017-08-20] MEDS ORDERED: PRAVASTATIN SOD 20 MG TAB PO SCH (09:00)
[2017-08-20] MEDS ORDERED: METOPROLOL TARTRATE 25 MG TAB PO SCH (09:00)
[2017-08-20] MEDS ORDERED: ARIPiprazole 10 MG TAB PO SCH (09:00)
[2017-08-20] MEDS ORDERED: CLOPIDOGREL 75 MG TAB PO SCH (09:00)
[2017-08-20 09:07] LABS: TROPONIN I LESS THAN 0.02 NG/ML (0.02-0.05)
--- NOTE | 2017-08-20 09:59 | RADRPT ---
EXAM DATE/TIME: 08/20/2017 07:59 [facility] COMPARISON: US CAROTID ARTERIES, October 26, 2014, 9:23. INDICATIONS : Syncope. MEDICAL HISTORY : Myocardial infarction. Hypercholesterolemia. Coronary artery disease. GERD. Chest pain. Irregular h eartbeat. HTN. Diabetes. Depression. Anxiety. Anticoagulant therapy, Heparin. SURGICAL HISTORY : Coronary artery stent. section. Tubal ligation. Cardiac cath. ENCOUNTER: Initial ACUITY: 3 days PAIN SCORE: 8/10 LOCATION: Bilateral neck PEAK SYSTOLIC VELOCITIES (cm/sec): ICA/CCA RATIO: Right: 0.9 Left: 0.9 ICA: Right: 81 Left: 94 CCA: Right: 89 Left: 100 ECA: Right: 178 Left: 156 VERTEBRAL: Right: 46 antegrade Left: 43 antegrade Elevated flow velocities and ICA/CCA ratios have been found to correlate with increased degrees of vessel stenosis, calculated as percentage of diameter relative to a normal segment of distal ICA/CCA FINDINGS: RIGHT CAROTID: No significant stenosis is visualized. The waveforms are within normal limits. LEFT CAROTID: No significant stenosis is visualized. The waveforms are within normal limits. VERTEBRAL ARTERIES: Antegrade flow is seen in both vertebral arteries. MISCELLANEOUS: None. CONCLUSION: No evidence of hemodynamically significant lesion. Isael Womack MD on August 20, 2017 at 9:56 Board Certified Radiologist. This report was verified electronically.
[2017-08-20 11:25] LABS: TROPONIN I LESS THAN 0.02 NG/ML (0.02-0.05)
--- NOTE | 2017-08-20 11:44 | ECHRPT ---
Indication: syncope CONCLUSIONS Normal left ventricular size. Mild concentric left ventricular hypertrophy. The left ventricular systolic function is hyperdynamic with an estimated ejection fraction in the ra nge of 65- 70%. Normal wall motion. Trace mitral valve regurgitation. There is trace ricuspid valve regurgitation. The estimated pulmonary arterial pressure is 28 mmHg. BP: / HR: Rhythm: MEASUREMENTS (Male / Female) Normal Values Technical Quality:Good 2D ECHO LV Diastolic Diameter PLAX 4.0 cm 4.2 - 5.9 / 3.9 - 5.3 cm LV Systolic Diameter PLAX 2.8 cm IVS Diastolic Thickness 1.2 cm 0.6 - 1.0 / 0.6 - 0.9 cm LVPW Diastolic Thickness 1.3 cm 0.6 - 1.0 / 0.6 - 0.9 cm LV Relative Wall Thickness 0.6 RV Internal Dim ED PLAX 2.2 cm LVOT Diameter 2.4 cm M-MODE Aortic Root Diameter MM 2.5 cm LA Systolic Diameter MM 3.5 cm LA Ao Ratio MM 1.4 AV Cusp Separation MM 1.6 cm DOPPLER AV Peak Velocity 212.0 cm/s AV Peak Gradient 18.0 mmHg AV Mean Gradient 9.0 mmHg AV Velocity Time Integral 31.6 cm LVOT Peak Velocity 72.2 cm/s LVOT Peak Gradient 2.1 mmHg LVOT Velocity Time Integral 11.5 cm AV Area Cont Eq vti 1.6 cm AV Area Cont Eq pk 1.5 cm Mitral E Point Velocity 62.2 cm/s Mitral A Point Velocity 69.1 cm/s Mitral E to A Ratio 0.9 LV E' Lateral Velocity 9.6 cm/s Mitral E to LV E' Lateral Ratio 6.5 LV E' Septal Velocity 5.0 cm/s Mitral E to LV E' Septal Ratio 12.5 TR Peak Velocity 214.0 cm/s TR Peak Gradient 18.3 mmHg Right Atrial Pressure 10.0 mmHg Pulmonary Artery Systolic Pressu 28.3 mmHg Right Ventricular Systolic Press 28.3 mmHg FINDINGS LEFT VENTRICLE Normal left ventricular size. The left ventricular systolic function is hyperdynamic with an estimated ejection fraction in the ra nge of 65- 70%. Mild concentric left ventricular hypertrophy. No regional wall motion abnormalities are present. RIGHT VENTRICLE Normal right ventricular size and systolic function. LEFT ATRIUM The left atrial size is normal. RIGHT ATRIUM The right atrial size is normal. ATRIAL SEPTUM Normal atrial septal thickness without atrial level shunting by limited color doppler interrogation. AORTA The aortic root and proximal ascending aorta are normal in size on limited imaging. MITRAL VALVE Structurally normal mitral valve. Trace mitral valve regurgitation. AORTIC VALVE Trileaflet aortic valve. No aortic valve stenosis or regurgitation. TRICUSPID VALVE Structurally normal tricuspid valve. There is trace tricuspid valve regurgitation. The estimated pulmonary arterial pressure is 28.3 mmHg. PULMONARY VALVE No pulmonary valve regurgitation or stenosis. VESSELS The inferior vena cava is normal in size. PERICARDIUM No pericardial effusion. Harry Natarajan MD (Electronically Signed) Final Date:20 August 2017 11:43
--- NOTE | 2017-08-20 12:28 | HHI.DCPOC ---
Discharge Care Plan Diagnosis: (1) Chest pain Goals to Promote Your Health * To prevent worsening of your condition and complications * To maintain your health at the optimal level Directions to Meet Your Goals Take your medications as prescribed Follow your dietary instruction Follow activity as directed Keep your appointments as scheduled Take your immunizations and boosters as scheduled If your symptoms worsen call your PCP, if no PCP go to Urgent Care Center or Emergency Room Smoking is Dangerous to Your Health. Avoid second hand smoke Call the 24-hour hour crisis hotline for domestic abuse at Osmani Alvarado Aug 20, 2017 12:28
--- NOTE | 2017-08-20 12:44 | HHI.HP ---
HPI [facility] Primary Care Physician Hayden Mcgovern MD Admission Diagnosis chest pain unknown etiology, syncope Diagnoses: (1) Vasovagal syncope Diagnosis: Principal (2) Chest pain Diagnosis: Principal Chief Complaint: Chest pain Travel History International Travel<30 Days: No Contact w/Intl Traveler <30 Da: No Traveled to Known Affected Are: No History of Present Illness 47-year-old female with known history of hypertension, myocardial infarction, coronary artery disease, hyperlipidemia, obesity, depression, diabetes, gastroesophageal reflux who presented to the hospital because of chest pain and syncopal episode. Patient states that she is in normal state of health until this morning at approximately 3 AM when she woke up with a left- sided chest discomfort which he describes as someone was squeezing her heart. She states that it was 9/10 on a pain scale. She denied any radiation to neck, back, shoulder, arm. She denied any diaphoresis, vomiting. She did have some mild nausea. Patient states that the pain last for a couple hours at a time and usually resolved on its own. The patient indicates that she does get this type discomfort on a regular basis. Approximately 1 time per month. She is followed by a wire drawing setter Dr. tompkins, it was indicated that he was planning on doing a echocardiogram. Patient has had myocardial perfusion study done in August 2016 which was normal. She did undergo cardiac catheterization and October 2016 which did show vessels were patent. The patient stood up to go and get a nitroglycerin, however next thing she remembers her was waking her up off the floor. Patient indicates that she has had sacral episodes related to standing up quickly. She does have mild symptoms on a daily basis to include lightheadedness, spots in her vision whenever she stands up too quickly. Review of Systems Cardiovascular: COMPLAINS OF: Chest pain, Syncope Except as stated in HPI: all other systems reviewed are Neg Past Family Social History Past Medical History Hypertension Hyperlipidemia Coronary artery disease History of myocardial infarctions Diabetes Depression Gastroesophageal reflux Past Surgical History 2 Tubal ligation Cardiac catheterization with stenting Reported Medications Reported Meds & Active Scripts Active Flexeril (Cyclobenzaprine HCl) 10 Mg Tab 10 Mg PO TID Isosorbide Mononitrate ER (Isosorbide Mononitrate) 60 Mg Tab 60 Mg PO DAILY@ 0700 30 Days Percocet (Oxycodone-Acetaminophen) 7.5-325 mg Tab 1 Tab PO Q4H PRN Meclizine (Meclizine HCl) 25 Mg Tab 25 Mg PO DIRECTED PRN Pravastatin 20 Mg Tab 20 Mg PO DAILY Plavix (Clopidogrel Bisulfate) 75 Mg Tab 75 Mg PO DAILY Reported Abilify (Aripiprazole) 10 Mg Tab 10 Mg PO DAILY Metoprolol Tartrate 25 Mg Tab 25 Mg PO BID Bupropion HCl ER 24 HR (Bupropion HCl) 150 Mg Tab 150 Mg PO DAILY Novolog Inj (Insulin Aspart) 1,000 Unit/10 Ml Vial 0 SQ TID PRN Sliding Scale as directed. Nitrostat SL (Nitroglycerin) 0.4 Mg Subl 0.4 Mg SL DIRECTED PRN 1 tablet under the tongue as needed for chest pain. Repeat every 5 minutes for a total of 3 DOSES or call 911 if NO relief. Levemir Inj (Insulin Detemir) 1,000 unit/ 10 ML Vial 5 Units SQ BID Do not mix with any other Insulin. Aspirin 81 (Aspirin) 81 Mg Tabdr 81 Mg PO DAILY Allergies: Coded Allergies: prednisone (Unverified Allergy, Severe, 08/20/17) Family History Reviewed is significant for heart disease. Patient indicates that her father has had coronary bypass surgery in his first myocardial infarctions was when he was 50. Social History Patient denies any tobacco, alcohol or illicit drugs Physical Exam Vital Signs Vital Signs Date Time Temp Pulse Resp B/P (MAP) Pulse Ox O2 Delivery O2 Flow Rate FiO2 08/20/17 08:45 96.9 77 18 135/73 (93) 97 08/20/17 07:52 08/20/17 07:07 56 16 97 Room Air 08/20/17 06:49 67 16 171/93 (119) 97 Room Air 08/20/17 06:35 99 21 08/20/17 05:49 61 16 166/70 (102) 97 Room Air 08/20/17 05:32 70 18 174/78 (110) 100 Room Air 08/20/17 05:00 100 Room Air 08/20/17 05:00 100 08/20/17 04:46 68 08/20/17 04:43 97.7 68 16 191/74 (904) 100 Physical Exam GENERAL: Well-developed, well-nourished, in no acute distress. alert and orientated HEENT: Head is normocephalic without any lesions or masses noted. Facial features are symmetric. Eyes: Pupils equal round reactive to light. Extraocular muscles are intact. Conjunctivae were clear. Oropharyngeal: Pharynx without any erythema edema. Tongue is midline without deviation. Buccal mucosa is moist without any masses or lesions NECK: Supple without any masses. Trachea midline no deviation. No JVD, no bruits are appreciated CARDIAC: Regular rhythm, regular rate. S1/S2 are heard. No murmurs gallops or rubs. LUNGS: Clear to auscultation bilaterally. No wheeze, rhonchi or rales. No use of accessory muscles on inspiration or expiration. ABDOMEN: Soft, nontender. Nondistended. Bowel sounds heard in all 4 quadrants. No organomegaly or masses. Negative rebound, negative guarding EXTREMITIES: No edema, pulses are equal bilaterally. No cyanosis or clubbing NEUROLOGY: Mood and affect appear appropriate. Cranial nerves II through XII grossly intact. Muscle strength 5/5 in upper and lower extremities bilaterally. Deep tendon reflexes are 2+ in upper and lower extremities bilaterally. Laboratory Laboratory Tests Test 08/20/17 04:50 08/20/17 06:45 08/20/17 08:25 08/20/17 10:55 White Blood Count 8.0 7.0 Red Blood Count 5.24 4.94 Hemoglobin 14.9 13.9 Hematocrit 45.9 42.9 Mean Corpuscular Volume 87.7 86.9 Mean Corpuscular Hemoglobin 28.5 28.1 Mean Corpuscular Hemoglobin Concent 32.5 32.4 Red Cell Distribution Width 12.8 12.4 Platelet Count 252 213 Mean Platelet Volume 9.1 8.8 Neutrophils (%) (Auto) 60.3 63.4 Lymphocytes (%) (Auto) 30.1 26.4 Monocytes (%) (Auto) 6.6 7.3 Eosinophils (%) (Auto) 2.4 2.4 Basophils (%) (Auto) 0.6 0.5 Neutrophils # (Auto) 4.9 4.4 Lymphocytes # (Auto) 2.4 1.9 Monocytes # (Auto) 0.5 0.5 Eosinophils # (Auto) 0.2 0.2 Basophils # (Auto) 0.0 0.0 CBC Comment DIFF FINAL DIFF FINAL Differential Comment Prothrombin Time 9.7 Prothromb Time International Ratio 1.0 Activated Partial Thromboplast Time 27.1 Blood Urea Nitrogen 12 13 Creatinine 0.64 0.57 Random Glucose 316 281 Calcium Level 9.4 9.3 Magnesium Level 2.0 Sodium Level 133 135 Potassium Level 4.2 4.1 Chloride Level 99 101 Carbon Dioxide Level 26.2 24.2 Anion Gap 8 10 Estimat Glomerular Filtration Rate 100 114 Troponin I LESS THAN 0.02 LESS THAN 0.02 LESS THAN 0.02 Total Creatine Kinase 37 49 Result Diagram: 08/20/17 0645 08/20/17 0645 Imaging Last Impressions Chest X-Ray 08/20/17 0455 Signed Impressions: Service Date/Time: Sunday, August 20, 2017 05:04 - CONCLUSION: No acute disease. Phil Jang Jr., MD Carotid Artery Ultrasound 08/20/17 0000 Signed Impressions: Service Date/Time: Sunday, August 20, 2017 07:59 - CONCLUSION: No evidence of hemodynamically significant lesion. Isael Womack MD Caprini VTE Risk Assessment Caprini VTE Risk Assessment: No/Low Risk (score <= 1) Caprini Risk Assessment Model Point Value = 1 Point Value = 2 Point Value = 3 Point Value = 5 Age 41-60 Minor surgery BMI > 25 kg/m2 Swollen legs Varicose veins or History of unexplained or recurrent spontaneous Oral contraceptives or hormone replacement Sepsis (< 1 month) Serious lung disease, including pneumonia (< 1 month) Abnormal pulmonary function Acute myocardial infarction Congestive heart failure (< 1 month) History of inflammatory bowel disease Medical patient at bed rest Age 61-74 Arthroscopic surgery Major open surgery (> 45 min) Laparoscopic surgery (> 45 min) Malignancy Confined to bed (> 72 hours) Immobilizing plaster cast Central venous access Age >= 75 History of VTE Family history of VTE Factor V Leiden Prothrombin [id number] Lupus anticoagulant Anticardiolipin antibodies Elevated serum homocysteine Heparin-induced thrombocytopenia Other congenital or acquired thrombophilia Stroke (< 1 month) Elective arthroplasty Hip, pelvis, or leg fracture Acute spinal cord injury (< 1 month) Prophylaxis Regimen Total Risk Factor Score Risk Level Prophylaxis Regimen 0-1 Low Early ambulation 2 Moderate Order ONE of the following: *Sequential Compression Device (SCD) *Heparin 5000 units SQ BID 3-4 Higher Order ONE of the following medications: *Heparin 5000 units SQ TID *Enoxaparin/Lovenox 40 mg SQ daily (WT < 150 kg, CrCl > 30 mL/min) *Enoxaparin/Lovenox 30 mg SQ daily (WT < 150 kg, CrCl > 10-29 mL/min) *Enoxaparin/Lovenox 30 mg SQ BID (WT < 150 kg, CrCl > 30 mL/min) AND/OR *Sequential Compression Device (SCD) 5 or more Highest Order ONE of the following medications: *Heparin 5000 units SQ TID (Preferred with Epidurals) *Enoxaparin/Lovenox 40 mg SQ daily (WT < 150 kg, CrCl > 30 mL/min) *Enoxaparin/Lovenox 30 mg SQ daily (WT < 150 kg, CrCl > 10-29 mL/min) *Enoxaparin/Lovenox 30 mg SQ BID (WT < 150 kg, CrCl > 30 mL/min) AND *Sequential Compression Device (SCD) Assessment and Plan Assessment and Plan Chest pain, recurrent Patient does have increased risk factors to include hypertension, hyperlipidemia, coronary artery disease, history myocardial infarction family history heart disease, diabetes Patient had serial cardiac enzymes performed which did not indicate any acute abnormality Patient has serial EKGs which are reviewed by myself that showed sinus rhythm without any changes Echocardiogram was performed which does indicate ejection fraction 65-70% with hyperdynamic systolic function. Trace of mitral valve regurgitation. Patient has had a myocardial perfusion study done within the last 12 months which was normal. Patient has had cardiac catheterization performed in October 2016 which did show widely patent left anterior descending stent, normal left-sided filling pressures, normal descending aorta. patient started on aspirin, nitro paste patient was continued on aspirin, Plavix, metoprolol, Imdur, statin Discussed with patient's wire drawing setter for further recommendations, he indicated that since patient has stress test with the last year and cardiac catheterization within the last year showing clean coronary arteries. Patient been ruled out at this time and can be safely discharged with outpatient follow- up Syncope, vasovagal, recurrent Patient was counseled extensively on the medications that she is taking can cause her to have lightheadedness, dizziness and syncope, patient does understand Patient counseled on proper posturing, standing up slowly Carotid ultrasound performed which did not indicate any acute abnormality Hypertension, hyperlipidemia, coronary artery disease, history myocardial infarction Continue home medication Diabetes Accu-Cheks with sliding scale insulin DVT prevention Subcutaneous heparin Discharge disposition Discharge home in stable condition Activity: Ad brennan. Diet: Healthy heart diet Medications per medication reconciliation Follow-up with primary medical doctor in one week Problem Qualifiers (1) Chest pain: Qualified Codes: R07.9 - Chest pain, unspecified Osmani Alvarado Aug 20, 2017 12:44
[2017-08-20] MEDS ORDERED: NAPROXEN SODIUM 550 MG TAB PO ONE (13:00)
[2017-08-20] MEDS ORDERED: NAPROXEN 500 MG TAB PO ONE (13:45)
--- NOTE | 2017-08-20 17:22 | EKG ---
Date Performed: 08/20/2017 Time Performed: 04:41:20 PTAGE: 47 years EKG: Sinus rhythm NORMAL ECG INTERPRETATION BASED ON A DEFAULT AGE OF 40 YEARS PREVIOUS TRACING : 07/16/2017 06.00 Compared to prior tracing no significant change DOCTOR: Cruzito Ahmadi Interpretating Date/Time 08/20/2017 17:22:15
--- NOTE | 2017-08-20 17:24 | EKG ---
Date Performed: 08/20/2017 Time Performed: 08:23:33 PTAGE: 47 years EKG: Sinus rhythm NORMAL ECG PREVIOUS TRACING : 08/20/2017 04.41 Compared to prior tracing no significant change DOCTOR: Cruzito Ahmadi Interpretating Date/Time 08/20/2017 17:22:48
--- NOTE | 2017-08-20 17:25 | EKG ---
Date Performed: 08/20/2017 Time Performed: 11:00:38 PTAGE: 47 years EKG: Sinus rhythm NORMAL ECG PREVIOUS TRACING : 08/20/2017 08.23 Compared to prior tracing no significant change DOCTOR: Cruzito Ahmadi Interpretating Date/Time 08/20/2017 17:23:11
== END 2017-08-20 16:10 | disposition home or self-care (01) ==
LOC: PHED 04:31 → PHEDA 06:06 → PH3B 07:46
PROVIDERS: ADMIT Hospitalist; ATTEND Hospitalist
DX: R07.9 Chest pain, unspecified (principal); R55 Syncope and collapse; I10 Essential (primary) hypertension; E78.5 Hyperlipidemia, unspecified; I25.10 Atherosclerotic heart disease of native coronary artery without angina pectoris; E11.9 Type 2 diabetes mellitus without complications; K21.9 Gastro-esophageal reflux disease without esophagitis; I25.2 Old myocardial infarction; Z95.5 Presence of coronary angioplasty implant and graft; Z79.82 Long term (current) use of aspirin; Z82.49 Family history of ischemic heart disease and other diseases of the circulatory system
CPT/HCPCS: 71045; 80048; 82550; 82948; 83735; 84484; 85025; 85610; 85730; 93005; 93306; 93880; 96372; 99285; G0378; J1644; J1815

== ENCOUNTER 2017-09-14 15:06 | Emergency (ER) | payer BC ==
[2017-09-14 15:13] VITALS: BP 167/75; PULSE 56; RESP 18; TEMP 98; O2SAT 97
[2017-09-14] MEDS ORDERED: SODIUM CHLOR 0.9% 1000 ML INJ 1,000 ML IV ONE (15:42)
--- NOTE | 2017-09-14 15:43 | PD ---
HPI Chief Complaint: Syncope/Near-Syncope Time Seen by Provider: 15:35 Travel History International Travel<30 days: No Contact w/Intl Traveler<30days: No Traveled to known affect area: No History of Present Illness HPI 47yo F with PMH of DM, CAD s/p cardiac stent here with c/o feeling nauseous and lightheaded today. Said she was at work and was not feeling well, then felt the room spinning and she went down. Said she felt herself falling so she went down gently but passed out for a second at 2pm. Did hit her head and does have a mild headache now. Said she has been having nonbloody diarrhea for a few days. +Generalized weakness. +Nausea. Denies any fever, chest pain, sob, vomiting, abdominal pain, focal weakness or numbness. PFSH Past Medical History Hx Anticoagulant Therapy: Yes Arthritis: No Autoimmune Disease: No Blood Disorders: No Anxiety: Yes Depression: Yes Heart Rhythm Problems: Yes Cancer: No Cardiac Catheterization: Yes Cardiovascular Problems: Yes High Cholesterol: Yes Chest Pain: Yes Congestive Heart Failure: No Cerebrovascular Accident: No Coronary Artery Disease: Yes Diabetes: Yes Patient Takes Glucophage: No Dialysis: No Diminished Hearing: No Endocrine: Yes GERD: Yes Glaucoma: No Genitourinary: No Headaches: Yes Hepatitis: No Hiatal Hernia: No Heparin Induced Thrombocytopen: No Hypertension: Yes Immune Disorder: No Implanted Vascular Access Dvce: Yes Kidney Stones: No Musculoskeletal: No Neurologic: No Psychiatric: Yes Reproductive: No Respiratory: No Integumentary: No Immunizations Current: Yes Migraines: No Myocardial Infarction: No Seizures: No Thyroid Disease: No Ulcer: No PNEUMOCCOCAL Vaccine (Year): 2 ?: Not : 2 Para: 2 Miscarriage: 0 : 0 Tubal Ligation: Yes Past Surgical History Abdominal Surgery: No Body Medical Devices: CARDIAC STENT X3 Cardiac Surgery: Yes (stent x 3.) Section: Yes (X2) Coronary Artery Bypass Graft: No Coronary Stent: Yes (X 3 2012, 2013, 2014) Ear Surgery: No Endocrine Surgery: No Eye Surgery: No Genitourinary Surgery: No Gynecologic Surgery: Yes ( X 2 /tubal) Neurologic Surgery: No Thoracic Surgery: No Other Surgery: Yes (STENTS X3) Family History Family Myocardial Infarction: Yes (FATHER AND MOTHER BOTH ALIVE) Social History Alcohol Use: No Tobacco Use: No Substance Use: No Allergies-Medications (Allergen,Severity, Reaction): Coded Allergies: prednisone (Unverified Allergy, Severe, HIVES, 09/14/17) Reported Meds & Prescriptions Reported Meds & Active Scripts Active Flexeril (Cyclobenzaprine HCl) 10 Mg Tab 10 Mg PO TID Isosorbide Mononitrate ER (Isosorbide Mononitrate) 60 Mg Tab 60 Mg PO DAILY@ 0700 30 Days Percocet (Oxycodone-Acetaminophen) 7.5-325 mg Tab 1 Tab PO Q4H PRN Meclizine (Meclizine HCl) 25 Mg Tab 25 Mg PO DIRECTED PRN Pravastatin 20 Mg Tab 20 Mg PO DAILY Plavix (Clopidogrel Bisulfate) 75 Mg Tab 75 Mg PO DAILY Reported Abilify (Aripiprazole) 10 Mg Tab 10 Mg PO DAILY Metoprolol Tartrate 25 Mg Tab 25 Mg PO BID Bupropion HCl ER 24 HR (Bupropion HCl) 150 Mg Tab 150 Mg PO DAILY Novolog Inj (Insulin Aspart) 1,000 Unit/10 Ml Vial 0 SQ TID PRN Sliding Scale as directed. Nitrostat SL (Nitroglycerin) 0.4 Mg Subl 0.4 Mg SL DIRECTED PRN 1 tablet under the tongue as needed for chest pain. Repeat every 5 minutes for a total of 3 DOSES or call 911 if NO relief. Levemir Inj (Insulin Detemir) 1,000 unit/ 10 ML Vial 5 Units SQ BID Do not mix with any other Insulin. Aspirin 81 (Aspirin) 81 Mg Tabdr 81 Mg PO DAILY Review of Systems Except as stated in HPI: all other systems reviewed are Neg Physical Exam Narrative GENERAL: 47yo F in mild distress. SKIN: Focused skin assessment warm/dry. HEAD: Atraumatic. Normocephalic. EYES: Pupils equal and round at 3mm bilaterally. EOMI. ENT: No nasal bleeding or discharge. Mucous membranes pink and moist. NECK: No midline cervical spine collar. CARDIOVASCULAR: Regular rate and rhythm. No murmur appreciated. RESPIRATORY: No accessory muscle use. Clear to auscultation. Breath sounds equal bilaterally. GASTROINTESTINAL: Abdomen soft, non-tender, nondistended. MUSCULOSKELETAL: No obvious deformities. No clubbing. No cyanosis. No edema. NEUROLOGICAL: Awake and alert. No obvious cranial nerve deficits. Motor grossly within normal limits. Sensation intact. Normal speech. PSYCHIATRIC: Appropriate mood and affect; insight and judgment normal. Data Data Last Documented VS Vital Signs Date Time Temp Pulse Resp B/P (MAP) Pulse Ox O2 Delivery O2 Flow Rate FiO2 09/14/17 17:58 46 16 157/78 (104) 98 Room Air 09/14/17 15:13 98.0 Orders Orders Electrocardiogram (09/14/17 15:42) Basic Metabolic Panel (Bmp) (09/14/17 15:42) Ed Urine Pregnancytest Poc (09/14/17 15:42) Complete Blood Count With Diff (09/14/17 15:42) Magnesium (Mg) (09/14/17 15:42) Troponin I (09/14/17 15:42) Act Partial Throm Time (Ptt) (09/14/17 15:42) Prothrombin Time / Inr (Pt) (09/14/17 15:42) Urinalysis - C+S If Indicated (09/14/17 15:42) Ct Brain W/O Iv Contrast(Rout) (09/14/17 15:42) Blood Glucose (09/14/17 15:42) Ondansetron Inj (Zofran Inj) (09/14/17 15:45) Sodium Chlor 0.9% 1000 Ml Inj (Ns 1000 M (09/14/17 15:42) Orthostatic Vital Signs (09/14/17 15:43) Acetaminophen (Tylenol) (09/14/17 16:15) Labs Laboratory Tests Test 09/14/17 15:45 09/14/17 16:00 White Blood Count 8.6 TH/MM3 Red Blood Count 4.66 MIL/MM3 Hemoglobin 13.5 GM/DL Hematocrit 40.5 % Mean Corpuscular Volume 86.9 FL Mean Corpuscular Hemoglobin 28.9 PG Mean Corpuscular Hemoglobin Concent 33.2 % Red Cell Distribution Width 12.6 % Platelet Count 236 TH/MM3 Mean Platelet Volume 9.9 FL Neutrophils (%) (Auto) 63.5 % Lymphocytes (%) (Auto) 27.2 % Monocytes (%) (Auto) 6.9 % Eosinophils (%) (Auto) 1.6 % Basophils (%) (Auto) 0.8 % Neutrophils # (Auto) 5.5 TH/MM3 Lymphocytes # (Auto) 2.3 TH/MM3 Monocytes # (Auto) 0.6 TH/MM3 Eosinophils # (Auto) 0.1 TH/MM3 Basophils # (Auto) 0.1 TH/MM3 CBC Comment DIFF FINAL Differential Comment Prothrombin Time 9.8 SEC Prothromb Time International Ratio 1.0 RATIO Activated Partial Thromboplast Time 25.8 SEC Blood Urea Nitrogen 9 MG/DL Creatinine 0.58 MG/DL Random Glucose 277 MG/DL Calcium Level 9.2 MG/DL Magnesium Level 2.0 MG/DL Sodium Level 136 MEQ/L Potassium Level 3.9 MEQ/L Chloride Level 101 MEQ/L Carbon Dioxide Level 25.1 MEQ/L Anion Gap 10 MEQ/L Estimat Glomerular Filtration Rate 112 ML/MIN Troponin I LESS THAN 0.02 NG/ML Urine Collection Type CLEAN CATCH Urine Color STRAW Urine Turbidity CLEAR Urine pH 6.0 Urine Specific Brady 1.022 Urine Protein NEG mg/dL Urine Glucose (UA) 1000 OR GREATER mg/dL Urine Ketones NEG mg/dL Urine Occult Blood TRACE Urine Nitrite NEG Urine Bilirubin NEG Urine Leukocyte Esterase NEG Urine RBC 0-3 /hpf Urine Squamous Epithelial Cells 0-5 /hpf Urine Amorphous Sediment FEW Microscopic Urinalysis Comment CULT NOT INDICATED Urine Collection Time 1600 [facility] Medical Decision Making Medical Screen Exam Complete: Yes Emergency Medical Condition: Yes Interpretation(s) EKG: Sinus bradycardia at 54bpm. Normal axis. No ST segment elevation or depression. QTc 431ms. Differential Diagnosis Vasovagal syncope vs. dehydration vs. arrhythmia vs. electrolyte abnormality Narrative Course 47yo F with episode of syncope that sounds very vasovagal. Pt has not been feeling well and was feeling nauseous and washing her face in the bathroom when she felt like she was going to go down so she gently lie down but said she probably did hit her head. Pt was out for about a second and denies any chest pain or sob. HR does range between high 40s to low 50s and pt is on metoprolol. Labs reviewed, no leukocytosis. H/H normal. Glucose elevated at 277. Normal anion gap. Troponin negative. UA negative for leukocyte. Culture not indicated. Pt given acetaminophen, zofran and NS IVF. Pt reevaluated at bedside and said headache has resolved and she also feels better. CT brain showed small retention cyst in inferior aspect of right maxilla antra. Otherwise negative. No change from prior. Pt's graphics programmer is Dr. Cardoso and feel that pt can follow up with him in 1-2 days. Pt is no longer nauseous. Return precautions given. Diagnosis Primary Impression: Vasovagal syncope Patient Instructions: General Instructions Departure Forms: Tests/Procedures Additional Instructions: Please follow up with your graphics programmer in 1-2 days. Return to the ED if symptoms worsen. Med/Other Pt SpecificInfo: No Change to Meds Disposition: 01 DISCHARGE HOME Condition: Stable Chary Mallory DO Sep 14, 2017 15:43
[2017-09-14] MEDS ORDERED: ONDANSETRON HCL 4 MG/2 ML VIAL IVP ONE (15:45)
[2017-09-14 16:01] LABS: AUTOMATED NEUTROPHIL # 5.5 TH/MM3 (1.8-7.7); BASOPHIL # 0.1 TH/MM3 (0-0.2); BASOPHIL % 0.8 % (0.0-2.0); EOSINOPHIL # 0.1 TH/MM3 (0-0.4); EOSINOPHIL % 1.6 % (0.0-4.0); HEMATOCRIT 40.5 % (35.0-46.0); HEMOGLOBIN 13.5 GM/DL (11.6-15.3); LYMPH % 27.2 % (9.0-44.0); LYMPHOCYTE # 2.3 TH/MM3 (1.0-4.8); MEAN CELL VOLUME 86.9 FL (80.0-100.0); MEAN CORPUSCULAR HEMOGLOBIN 28.9 PG (27.0-34.0); MEAN CORPUSCULAR HGB CONC 33.2 % (32.0-36.0); MEAN PLATELET VOLUME 9.9 FL (7.0-11.0); MONO % 6.9 % (0.0-8.0); MONOCYTE # 0.6 TH/MM3 (0-0.9); NEUT % 63.5 % (16.0-70.0); PLATELET COUNT 236 TH/MM3 (150-450); RED BLOOD COUNT 4.66 MIL/MM3 (4.00-5.30); RED CELL DISTRIBUTION WIDTH 12.6 % (11.6-17.2); WHITE BLOOD COUNT 8.6 TH/MM3 (4.0-11.0)
[2017-09-14 16:08] LABS: CHLORIDE 101 MEQ/L (98-107); SODIUM (NA) 136 MEQ/L (136-145)
[2017-09-14 16:10] LABS: CALCIUM 9.2 MG/DL (8.5-10.1)
[2017-09-14 16:11] LABS: BICARBONATE 25.1 MEQ/L (21.0-32.0); BLOOD UREA NITROGEN 9 MG/DL (7-18); GLUCOSE,RANDOM 277 MG/DL (74-106)
[2017-09-14 16:12] LABS: BILIRUBIN, URINE NEG (NEG); GLUCOSE,URINE 1000 OR GREATER mg/dL (NEG); KETONE, URINE NEG (NEG); NITRITE,URINE NEG (NEG); URINE LEUKOCYTE ESTERASE NEG (NEG)
[2017-09-14 16:13] LABS: PROTHROMBIN TIME - PATIENT 9.8 SEC (9.8-11.6)
[2017-09-14 16:14] LABS: CREATININE 0.58 MG/DL (0.50-1.00); GLOMERULAR FILTRATION RATE 112 ML/MIN (>89)
[2017-09-14 16:15] LABS: BLOOD, URINE TRACE (NEG); URINE COLOR STRAW (YELLW/STRAW)
[2017-09-14] MEDS ORDERED: ACETAMINOPHEN 325 MG TAB PO ONE (16:15)
[2017-09-14 16:17] LABS: AMORPHOUS SEDIMENT, URINE FEW; RBC, URINE 0-3 /hpf (0-3); SQUAMOUS EPITHELIAL CELL URINE 0-5 /hpf (0-5)
[2017-09-14 16:19] LABS: TROPONIN I LESS THAN 0.02 NG/ML (0.02-0.05)
[2017-09-14 16:30] VITALS: BP_SYST 166; BP_SYST 174; BP_SYST 176; BP_DIAS 68; BP_DIAS 78; BP_DIAS 79; RESP 16; RESP 18
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
[2017-09-14 17:58] VITALS: BP 157/78; PULSE 46; RESP 16; O2SAT 98
--- NOTE | 2017-09-15 12:20 | EKG ---
Date Performed: 09/14/2017 Time Performed: 16:05:17 PTAGE: 47 years EKG: SINUS BRADYCARDIA BORDERLINE ECG PREVIOUS TRACING : 08/20/2017 11.00 Since the prior tracing, there has been no significant shields DOCTOR: Vamshi Ignacio Interpretating Date/Time 09/15/2017 12:18:59
== END 2017-09-14 18:28 | disposition home or self-care (01) ==
LOC: PHED 15:06
DX: F32.9 Major depressive disorder, single episode, unspecified (principal); E11.9 Type 2 diabetes mellitus without complications; E78.00 Pure hypercholesterolemia, unspecified; I25.10 Atherosclerotic heart disease of native coronary artery without angina pectoris; I10 Essential (primary) hypertension; K21.9 Gastro-esophageal reflux disease without esophagitis; Z95.5 Presence of coronary angioplasty implant and graft; Z79.4 Long term (current) use of insulin; Z79.01 Long term (current) use of anticoagulants; Z79.84 Long term (current) use of oral hypoglycemic drugs
CPT/HCPCS: 70450; 80048; 81001; 83735; 84484; 84703; 85025; 85610; 85730; 93005; 96361; 96374; 99285; J2405; J7030

== ENCOUNTER 2017-10-03 06:17 | Emergency (ER) | payer BC ==
[~2017-10-03] VITALS: Ht 165.1 cm; Wt 95.5 kg
[2017-10-03 06:25] VITALS: BP 207/83; PULSE 57; RESP 20; TEMP 98.1; O2SAT 95
--- NOTE | 2017-10-03 06:41 | PD ---
HPI Chief Complaint: Fall Time Seen by Provider: 06:35 Travel History International Travel<30 days: No Contact w/Intl Traveler<30days: No Traveled to known affect area: No History of Present Illness HPI 47-year-old female presents to the emergency department by private transportation for complaint of left leg and foot pain status post fall. Patient reports last evening while she was getting out of the shower she lost her balance and fell onto her left lower extremity. Patient states she did not hit her head did not lose consciousness did not injure her neck back chest ribs abdomen has had no shortness of breath and no other extremity pain or injury. Patient states she does take Plavix because she has a history of CAD with previous stents. Patient has not noticed any increased bruising or swelling of the lower extremity this morning however last evening after she initially fell she did have swelling to the left ankle. Patient denies previous injury to the left lower extremity. Patient states she has had no chest pain no shortness of breath no nausea no vomiting no referred neck drawback shoulder arm or abdominal pain. Patient states she has taken no medications for her symptoms but she did elevate her foot and apply ice packs overnight. Patient states when she got up to go the bathroom she had severe pain in the foot and lower leg. 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 Patient rates her pain is moderate to severe. Patient denies other concerns or complaints. She does have past history of CAD hypertension and diabetes. [facility] Past Medical History Narrative Medical CAD dyslipidemia diabetes hypertension musculoskeletal pain cardiac catheterization stent 3 no tobacco use nursing notes reviewed Hx Anticoagulant Therapy: Yes Arthritis: No Autoimmune Disease: No Blood Disorders: No Anxiety: Yes Depression: Yes Heart Rhythm Problems: Yes Cancer: No Cardiac Catheterization: Yes Cardiovascular Problems: Yes High Cholesterol: Yes Chest Pain: Yes Congestive Heart Failure: No Cerebrovascular Accident: No Coronary Artery Disease: Yes Diabetes: Yes Dialysis: No Diminished Hearing: No Endocrine: Yes GERD: Yes Glaucoma: No Genitourinary: No Headaches: Yes Hepatitis: No Hiatal Hernia: No Heparin Induced Thrombocytopen: No Hypertension: Yes Immune Disorder: No Implanted Vascular Access Dvce: Yes Kidney Stones: No Musculoskeletal: No Neurologic: No Psychiatric: Yes Reproductive: No Respiratory: No Integumentary: No Immunizations Current: Yes Migraines: No Myocardial Infarction: No Seizures: No Thyroid Disease: No Ulcer: No PNEUMOCCOCAL Vaccine (Year): 2 LMP: 08/2015 : 2 Para: 2 Miscarriage: 0 : 0 Tubal Ligation: Yes Past Surgical History Abdominal Surgery: No Body Medical Devices: CARDIAC STENT X3 Cardiac Surgery: Yes (stent x 3.) Section: Yes (X2) Coronary Artery Bypass Graft: No Coronary Stent: Yes (X 3 2012, 2013, 2014) Ear Surgery: No Endocrine Surgery: No Eye Surgery: No Genitourinary Surgery: No Gynecologic Surgery: Yes ( X 2 /tubal) Neurologic Surgery: No Thoracic Surgery: No Other Surgery: Yes (STENTS X3) Social History Alcohol Use: No Tobacco Use: No Substance Use: No Allergies-Medications (Allergen,Severity, Reaction): Coded Allergies: prednisone (Unverified Allergy, Severe, HIVES, 10/03/17) Reported Meds & Prescriptions Reported Meds & Active Scripts Active Flexeril (Cyclobenzaprine HCl) 10 Mg Tab 10 Mg PO TID Isosorbide Mononitrate ER (Isosorbide Mononitrate) 60 Mg Tab 60 Mg PO DAILY@ 0700 30 Days Percocet (Oxycodone-Acetaminophen) 7.5-325 mg Tab 1 Tab PO Q4H PRN Meclizine (Meclizine HCl) 25 Mg Tab 25 Mg PO DIRECTED PRN Pravastatin 20 Mg Tab 20 Mg PO DAILY Plavix (Clopidogrel Bisulfate) 75 Mg Tab 75 Mg PO DAILY Reported Abilify (Aripiprazole) 10 Mg Tab 10 Mg PO DAILY Metoprolol Tartrate 25 Mg Tab 25 Mg PO BID Bupropion HCl ER 24 HR (Bupropion HCl) 150 Mg Tab 150 Mg PO DAILY Novolog Inj (Insulin Aspart) 1,000 Unit/10 Ml Vial 0 SQ TID PRN Sliding Scale as directed. Nitrostat SL (Nitroglycerin) 0.4 Mg Subl 0.4 Mg SL DIRECTED PRN 1 tablet under the tongue as needed for chest pain. Repeat every 5 minutes for a total of 3 DOSES or call 911 if NO relief. Levemir Inj (Insulin Detemir) 1,000 unit/ 10 ML Vial 5 Units SQ BID Do not mix with any other Insulin. Aspirin 81 (Aspirin) 81 Mg Tabdr 81 Mg PO DAILY Review of Systems Except as stated in HPI: all other systems reviewed are Neg Physical Exam Narrative GENERAL: Well-developed well-nourished female no acute distress or respiratory distress; GCS 15 SKIN: Warm and dry. HEAD: Normocephalic. Atraumatic no scalp soft tissue swelling abrasion laceration or bony abnormality. EYES: No scleral icterus. Extraocular muscles intact. No injection or drainage. NECK: Supple, trachea midline. No JVD or lymphadenopathy. CARDIOVASCULAR: Regular rate and rhythm without murmurs, gallops, or rubs. Chest wall: Nontender to palpation. RESPIRATORY: Breath sounds equal bilaterally. No accessory muscle use. GASTROINTESTINAL: Abdomen soft, non-tender, nondistended. MUSCULOSKELETAL: No cyanosis, or edema. Pelvic rock stable. Left lower extremity left hip pain with flexion and extension intact internal/external rotation increased pain with abduction knee intact flexion extension no ballotable effusion no erythema no ecchymosis lower leg no deformity no tenderness to direct palpation ankle mild swelling marked tenderness of the left foot with direct palpation dorsalis pedis pulse 2+ to palpation capillary refill brisk and less than 2 seconds per digit. All compartments soft and non- tense not firm. BACK: Nontender without obvious deformity. No CVA tenderness. Data Data Last Documented VS Vital Signs Date Time Temp Pulse Resp B/P (MAP) Pulse Ox O2 Delivery O2 Flow Rate FiO2 10/03/17 06:25 98.1 57 20 207/83 (124) 95 Orders Orders Femur (Ap & Lat/2vws) (10/03/17 ) Tibia/Fibula (Ap/Lat) (10/03/17 ) Foot, Complete ([id number]) (10/03/17 ) [facility] Medical Decision Making Medical Screen Exam Complete: Yes Emergency Medical Condition: Yes Medical Record Reviewed: Yes Differential Diagnosis Left lower extremity sprain strain contusion crush injury; no compartment syndrome Narrative Course Ice pack applied imaging studies ordered Michelle Silva MD Oct 03, 2017 06:41
--- NOTE | 2017-10-03 06:58 | RADRPT ---
EXAM DATE/TIME: 10/03/2017 06:41 [facility] COMPARISON: No previous studies available for comparison. INDICATIONS : Left lateral foot pain post fall. MEDICAL HISTORY : Gastroesophageal reflux disease. Hypercholesterolemia. Myocardial infarction. CAD. Diabetic. SURGICAL HISTORY : Tubal ligation. section. Cardiac cath w/ stent. ENCOUNTER: Initial ACUITY: 1 day PAIN SCORE: 10/10 LOCATION: Left lateral foot FINDINGS: Three view examination of the left foot demonstrates no soft tissue swelling, dislocation, or fractur e. The tarsal bones appear intact. The interphalangeal and metatarsophalangeal joints are intact. The calcaneus is intact. Bony mineralization is normal. CONCLUSION: 1. Plantar and posterior calcaneal spur formation. No obvious fractures. Mason Ace MD on October 03, 2017 at 6:56 Board Certified Radiologist. This report was verified electronically.
--- NOTE | 2017-10-03 07:21 | RADRPT ---
EXAM DATE/TIME: 10/03/2017 06:41 [facility] COMPARISON: No previous studies available for comparison. INDICATIONS : Left femur pain after falling yesterday. MEDICAL HISTORY : Myocardial infarction. Hypercholesterolemia. Gastroesophageal reflux disease. CAD. Hypertension. Diabetic. SURGICAL HISTORY : Tubal ligation. section. Cardiac cath w/ stent/ ENCOUNTER: Initial ACUITY: 1 day PAIN SCORE: 10/10 LOCATION: Left hip/femur FINDINGS: Two view examination of the left femur demonstrates no evidence of fracture or dislocation. Bony min eralization is normal. The soft tissue structures are intact. CONCLUSION: Unremarkable examination of the left femur. Ever Mcelroy MD on October 03, 2017 at 7:20 Board Certified Radiologist. This report was verified electronically.
--- NOTE | 2017-10-03 07:22 | RADRPT ---
EXAM DATE/TIME: 10/03/2017 06:41 [facility] COMPARISON: No previous studies available for comparison. INDICATIONS : Left distal tib/fib pain post fall. MEDICAL HISTORY : Myocardial infarction. Hypercholesterolemia. Gastroesophageal reflux disease. Diabetic. CAD. SURGICAL HISTORY : Tubal ligation. section. Cardiac cath w/ stent. ENCOUNTER: Initial ACUITY: 1 day PAIN SCORE: 10/10 LOCATION: Left distal tib/fib FINDINGS: Two view examination of the left tibia demonstrates no evidence of fracture or dislocation. Bony min eralization is normal. The soft tissue structures are intact. CONCLUSION: Unremarkable examination of the left tibia. Ever Mcelroy MD on October 03, 2017 at 7:20 Board Certified Radiologist. This report was verified electronically.
--- NOTE | 2017-10-03 07:39 | PD ---
Physical Exam Date Seen by Provider: Oct 03, 2017 Time Seen by Provider: 07:[address] Silva's documentation. Briefly this is a 47-year-old female who presented for evaluation after sustaining a slip and fall last night. She complains of pain predominantly in the left ankle and foot. No focal weakness, numbness, tingling. She did not hit her head or have loss of consciousness. No neck or back pain. On exam: The left lower extremity is warm and well perfused. Tenderness over dorsum of foot and left lateral malleolus. Compartments are soft and entire left lower extremity. Sensation intact in left lower extremity. Bounding left DP pulse. Data Data Last Documented VS Vital Signs Date Time Temp Pulse Resp B/P (MAP) Pulse Ox O2 Delivery O2 Flow Rate FiO2 10/03/17 06:25 98.1 57 20 207/83 (124) 95 Orders Orders Femur (Ap & Lat/2vws) (10/03/17 ) Tibia/Fibula (Ap/Lat) (10/03/17 ) Foot, Complete ([id number]) (10/03/17 ) Crutches (10/03/17 07:34) Support Splint (10/03/17 07:34) MDM Medical Record Reviewed: Yes Supervised Visit with RUSSEL: No Interpretation(s) Last 24 hours Impressions Tibia/Fibula X-Ray 10/03/17 0000 Signed Impressions: Service Date/Time: September 06:41 - CONCLUSION: Unremarkable examination of the left tibia. Ever Mcelroy MD Foot X-Ray 10/03/17 0000 Signed Impressions: Service Date/Time: September 06:41 - CONCLUSION: 1. Plantar and posterior calcaneal spur formation. No obvious fractures. Mason Ace MD Femur X-Ray 10/03/17 0000 Signed Impressions: Service Date/Time: September 06:41 - CONCLUSION: Unremarkable examination of the left femur. Ever Mcelroy MD Narrative Course The patient was signed out to me with imaging pending and plan for discharge with supportive care. I examined the patient and reviewed the results of the workup with her. She was given left ankle splint and crutches for comfort. She was counseled regarding plan for discharge with elevation, rest, ice, compression, [id number] pain medication and close outpatient follow- up.Patient understands the importance of close outpatient follow-up. She understands she may require further testing and treatment as an outpatient. She understands strict return indications. She is comfortable with this plan and eager to go home. Diagnosis Primary Impression: Left ankle sprain Qualified Codes: S93.402A - Sprain of unspecified ligament of left ankle, initial encounter Additional Impression: Contusion of left foot Qualified Codes: S90.32XA - Contusion of left foot, initial encounter Referrals: Primary Care Physician 3 days Patient Instructions: Ankle Sprain (DC), Ankle Sprain Exercises (GEN), Foot Contusion (ED), General Instructions Departure Forms: Tests/Procedures, Work Release Enter return to work date: Oct 07, 2017 Additional Instruction: Use [id number] pain medication as needed for pain. Keep leg elevated when at rest. Use ice as directed. Use splint and crutches as needed for comfort. Follow up closely with primary physician. If you continue to have pain, you may require further imaging. Return with worsening symptoms. Med/Other Pt SpecificInfo: No Change to Meds Disposition: 01 DISCHARGE HOME Condition: Stable Ruby Walker MD Oct 03, 2017 07:39
[2017-10-03] MEDS ORDERED: IBUPROFEN 600 MG TAB PO ONE (07:45)
== END 2017-10-03 07:54 | disposition home or self-care (01) ==
LOC: PHED 06:17
DX: S93.402A Sprain of unspecified ligament of left ankle, initial encounter (principal); S90.32XA Contusion of left foot, initial encounter; I10 Essential (primary) hypertension; I25.10 Atherosclerotic heart disease of native coronary artery without angina pectoris; I25.2 Old myocardial infarction; E78.00 Pure hypercholesterolemia, unspecified; E11.9 Type 2 diabetes mellitus without complications; F41.9 Anxiety disorder, unspecified; F32.9 Major depressive disorder, single episode, unspecified; W18.2XXA Fall in (into) shower or empty bathtub, initial encounter; Y92.002 Bathroom of unspecified non-institutional (private) residence as the place of occurrence of the external cause; Z95.5 Presence of coronary angioplasty implant and graft; Z88.8 Allergy status to other drugs, medicaments and biological substances; Z79.02 Long term (current) use of antithrombotics/antiplatelets; Z79.4 Long term (current) use of insulin; Z79.899 Other long term (current) drug therapy
CPT/HCPCS: 73552; 73590; 73630; 99283; E0113; L1906

== ENCOUNTER 2017-10-24 06:08 | Observation (INO) | payer BC ==
[~2017-10-24] VITALS: Ht 165.1 cm; Wt 93.0 kg
[~2017-10-24 06:08] MED LIST changes: -PERC7.5T13 PO
[2017-10-24 06:27] VITALS: RESP 18; O2SAT 98
[2017-10-24 06:29] VITALS: BP 157/83; PULSE 58; RESP 18; TEMP 97.8; O2SAT 98
[2017-10-24 06:40] LABS: AUTOMATED NEUTROPHIL # 4.7 TH/MM3 (1.8-7.7); BASOPHIL % 0.7 % (0.0-2.0); EOSINOPHIL # 0.1 TH/MM3 (0-0.4); EOSINOPHIL % 1.8 % (0.0-4.0); HEMATOCRIT 44.7 % (35.0-46.0); HEMOGLOBIN 14.5 GM/DL (11.6-15.3); LYMPH % 25.1 % (9.0-44.0); LYMPHOCYTE # 1.7 TH/MM3 (1.0-4.8); MEAN CELL VOLUME 88.1 FL (80.0-100.0); MEAN CORPUSCULAR HEMOGLOBIN 28.5 PG (27.0-34.0); MEAN CORPUSCULAR HGB CONC 32.4 % (32.0-36.0); MONO % 6.4 % (0.0-8.0); MONOCYTE # 0.4 TH/MM3 (0-0.9); PLATELET COUNT 253 TH/MM3 (150-450); RED BLOOD COUNT 5.07 MIL/MM3 (4.00-5.30); RED CELL DISTRIBUTION WIDTH 12.4 % (11.6-17.2); WHITE BLOOD COUNT 6.9 TH/MM3 (4.0-11.0)
--- NOTE | 2017-10-24 06:42 | PD ---
HPI Chief Complaint: Chest Pain Time Seen by Provider: 06:24 Travel History International Travel<30 days: No Contact w/Intl Traveler<30days: No Traveled to known affect area: No History of Present Illness HPI The patient is a 47-year-old female with a history of coronary artery disease and 3 stents who complains of a gripping feeling below her left breast since 4: 00 this morning. She took 2 nitroglycerin without relief. The intensity comes and goes but the pain never completely has gone away since 4:00 when it started. She has nausea and diaphoresis but denies any shortness of breath. She has some radiation down her left arm. She denies any syncopal or near syncopal spells. Dr. Yi is her manager telemetry. She has been in multiple times for chest pain and is also an insulin dependent diabetic. She does not smoke. PFSH Past Medical History Hx Anticoagulant Therapy: Yes Arthritis: No Autoimmune Disease: No Blood Disorders: No Anxiety: Yes Depression: Yes Heart Rhythm Problems: Yes Cancer: No Cardiac Catheterization: Yes Cardiovascular Problems: Yes (3 STENTS AND 1 ANGIOGRAM) High Cholesterol: Yes Chest Pain: Yes Congestive Heart Failure: No Cerebrovascular Accident: No Coronary Artery Disease: Yes Diabetes: Yes (LEVEMIR AND HUMALOG) Dialysis: No Diminished Hearing: No Endocrine: Yes GERD: Yes Glaucoma: No Genitourinary: No Headaches: Yes Hepatitis: No Hiatal Hernia: No Heparin Induced Thrombocytopen: No Hypertension: Yes Immune Disorder: No Implanted Vascular Access Dvce: Yes Kidney Stones: No Musculoskeletal: No Neurologic: No Psychiatric: Yes Reproductive: No Respiratory: No Integumentary: No Immunizations Current: Yes Migraines: No Myocardial Infarction: No Seizures: No Thyroid Disease: No Ulcer: No PNEUMOCCOCAL Vaccine (Year): 2 ?: Not : 2 Para: 2 Miscarriage: 0 : 0 Tubal Ligation: Yes Past Surgical History Abdominal Surgery: No Body Medical Devices: CARDIAC STENT X3 Cardiac Surgery: Yes (stent x 3.) Section: Yes (X2) Coronary Artery Bypass Graft: No Coronary Stent: Yes (X 3 2012, 2013, 2014) Ear Surgery: No Endocrine Surgery: No Eye Surgery: No Genitourinary Surgery: No Gynecologic Surgery: Yes ( X 2 /tubal) Neurologic Surgery: No Thoracic Surgery: No Other Surgery: Yes (STENTS X3) Social History Alcohol Use: No Tobacco Use: No Substance Use: No Allergies-Medications (Allergen,Severity, Reaction): Coded Allergies: prednisone (Unverified Allergy, Severe, HIVES, 10/03/17) Reported Meds & Prescriptions Reported Meds & Active Scripts Active Flexeril (Cyclobenzaprine HCl) 10 Mg Tab 10 Mg PO TID Isosorbide Mononitrate ER (Isosorbide Mononitrate) 60 Mg Tab 60 Mg PO DAILY@ 0700 30 Days Meclizine (Meclizine HCl) 25 Mg Tab 25 Mg PO DIRECTED PRN Pravastatin 20 Mg Tab 20 Mg PO DAILY Plavix (Clopidogrel Bisulfate) 75 Mg Tab 75 Mg PO DAILY Reported Abilify (Aripiprazole) 10 Mg Tab 10 Mg PO DAILY Metoprolol Tartrate 25 Mg Tab 25 Mg PO BID Bupropion HCl ER 24 HR (Bupropion HCl) 150 Mg Tab 150 Mg PO DAILY Novolog Inj (Insulin Aspart) 1,000 Unit/10 Ml Vial 0 SQ TID PRN Sliding Scale as directed. Nitrostat SL (Nitroglycerin) 0.4 Mg Subl 0.4 Mg SL DIRECTED PRN 1 tablet under the tongue as needed for chest pain. Repeat every 5 minutes for a total of 3 DOSES or call 911 if NO relief. Levemir Inj (Insulin Detemir) 1,000 unit/ 10 ML Vial 10 Units SQ BID Do not mix with any other Insulin. Aspirin 81 (Aspirin) 81 Mg Tabdr 81 Mg PO DAILY Review of Systems Except as stated in HPI: all other systems reviewed are Neg Physical Exam Narrative GENERAL: Patient is alert, oriented 3 in slight apparent distress with her chest discomfort. Her vital signs show pulse of 58, blood pressure 137/83 but otherwise are normal. SKIN: Focused skin assessment warm/dry. HEAD: Atraumatic. Normocephalic. EYES: Pupils equal and round. No scleral icterus. No injection or drainage. ENT: No nasal bleeding or discharge. Mucous membranes pink and moist. NECK: Trachea midline. No JVD. CARDIOVASCULAR: Regular rate and rhythm. No murmur appreciated. RESPIRATORY: No accessory muscle use. Clear to auscultation. Breath sounds equal bilaterally. I cannot reproduce the patient's chest pain by pressing on the chest wall. GASTROINTESTINAL: Abdomen soft, non-tender, nondistended. Hepatic and splenic margins not palpable. MUSCULOSKELETAL: No obvious deformities. No clubbing. No cyanosis. No edema. NEUROLOGICAL: Awake and alert. No obvious cranial nerve deficits. Motor grossly within normal limits. Normal speech. PSYCHIATRIC: Appropriate mood and affect; insight and judgment normal. Data Data Last Documented VS Vital Signs Date Time Temp Pulse Resp B/P (MAP) Pulse Ox O2 Delivery O2 Flow Rate FiO2 10/24/17 06:36 Room Air 10/24/17 06:29 97.8 58 18 157/83 (107) 98 Orders Orders Electrocardiogram (10/24/17 06:17) Complete Blood Count With Diff (10/24/17 06:17) Basic Metabolic Panel (Bmp) (10/24/17 06:17) Ckmb (Isoenzyme) Profile (10/24/17:17) Troponin I (10/24/17:17) Chest, Single Ap (10/24/17 06:17) Iv Access Insert/Monitor (10/24/17 06:17) Ecg Monitoring (10/24/17:17) Oximetry (10/24/17 06:17) Labs Laboratory Tests Test 10/24/17 06:30 White Blood Count 6.9 TH/MM3 Red Blood Count 5.07 MIL/MM3 Hemoglobin 14.5 GM/DL Hematocrit 44.7 % Mean Corpuscular Volume 88.1 FL Mean Corpuscular Hemoglobin 28.5 PG Mean Corpuscular Hemoglobin Concent 32.4 % Red Cell Distribution Width 12.4 % Platelet Count 253 TH/MM3 Mean Platelet Volume 9.0 FL Neutrophils (%) (Auto) 66.0 % Lymphocytes (%) (Auto) 25.1 % Monocytes (%) (Auto) 6.4 % Eosinophils (%) (Auto) 1.8 % Basophils (%) (Auto) 0.7 % Neutrophils # (Auto) 4.7 TH/MM3 Lymphocytes # (Auto) 1.7 TH/MM3 Monocytes # (Auto) 0.4 TH/MM3 Eosinophils # (Auto) 0.1 TH/MM3 Basophils # (Auto) 0.0 TH/MM3 CBC Comment DIFF FINAL Differential Comment Blood Urea Nitrogen 11 MG/DL Creatinine 0.77 MG/DL Random Glucose 388 MG/DL Calcium Level 8.7 MG/DL Sodium Level 133 MEQ/L Potassium Level 3.6 MEQ/L Chloride Level 99 MEQ/L Carbon Dioxide Level 22.3 MEQ/L Anion Gap 12 MEQ/L Estimat Glomerular Filtration Rate 81 ML/MIN [facility] Medical Decision Making Medical Screen Exam Complete: Yes Emergency Medical Condition: Yes Medical Record Reviewed: Yes Differential Diagnosis Atypical chest pain, chest wall pain, gastrointestinal pain, acute coronary syndrome, esophageal pain Narrative Course It is now 0714 and the patient is transferred to Dr. Mallory. Paulie Alvarado MD Oct 24, 2017 06:42
--- NOTE | 2017-10-24 06:57 | RADRPT ---
EXAM DATE/TIME: 10/24/2017 06:30 [facility] COMPARISON: CHEST SINGLE AP, August 20, 2017, 5:04. INDICATIONS : Chest pain for 2 hours MEDICAL HISTORY : Hypertension. Diabetes mellitus type 2. SURGICAL HISTORY : Tubal ligation. ENCOUNTER: Initial ACUITY: 1 day PAIN SCORE: 8/10 LOCATION: Left chest FINDINGS: Portable AP view of the chest demonstrates a normal-sized cardiac silhouette. No effusion, consolidat ion, or pneumothorax is visualized. The bones and soft tissues demonstrate no acute abnormality. EKG lines overlie the patient. CONCLUSION: No acute cardiopulmonary abnormality is identified. Rashard Simmons MD on October 24, 2017 at 6:49 Board Certified Radiologist. This report was verified electronically.
[2017-10-24 06:58] LABS: CHLORIDE 99 MEQ/L (98-107); SODIUM (NA) 133 MEQ/L (136-145)
[2017-10-24 07:00] LABS: CALCIUM 8.7 MG/DL (8.5-10.1)
[2017-10-24 07:01] LABS: BICARBONATE 22.3 MEQ/L (21.0-32.0); BLOOD UREA NITROGEN 11 MG/DL (7-18); GLUCOSE,RANDOM 388 MG/DL (74-106)
[2017-10-24 07:04] LABS: CREATININE 0.77 MG/DL (0.50-1.00); GLOMERULAR FILTRATION RATE 81 ML/MIN (>89)
[2017-10-24 07:09] LABS: TROPONIN I LESS THAN 0.02 NG/ML (0.02-0.05)
--- NOTE | 2017-10-24 07:52 | PD ---
Physical Exam Narrative Received sign out from previous team to follow up labs and reevaluate patient. 47yo F with PMH of CAD s/p stents, DM, HTN, HLD here with chest pain since 4am. Pt said it is squeezing, associated with sob and nausea. Labs reviewed, no leukocytosis. H/H normal. Glucose elevated at 388. No increased anion gap. Normal CO2. Troponin negative. CXR negative. Pt had echocardiogram 08/2017 that showed hyperdynamic LV with EF 65-70%. Pt had cardiac cath 10/2016 that showed widely patent LAD stent. I reviewed her records and do not see any recent stress test. Pt does not remember any recent stress test. Pt follows with Dr. Cardoso and does not remember her last stress test. Pt took aspirin 81mg , will give full dose. Pt took 2 sublingual nitro and it didnt really help. Pt said she prefer tylenol so ordered one. Discussed with pt's medical typist Dr. Cardoso and he recommends either chest pain center for stress test or he can schedule a stress test Saturday or Saturday if pt is comfortable with that. I discussed with patient and she want to stay for chest pain center instead. Since pt has significant cardiac risk factor, will observe in chest pain center with serial EKG and cardiac enzymes. Discussed with Dr. Rausch and accepted to her service. Data Data Last Documented VS Vital Signs Date Time Temp Pulse Resp B/P (MAP) Pulse Ox O2 Delivery O2 Flow Rate FiO2 10/24/17 08:21 58 16 131/66 (87) 97 10/24/17 06:36 Room Air 10/24/17 06:29 97.8 Orders Orders Electrocardiogram (10/24/17 06:17) Complete Blood Count With Diff (10/24/17 06:17) Basic Metabolic Panel (Bmp) (10/24/17 06:17) Ckmb (Isoenzyme) Profile (10/24/17 06:17) Troponin I (10/24/17 06:17) Chest, Single Ap (10/24/17 06:17) Iv Access Insert/Monitor (10/24/17 06:17) Ecg Monitoring (10/24/17 06:17) Oximetry (10/24/17 06:17) Aspirin Chew (Aspirin Chew) (10/24/17 08:15) Nitroglycerin Sl (Nitrostat Sl) (10/24/17 08:15) Acetaminophen (Tylenol) (10/24/17 08:45) Admit Order (Ed Use Only) (10/24/17 08:38) Labs Laboratory Tests Test 10/24/17 06:30 White Blood Count 6.9 TH/MM3 Red Blood Count 5.07 MIL/MM3 Hemoglobin 14.5 GM/DL Hematocrit 44.7 % Mean Corpuscular Volume 88.1 FL Mean Corpuscular Hemoglobin 28.5 PG Mean Corpuscular Hemoglobin Concent 32.4 % Red Cell Distribution Width 12.4 % Platelet Count 253 TH/MM3 Mean Platelet Volume 9.0 FL Neutrophils (%) (Auto) 66.0 % Lymphocytes (%) (Auto) 25.1 % Monocytes (%) (Auto) 6.4 % Eosinophils (%) (Auto) 1.8 % Basophils (%) (Auto) 0.7 % Neutrophils # (Auto) 4.7 TH/MM3 Lymphocytes # (Auto) 1.7 TH/MM3 Monocytes # (Auto) 0.4 TH/MM3 Eosinophils # (Auto) 0.1 TH/MM3 Basophils # (Auto) 0.0 TH/MM3 CBC Comment DIFF FINAL Differential Comment Blood Urea Nitrogen 11 MG/DL Creatinine 0.77 MG/DL Random Glucose 388 MG/DL Calcium Level 8.7 MG/DL Sodium Level 133 MEQ/L Potassium Level 3.6 MEQ/L Chloride Level 99 MEQ/L Carbon Dioxide Level 22.3 MEQ/L Anion Gap 12 MEQ/L Estimat Glomerular Filtration Rate 81 ML/MIN Total Creatine Kinase 60 U/L Troponin I LESS THAN 0.02 NG/ML MDM Supervised Visit with RUSSEL: No Interpretation(s) EKG; Sinus bradycardia at 57bpm. Normal axis. No ST segment elevation or depression. EKG #2: Sinus bradycardia at 47bpm. Normal axis. No ST segment elevation or depression. Diagnosis Primary Impression: Chest pain Qualified Codes: R07.9 - Chest pain, unspecified Admitting Information Admitting Physician Requests: Chary Flores DO Oct 24, 2017 07:52
[2017-10-24] MEDS ORDERED: NITROGLYCERIN 0.4 MG SL 25 TABS/BTL SL ONE (08:15)
[2017-10-24] MEDS ORDERED: ASPIRIN 81 MG CHEW TAB PO ONE (08:15)
[2017-10-24 08:21] VITALS: BP 131/66; PULSE 58; RESP 16; O2SAT 97
[2017-10-24] MEDS ORDERED: ACETAMINOPHEN 325 MG TAB PO ONE (08:45)
--- NOTE | 2017-10-24 10:13 | HHI.DCPOC ---
Discharge Care Plan Diagnosis: (1) Chest pain (2) Hyperglycemia Goals to Promote Your Health * To prevent worsening of your condition and complications * To maintain your health at the optimal level Directions to Meet Your Goals Take your medications as prescribed Follow your dietary instruction Follow activity as directed Keep your appointments as scheduled Take your immunizations and boosters as scheduled If your symptoms worsen call your PCP, if no PCP go to Urgent Care Center or Emergency Room Smoking is Dangerous to Your Health. Avoid second hand smoke Call the 24-hour hour crisis hotline for domestic abuse at Briana Rausch MD Oct 24, 2017 10:13
[2017-10-24 10:52] VITALS: RESP 16
--- NOTE | 2017-10-24 10:55 | PD.CONS ---
HPI Service [facility] ([place], [place])ists Consult Requested By BENNIE Quinn MD Reason for Consult Atypical chest pain Primary Care Physician Hayden Mcgovern MD Diagnoses: History of Present Illness This patient is a 47-year-old female with a history of diabetes and hypertension as well as coronary disease and 3 stents. Patient did have sudden onset of left-sided squeezing chest pain which is consistent. Is not relieved by nitroglycerin. She has associated nausea but there is no shortness of breath. She thought it radiated down her arm but she is not sure. She does follow with her paediatric surgeon and does take aspirin, Plavix, pravastatin, isosorbide and metoprolol. The patient overall has done well in the emergency room. She ate breakfast without difficulty. Her blood sugars 388. Patient reports poor adherence with her diet. I did speak with her paediatric surgeon regarding this patient's atypical chest pain complaint which does not appear to be cardiac in nature. He does agree that further testing is necessary for this patient and it may be done as an outpatient. I did discuss with the patient this plan and she is quite agreeable. Review of Systems Constitutional: DENIES: Diaphoretic episodes, Fatigue, Fever, Weight gain, Weight loss, Chills, Dizziness, Change in appetite, Night Sweats Endocrine: DENIES: Abnorml menstrual pattern, Heat/cold intolerance, Polydipsia , Polyuria, Polyphagia Eyes: DENIES: Blurred vision, Diplopia, Eye inflammation, Eye pain, Vision loss , Photosensitivity, Double Vision Ears, nose, mouth, throat: DENIES: Tinnitus, Hearing loss, Vertigo, Nasal discharge, Oral lesions, Throat pain, Hoarseness, Ear Pain, Running Nose, Epistaxis, Sinus Pain, Toothache, Odynophagia Respiratory: DENIES: Apneas, Cough, Snoring, Wheezing, Hemoptysis, Sputum production, Shortness of breath Cardiovascular: COMPLAINS OF: Chest pain (Atypical), DENIES: Palpitations, Syncope, Dyspnea on Exertion, PND, Lower Extremity Edema, Orthopnea, Claudication Gastrointestinal: DENIES: Abdominal pain, Black stools, Bloody stools, Constipation, Diarrhea, Nausea, Vomiting, Difficulty Swallowing, Anorexia Genitourinary: DENIES: Abnormal vaginal bleeding, Dysmenorrhea, Dyspareunia, Sexual dysfunction, Urinary frequency, Urinary incontinence, Urgency, Hematuria , Dysuria, Nocturia, Vaginal discharge Hematologic/lymphatic: DENIES: Bruising, Lymphadenopathy Immunologic/allergic: DENIES: Eczema, Urticaria Neurologic: DENIES: Abnormal gait, Headache, Localized weakness, Paresthesias, Seizures, Speech Problems, Tremor, Poor Balance Psychiatric: DENIES: Anxiety, Confusion, Mood changes, Depression, Hallucinations, Agitation, Suicidal Ideation, Homicidal Ideation, Delusions Except as stated in HPI: all other systems reviewed are Neg Past Family Social History Allergies: Coded Allergies: prednisone (Unverified Allergy, Severe, HIVES, 10/03/17) Past Medical History Diabetes mellitus type 2, coronary artery disease Anxiety/depression Past Surgical History Cardiac stents 3, 2, tubal ligation Reported Medications Reviewed in the EMR, no new medications per patient Active Ordered Medications Reviewed in the EMR Family History Father had coronary disease in his 50s and diabetes Mother had diabetes Social History No current tobacco alcohol dependency, employed Physical Exam Vital Signs Vital Signs Date Time Temp Pulse Resp B/P (MAP) Pulse Ox O2 Delivery O2 Flow Rate FiO2 10/24/17 08:21 58 16 131/66 (87) 97 10/24/17 06:36 Room Air 10/24/17 06:29 97.8 58 18 157/83 (107) 98 10/24/17 06:27 18 98 Room Air Physical Exam GENERAL: This is a well-nourished, well-developed patient, in no apparent distress. SKIN: No rashes, ecchymoses or lesions. Cool and dry. HEAD: Atraumatic. Normocephalic. No temporal or scalp tenderness. EYES: Pupils equal round and reactive. Extraocular motions intact. No scleral icterus. No injection or drainage. ENT: Nose without bleeding, purulent drainage or septal hematoma. Throat without erythema, tonsillar hypertrophy or exudate. Uvula midline. Airway patent. NECK: Trachea midline. No JVD or lymphadenopathy. Supple, nontender, no meningeal signs. CARDIOVASCULAR: Regular rate and rhythm without murmurs, gallops, or rubs. RESPIRATORY: Clear to auscultation. Breath sounds equal bilaterally. No wheezes , rales, or rhonchi. GASTROINTESTINAL: Abdomen soft, non-tender, nondistended. No hepato-splenomegaly , or palpable masses. No guarding. MUSCULOSKELETAL: Extremities without clubbing, cyanosis, or edema. No joint tenderness, effusion, or edema noted. No calf tenderness. Negative Homans sign bilaterally. NEUROLOGICAL: Awake and alert. Cranial nerves II through XII intact. Motor and sensory grossly within normal limits. Five out of 5 muscle strength in all muscle groups. Normal speech. Laboratory Laboratory Tests Test 10/24/17 06:30 10/24/17 09:15 White Blood Count 6.9 Red Blood Count 5.07 Hemoglobin 14.5 Hematocrit 44.7 Mean Corpuscular Volume 88.1 Mean Corpuscular Hemoglobin 28.5 Mean Corpuscular Hemoglobin Concent 32.4 Red Cell Distribution Width 12.4 Platelet Count 253 Mean Platelet Volume 9.0 Neutrophils (%) (Auto) 66.0 Lymphocytes (%) (Auto) 25.1 Monocytes (%) (Auto) 6.4 Eosinophils (%) (Auto) 1.8 Basophils (%) (Auto) 0.7 Neutrophils # (Auto) 4.7 Lymphocytes # (Auto) 1.7 Monocytes # (Auto) 0.4 Eosinophils # (Auto) 0.1 Basophils # (Auto) 0.0 CBC Comment DIFF FINAL Differential Comment Blood Urea Nitrogen 11 Creatinine 0.77 Random Glucose 388 Calcium Level 8.7 Sodium Level 133 Potassium Level 3.6 Chloride Level 99 Carbon Dioxide Level 22.3 Anion Gap 12 Estimat Glomerular Filtration Rate 81 Total Creatine Kinase 60 Troponin I LESS THAN 0.02 LESS THAN 0.02 Result Diagram: 10/24/1762910/24/17629 Imaging Last Impressions Chest X-Ray 10/24/17616 Signed Impressions: Service Date/Time: October 06:30 - CONCLUSION: No acute cardiopulmonary abnormality is identified. Rashard Simmons MD Assessment and Plan Problem List: (1) Chest pain ICD Code: R07.9 - Chest pain Status: Acute Plan: Chest pain is atypical in this patient with multiple risk factors and previous cardiac disease. Currently EKG is reassuring and there is no evidence of ischemic injury on my review. Chest x-ray is unremarkable on my review for acute cardiopulmonary disease. Cardiac enzymes are negative. I did discuss with the patient regarding the need for further testing as an outpatient and she has agreed to this. Patient will continue her home regimen of nitroglycerin , metoprolol, Plavix, pravastatin, isosorbide and aspirin I did discuss this plan with Dr. tompkins paediatric surgeon who is in agreement and will aggressively arrange for outpatient cardiac stress testing. (2) CAD (coronary artery disease) ICD Code: I25.10 - Atherosclerotic heart disease of [place] coronary artery without angina pectoris Status: Acute Plan: Patient with cardiac stents and will continue with current regimen as above (3) Hyperglycemia ICD Code: R73.9 - Hyperglycemia, unspecified Status: Acute Plan: Patient does have diabetes mellitus type 2 sugars 388. She will continue to follow up with her primary doctor for further adjustments. Problem Qualifiers (1) Chest pain: Qualified Codes: R07.9 - Chest pain, unspecified Briana Raushc MD Oct 24, 2017 10:55
[2017-10-24 11:23] VITALS: BP 164/74
--- NOTE | 2017-10-24 13:40 | EKG ---
Date Performed: 10/24/2017 Time Performed: 09:17:43 PTAGE: 47 years EKG: SINUS BRADYCARDIA BORDERLINE ECG PREVIOUS TRACING : 10/24/2017 06.18 No significant change from previous tracing noted. DOCTOR: Harry Natarajan Interpretating Date/Time 10/24/2017 13:39:06
--- NOTE | 2017-10-24 18:21 | EKG ---
Date Performed: 10/24/2017 Time Performed: 06:18:38 PTAGE: 47 years EKG: SINUS BRADYCARDIA BORDERLINE ECG PREVIOUS TRACING : 09/14/2017 16.05 No significant change from previous tracing noted. DOCTOR: Harry Natarajan Interpretating Date/Time 10/24/2017 18:20:00
== END 2017-10-24 12:37 | disposition home or self-care (01) ==
LOC: PHED 06:08 → PHEDA 08:39
PROVIDERS: ADMIT Hospitalist; ATTEND Hospitalist
DX: R07.9 Chest pain, unspecified (principal); R06.02 Shortness of breath; R11.0 Nausea; R00.1 Bradycardia, unspecified; I25.10 Atherosclerotic heart disease of native coronary artery without angina pectoris; I10 Essential (primary) hypertension; E78.00 Pure hypercholesterolemia, unspecified; E11.65 Type 2 diabetes mellitus with hyperglycemia; K21.9 Gastro-esophageal reflux disease without esophagitis; F41.8 Other specified anxiety disorders; Z79.82 Long term (current) use of aspirin; Z79.899 Other long term (current) drug therapy; Z79.02 Long term (current) use of antithrombotics/antiplatelets; Z95.5 Presence of coronary angioplasty implant and graft
CPT/HCPCS: 71045; 80048; 82550; 84484; 85025; 93005; 99285; G0378

== ENCOUNTER 2017-11-08 07:16 | Day surgery (SDC) | payer BC ==
[~2017-11-08] VITALS: Ht 165.1 cm; Wt 100.6 kg
[2017-11-08] MEDS ORDERED: IOHEXOL 350 MG/ML 50 ML BTL (for Cath Lab) OTHER ONE (07:17)
[2017-11-08] MEDS ORDERED: SODIUM CHLOR 0.9% 1000 ML INJ 1,000 ML IV SCH (08:00)
[2017-11-08] MEDS ORDERED: ATOR40TA16 PO (08:13)
[2017-11-08 08:15] VITALS: BP 147/76; PULSE 53; RESP 18; O2SAT 98
[2017-11-08] MEDS ORDERED: HEPARIN-NS/PF FLUSH BAG 1,000 ML IV FLUSH ONE (10:21)
[2017-11-08] MEDS ORDERED: NITROGLYCERIN INJ 5 ML ONE (10:21)
[2017-11-08] MEDS ORDERED: HEPARIN SODIUM - IV 10,000 UNITS/10 ML VIAL ONE (10:21)
[2017-11-08] MEDS ORDERED: MIDAZOLAM HCL 2 MG/2 ML VIAL ONE (10:21)
--- NOTE | 2017-11-08 11:12 | CATHPROC ---
[facility] HIS Report Study Information Study Number Admission Scheduled Start Study Start [id number] Nov 08 2017 7:16AM 11/08/2017 Nov 08 2017 10:11AM [place] Service Cardiac Catheterization Admit Source Facility Department Other [facility] - Director Of Recruiting Physician and Clinical Staff Initial Ever [place] Melodie May,RN Recorder Tere Bahena,CARD FOLDER TECH2 Scrub Melodie Jackson,RT(R) Procedures Performed Procedure Location (Site) Vessel Name Coronary Angiograms LCA Left Coronary Coronary Angiograms RCA Right Coronary L Heart Cath Equipment Time Manager E [employer] Description Size Mfg Part Number Used/Scraped TRANSDUCER, TRUWAVE [id number] 10:14 PLUMMER KIM * Used W/STOCKCOCK *[id number] *[id number] 10:14 [employer] PACK, CCL CUSTOM * Used *[id number] 10:14 [employer] SUPPORT, ARTERIAL ADULT 45944 *[id number] Used [id number] 10:14 [employer] PACER PEN, SKIN DUAL W/ RULER * Used *[id number] 10:55 [employer] JL 3.5 DXTERITY CATHETER FR 5 Used *[id number] BAND, RADIAL COMPRESSION TR [id number] 10:58 [employer] 24CM Used SHORT 24 *[id number] SHEATH, FR6 RADIAL PRELUDE 10:14 [employer] FR 6 [id number] Used EASE 11CM [id number] 10:14 [employer] WIRE, EXCHANGE 260CM 3MMJ 260CM Used *[id number] 10:14 [employer] OMNIPAQUE, 350 MG, 150ML 150ML [id number] Used [id number] 10:14 [facility] BLANKET,WARM AIR CCL * Used *[id number] History: Current Medications Medication Dosage/Unit Route Frequency Last Date/Time Taken ASA Insulin NTG SL PLAVIX LOPRESSOR Imdur Statins (any) NORVASC History: Allergies Allergy Reaction prednisone HIVES STEROIDS Anaphylaxis History: Risk Factors Family History of Hypertension Dyslipidemia Previous MT Previous Heart Failure Premature CAD Yes Yes Yes No No Prior Valve Prior PCI Prior PCIDate Prior CABG Surgery No Yes 09/10/2014 No Cerebrovascular Peripheral Artery Chronic Lung On Dialysis Diabetes Diabetes Therapy Disease Disease Disease No No No No Yes Insulin History: Symptoms/Diagnosis Selection Items Chest pain History: Stress Tests Stress or Imaging Studies Performed Yes Standard Exercise Stress Test No Stress Echo No Stress Test SPECT Stress Test SPECT Result Yes Positive History: Other Disease Selection Items Depression Gerd History: Other Current Smoker No Labs Hgb (g/dl) Hct (%) Platelets (thousands) 11.60-17.00 35.00-51.00 150.00-450.00 14.4 43.8 253 Glucose (mg/dl) BUN (mg/dl) Creatinine (mg/dl) BUN:Creatinine (1:x) 74.00-106.00 7.00-18.00 0.50-1.30 10.00-20.00 329 11 0.5 22 Na (meq/l) K (meq/l) Cl (meq/l) CO2 (mmol/L) Ca (mg/dl) 136.00-145.00 3.50-5.10 98.00-107.00 21.00-32.00 8.50-10.10 134 4.2 98 24 9.7 INR (PTT:PT) 0.90-1.10 0.9 CPK-MB (ng/ML) 0.50-3.60 Not Drawn Medication Medication Total Dose (Bolus/Oral) Medication Total Dosage/Unit 1% XYLOCAINE 10 mL FENTANYL 50 mcg HEPARIN 5000 units NTG (IC) 100 mcg VERSED 2 mg Medications (Bolus/Oral) Medication Time Given Dosage/Unit Administered By Reason VERSED 11/08/2017 10:43:18 AM 2 mg Melodie May 2 mg VERSED given in lab by Melodie May, MALISSA in Left Antecubital via Peripheral IV. Ordered by Ever Romo. FENTANYL 11/08/2017 10:44:19 AM 50 mcg Melodie May 50 mcg FENTANYL given in lab by Melodie May RN in Left Antecubital via Peripheral IV. Ordered by Ever Cardoso. 1% XYLOCAINE 11/08/2017 10:45:57 AM 10 mL Ever Cardoso 10 mL 1% XYLOCAINE given in lab by Ever Cardoso in Right Radial via Subcutaneous. HEPARIN 11/08/2017 10:50:30 AM 5000 units Melodie May 5000 units HEPARIN given in lab by Melodie May RN in Left Antecubital via Peripheral IV. Ordered by Ever Cardoso. NTG (IC) 11/08/2017 10:50:53 AM 100 mcg Ever Cardoso 100 mcg NTG (IC) given in lab by Ever Cardoso in Right Radial via Intra-arterial. Ordered by Ever Cardoso. Medication (Drip) Medication Time Given Dosage/Unit Concentration/Unit Diluent (ml) Solution IV Solutions 11/08/2017 10:22:13 AM 0 mL (IV) 500 NaCl .9 Patient arrived on IV Solutions in Left Antecubital via Peripheral IV. Pump/Drip Flow = 20 ml/hr usin g NaCl .9. Initial Case Assessment Cardiovascular HR Rhythm NIBP Chest Pain 51 sb 138/75 0 Circulatory - Right Pulses Dorsalis Pedis Femoral Radial 3 3 3 Scale (0,1,2,3,4,d) Scale (0,1,2,3,4,d) Neurological State Oriented to time-place- Alert Moves all extremities person Respiration - General Respiration Rate (B/min) 16 Final Case Assessment Cardiovascular HR Rhythm NIBP Chest Pain 57 sb 135/66 0 Circulatory - Right Pulses Dorsalis Pedis Femoral Radial 3 3 3 Scale (0,1,2,3,4,d) Scale (0,1,2,3,4,d) Neurological State Oriented to time-place- Alert Moves all extremities person Respiration - General Respiration Rate SpO2 (%) (B/min) 15 99 Chronological Log Time Study Chronological Log 10:16:09 Patient arrived via Bed. 10:16:10 Patient Name, D.O.B, / Armband Verified By R.N. 10:16:11 Pre-op and post- op instructions given; patient acknowledges understanding of instructions. 10:16:13 Verbal Stimulation=2 Physical Stimulation=2 Airway=2 Respiration=2 TOTAL=8. (0=absent, 1=li mited, 2=present) 10:16:14 Presedation assessment performed by Director Of Recruiting RN. 10:16:16 Allens test performed on the left radial and ulnar artery. 10:16:17 Patient has been NPO for More than 6Hrs. 10:16:18 Skin Breakdown-none 10:21:24 Curtis Prominences Protected 10:21:28 A # 20 IV was noted in the Antecubital (left). Grade = patent 10:22:13 Patient arrived on IV Solutions in Left Antecubital via Peripheral IV. Pump/Drip Flow = 20 ml/hr using NaCl .9. 10:23:04 History and physical on the chart or being dictated. Assessment: Initial Case, HR=51 BPM, Rhythm=sb, KZWT=988/75 mmhg, Chest Pain=0 Right Pulses: Cordell Ped=3, Femoral=3, Radial=3 10:23:05 Neurological: State=Alert, Ox3, SALAZAR Respiration: Resp=16 B/min 10:23:09 Reference ECG taken Vitals capture started with the following parameters, Patient=Adult, Interval=5 min, Initial Pr urdbsa=527 mmHg, 10:23:18 Deflation Rate=5 mmHg, Cuff placed on Right Arm 10:23:50 HR=58 bpm, CGBF=054/75 mmhg, SpO2=99 %, Resp=14 B/min 10:28:53 HR=51 bpm, TRHY=083/77 mmhg, HoO2=480.0 %, Resp=15 B/min 10:32:13 Right groin and right radial prepped with 2% chlorhexidine, and draped after a 3 min. waiti ng time. 10:33:54 HR=51 bpm, RYZK=563/75 mmhg, PgU6=902.0 %, Resp=13 B/min 10:37:13 Pressure channel 1 zeroed. 10:37:51 MD paged 10:38:52 MD responded 10:38:57 HR=52 bpm, CJUF=371/77 mmhg, XuU1=878.0 %, Resp=14 B/min 10:42:55 MD arrived. 10:43:18 2 mg VERSED given in lab by Melodie May, RN in Left Antecubital via Peripheral IV. Order ed by Ever Cardoso. Time Out. Correct patient, correct procedure, correct physician, power injector not loaded with contrast with surgical 10:43:54 team present. Time Out Concurred by MD and individual staff in procedure. 10:43:54 HR=53 bpm, EDYC=856/78 mmhg, WsS2=795.0 %, Resp=20 B/min 10:44:19 50 mcg FENTANYL given in lab by Melodie May, RN in Left Antecubital via Peripheral IV. O rdered by Ever Cardoso. 10:45:40 Case Start 10:45:57 10 mL 1% XYLOCAINE given in lab by Ever Cardoso in Right Radial via Subcutaneous. 10:48:59 HR=62 bpm, NSKL=726/60 mmhg, SpO2=94 %, Resp=12 B/min 10:49:38 Access site was Radial Artery. radial A SHEATH, FR6 RADIAL PRELUDE EASE 11CM FR 6 was advanced into the Radial (right) using the Perc utaneous 10:49:52 technique. 5000 units HEPARIN given in lab by Melodie May RN in Left Antecubital via Peripheral IV. Or dered by Walker 10:50:30 Ever. 10:50:53 100 mcg NTG (IC) given in lab by Ever Cardoso in Right Radial via Intra-arterial. Ordered by Ever Cardoso. A JR 5.0 INFINITI CATHETER FR 5 was advanced over a wire. OMNIPAQUE, 350 MG, 150ML 150ML was us ed for 10:51:55 injections. 10:53:28 The RCA was injected and visualized at various angles. OMNIPAQUE, 350 MG, 150ML 150ML used . After removing the current catheter a JL 3.5 DXTERITY CATHETER FR 5 was advanced over a WIRE, E XCHANGE 260CM 10:53:49 3MMJ 260CM. 10:53:56 HR=60 bpm, MTZR=170/55 mmhg, SpO2=97.0 %, Resp=15 B/min 10:56:32 The LCA was injected and visualized at various angles. OMNIPAQUE, 350 MG, 150ML 150ML used . 10:57:37 Catheter was removed 10:57:41 Case End 10:57:45 A Left Heart Cath was performed. 10:58:55 HR=57 bpm, CISO=312/66 mmhg, SpO2=99.0 %, Resp=15 B/min 10:59:30 No case complications noted. 10:59:32 Cine recording checked. Radial Compression Device Used. 7 mLs of air placed in BAND, RADIAL COMPRESSION TR SHORT 24 24 CM. Affected 10:59:49 hand 97 % O2 saturation. 11:05:22 Patient moved to bed 11:05:40 Bedside Report will be given. Assessment: Final Case, HR=57 BPM, Rhythm=sb, JIVA=690/66 mmhg, Chest Pain=0 Right Pulses: Cordell Ped=3, Femoral=3, Radial=3 11:05:47 Neurological: State=Alert, Ox3, SALAZAR Respiration: Resp=15 B/min, SpO2=99 % 11:07:05 [facility] End Study - Contrast Media Used In Study Contrast Total Opened (mL) Total Used (mL) Total Wasted (mL) Omnipaque 50 50 0 End Study - Maximum Contrast Load Max Contrast Load (mL) 1005.9 End Study - Radiation Exposure Fluoro Time (minutes) 1.1 End Study - Sheaths Sheaths Pulled By Sheath Hold Time (min) Melodie Jackson End Study - Patient Disposition Complications Transferred To Interventional Outcome No Telemetry Bed No attempt made
[2017-11-08] MEDS ORDERED: BACITRACIN OINT 0.9 GM PKT TOP ONE (11:15)
[2017-11-08] MEDS ORDERED: oxyCODONE/ACETAMINOPHEN 5 MG/325 MG TAB PO PRN (11:15)
[2017-11-08] MEDS ORDERED: MISC INFORMATION XX ONE (11:15)
--- NOTE | 2017-11-08 11:22 | MA ---
cc: Ever Cardoso MD DATE: 11/08/2017 INDICATION: Unstable angina. PROCEDURE PERFORMED: 1. Fluoroscopy with interpretation. 2. Coronary angiography. METHOD: The risks, benefits, and alternatives were discussed with the patient. The patient understood and consented to the procedure. The patient was brought to catheterization lab, placed on the catheterization table. The right wrist was prepped and draped in sterile fashion, the right wrist anesthetized with 2% lidocaine. The right radial artery was cannulated. A 6-Maltese, 7-cm sheath was placed without difficulty. CORONARY ANGIOGRAPHY: 1. Left main coronary is short, but angiographically normal. 2. Left anterior descending coronary has mild luminal regularities in the midsegment and there is a stent present which has mild in-stent restenosis of 30%. Left anterior descending coronary artery is widely patent. 3. Left circumflex coronary has mild luminal irregularities. 4. Right coronary artery angiographically has mild luminal irregularities; it is a dominant vessel. CONCLUSIONS: Mild, not hemodynamically significant in-stent restenosis of the left anterior descending coronary artery. PLAN: Her symptoms are noncardiac in etiology. This is the second heart catheterization she has had now with no significant obstructive disease. I would pursue noncardiac workup. Ever Cardoso MD CHUN/SB , 11:02 AM , 11:20 AM
== END 2017-11-08 14:26 | disposition home or self-care (01) ==
LOC: HDOC 07:16 → HDIC 07:17 → HDOC 14:26
PROVIDERS: ATTEND Internal Medicine
DX: I20.0 Unstable angina (principal)
CPT/HCPCS: 84702; 86850; 86900; 86901; 93454; 99152; C1769; C1893; J1644; J2250; J3010; Q9967

== ENCOUNTER 2017-11-27 19:32 | Emergency (ER) | payer BC ==
[~2017-11-27] VITALS: Ht 165.1 cm; Wt 93.2 kg
[~2017-11-27 19:32] MED LIST changes: +ATOR40TA16 PO; -PRAV20TA2 PO
[2017-11-27 19:44] VITALS: BP 142/76; PULSE 62; RESP 20; TEMP 98.7; O2SAT 98
[2017-11-27] MEDS ORDERED: SODIUM CHLORIDE 0.9% FLUSH 10 ML FLUSH IVF PRN (20:00)
[2017-11-27] MEDS ORDERED: SODIUM CHLOR 0.9% 1000 ML INJ 1,000 ML IV ONE (20:00)
--- NOTE | 2017-11-27 20:39 | PD ---
HPI Chief Complaint: Syncope/Near-Syncope Time Seen by Provider: 20:24 Travel History International Travel<30 days: No Contact w/Intl Traveler<30days: No Traveled to known affect area: No History of Present Illness HPI Patient is a 47-year-old female who had an episode of syncope at work. She said she felt as if things were spinning and the next thing she knew she was on the floor and paramedics were loading her into the back of the ambulance. Patient is an insulin-dependent diabetic she is on Levemir patient has hypertension she takes metoprolol for that patient also has history of syncope and has been here multiple times in the past with similar complaints multiple workups for troponin and EKGs and CTs of head of all been reviewed by this MD and all have been negative in the past. This episode she says is most likely related to the fact she has had diarrhea vomiting for 2 days. And it is associated with feeling weak generalized. Sick contacts are her children at home as well have the same symptoms. Patient recently had a stress test that she says with equivocal bowl within Dr. turner took her for cath he said which was normal that was within the last 2 months. She has not taken any antacid she is not taking any antiemetics at home to cure this she has not been able to tolerate any p.o. and she has not seen a doctor for the same complaint she has minimal epigastric pain but her main complaint is weakness syncope she denies any trauma injury at this time PFSH Past Medical History Hx Anticoagulant Therapy: Yes Arthritis: No Autoimmune Disease: No Blood Disorders: No Anxiety: Yes Depression: Yes Heart Rhythm Problems: No Cancer: No Cardiac Catheterization: Yes (x 3 last one 2014) Cardiovascular Problems: Yes (last stent 2-3 mths ago) High Cholesterol: Yes (controlled on meds) Chest Pain: Yes Congestive Heart Failure: No Cerebrovascular Accident: No Coronary Artery Disease: Yes Diabetes: Yes (TYPE 2) Patient Takes Glucophage: No Dialysis: No Diminished Hearing: No Endocrine: Yes GERD: Yes Glaucoma: No Genitourinary: No Headaches: Yes Hepatitis: No Hiatal Hernia: No Heparin Induced Thrombocytopen: No Hypertension: Yes Immune Disorder: No Implanted Vascular Access Dvce: Yes Kidney Stones: No Musculoskeletal: No Neurologic: No Psychiatric: Yes Reproductive: No Respiratory: No Integumentary: No Immunizations Current: Yes Migraines: No Myocardial Infarction: No Seizures: No Thyroid Disease: No Ulcer: No Tetanus Vaccination: > 5 Years Influenza Vaccination: Yes PNEUMOCCOCAL Vaccine (Year): 2 ?: Not : 2 Para: 2 Miscarriage: 0 : 0 Tubal Ligation: Yes Past Surgical History Abdominal Surgery: No Body Medical Devices: CARDIAC STENT X3 Cardiac Surgery: Yes (stent x 3.) Section: Yes (X2) Coronary Artery Bypass Graft: No Coronary Stent: Yes (X 3 2012, 2013, 2014(few months [id number])) Ear Surgery: No Endocrine Surgery: No Eye Surgery: No Genitourinary Surgery: No Gynecologic Surgery: Yes ( X 2 /tubal) Neurologic Surgery: No Thoracic Surgery: No Other Surgery: Yes (STENTS X3) Family History Family Myocardial Infarction: Yes (father) Social History Alcohol Use: No Tobacco Use: No Substance Use: No Allergies-Medications (Allergen,Severity, Reaction): Coded Allergies: prednisone (Unverified Allergy, Severe, HIVES, 11/08/17) Reported Meds & Prescriptions Reported Meds & Active Scripts Active Flexeril (Cyclobenzaprine HCl) 10 Mg Tab 10 Mg PO TID Isosorbide Mononitrate ER (Isosorbide Mononitrate) 60 Mg Tab 60 Mg PO DAILY@ 0700 30 Days Meclizine (Meclizine HCl) 25 Mg Tab 25 Mg PO DIRECTED PRN Plavix (Clopidogrel Bisulfate) 75 Mg Tab 75 Mg PO DAILY Reported Atorvastatin (Atorvastatin Calcium) 40 Mg Tab 40 Mg PO HS Abilify (Aripiprazole) 10 Mg Tab 10 Mg PO DAILY Metoprolol Tartrate 25 Mg Tab 25 Mg PO BID Bupropion HCl ER 24 HR (Bupropion HCl) 150 Mg Tab 150 Mg PO DAILY Novolog Inj (Insulin Aspart) 1,000 Unit/10 Ml Vial 0 SQ TID PRN Sliding Scale as directed. Nitrostat SL (Nitroglycerin) 0.4 Mg Subl 0.4 Mg SL DIRECTED PRN 1 tablet under the tongue as needed for chest pain. Repeat every 5 minutes for a total of 3 DOSES or call 911 if NO relief. Levemir Inj (Insulin Detemir) 1,000 unit/ 10 ML Vial 10 Units SQ BID Do not mix with any other Insulin. Aspirin 81 (Aspirin) 81 Mg Tabdr 81 Mg PO DAILY Review of Systems Except as stated in HPI: all other systems reviewed are Neg (Weakness nausea vomiting and syncope) Physical Exam Narrative GENERAL: Patient is awake alert morbidly obese nontoxic-appearing SKIN: Warm and dry. HEAD: Atraumatic. Normocephalic. EYES: Pupils equal and round. No scleral icterus. No injection or drainage. ENT: No nasal bleeding or discharge. Mucous membranes pink and moist. NECK: Trachea midline. No JVD. CARDIOVASCULAR: Regular rate and rhythm. RESPIRATORY: No accessory muscle use. Clear to auscultation. Breath sounds equal bilaterally. GASTROINTESTINAL: Abdomen minimal tenderness in the epigastrium with percussion morbidly obese abdomen soft, nondistended. Hepatic and splenic margins not palpable. MUSCULOSKELETAL: Extremities without clubbing, cyanosis, or edema. No obvious deformities. NEUROLOGICAL: Awake and alert. No obvious cranial nerve deficits. Motor grossly within normal limits. Five out of 5 muscle strength in the arms and legs. Normal speech. PSYCHIATRIC: Appropriate mood and affect; insight and judgment normal. Data Data Last Documented VS Orders Orders Electrocardiogram (11/27/17 19:54) Complete Blood Count With Diff (11/27/17 19:54) Comprehensive Metabolic Panel (11/27/17 19:54) Magnesium (Mg) (11/27/17 19:54) Ckmb (Isoenzyme) Profile (11/27/17 19:54) Troponin I (11/27/17 19:54) Ecg Monitoring (11/27/17 19:54) Iv Access Insert/Monitor (11/27/17 19:54) Oximetry (11/27/17 19:54) Sodium Chloride 0.9% Flush (Ns Flush) (11/27/17 20:00) Sodium Chlor 0.9% 1000 Ml Inj (Ns 1000 M (11/27/17 20:00) Ondansetron Inj (Zofran Inj) (11/27/17 21:00) Famotidine Inj (Pepcid Inj) (11/27/17 21:00) Sodium Chlorid 0.9% 500 Ml Inj (Ns 500 M (11/27/17 21:15) Aspirin Chew (Aspirin Chew) (11/27/17 21:15) Ketorolac Inj (Toradol Inj) (11/27/17 21:45) Diphenhydramine Inj (Benadryl Inj) (11/27/17 21:45) Lorazepam Inj (Ativan Inj) (11/27/17 21:45) Orthostatic Vital Signs (11/27/17 22:41) Labs Laboratory Tests Test 11/27/17 20:35 White Blood Count 7.5 TH/MM3 Red Blood Count 4.84 MIL/MM3 Hemoglobin 14.2 GM/DL Hematocrit 41.8 % Mean Corpuscular Volume 86.3 FL Mean Corpuscular Hemoglobin 29.3 PG Mean Corpuscular Hemoglobin Concent 33.9 % Red Cell Distribution Width 13.3 % Platelet Count 252 TH/MM3 Mean Platelet Volume 8.9 FL Neutrophils (%) (Auto) 58.7 % Lymphocytes (%) (Auto) 31.2 % Monocytes (%) (Auto) 8.2 % Eosinophils (%) (Auto) 1.2 % Basophils (%) (Auto) 0.7 % Neutrophils # (Auto) 4.4 TH/MM3 Lymphocytes # (Auto) 2.3 TH/MM3 Monocytes # (Auto) 0.6 TH/MM3 Eosinophils # (Auto) 0.1 TH/MM3 Basophils # (Auto) 0.1 TH/MM3 CBC Comment DIFF FINAL Differential Comment Blood Urea Nitrogen 10 MG/DL Creatinine 0.79 MG/DL Random Glucose 252 MG/DL Total Protein 8.5 GM/DL Albumin 3.9 GM/DL Calcium Level 9.4 MG/DL Magnesium Level 2.0 MG/DL Alkaline Phosphatase 92 U/L Aspartate Amino Transf (AST/SGOT) 13 U/L Alanine Aminotransferase (ALT/SGPT) 22 U/L Total Bilirubin 0.2 MG/DL Sodium Level 138 MEQ/L Potassium Level 3.6 MEQ/L Chloride Level 101 MEQ/L Carbon Dioxide Level 26.1 MEQ/L Anion Gap 11 MEQ/L Estimat Glomerular Filtration Rate 78 ML/MIN Total Creatine Kinase 62 U/L Troponin I LESS THAN 0.02 NG/ML [facility] Medical Decision Making Medical Screen Exam Complete: Yes Emergency Medical Condition: Yes Differential Diagnosis Differential diagnosis is vasovagal syncope versus volume depletion syncope versus cardiogenic syncope versus neurological global TIA syncope versus pulmonary embolism syncope versus hypoglycemic episode versus other causes of syncope Narrative Course Patient has labs done normal saline bolus rehydration and antiemetics and observation in the ER for re-eval Diagnosis Primary Impression: Syncope Jay Kumar MD Nov 27, 2017 20:38
[2017-11-27 20:50] VITALS: O2SAT 99
[2017-11-27] MEDS ORDERED: FAMOTIDINE 20 MG/2 ML VIAL IV PUSH SCH (21:00)
[2017-11-27] MEDS ORDERED: ONDANSETRON HCL 4 MG/2 ML VIAL IV PUSH ONE (21:00)
[2017-11-27] MEDS ORDERED: SODIUM CHLORID 0.9% 500 ML INJ 500 ML IV ONE (21:15)
[2017-11-27] MEDS ORDERED: ASPIRIN 81 MG CHEW TAB CHEW ONE (21:15)
[2017-11-27] MEDS ORDERED: KETOROLAC TROMETHAMINE 30 MG/ML (IVP) VIAL IV PUSH ONE (21:45)
[2017-11-27] MEDS ORDERED: diphenhydrAMINE HCL 50 MG/ML VIAL IV PUSH ONE (21:45)
[2017-11-27] MEDS ORDERED: LORazepam 2 MG/ML VIAL IV PUSH ONE (21:45)
[2017-11-27 21:46] LABS: AUTOMATED NEUTROPHIL # 4.4 TH/MM3 (1.8-7.7); BASOPHIL # 0.1 TH/MM3 (0-0.2); BASOPHIL % 0.7 % (0.0-2.0); EOSINOPHIL # 0.1 TH/MM3 (0-0.4); EOSINOPHIL % 1.2 % (0.0-4.0); HEMATOCRIT 41.8 % (35.0-46.0); HEMOGLOBIN 14.2 GM/DL (11.6-15.3); LYMPH % 31.2 % (9.0-44.0); LYMPHOCYTE # 2.3 TH/MM3 (1.0-4.8); MEAN CELL VOLUME 86.3 FL (80.0-100.0); MEAN CORPUSCULAR HEMOGLOBIN 29.3 PG (27.0-34.0); MEAN CORPUSCULAR HGB CONC 33.9 % (32.0-36.0); MEAN PLATELET VOLUME 8.9 FL (7.0-11.0); MONO % 8.2 % (0.0-8.0); MONOCYTE # 0.6 TH/MM3 (0-0.9); NEUT % 58.7 % (16.0-70.0); PLATELET COUNT 252 TH/MM3 (150-450); RED BLOOD COUNT 4.84 MIL/MM3 (4.00-5.30); RED CELL DISTRIBUTION WIDTH 13.3 % (11.6-17.2); WHITE BLOOD COUNT 7.5 TH/MM3 (4.0-11.0)
[2017-11-27 22:06] LABS: ALBUMIN 3.9 GM/DL (3.4-5.0); ALT (GPT) 22 U/L (10-53); AST (GOT) 13 U/L (15-37); BICARBONATE 26.1 MEQ/L (21.0-32.0); BLOOD UREA NITROGEN 10 MG/DL (7-18); CALCIUM 9.4 MG/DL (8.5-10.1); CHLORIDE 101 MEQ/L (98-107); CREATININE 0.79 MG/DL (0.50-1.00); GLOMERULAR FILTRATION RATE 78 ML/MIN (>89); GLUCOSE,RANDOM 252 MG/DL (74-106); SODIUM (NA) 138 MEQ/L (136-145)
[2017-11-27 22:10] LABS: ALKALINE PHOSPHATASE 92 U/L (45-117); TOTAL BILIRUBIN ADULT 0.2 MG/DL (0.2-1.0); TOTAL PROTEIN 8.5 GM/DL (6.4-8.2); TROPONIN I LESS THAN 0.02 NG/ML (0.02-0.05)
[2017-11-28 00:45] VITALS: BP_SYST 160; BP_SYST 162; BP_SYST 167; BP_DIAS 74; BP_DIAS 75; BP_DIAS 77; RESP 15; RESP 16
--- NOTE | 2017-11-28 19:38 | EKG ---
Date Performed: 11/27/2017 Time Performed: 20:18:56 PTAGE: 47 years EKG: Sinus rhythm Compared to previous tracing, sinus rate has increased NORMAL ECG PREVIOUS TRACING : 10/24/2017 09.17 DOCTOR: Aakash Cazares Interpretating Date/Time 11/28/2017 19:36:31
== END 2017-11-28 01:12 | disposition home or self-care (01) ==
LOC: NEPE 19:32
DX: R55 Syncope and collapse (principal); R19.7 Diarrhea, unspecified; R11.10 Vomiting, unspecified; R53.1 Weakness; E11.9 Type 2 diabetes mellitus without complications; I10 Essential (primary) hypertension; F41.9 Anxiety disorder, unspecified; F32.9 Major depressive disorder, single episode, unspecified; E78.00 Pure hypercholesterolemia, unspecified
CPT/HCPCS: 80053; 82550; 83735; 84484; 85025; 93005; 96361; 96374; 96375; 99284; J1885; J2405; J7030

== ENCOUNTER 2018-01-03 10:21 | Observation (INO) | payer BC ==
[2018-01-03] VITALS (7 sets, daily range): BP systolic 137–163; BP diastolic 66–86; PULSE 51–62; RESP 16–20; TEMP 96.9–98; O2SAT 96–100
[~2018-01-03] VITALS: Ht 165.1 cm; Wt 99.5 kg
[2018-01-03] MEDS ORDERED: ASPIRIN 81 MG CHEW TAB PO ONE (10:30)
[2018-01-03] MEDS ORDERED: SODIUM CHLORIDE 0.9% FLUSH 10 ML FLUSH IVF PRN (10:30)
[2018-01-03 10:43] LABS: BASOPHIL % 0.5 % (0.0-2.0); EOSINOPHIL # 0.1 TH/MM3 (0-0.4); EOSINOPHIL % 0.8 % (0.0-4.0); HEMATOCRIT 41.6 % (35.0-46.0); HEMOGLOBIN 13.9 GM/DL (11.6-15.3); LYMPH % 22.2 % (9.0-44.0); LYMPHOCYTE # 1.5 TH/MM3 (1.0-4.8); MEAN CELL VOLUME 86.6 FL (80.0-100.0); MEAN CORPUSCULAR HEMOGLOBIN 28.9 PG (27.0-34.0); MEAN CORPUSCULAR HGB CONC 33.4 % (32.0-36.0); MEAN PLATELET VOLUME 9.1 FL (7.0-11.0); MONO % 5.1 % (0.0-8.0); MONOCYTE # 0.3 TH/MM3 (0-0.9); NEUT % 71.4 % (16.0-70.0); PLATELET COUNT 275 TH/MM3 (150-450); RED CELL DISTRIBUTION WIDTH 12.9 % (11.6-17.2); WHITE BLOOD COUNT 6.9 TH/MM3 (4.0-11.0)
[2018-01-03] MEDS ORDERED: LEVEMIR SQ (10:50)
[2018-01-03 10:57] LABS: CHLORIDE 102 MEQ/L (98-107); SODIUM (NA) 135 MEQ/L (136-145)
[2018-01-03] MEDS ORDERED: KETOROLAC TROMETHAMINE 30 MG/ML (IVP) VIAL IV PUSH ONE ×2 (11:00→14:00)
[2018-01-03 11:02] LABS: CALCIUM 9.3 MG/DL (8.5-10.1)
[2018-01-03 11:03] LABS: ALBUMIN 3.7 GM/DL (3.4-5.0); BICARBONATE 24.3 MEQ/L (21.0-32.0); BLOOD UREA NITROGEN 10 MG/DL (7-18); GLUCOSE,RANDOM 385 MG/DL (74-106); INTERNATIONAL NORMALIZED RATIO 0.9 RATIO; PROTHROMBIN TIME - PATIENT 9.6 SEC (9.8-11.6)
[2018-01-03 11:05] LABS: ALT (GPT) 20 U/L (10-53)
[2018-01-03 11:06] LABS: AST (GOT) 11 U/L (15-37); CREATININE 0.68 MG/DL (0.50-1.00); GLOMERULAR FILTRATION RATE 93 ML/MIN (>89)
--- NOTE | 2018-01-03 11:06 | RADRPT ---
EXAM DATE/TIME: 01/03/2018 10:47 [facility] COMPARISON: Portable upright chest October 24, 2017. INDICATIONS : Chest pain MEDICAL HISTORY : Chronic obstructive pulmonary disease. Cardiovascular disease. Hypercholesterolemia. Hypertensi on.GERD SURGICAL HISTORY : Tubal ligation, Coronary stent ENCOUNTER: Initial ACUITY: 1 day PAIN SCORE: 5/10 LOCATION: Bilateral chest FINDINGS: A single view of the chest demonstrates the lungs to be symmetrically aerated without evidence of mas s, infiltrate or effusion. The cardiomediastinal contours are unremarkable. Osseous structures are intact. CONCLUSION: No acute disease. Mason Ace MD on January 03, 2018 at 11:04 Board Certified Radiologist. This report was verified electronically.
[2018-01-03 11:07] LABS: TOTAL BILIRUBIN ADULT 0.3 MG/DL (0.2-1.0); TOTAL PROTEIN 8.2 GM/DL (6.4-8.2)
[2018-01-03 11:08] LABS: ALKALINE PHOSPHATASE 116 U/L (45-117)
[2018-01-03 11:11] LABS: TROPONIN I LESS THAN 0.02 NG/ML (0.02-0.05)
[2018-01-03 11:17] LABS: D-DIMER LESS THAN 0.19 MG/L FEU (0.00-0.50)
--- NOTE | 2018-01-03 11:37 | PD ---
HPI Chief Complaint: Chest Pain Time Seen by Provider: 10:55 Travel History International Travel<30 days: No Contact w/Intl Traveler<30days: No Traveled to known affect area: No History of Present Illness HPI This is a 47-year-old female presented here for evaluation of chest pain. Pain started about 12 hours prior to arrival in the ER, located mid chest, 6 out of 10, sharp, constant, nothing makes it better but moving makes it worse. Patient states that she was moving couch couple days ago and she is unsure if she pulled a muscle or not. Patient has extensive cardiac history including 2 stents placed in 2013 and 2014, she has a history of hypertension and uncontrolled diabetes that she takes insulin for it. Patient takes Levemir 15 units 2 times a day and Humalog sliding scale. Patient reports sweating and palpitations that are associated with her chest pain. Pain occurred at rest, no shortness of breath, no cough or fever or chills or night sweats. PFSH Past Medical History Hx Anticoagulant Therapy: Yes (PLAVIX) Arthritis: No Autoimmune Disease: No Blood Disorders: No Anxiety: Yes Depression: Yes Heart Rhythm Problems: No Cancer: No Cardiac Catheterization: Yes (x 3 last one 2014) Cardiovascular Problems: Yes (HTN, CHOL) High Cholesterol: Yes (controlled on meds) Chest Pain: Yes Congestive Heart Failure: No Cerebrovascular Accident: No Coronary Artery Disease: Yes Diabetes: Yes Patient Takes Glucophage: No Dialysis: No Diminished Hearing: No Endocrine: Yes GERD: Yes Glaucoma: No Genitourinary: No Headaches: Yes Hepatitis: No Hiatal Hernia: No Heparin Induced Thrombocytopen: No Hypertension: Yes Immune Disorder: No Implanted Vascular Access Dvce: Yes Kidney Stones: No Musculoskeletal: No Neurologic: No Psychiatric: Yes Reproductive: No Respiratory: No Integumentary: No Immunizations Current: Yes Migraines: No Myocardial Infarction: No Seizures: No Thyroid Disease: No Ulcer: No PNEUMOCCOCAL Vaccine (Year): 2 ?: Not : 2 Para: 2 Miscarriage: 0 : 0 Tubal Ligation: Yes Past Surgical History Abdominal Surgery: No Body Medical Devices: CARDIAC STENT X3 Cardiac Surgery: Yes (stent x 3.) Section: Yes (X2) Coronary Artery Bypass Graft: No Coronary Stent: Yes (X 3 2012, 2013, 2014(few months [id number])) Ear Surgery: No Endocrine Surgery: No Eye Surgery: No Genitourinary Surgery: No Gynecologic Surgery: Yes ( X 2 /tubal) Neurologic Surgery: No Thoracic Surgery: No Other Surgery: Yes (STENTS X3) Family History Family Myocardial Infarction: Yes (father) Social History Alcohol Use: No Tobacco Use: No Substance Use: No Allergies-Medications (Allergen,Severity, Reaction): Coded Allergies: prednisone (Unverified Allergy, Severe, HIVES, 01/03/18) Reported Meds & Prescriptions Reported Meds & Active Scripts Active Flexeril (Cyclobenzaprine HCl) 10 Mg Tab 10 Mg PO TID Isosorbide Mononitrate ER (Isosorbide Mononitrate) 60 Mg Tab 60 Mg PO DAILY@ 0700 30 Days Meclizine (Meclizine HCl) 25 Mg Tab 25 Mg PO DIRECTED PRN Plavix (Clopidogrel Bisulfate) 75 Mg Tab 75 Mg PO DAILY Reported Levemir Inj (Insulin Detemir) 1,000 unit/ 10 ML Vial 15 Units SQ BID Do not mix with any other Insulin. Atorvastatin (Atorvastatin Calcium) 40 Mg Tab 40 Mg PO HS Metoprolol Tartrate 25 Mg Tab 25 Mg PO BID Bupropion HCl ER 24 HR (Bupropion HCl) 150 Mg Tab 150 Mg PO DAILY Novolog Inj (Insulin Aspart) 1,000 Unit/10 Ml Vial 0 SQ TID PRN Sliding Scale as directed. Nitrostat SL (Nitroglycerin) 0.4 Mg Subl 0.4 Mg SL DIRECTED PRN 1 tablet under the tongue as needed for chest pain. Repeat every 5 minutes for a total of 3 DOSES or call 911 if NO relief. Aspirin 81 (Aspirin) 81 Mg Tabdr 81 Mg PO DAILY Review of Systems Except as stated in HPI: all other systems reviewed are Neg Physical Exam Narrative GENERAL: Alert oriented 3 no acute distress SKIN: Focused skin assessment warm/dry. HEAD: Atraumatic. Normocephalic. EYES: Pupils equal and round. No scleral icterus. No injection or drainage. ENT: No nasal bleeding or discharge. Mucous membranes pink and moist. NECK: Trachea midline. No JVD. CARDIOVASCULAR: No chest wall tenderness on palpation of the chest, regular rate and rhythm. No murmur appreciated. RESPIRATORY: No accessory muscle use. Clear to auscultation. Breath sounds equal bilaterally. GASTROINTESTINAL: Abdomen soft, non-tender, nondistended. Hepatic and splenic margins not palpable. MUSCULOSKELETAL: No obvious deformities. No clubbing. No cyanosis. No edema. NEUROLOGICAL: Awake and alert. No obvious cranial nerve deficits. Motor grossly within normal limits. Normal speech. PSYCHIATRIC: Appropriate mood and affect; insight and judgment normal. Data Data Last Documented VS Vital Signs Date Time Temp Pulse Resp B/P (MAP) Pulse Ox O2 Delivery O2 Flow Rate FiO2 01/03/18 11:31 62 16 143/66 (91) 97 Room Air 01/03/18 10:44 98.0 01/03/18 10:39 2.00 Orders Orders Electrocardiogram (01/03/18 10:28) B-Type Natriuretic Peptide (01/03/18 10:28) Ckmb (Isoenzyme) Profile (01/03/18 10:28) Complete Blood Count With Diff (01/03/18 10:28) Comprehensive Metabolic Panel (01/03/18 10:28) D-Dimer (01/03/18 10:28) Prothrombin Time / Inr (Pt) (01/03/18 10:28) Act Partial Throm Time (Ptt) (01/03/18 10:28) Troponin I (01/03/18 10:28) Lipase (01/03/18 10:28) Chest, Single Ap (01/03/18 10:28) Ecg Monitoring (01/03/18 10:28) Bilateral Bp Monitoring (01/03/18 10:28) Iv Access Insert/Monitor (01/03/18 10:28) Oximetry (01/03/18 10:28) Oxygen Administration (01/03/18 10:28) Aspirin Chew (Aspirin Chew) (01/03/18 10:30) Sodium Chloride 0.9% Flush (Ns Flush) (01/03/18 10:30) Ketorolac Inj (Toradol Inj) (01/03/18 11:00) Admit Order (Ed Use Only) (01/03/18 11:47) Labs Laboratory Tests Test 01/03/18 10:30 White Blood Count 6.9 TH/MM3 Red Blood Count 4.80 MIL/MM3 Hemoglobin 13.9 GM/DL Hematocrit 41.6 % Mean Corpuscular Volume 86.6 FL Mean Corpuscular Hemoglobin 28.9 PG Mean Corpuscular Hemoglobin Concent 33.4 % Red Cell Distribution Width 12.9 % Platelet Count 275 TH/MM3 Mean Platelet Volume 9.1 FL Neutrophils (%) (Auto) 71.4 % Lymphocytes (%) (Auto) 22.2 % Monocytes (%) (Auto) 5.1 % Eosinophils (%) (Auto) 0.8 % Basophils (%) (Auto) 0.5 % Neutrophils # (Auto) 5.0 TH/MM3 Lymphocytes # (Auto) 1.5 TH/MM3 Monocytes # (Auto) 0.3 TH/MM3 Eosinophils # (Auto) 0.1 TH/MM3 Basophils # (Auto) 0.0 TH/MM3 CBC Comment DIFF FINAL Differential Comment Prothrombin Time 9.6 SEC Prothromb Time International Ratio 0.9 RATIO Activated Partial Thromboplast Time 26.0 SEC D-Dimer Quantitative (PE/DVT) LESS THAN 0.19 MG/L FEU Blood Urea Nitrogen 10 MG/DL Creatinine 0.68 MG/DL Random Glucose 385 MG/DL Total Protein 8.2 GM/DL Albumin 3.7 GM/DL Calcium Level 9.3 MG/DL Alkaline Phosphatase 116 U/L Aspartate Amino Transf (AST/SGOT) 11 U/L Alanine Aminotransferase (ALT/SGPT) 20 U/L Total Bilirubin 0.3 MG/DL Sodium Level 135 MEQ/L Potassium Level 4.5 MEQ/L Chloride Level 102 MEQ/L Carbon Dioxide Level 24.3 MEQ/L Anion Gap 9 MEQ/L Estimat Glomerular Filtration Rate 93 ML/MIN Total Creatine Kinase 51 U/L Troponin I LESS THAN 0.02 NG/ML B-Type Natriuretic Peptide 19 PG/ML Lipase 94 U/L MDM Medical Decision Making Medical Screen Exam Complete: Yes Emergency Medical Condition: Yes Differential Diagnosis Acute coronary syndrome, costochondritis, pneumonia, pneumothorax. Narrative Course This is a 47-year-old female presented here for evaluation of chest pain. Her history is moderately suspicious for acute coronary syndrome but could also be costochondritis, she has high risk factors including hypertension, diabetes and 2 previous stents, initial troponin is negative, initial EKG shows no ST segment elevation or depression. Patient heart score would be 4 and she will benefit from a 23 hour observation to rule out acute coronary syndrome. Spoke with Dr. Rausch will graciously accept the patient. Laboratory Tests Test 01/03/18 10:30 White Blood Count 6.9 TH/MM3 Red Blood Count 4.80 MIL/MM3 Hemoglobin 13.9 GM/DL Hematocrit 41.6 % Mean Corpuscular Volume 86.6 FL Mean Corpuscular Hemoglobin 28.9 PG Mean Corpuscular Hemoglobin Concent 33.4 % Red Cell Distribution Width 12.9 % Platelet Count 275 TH/MM3 Mean Platelet Volume 9.1 FL Neutrophils (%) (Auto) 71.4 % Lymphocytes (%) (Auto) 22.2 % Monocytes (%) (Auto) 5.1 % Eosinophils (%) (Auto) 0.8 % Basophils (%) (Auto) 0.5 % Neutrophils # (Auto) 5.0 TH/MM3 Lymphocytes # (Auto) 1.5 TH/MM3 Monocytes # (Auto) 0.3 TH/MM3 Eosinophils # (Auto) 0.1 TH/MM3 Basophils # (Auto) 0.0 TH/MM3 CBC Comment DIFF FINAL Differential Comment Prothrombin Time 9.6 SEC Prothromb Time International Ratio 0.9 RATIO Activated Partial Thromboplast Time 26.0 SEC D-Dimer Quantitative (PE/DVT) LESS THAN 0.19 MG/L FEU Blood Urea Nitrogen 10 MG/DL Creatinine 0.68 MG/DL Random Glucose 385 MG/DL Total Protein 8.2 GM/DL Albumin 3.7 GM/DL Calcium Level 9.3 MG/DL Alkaline Phosphatase 116 U/L Aspartate Amino Transf (AST/SGOT) 11 U/L Alanine Aminotransferase (ALT/SGPT) 20 U/L Total Bilirubin 0.3 MG/DL Sodium Level 135 MEQ/L Potassium Level 4.5 MEQ/L Chloride Level 102 MEQ/L Carbon Dioxide Level 24.3 MEQ/L Anion Gap 9 MEQ/L Estimat Glomerular Filtration Rate 93 ML/MIN Total Creatine Kinase 51 U/L Troponin I LESS THAN 0.02 NG/ML B-Type Natriuretic Peptide 19 PG/ML Lipase 94 U/L Last 24 hours Impressions Chest X-Ray 01/03/18 1028 Signed Impressions: Service Date/Time: Wednesday, January 03, 2018 10:47 - CONCLUSION: No acute disease. Mason Ace MD Diagnosis Primary Impression: History of coronary artery stent placement Additional Impression: Chest pain, rule out acute myocardial infarction Admitting Information Admitting Physician Requests: Admit Condition: Stable Charles Chisholm MD January 03, 2018 11:37
[2018-01-03] MEDS: INSULIN ASPART SUPPLEMENTAL SCALE SQ SCH ×2 (12:00→17:00)
[2018-01-03] MEDS ORDERED: DEXTROSE 50% IN WATER 50 ML VIAL(D50) IV PUSH PRN (12:00)
[2018-01-03] MEDS ORDERED: GLUCAGON 1 MG/ML VIAL OTHER PRN (12:00)
[2018-01-03] MEDS ORDERED: SODIUM CHLORIDE 0.9% FLUSH 10 ML FLUSH IV FLUSH PRN (12:00)
--- NOTE | 2018-01-03 12:52 | HHI.HP ---
[facility] Service [facility] Primary Care Physician Hayden Mcgovern MD Admission Diagnosis RULE OUT ACUTE CORONARY SYNDROME, CHEST PAIN, DM, UNCONTROLLED HTN Diagnoses: Chief Complaint: Chest pain Travel History International Travel<30 Days: No Contact w/Intl Traveler <30 Da: No Traveled to Known Affected Are: No History of Present Illness This is a pleasant 47-year-old female patient with a known medical history of diabetes, CAD with cardiac stent placement 3 on Plavix, hypertension and hyperlipidemia who presented to the ED with complaint of chest pain. Patient states that she was helping her move a couch when all of a sudden she developed a left-sided chest pain, was characterized as squeezing in nature and radiated to her back, associated with nausea and diaphoresis, no vomiting or shortness of breath. Denies any known alleviating or worsening factors. Patient states she did have this pain before back when she had her cardiac stents placed in 2013. Patient states that the pain is rated an 8 out of 10 at its worst on pain scale, is intermittent in nature and lasts roughly an hour or so and then goes away and comes back without any known reason why. Patient denies any recent illness including fever, chills, cough, dull pain, nausea, vomiting, diarrhea or dysuria. Patient does follow with Dr. Cardoso, cardiology, was last seen a month ago supposedly patient underwent a cardiac catheterization which was reportedly unremarkable. Patient does have an appointment with him on Saturday. Spoke to him regarding patient presentation, ACS ruled out okay to follow-up in office. Upon presentation CBC is unremarkable, BMP reviewed elevated random glucose. Patient does have history of diabetes. BNP 19. Troponin negative. Will trend. Vital signs stable. Chest x-ray no acute disease. Review of Systems Constitutional: COMPLAINS OF: Diaphoretic episodes, DENIES: Fatigue, Fever, Weight loss Eyes: DENIES: Diplopia Respiratory: DENIES: Cough, Shortness of breath Cardiovascular: COMPLAINS OF: Chest pain, DENIES: Palpitations Gastrointestinal: COMPLAINS OF: Nausea, DENIES: Abdominal pain, Black stools, Bloody stools, Constipation, Diarrhea, Vomiting Musculoskeletal: DENIES: Joint pain Immunologic/allergic: DENIES: Eczema Neurologic: DENIES: Abnormal gait Psychiatric: DENIES: Anxiety Except as stated in HPI: all other systems reviewed are Neg Past Family Social History Past Medical History Hypertension Hyperlipidemia Anxiety Depression CAD with history of cardiac stent placement 3 Diabetes GERD Past Surgical History Cardiac stent placement 3 and 2012, 2014 in 2015. 2 Tubal ligation Reported Medications Active Flexeril (Cyclobenzaprine HCl) 10 Mg Tab 10 Mg PO TID Isosorbide Mononitrate ER (Isosorbide Mononitrate) 60 Mg Tab 60 Mg PO DAILY@ 0700 30 Days Meclizine (Meclizine HCl) 25 Mg Tab 25 Mg PO DIRECTED PRN Plavix (Clopidogrel Bisulfate) 75 Mg Tab 75 Mg PO DAILY Reported Levemir Inj (Insulin Detemir) 1,000 unit/ 10 ML Vial 15 Units SQ BID Do not mix with any other Insulin. Atorvastatin (Atorvastatin Calcium) 40 Mg Tab 40 Mg PO HS Abilify (Aripiprazole) 10 Mg Tab 10 Mg PO DAILY Metoprolol Tartrate 25 Mg Tab 25 Mg PO BID Bupropion HCl ER 24 HR (Bupropion HCl) 150 Mg Tab 150 Mg PO DAILY Novolog Inj (Insulin Aspart) 1,000 Unit/10 Ml Vial 0 SQ TID PRN Sliding Scale as directed. Nitrostat SL (Nitroglycerin) 0.4 Mg Subl 0.4 Mg SL DIRECTED PRN 1 tablet under the tongue as needed for chest pain. Repeat every 5 minutes for a total of 3 DOSES or call 911 if NO relief. Aspirin 81 (Aspirin) 81 Mg Tabdr 81 Mg PO DAILY Allergies: Coded Allergies: prednisone (Unverified Allergy, Severe, HIVES, 01/03/18) Active Ordered Medications Current Medications Medications (Trade) Dose Ordered Sig/Susanne Route Start Time Stop Time Status Last Admin (NS Flush) 2 ml UNSCH PRN IV FLUSH 01/03/18 12:00 (NS Flush) 2 ml BID IV FLUSH 01/03/18 21:00 (D50w (Vial) Inj) 50 ml UNSCH PRN IV PUSH 01/03/18 12:00 (Glucagon Inj) 1 mg UNSCH PRN OTHER 01/03/18 12:00 (NovoLOG SUPPLEMENTAL SCALE) 1 ACHS SLIDING SCALE SQ 01/03/18 12:00 (Abilify) 10 mg DAILY PO 01/04/18 09:00 (Lipitor) 40 mg HS PO 01/03/18 21:00 (Wellbutrin Sr) 150 mg DAILY PO 01/04/18 09:00 (Plavix) 75 mg DAILY PO 01/04/18 09:00 (Flexeril) 10 mg TID PO 01/03/18 13:00 (Levemir Inj) 15 units BID SQ 01/03/18 21:00 (Imdur) 60 mg DAILY@0700 PO 01/04/18 07:00 (Lopressor) 25 mg BID PO 01/03/18 21:00 Family History Maternal medical history significant for stroke and hypertension. Father does have an MT at the age of 5656 years old. Social History Denies any tobacco abuse, alcohol or illicit drug use. Physical Exam Vital Signs Vital Signs Date Time Temp Pulse Resp B/P (MAP) Pulse Ox O2 Delivery O2 Flow Rate FiO2 01/03/18 12:39 01/03/18 11:31 62 16 143/66 (91) 97 Room Air 01/03/18 10:44 98.0 60 16 149/86 (107) 97 01/03/18 10:39 61 16 158/68 (98) 100 Nasal Cannula 2.00 163/79 (107) 01/03/18 10:38 16 98 Nasal Cannula 2.00 01/03/18 10:37 Nasal Cannula 2.00 01/03/18 10:36 16 97 Room Air Physical Exam GENERAL: Well-developed, well-nourished patient in [facility]. SKIN: Warm and dry. No rash. HEAD: Normocephalic. Atraumatic. EYES: Pupils equal and round. No scleral icterus. No injection or drainage. ENT: No nasal bleeding or discharge. Mucous membranes pink and moist. NECK: Supple. Trachea midline. CARDIOVASCULAR: Regular rate and rhythm. S1, S2 noted. No murmur appreciated. Mild chest pain to palpation in midsternal chest. RESPIRATORY: No accessory muscle use. Clear to auscultation. Breath sounds equal bilaterally. GASTROINTESTINAL: Abdomen soft, non-tender, nondistended. Normoactive bowel sounds x4. MUSCULOSKELETAL: No obvious deformities. Extremities without clubbing, cyanosis , or edema. NEUROLOGICAL: Awake and alert. No obvious cranial nerve deficits. Motor grossly within normal limits. 5/5 muscle strength in bilateral upper and lower extremities. Normal speech. PSYCHIATRIC: Appropriate mood and affect; insight and judgment normal. Laboratory Laboratory Tests Test 01/03/18 10:30 White Blood Count 6.9 Red Blood Count 4.80 Hemoglobin 13.9 Hematocrit 41.6 Mean Corpuscular Volume 86.6 Mean Corpuscular Hemoglobin 28.9 Mean Corpuscular Hemoglobin Concent 33.4 Red Cell Distribution Width 12.9 Platelet Count 275 Mean Platelet Volume 9.1 Neutrophils (%) (Auto) 71.4 Lymphocytes (%) (Auto) 22.2 Monocytes (%) (Auto) 5.1 Eosinophils (%) (Auto) 0.8 Basophils (%) (Auto) 0.5 Neutrophils # (Auto) 5.0 Lymphocytes # (Auto) 1.5 Monocytes # (Auto) 0.3 Eosinophils # (Auto) 0.1 Basophils # (Auto) 0.0 CBC Comment DIFF FINAL Differential Comment Prothrombin Time 9.6 Prothromb Time International Ratio 0.9 Activated Partial Thromboplast Time 26.0 D-Dimer Quantitative (PE/DVT) LESS THAN 0.19 Blood Urea Nitrogen 10 Creatinine 0.68 Random Glucose 385 Total Protein 8.2 Albumin 3.7 Calcium Level 9.3 Alkaline Phosphatase 116 Aspartate Amino Transf (AST/SGOT) 11 Alanine Aminotransferase (ALT/SGPT) 20 Total Bilirubin 0.3 Sodium Level 135 Potassium Level 4.5 Chloride Level 102 Carbon Dioxide Level 24.3 Anion Gap 9 Estimat Glomerular Filtration Rate 93 Total Creatine Kinase 51 Troponin I LESS THAN 0.02 B-Type Natriuretic Peptide 19 Lipase 94 Result Diagram: 01/03/18 1030 01/03/18 1030 Imaging Last Impressions Chest X-Ray 01/03/18 1028 Signed Impressions: Service Date/Time: Wednesday, January 03, 2018 10:47 - CONCLUSION: No acute disease. Mason Ace MD Septic Shock Reassessment Septic shock perfusion: reassessment completed Caprini VTE Risk Assessment Caprini VTE Risk Assessment: No/Low Risk (score <= 1) Caprini Risk Assessment Model Point Value = 1 Point Value = 2 Point Value = 3 Point Value = 5 Age 41-60 Minor surgery BMI > 25 kg/m2 Swollen legs Varicose veins or History of unexplained or recurrent spontaneous Oral contraceptives or hormone replacement Sepsis (< 1 month) Serious lung disease, including pneumonia (< 1 month) Abnormal pulmonary function Acute myocardial infarction Congestive heart failure (< 1 month) History of inflammatory bowel disease Medical patient at bed rest Age 61-74 Arthroscopic surgery Major open surgery (> 45 min) Laparoscopic surgery (> 45 min) Malignancy Confined to bed (> 72 hours) Immobilizing plaster cast Central venous access Age >= 75 History of VTE Family history of VTE Factor V Leiden Prothrombin [id number] Lupus anticoagulant Anticardiolipin antibodies Elevated serum homocysteine Heparin-induced thrombocytopenia Other congenital or acquired thrombophilia Stroke (< 1 month) Elective arthroplasty Hip, pelvis, or leg fracture Acute spinal cord injury (< 1 month) Prophylaxis Regimen Total Risk Factor Score Risk Level Prophylaxis Regimen 0-1 Low Early ambulation 2 Moderate Order ONE of the following: *Sequential Compression Device (SCD) *Heparin 5000 units SQ BID 3-4 Higher Order ONE of the following medications: *Heparin 5000 units SQ TID *Enoxaparin/Lovenox 40 mg SQ daily (WT < 150 kg, CrCl > 30 mL/min) *Enoxaparin/Lovenox 30 mg SQ daily (WT < 150 kg, CrCl > 10-29 mL/min) *Enoxaparin/Lovenox 30 mg SQ BID (WT < 150 kg, CrCl > 30 mL/min) AND/OR *Sequential Compression Device (SCD) 5 or more Highest Order ONE of the following medications: *Heparin 5000 units SQ TID (Preferred with Epidurals) *Enoxaparin/Lovenox 40 mg SQ daily (WT < 150 kg, CrCl > 30 mL/min) *Enoxaparin/Lovenox 30 mg SQ daily (WT < 150 kg, CrCl > 10-29 mL/min) *Enoxaparin/Lovenox 30 mg SQ BID (WT < 150 kg, CrCl > 30 mL/min) AND *Sequential Compression Device (SCD) Assessment and Plan Problem List: (1) Chest pain, atypical ICD Code: R07.89 - Other chest pain Status: Acute Plan: Patient has been admitted to the observation unit, serial EKGs and serial troponins have been ordered for ruling out ACS purposes. Troponins flat. Chest x-ray reviewed showing no acute disease. EKG reviewed showing controlled heart rate, no ST changes to indicate any ischemia. Dr. Yi, patient's adolescent counselor, has been updated about patient presentation. Patient did undergo a cardiac stress test and catheterization roughly 1 month ago and has an appointment to follow with him on Saturday. If ACS is ruled out okay to discharge to home with follow-up with PCP and adolescent counselor. Patient's chest pain is present and worse with palpation, will give dose of Toradol, assess response. Vital signs are stable. Blood pressure controlled. CBC reviewed essentially remarkable. Patient does have history of diabetes, states she has been followed with her PCP, is on insulin and random glucose is over 300s. We will continue to monitor. Patient is n.p.o. at this time. Cardiac telemetry continued, monitor for any arrhythmias. Patient was given aspirin in ED. We will continue home atorvastatin for hyperlipidemia. As well as Plavix for CAD. Patient did recently start on imdur, will continue during hospitalization as well as Lopressor. Monitor blood pressure trends. Pain is musculoskeletal in nature, patient admits to moving couch with and suddenly noticed pain. Pain is reproducible and mildly improved with Toradol. Still present. Will provide Naproxen prescription. Supportive care, advise heat/cold therapy. (2) CAD (coronary artery disease) ICD Code: I25.10 - Atherosclerotic heart disease of [place] coronary artery without angina pectoris Status: Acute Plan: See plan above. Will continue home BP medications, aspirin and beta- rene as well as Plavix. Skyla Le January 03, 2018 12:52
--- NOTE | 2018-01-03 13:23 | HHI.DCPOC ---
Discharge Care Plan Diagnosis: (1) Chest pain, atypical (2) Hypertension (3) CAD (coronary artery disease) (4) Hyperglycemia (5) Hyperlipidemia Goals to Promote Your Health * To prevent worsening of your condition and complications * To maintain your health at the optimal level Directions to Meet Your Goals Take your medications as prescribed Follow your dietary instruction Follow activity as directed Keep your appointments as scheduled Take your immunizations and boosters as scheduled If your symptoms worsen call your PCP, if no PCP go to Urgent Care Center or Emergency Room Smoking is Dangerous to Your Health. Avoid second hand smoke Call the 24-hour hour crisis hotline for domestic abuse at Skyla Le January 03, 2018 13:23
[2018-01-03] MEDS: CYCLOBENZAPRINE HCL 10 MG TAB PO SCH ×2 (14:21→17:45)
[2018-01-03 15:08] LABS: TROPONIN I LESS THAN 0.02 NG/ML (0.02-0.05)
[2018-01-03] MEDS ORDERED: NAPROXEN 500 MG TAB PO ONE (17:30)
[2018-01-03] MEDS ORDERED: NAPR500T2 PO (17:30)
[2018-01-03 17:47] LABS: TROPONIN I LESS THAN 0.02 NG/ML (0.02-0.05)
[2018-01-03] MEDS ORDERED: KETO10 PO (17:47)
[2018-01-03] MEDS ORDERED: SODIUM CHLORIDE 0.9% FLUSH 10 ML FLUSH IV FLUSH SCH (21:00)
[2018-01-03] MEDS ORDERED: METOPROLOL TARTRATE 25 MG TAB PO SCH (21:00)
[2018-01-03] MEDS ORDERED: ATORVASTATIN 40 MG TAB PO SCH (21:00)
[2018-01-03] MEDS ORDERED: INSULIN DETEMIR 100 UNITS/ML VIAL SQ SCH (21:00)
[2018-01-04] MEDS ORDERED: ISOSORBIDE MONONITRATE 60 MG CR TAB (IMDUR) PO SCH (07:00)
[2018-01-04] MEDS ORDERED: ARIPiprazole 10 MG TAB PO SCH (09:00)
[2018-01-04] MEDS ORDERED: buPROPion HCL 150 MG SUSTAINED RELEASE TAB PO SCH (09:00)
[2018-01-04] MEDS ORDERED: CLOPIDOGREL 75 MG TAB PO SCH (09:00)
--- NOTE | 2018-01-04 13:57 | EKG ---
Date Performed: 01/03/2018 Time Performed: 15:03:43 PTAGE: 47 years EKG: SINUS BRADYCARDIA WITH OCCASIONAL SUPRAVENTRICULAR PREMATURE COMPLEXES BORDERLINE ECG PREVIOUS TRACING : 01/03/2018 12.06 Since the previous tracing, no significant change noted DOCTOR: Sumeet Pemberton Interpretating Date/Time 01/04/2018 13:53:28
--- NOTE | 2018-01-04 14:04 | EKG ---
Date Performed: 01/03/2018 Time Performed: 12:06:17 PTAGE: 47 years EKG: SINUS BRADYCARDIA BORDERLINE ECG PREVIOUS TRACING : 01/03/2018 10.28 Since the previous tracing, no significant change noted DOCTOR: Sumeet Pemberton Interpretating Date/Time 01/04/2018 14:00:32
--- NOTE | 2018-01-04 14:17 | EKG ---
Date Performed: 01/03/2018 Time Performed: 10:28:08 PTAGE: 47 years EKG: SINUS BRADYCARDIA BORDERLINE ECG PREVIOUS TRACING : 11/27/2017 20.18 Since the previous tracing, no significant change noted DOCTOR: Sumeet Pemberton Interpretating Date/Time 01/04/2018 14:17:06
== END 2018-01-03 18:13 | disposition home or self-care (01) ==
LOC: PHED 10:21 → PHEDA 11:48 → PH3A 12:36
PROVIDERS: ADMIT Hospitalist; ATTEND Hospitalist
DX: R07.89 Other chest pain (principal); I25.10 Atherosclerotic heart disease of native coronary artery without angina pectoris; I10 Essential (primary) hypertension; E11.65 Type 2 diabetes mellitus with hyperglycemia; Z79.4 Long term (current) use of insulin; Z95.5 Presence of coronary angioplasty implant and graft; E78.5 Hyperlipidemia, unspecified; R61 Generalized hyperhidrosis; R11.0 Nausea; K21.9 Gastro-esophageal reflux disease without esophagitis; F41.9 Anxiety disorder, unspecified; J44.9 Chronic obstructive pulmonary disease, unspecified; E78.00 Pure hypercholesterolemia, unspecified
CPT/HCPCS: 71045; 80053; 82550; 82552; 82948; 83690; 83880; 84484; 85025; 85379; 85610; 85730; 93005; 96374; 96376; 99285; G0378; J1885

== ENCOUNTER 2018-01-20 15:30 | Emergency (ER) | payer BC ==
[~2018-01-20] VITALS: Ht 165.1 cm; Wt 93.0 kg
[~2018-01-20 15:30] MED LIST changes: +KETO10 PO
[2018-01-20 15:45] VITALS: BP 134/62; PULSE 62; RESP 16; TEMP 97.6; O2SAT 98
[2018-01-20] MEDS ORDERED: BUSP10TA PO (15:45)
[2018-01-20] MEDS ORDERED: SODIUM CHLOR 0.9% 1000 ML INJ 1,000 ML IV ONE (16:11)
--- NOTE | 2018-01-20 16:13 | PD ---
HPI Chief Complaint: Syncope/Near-Syncope Time Seen by Provider: 15:44 Travel History International Travel<30 days: No Contact w/Intl Traveler<30days: No Traveled to known affect area: No History of Present Illness HPI 47-year-old female with history of CAD with stent placement 3, hypertension, diabetes, presents emergency department for evaluation following a syncopal episode. Today she was at work when she felt lightheaded. She states she sat down and then she was told that she passed out. She did not fall to the ground or hit her head. Patient states she has had 5 syncopal episodes in the last year. She is followed by Dr. Tompkins, cardiology. She tells me they have not figured out why she is having these yet. Patient was seen on January 03 to to rule out acute coronary syndrome. She had recently had a cardiac catheterization by Dr. tompkins that was negative. Patient denies any pain. States she feels "kind of weak." Denies any shortness of breath. Denies any recent illnesses. PFSH Past Medical History Hx Anticoagulant Therapy: Yes Arthritis: No Autoimmune Disease: No Blood Disorders: No Anxiety: Yes Depression: Yes Heart Rhythm Problems: No Cancer: No Cardiac Catheterization: Yes (x 3 last one 2014) Cardiovascular Problems: Yes High Cholesterol: Yes (controlled on meds) Chest Pain: Yes Congestive Heart Failure: No Cerebrovascular Accident: No Coronary Artery Disease: Yes Diabetes: Yes Patient Takes Glucophage: No Dialysis: No Diminished Hearing: No Endocrine: Yes GERD: Yes Glaucoma: No Genitourinary: No Headaches: Yes Hepatitis: No Hiatal Hernia: No Heparin Induced Thrombocytopen: No Hypertension: Yes Immune Disorder: No Implanted Vascular Access Dvce: Yes Kidney Stones: No Musculoskeletal: No Neurologic: No Psychiatric: Yes Reproductive: No Respiratory: No Integumentary: No Immunizations Current: Yes Migraines: No Myocardial Infarction: No Seizures: No Thyroid Disease: No Ulcer: No Tetanus Vaccination: Unknown Influenza Vaccination: Yes PNEUMOCCOCAL Vaccine (Year): 2 ?: Not : 2 Para: 2 Miscarriage: 0 : 0 Tubal Ligation: Yes Past Surgical History Abdominal Surgery: No Body Medical Devices: CARDIAC STENT X3 Cardiac Surgery: Yes (stent x 3.) Section: Yes (X2) Coronary Artery Bypass Graft: No Coronary Stent: Yes (X 3 2012, 2013, 2014(few months [id number])) Ear Surgery: No Endocrine Surgery: No Eye Surgery: No Genitourinary Surgery: No Gynecologic Surgery: Yes ( X 2 /tubal) Neurologic Surgery: No Thoracic Surgery: No Other Surgery: Yes (STENTS X3) Family History Family Myocardial Infarction: Yes (father) Social History Alcohol Use: No Tobacco Use: No Substance Use: No Allergies-Medications (Allergen,Severity, Reaction): Coded Allergies: prednisone (Unverified Allergy, Severe, HIVES, 01/20/18) Reported Meds & Prescriptions Reported Meds & Active Scripts Active Ketorolac (Ketorolac Tromethamine) 10 Mg Tab 10 Mg PO TID 3 Days Flexeril (Cyclobenzaprine HCl) 10 Mg Tab 10 Mg PO TID Isosorbide Mononitrate ER (Isosorbide Mononitrate) 60 Mg Tab 60 Mg PO DAILY@ 0700 30 Days Plavix (Clopidogrel Bisulfate) 75 Mg Tab 75 Mg PO DAILY Reported Buspirone (Buspirone HCl) 10 Mg Tab 10 Mg PO BID Levemir Inj (Insulin Detemir) 1,000 unit/ 10 ML Vial 15 Units SQ BID Do not mix with any other Insulin. Atorvastatin (Atorvastatin Calcium) 40 Mg Tab 40 Mg PO HS Abilify (Aripiprazole) 10 Mg Tab 10 Mg PO DAILY Metoprolol Tartrate 25 Mg Tab 25 Mg PO BID Bupropion HCl ER 24 HR (Bupropion HCl) 150 Mg Tab 150 Mg PO DAILY Novolog Inj (Insulin Aspart) 1,000 Unit/10 Ml Vial 0 SQ TID PRN Sliding Scale as directed. Nitrostat SL (Nitroglycerin) 0.4 Mg Subl 0.4 Mg SL DIRECTED PRN 1 tablet under the tongue as needed for chest pain. Repeat every 5 minutes for a total of 3 DOSES or call 911 if NO relief. Aspirin 81 (Aspirin) 81 Mg Tabdr 81 Mg PO DAILY Review of Systems Except as stated in HPI: all other systems reviewed are Neg Physical Exam Narrative GENERAL: Well-nourished female patient, ambulatory and in no acute distress. She appears nontoxic. SKIN: Focused skin assessment warm/dry. HEAD: Atraumatic. Normocephalic. EYES: Pupils equal and round. No scleral icterus. No injection or drainage. ENT: No nasal bleeding or discharge. Mucous membranes pink and moist. NECK: Trachea midline. No JVD. CARDIOVASCULAR: Regular rate and rhythm. No murmur appreciated. RESPIRATORY: No accessory muscle use. Clear to auscultation. Breath sounds equal bilaterally. GASTROINTESTINAL: Abdomen soft, non-tender, nondistended. Hepatic and splenic margins not palpable. MUSCULOSKELETAL: No obvious deformities. No clubbing. No cyanosis. No edema. NEUROLOGICAL: Awake and alert. No obvious cranial nerve deficits. Motor grossly within normal limits. Normal speech. PSYCHIATRIC: Appropriate mood and affect; insight and judgment normal. Data Data Last Documented VS Vital Signs Date Time Temp Pulse Resp B/P (MAP) Pulse Ox O2 Delivery O2 Flow Rate FiO2 01/20/18 18:53 01/20/18 18:20 57 62 01/20/18 15:45 97.6 16 98 Orders Orders Electrocardiogram (01/20/18 16:11) Basic Metabolic Panel (Bmp) (01/20/18 16:11) Complete Blood Count With Diff (01/20/18 16:11) Magnesium (Mg) (01/20/18 16:11) Ckmb (Isoenzyme) Profile (01/20/18 16:11) Troponin I (01/20/18 16:11) Act Partial Throm Time (Ptt) (01/20/18 16:11) Prothrombin Time / Inr (Pt) (01/20/18 16:11) Urinalysis - C+S If Indicated (01/20/18 16:11) Ecg Monitoring (01/20/18 16:11) Iv Access Insert/Monitor (01/20/18 16:11) Oximetry (01/20/18 16:11) Sodium Chloride 0.9% Flush (Ns Flush) (01/20/18 16:15) Sodium Chlor 0.9% 1000 Ml Inj (Ns 1000 M (01/20/18 16:11) Orthostatic Vital Signs (01/20/18 17:21) Ed Discharge Order (01/20/18 18:20) Labs Laboratory Tests Test 01/20/18 16:00 01/20/18 17:15 White Blood Count 6.0 TH/MM3 Red Blood Count 4.24 MIL/MM3 Hemoglobin 12.2 GM/DL Hematocrit 36.8 % Mean Corpuscular Volume 86.7 FL Mean Corpuscular Hemoglobin 28.8 PG Mean Corpuscular Hemoglobin Concent 33.2 % Red Cell Distribution Width 13.2 % Platelet Count 231 TH/MM3 Mean Platelet Volume 8.9 FL Neutrophils (%) (Auto) 56.8 % Lymphocytes (%) (Auto) 32.7 % Monocytes (%) (Auto) 8.6 % Eosinophils (%) (Auto) 1.1 % Basophils (%) (Auto) 0.8 % Neutrophils # (Auto) 3.4 TH/MM3 Lymphocytes # (Auto) 2.0 TH/MM3 Monocytes # (Auto) 0.5 TH/MM3 Eosinophils # (Auto) 0.1 TH/MM3 Basophils # (Auto) 0.0 TH/MM3 CBC Comment DIFF FINAL Differential Comment Prothrombin Time 9.9 SEC Prothromb Time International Ratio 1.0 RATIO Activated Partial Thromboplast Time 25.2 SEC Blood Urea Nitrogen 8 MG/DL Creatinine 0.60 MG/DL Random Glucose 293 MG/DL Calcium Level 9.0 MG/DL Magnesium Level 1.9 MG/DL Sodium Level 136 MEQ/L Potassium Level 3.5 MEQ/L Chloride Level 101 MEQ/L Carbon Dioxide Level 24.1 MEQ/L Anion Gap 11 MEQ/L Estimat Glomerular Filtration Rate 108 ML/MIN Total Creatine Kinase 74 U/L Troponin I LESS THAN 0.02 NG/ML Urine Color LIGHT-YELLOW Urine Turbidity CLEAR Urine pH 5.5 Urine Specific [place] 1.023 Urine Protein NEG mg/dL Urine Glucose (UA) 1000 mg/dL Urine Ketones NEG mg/dL Urine Occult Blood NEG Urine Nitrite NEG Urine Bilirubin NEG Urine Urobilinogen LESS THAN 2.0 MG/DL Urine Leukocyte Esterase MOD Urine RBC 1 /hpf Urine WBC 2 /hpf Urine Squamous Epithelial Cells 1 /hpf Urine Bacteria RARE /hpf Microscopic Urinalysis Comment CULT NOT INDICATED MDM Medical Decision Making Medical Screen Exam Complete: Yes Emergency Medical Condition: Yes Medical Record Reviewed: Yes Differential Diagnosis Syncope versus near syncope versus electrolyte abnormality versus arrhythmia Narrative Course 47-year-old female presents emergency department for evaluation following a syncopal episode. Patient appears without distress. Her vital signs are stable. EKG is reviewed by my attending physician. Laboratory Tests Test 01/20/18 16:00 01/20/18 17:15 White Blood Count 6.0 TH/MM3 Red Blood Count 4.24 MIL/MM3 Hemoglobin 12.2 GM/DL Hematocrit 36.8 % Mean Corpuscular Volume 86.7 FL Mean Corpuscular Hemoglobin 28.8 PG Mean Corpuscular Hemoglobin Concent 33.2 % Red Cell Distribution Width 13.2 % Platelet Count 231 TH/MM3 Mean Platelet Volume 8.9 FL Neutrophils (%) (Auto) 56.8 % Lymphocytes (%) (Auto) 32.7 % Monocytes (%) (Auto) 8.6 % Eosinophils (%) (Auto) 1.1 % Basophils (%) (Auto) 0.8 % Neutrophils # (Auto) 3.4 TH/MM3 Lymphocytes # (Auto) 2.0 TH/MM3 Monocytes # (Auto) 0.5 TH/MM3 Eosinophils # (Auto) 0.1 TH/MM3 Basophils # (Auto) 0.0 TH/MM3 CBC Comment DIFF FINAL Differential Comment Prothrombin Time 9.9 SEC Prothromb Time International Ratio 1.0 RATIO Activated Partial Thromboplast Time 25.2 SEC Blood Urea Nitrogen 8 MG/DL Creatinine 0.60 MG/DL Random Glucose 293 MG/DL Calcium Level 9.0 MG/DL Magnesium Level 1.9 MG/DL Sodium Level 136 MEQ/L Potassium Level 3.5 MEQ/L Chloride Level 101 MEQ/L Carbon Dioxide Level 24.1 MEQ/L Anion Gap 11 MEQ/L Estimat Glomerular Filtration Rate 108 ML/MIN Total Creatine Kinase 74 U/L Troponin I LESS THAN 0.02 NG/ML Urine Color LIGHT-YELLOW Urine Turbidity CLEAR Urine pH 5.5 Urine Specific [place] 1.023 Urine Protein NEG mg/dL Urine Glucose (UA) 1000 mg/dL Urine Ketones NEG mg/dL Urine Occult Blood NEG Urine Nitrite NEG Urine Bilirubin NEG Urine Urobilinogen LESS THAN 2.0 MG/DL Urine Leukocyte Esterase MOD Urine RBC 1 /hpf Urine WBC 2 /hpf Urine Squamous Epithelial Cells 1 /hpf Urine Bacteria RARE /hpf Microscopic Urinalysis Comment CULT NOT INDICATED Lab work is reviewed. I discussed the patient with my attending physician. 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 Patient agrees with this plan of care and she agrees to return immediately with acute worsening of symptoms. Diagnosis Primary Impression: Syncope Qualified Codes: R55 - Syncope and collapse Referrals: [facility] Neurologist Primary Care Physician Patient Instructions: General Instructions, Syncope (ED) Departure Forms: Tests/Procedures, Work Release Enter return to work date: Jan 22, 2018 Additional Instructions: Maintain adequate oral hydration Follow-up with a primary care provider Seek neurology and cardiology evaluation Outpatient MRI of your brain may be warranted Return immediately with any acute worsening symptoms Med/Other Pt SpecificInfo: No Change to Meds Disposition: 01 DISCHARGE HOME Condition: Stable Shayna Silvestre Jan 20, 2018 16:13
[2018-01-20] MEDS ORDERED: SODIUM CHLORIDE 0.9% FLUSH 10 ML FLUSH IVF PRN (16:15)
[2018-01-20 16:33] LABS: AUTOMATED NEUTROPHIL # 3.4 TH/MM3 (1.8-7.7); BASOPHIL % 0.8 % (0.0-2.0); EOSINOPHIL # 0.1 TH/MM3 (0-0.4); EOSINOPHIL % 1.1 % (0.0-4.0); HEMATOCRIT 36.8 % (35.0-46.0); HEMOGLOBIN 12.2 GM/DL (11.6-15.3); LYMPH % 32.7 % (9.0-44.0); MEAN CELL VOLUME 86.7 FL (80.0-100.0); MEAN CORPUSCULAR HEMOGLOBIN 28.8 PG (27.0-34.0); MEAN CORPUSCULAR HGB CONC 33.2 % (32.0-36.0); MEAN PLATELET VOLUME 8.9 FL (7.0-11.0); MONO % 8.6 % (0.0-8.0); MONOCYTE # 0.5 TH/MM3 (0-0.9); NEUT % 56.8 % (16.0-70.0); PLATELET COUNT 231 TH/MM3 (150-450); RED BLOOD COUNT 4.24 MIL/MM3 (4.00-5.30); RED CELL DISTRIBUTION WIDTH 13.2 % (11.6-17.2)
[2018-01-20 16:49] LABS: PROTHROMBIN TIME - PATIENT 9.9 SEC (9.8-11.6)
[2018-01-20 16:55] LABS: BICARBONATE 24.1 MEQ/L (21.0-32.0); BLOOD UREA NITROGEN 8 MG/DL (7-18); CHLORIDE 101 MEQ/L (98-107); GLOMERULAR FILTRATION RATE 108 ML/MIN (>89); GLUCOSE,RANDOM 293 MG/DL (74-106); MAGNESIUM 1.9 MG/DL (1.5-2.5); SODIUM (NA) 136 MEQ/L (136-145)
[2018-01-20 17:00] LABS: TROPONIN I LESS THAN 0.02 NG/ML (0.02-0.05)
[2018-01-20 17:46] LABS: BACTERIA, URINE RARE /hpf; BILIRUBIN, URINE NEG (NEG); BLOOD, URINE NEG (NEG); GLUCOSE,URINE 1000 mg/dL (NEG); KETONE, URINE NEG (NEG); NITRITE,URINE NEG (NEG); PH, URINE 5.5 (5.0-8.5); SQUAMOUS EPITHELIAL CELL URINE 1 /hpf (0-5); URINE COLOR LIGHT-YELLOW (YELLW/STRAW); URINE LEUKOCYTE ESTERASE MOD (NEG)
[2018-01-20 18:20] VITALS: BP_SYST 156; BP_SYST 162; BP_DIAS 73; BP_DIAS 77
--- NOTE | 2018-01-21 17:04 | EKG ---
Date Performed: 01/20/2018 Time Performed: 14:55:41 PTAGE: 47 years EKG: Sinus rhythm NORMAL ECG Since the PREVIOUS TRACING , no significant change noted PREVIOUS TRACIN/ @ 15.03 DOCTOR: Lalitha Causey Interpretating Date/Time 01/21/2018 17:02:05
== END 2018-01-20 18:55 | disposition home or self-care (01) ==
LOC: NEPE 15:30
DX: R55 Syncope and collapse (principal); E11.9 Type 2 diabetes mellitus without complications; E78.00 Pure hypercholesterolemia, unspecified; I10 Essential (primary) hypertension; I25.10 Atherosclerotic heart disease of native coronary artery without angina pectoris; Z79.4 Long term (current) use of insulin
CPT/HCPCS: 80048; 81001; 82550; 83735; 84484; 85025; 85610; 85730; 93005; 96360; 99284; J7030

== ENCOUNTER 2018-03-14 08:07 | Observation (INO) ==
--- NOTE | 2018-03-14 08:30 | ED ---
HPI General Chief Complaint: Chest Pain Stated Complaint: Chest Pain Time Seen by Provider: 03/14/18 08:17 History of Present Illness HPI narrative: The patient was seen and examined in the presence of the nurse. This patient complains of chest pain. Started around midnight last night. Spells last about an hour and resolved. Location is left lower chest. Feels like a squeezing sensation. Symptoms are not exertional. She has history of 3 stent placement in her heart, last was 2014. Her nut sheller Dr. tompkins. She has had no testing since 2014. Severity of symptoms is moderate. No alleviating factors. No exacerbating factors. She tried 2 nitroglycerin but they did not do anything. Complete Quality Measures for STEMI Alert Patients Related Data Home Medications Medication Instructions Recorded Confirmed Abilify PO DAILY 02/25/18 aspirin 02/25/18 bupropion HCl [Wellbutrin SR] PO DAILY 02/25/18 buspirone 1 tab PO DAILY 02/25/18 03/06/18 clopidogrel [Plavix] 75 mg PO DAILY 02/25/18 03/06/18 insulin lispro [Humalog U-100 SUB-Q ACHS 02/25/18 02/25/18 Insulin] pravastatin PO HS 02/25/18 insulin glargine [Toujeo SoloStar 17 unit SUB-Q BID 03/06/18 03/06/18 U-300 Insulin] metoprolol tartrate 25 mg PO BID 03/14/18 03/14/18 Allergies Allergy/AdvReac Type Severity Reaction Status Date / Time prednisone Allergy Severe HIVES Verified 03/06/18 15:17 Review of Systems Except as stated in HPI: all other systems reviewed are negative PMFSH Medical History Medical History High cholesterol (Acute) Depression (Acute) Anxiety (Acute) Diabetes (Acute) Surgical History Surgical History H/O tubal ligation (Acute) H/O: (Acute) H/O heart artery stent (Acute) Social History Social History Substance History: No History of Abuse Second Hand Smoke Exposure: No Smoking Status: Never smoker How Often Do You Have a Drink Containing Alcohol: Never Exam Narrative Exam Narrative: GENERAL: Well-nourished, well-developed patient in no apparent distress. SKIN: Focused skin assessment reveals no rash and nodules. Skin is Warm and dry. HEAD: Atraumatic. Normocephalic. EYES: Pupils equal and round. No scleral icterus. No injection or drainage. ENT: No nasal bleeding or discharge. Mucous membranes pink and moist. NECK: Trachea midline. No JVD. CARDIOVASCULAR: Regular rate and rhythm. No murmur appreciated. RESPIRATORY: No accessory muscle use. Clear to auscultation. Breath sounds equal bilaterally. GASTROINTESTINAL: Abdomen soft, non-tender, nondistended. Hepatic and splenic margins not palpable. MUSCULOSKELETAL: No obvious deformities. No clubbing. No cyanosis. No edema. She does have some rib tenderness under the left breast but states it is very different sensation from the pain she came in complaining of NEUROLOGICAL: Awake and alert. No obvious cranial nerve deficits. Motor grossly within normal limits. Normal speech. PSYCHIATRIC: Appropriate mood and affect; insight and judgment normal. Course Initial Documented Vital Signs Pulse Rate 72 03/14/18 08:20 Respiratory Rate 18 03/14/18 08:20 Blood Pressure 182/75 H 03/14/18 08:20 Pulse Oximetry 97 03/14/18 08:20 Last Documented Vital Signs Pulse Rate 61 03/14/18 09:30 Respiratory Rate 16 03/14/18 09:30 Blood Pressure 161/72 H 03/14/18 09:30 Pulse Oximetry 96 03/14/18 09:30 Medical Decision Making MDM Narrative Medical decision making narrative: IV placed and labs sent. I reviewed her EKG which shows sinus rhythm and no ST elevation or act. I gave her aspirin Cardiac workup appears negative including cardiac enzymes and EKG and chest x- ray She has known disease having suspicious chest symptoms. She will be a 23 hour observation on telemetry in the chest pain center to rule out cardiac cause of her symptoms. I reviewed with the hospitalist Differential Diagnosis Differential Diagnosis: Differential diagnosis includes ID, angina, pericarditis , pleurisy, GERD, anxiety. Medical Records Medical records reviewed: Yes I reviewed the patient's medical records. Patient is a frequent visitor to the ER. She has been here twice this month for musculoskeletal complaints Lab Data Result diagrams: 03/14/18 08:35 03/14/18 08:35 Lab Results 03/14/18 03/14/18 03/14/18 Range/Units 08:35 08:35 08:35 CBC w Diff Auto diff final WBC 4.9 (4.0-11.0) th/mm3 RBC 4.40 (4.00-5.30) mil/mm3 Hgb 12.7 (11.6-15.3) gm/dL Hct 38.0 (35.0-46.0) % MCV 86.3 (80.0-100.0) fL MCH 28.9 (27.0-34.0) pg MCHC 33.5 (32.0-36.0) % RDW 13.4 (11.6-17.2) % Plt Count 222 (150-450) th/mm3 MPV 8.8 (7.0-11.0) fL Neut % (Auto) 61.6 (16.0-70.0) % Lymph % (Auto) 29.8 (9.0-44.0) % [place] % (Auto) 7.0 (0.0-8.0) % Eos % (Auto) 1.0 (0.0-4.0) % Baso % (Auto) 0.6 (0.0-2.0) % Neut # (Auto) 3.1 (1.8-7.7) th/mm3 Lymph # (Auto) 1.5 (1.0-4.8) th/mm3 [place] # (Auto) 0.3 (0.0-0.9) th/mm3 Eos # (Auto) 0.0 (0.0-0.4) th/mm3 Baso # (Auto) 0.0 (0.0-0.2) th/mm3 WBC Differential . Differential Comment . PT 10.0 (9.8-11.6) sec INR 1.0 Ratio APTT 26.6 (24.3-30.1) sec Sodium 136 (136-145) meq/L Potassium 3.5 (3.5-5.1) meq/L Chloride 103 (98-107) meq/L Carbon Dioxide 23.9 (21.0-32.0) meq/L Anion Gap 9 (5-15) meq/L BUN 10 (7-18) mg/dL Creatinine 0.63 (0.50-1.00) mg/dL Estimated GFR Greater than 89 (>89) mL/min Random Glucose 284 H (74-106) mg/dL Calcium 8.5 (8.5-10.1) mg/dL Total Creatine Kinase 40 (26-192) U/L Troponin I Less than 0.02 L (0.02-0.05) ng/mL Imaging Data Radiologist's impression: Chest X-Ray 03/14/18 08:25 CONCLUSION: No acute cardiopulmonary disease. Discharge Plan Discharge Disposition Patient Disposition: 30 Still Patient Discharge Details Diagnosis: Chest pain Physicians Team ED Provider: Osmani Miller Primary Care Provider: Hayden Mcgovern Rxs /Orders / Referrals /Forms Prescriptions: No Action metoprolol tartrate 25 mg Tablet 25 mg PO BID RF: 0 Abilify PO DAILY RF: 0 buspirone 5 mg Tablet 1 tab PO DAILY RF: 0 clopidogrel [Plavix] 75 mg Tablet 75 mg PO DAILY RF: 0 bupropion HCl [Wellbutrin SR] 100 mg Tablet Extended Release 12 Hr PO DAILY RF: 0 aspirin 81 mg Tablet,Chewable RF: 0 insulin lispro [Humalog U-100 Insulin] 100 unit/mL Cartridge Sub-Q ACHS RF: 0 pravastatin PO HS RF: 0 insulin glargine [Toujeo SoloStar U-300 Insulin] 300 unit/mL (1.5 mL) Insulin Pen 17 unit SUB-Q BID RF: 0 Discharge Instructions Patient Printed Instructions: Chest Pain (ED) Status ED Status: With Doctor
[2018-03-14 08:47] LABS: Baso % (Auto) 0.6 % (0.0-2.0); Hemoglobin 12.7 gm/dL (11.6-15.3); Lymph # (Auto) 1.5 th/mm3 (1.0-4.8); Lymph % (Auto) 29.8 % (9.0-44.0); Mean Corpuscular HGB Conc 33.5 % (32.0-36.0); Mean Corpuscular Hemoglobin 28.9 pg (27.0-34.0); Mean Corpuscular Volume 86.3 fL (80.0-100.0); Mean Platelet Volume 8.8 fL (7.0-11.0); Mono # (Auto) 0.3 th/mm3 (0.0-0.9); Neut # (Auto) 3.1 th/mm3 (1.8-7.7); Neut % (Auto) 61.6 % (16.0-70.0); Platelet Count 222 th/mm3 (150-450); Red Cell Distribution Width 13.4 % (11.6-17.2); White Blood Count 4.9 th/mm3 (4.0-11.0)
[2018-03-14 08:53] LABS: Chloride 103 meq/L (98-107); Potassium 3.5 meq/L (3.5-5.1); Sodium 136 meq/L (136-145)
[2018-03-14 08:55] LABS: Calcium 8.5 mg/dL (8.5-10.1)
[2018-03-14 08:56] LABS: Anion Gap 9 meq/L (5-15); Blood Urea Nitrogen 10 mg/dL (7-18); Carbon Dioxide 23.9 meq/L (21.0-32.0); Glucose,Random 284 mg/dL (74-106)
[2018-03-14 08:57] LABS: Activated Partial Thrombo Time 26.6 sec (24.3-30.1)
[2018-03-14 08:59] LABS: Glomerular Filtration Rate Greater Than 89 mL/min (>89)
[2018-03-14 09:03] LABS: Creatine Kinase 40 U/L (26-192)
--- NOTE | 2018-03-14 09:07 | XR ---
EXAM DATE: 03/14/2018 8:45 AM EDT AGE/SEX: 47 years / Female INDICATIONS: Chest pain. CLINICAL DATA: This is the patient's initial encounter. Patient reports that signs and symptoms have been present for 1 day and indicates a pain score of 9/10. MEDICAL/SURGICAL HISTORY: . Hypertension, diabetes . Cardiac stents COMPARISON: HPO, RIBS LEFT MIN 3V W EXP CHEST, 03/06/2018. . FINDINGS: A single AP view of the chest demonstrates the lungs to be symmetrically aerated without evidence of mass, infiltrate or effusion. The cardiomediastinal contours are unremarkable. Osseous structures a re intact. CONCLUSION: No acute cardiopulmonary disease. Electronically signed by: Vj Waller MD 03/14/2018 9:05 AM EDT
[2018-03-14] MEDS ORDERED: Acetaminophen 500 MG Tablet PO ONE (10:23)
--- NOTE | 2018-03-14 12:29 | ECG ---
Date Performed: 03/14/2018 Time Performed: 08:13:26 PTAGE: 47 years EKG: Sinus rhythm NORMAL ECG PREVIOUS TRACING : 03/05/2018 12.06 Since the previous tracing, no significant change noted DOCTOR: Vamshi Ignacio Interpretating Date/Time 03/14/2018 12:27:53
[2018-03-14 13:41] LABS: Creatine Kinase 40 U/L (26-192)
--- NOTE | 2018-03-14 14:58 | P.HP ---
History of Present Illness Primary Care Physician: Hayden Mcgovern MD Chief Complaint: Chest pain History of Present Illness: This is a 47-year-old female patient who frequently visits the ER who presented today with complaints of left-sided chest pain. She states that the pain started around midnight she was awoken out of sleep with a midsternal chest discomfort that radiated to her left chest, was squeezing in nature and rated a 9 out of 10 on pain scale. She states it lasted 1 hour and went away on its own , denies any known alleviating or aggravating factors. She does admit to associated nausea, sweating and shortness of breath. She states that the pain somewhat radiated down her left arm. Patient does have a history of CAD and stent placement in 2015. Her education technician is Dr. Cardoso. Last cardiac catheterization was in October 2014 with no significant findings. Spoke to Dr. Cardoso himself, states that there is no need for any further intervention, rule out ACS and allow to go home. Patient symptoms have improved with aspirin and nitroglycerin. Patient denies any recent illness including fever, chills, cough , shortness of breath, abdominal pain, nausea, vomiting, diarrhea dysuria. Patient denies any reflux. She states that this is not GI in nature. Denies any blood in stool. Review of Systems All other systems reviewed negative except as stated in HPI PMFSH - History History Provided By: Patient - Medical History Medical History: Medical History (Last Updated 03/14/18 @ 08:40 by Carmel Cool RN) High cholesterol (Acute) Depression (Acute) Anxiety (Acute) Diabetes (Acute) - Surgical History Surgical History: Surgical History (Last Updated 03/14/18 @ 08:40 by Carmel Cool RN) H/O tubal ligation (Acute) H/O: (Acute) H/O heart artery stent (Acute) - Tobacco History Second Hand Smoke Exposure: No Smoking Status: Never smoker - Alcohol History How Often Do You Have a Drink Containing Alcohol: Never - Substance Use History Substance History: No History of Abuse - Travel History Recent Travel in the [place] Within the Last 8 Weeks: No Recent Travel Out of the Country Within the Last 8 Weeks: No - Immunization History Tetanus Immunization: <5 Years Hx Influenza Vaccine This Season: Unable to Assess Medications and Allergies Active Medications: Active Medications Nitroglycerin (Nitrostat Sl) 0.4 mg SL Q5M PRN PRN Reason: CHEST PAIN Ondansetron HCl (Zofran Inj) 4 mg IV.PUSH Q6H PRN PRN Reason: NAUSEA Sodium Chloride (Ns Flush) 2 ml IV.FLUSH BID MARIBEL Sodium Chloride (Ns Flush) 2 ml IV.FLUSH PRN PRN PRN Reason: FLUSH AFTER USING IV ACCESS Allergies Allergy/AdvReac Type Severity Reaction Status Date / Time prednisone Allergy Severe HIVES Verified 03/14/18 12:50 Home Medications Medication Instructions Recorded Confirmed Type Abilify PO DAILY 02/25/18 History aspirin 81 mg PO DAILY 02/25/18 03/14/18 History bupropion HCl [Wellbutrin SR] PO DAILY 02/25/18 History buspirone 1 tab PO DAILY 02/25/18 03/06/18 History clopidogrel [Plavix] 75 mg PO DAILY 02/25/18 03/14/18 History insulin lispro [Humalog U-100 See Label Instructions .ROUTE 02/25/18 03/14/18 History Insulin] .COMPLEX pravastatin PO HS 02/25/18 History insulin glargine [Toujeo SoloStar 17 unit SUB-Q BID 03/06/18 03/14/18 History U-300 Insulin] metoprolol tartrate 25 mg PO BID 03/14/18 03/14/18 History Exam Vital signs: Vital Signs 03/14/18 08:10 03/14/18 08:20 03/14/18 08:25 Temperature 98.3 F Pulse Rate 70 72 62 Respiratory Rate 18 18 18 Blood Pressure 182/75 H 182/75 H 167/77 H Pulse Oximetry 97 98 03/14/18 08:48 03/14/18 09:30 03/14/18 12:35 Temperature Pulse Rate 62 61 Respiratory Rate 16 16 18 Blood Pressure 136/78 161/72 H Pulse Oximetry 97 96 03/14/18 13:59 03/14/18 14:39 Temperature 98.0 F Pulse Rate 58 L 68 Respiratory Rate 16 18 Blood Pressure 170/68 H 179/5 H Pulse Oximetry 97 Intake & Output 03/13/18 03/14/18 03/14/18 18:59 06:59 18:59 Weight 101.5 kg Narrative: GENERAL: Well-developed, obese female patient in NAD. SKIN: Warm and dry. No rash. HEAD: Normocephalic. Atraumatic. EYES: Pupils equal and round. No scleral icterus. No injection or drainage. ENT: No nasal bleeding or discharge. Mucous membranes pink and moist. NECK: Supple. Trachea midline. CARDIOVASCULAR: Regular rate and rhythm. S1, S2 noted. No murmur appreciated. No chest pain to palpation. RESPIRATORY: No accessory muscle use. Clear to auscultation. Breath sounds equal bilaterally. GASTROINTESTINAL: Abdomen soft, non-tender, nondistended. Normoactive bowel sounds x4. MUSCULOSKELETAL: No obvious deformities. Extremities without clubbing, cyanosis , or edema. NEUROLOGICAL: Awake and alert. No obvious cranial nerve deficits. Motor grossly within normal limits. 5/5 muscle strength in bilateral upper and lower extremities. Normal speech. PSYCHIATRIC: Appropriate mood and affect; insight and judgment normal. Results - Labs CBC & Chem 7: 03/14/18 08:35 03/14/18 08:35 Labs: Laboratory Results - last 24 hr 03/14/18 03/14/18 03/14/18 08:35 08:35 08:35 CBC w Diff Auto diff final WBC 4.9 RBC 4.40 Hgb 12.7 Hct 38.0 MCV 86.3 MCH 28.9 MCHC 33.5 RDW 13.4 Plt Count 222 MPV 8.8 Neut % (Auto) 61.6 Lymph % (Auto) 29.8 [place] % (Auto) 7.0 Eos % (Auto) 1.0 Baso % (Auto) 0.6 Neut # (Auto) 3.1 Lymph # (Auto) 1.5 [place] # (Auto) 0.3 Eos # (Auto) 0.0 Baso # (Auto) 0.0 WBC Differential . Differential Comment . PT 10.0 INR 1.0 APTT 26.6 Sodium 136 Potassium 3.5 Chloride 103 Carbon Dioxide 23.9 Anion Gap 9 BUN 10 Creatinine 0.63 Estimated GFR Greater than 89 POC Glucose Random Glucose 284 H Calcium 8.5 Total Creatine Kinase 40 Troponin I Less than 0.02 L 03/14/18 03/14/18 12:45 13:06 CBC w Diff WBC RBC Hgb Hct MCV MCH MCHC RDW Plt Count MPV Neut % (Auto) Lymph % (Auto) [place] % (Auto) Eos % (Auto) Baso % (Auto) Neut # (Auto) Lymph # (Auto) [place] # (Auto) Eos # (Auto) Baso # (Auto) WBC Differential Differential Comment PT INR APTT Sodium Potassium Chloride Carbon Dioxide Anion Gap BUN Creatinine Estimated GFR POC Glucose 168 H Random Glucose Calcium Total Creatine Kinase 40 Troponin I Less than 0.02 L - Imaging Impressions Chest X-Ray 03/14/18 08:25 CONCLUSION: No acute cardiopulmonary disease. Caprini VTE Risk Assessment Caprini VTE Risk Assessment: No/Low Risk (score <= 1) Caprini Risk Assessment Model: Point Value = 1 Point Value = 2 Point Value = 3 Point Value = 5 Age 41-60 Minor surgery BMI > 25 kg/m2 Swollen legs Varicose veins or History of unexplained or recurrent spontaneous Oral contraceptives or hormone replacement Sepsis (< 1 month) Serious lung disease, including pneumonia (< 1 month) Abnormal pulmonary function Acute myocardial infarction Congestive heart failure (< 1 month) History of inflammatory bowel disease Medical patient at bed rest Age 61-74 Arthroscopic surgery Major open surgery (> 45 min) Laparoscopic surgery (> 45 min) Malignancy Confined to bed (> 72 hours) Immobilizing plaster cast Central venous access Age >= 75 History of VTE Family history of VTE Factor V Leiden Prothrombin [id number] Lupus anticoagulant Anticardiolipin antibodies Elevated serum homocysteine Heparin-induced thrombocytopenia Other congenital or acquired thrombophilia Stroke (< 1 month) Elective arthroplasty Hip, pelvis, or leg fracture Acute spinal cord injury (< 1 month) Prophylaxis Regimen: Total Risk Factor Score Risk Level Prophylaxis Regimen 0-1 Low Early ambulation 2 Moderate Order ONE of the following: *Sequential Compression Device (SCD) *Heparin 5000 units SQ BID 3-4 Higher Order ONE of the following medications: *Heparin 5000 units SQ TID *Enoxaparin/Lovenox 40 mg SQ daily (WT < 150 kg, CrCl > 30 mL/min) *Enoxaparin/Lovenox 30 mg SQ daily (WT < 150 kg, CrCl > 10-29 mL/min) *Enoxaparin/Lovenox 30 mg SQ BID (WT < 150 kg, CrCl > 30 mL/min) AND/OR *Sequential Compression Device (SCD) 5 or more Highest Order ONE of the following medications: *Heparin 5000 units SQ TID (Preferred with Epidurals) *Enoxaparin/Lovenox 40 mg SQ daily (WT < 150 kg, CrCl > 30 mL/min) *Enoxaparin/Lovenox 30 mg SQ daily (WT < 150 kg, CrCl > 10-29 mL/min) *Enoxaparin/Lovenox 30 mg SQ BID (WT < 150 kg, CrCl > 30 mL/min) AND *Sequential Compression Device (SCD) Assessment and Plan - Plan 47-year-old female patient with: Atypical chest pain History of CAD -Patient has been admitted to the chest pain center for observation. Serial EKGs and serial troponins have been ordered for ruling out ACS purposes. Troponin trend flat. EKG reviewed showing no ST changes. -Continue cardiac telemetry, monitor for any arrhythmias. -Spoke to Dr. Cardoso, no further intervention or cardiac stress test needed. Rule out ACS. Monitor overnight. -CBC and BMP reviewed, essentially remarkable. -Chest x-ray reviewed no acute cardiopulmonary disease. Type 2 diabetes mellitus, chronic: Accu-Chek before meals at bedtime, sliding scale, cover as needed. Monitor blood sugar trends. DVT prophylaxis: SCDs. Ambulation.
[2018-03-14] MEDS ORDERED: Dextrose 50% in Water 50 ML Vial IV.PUSH PRN (15:14)
[2018-03-14 16:06] LABS: Creatine Kinase 112 U/L (26-192)
--- NOTE | 2018-03-14 16:06 | ECG ---
Date Performed: 03/14/2018 Time Performed: 12:32:00 PTAGE: 47 years EKG: SINUS BRADYCARDIA BORDERLINE ECG PREVIOUS TRACING : 03/14/2018 08.13 Since previous tracing, no significant change noted DOCTOR: Miguel Resendiz Interpretating Date/Time 03/14/2018 16:05:19
[2018-03-14] MEDS: Insulin NovoLOG Aspart Correctional Sugar Inj SQ SCH ×2 (16:59→21:07)
[2018-03-14] MEDS: Metoprolol Tartrate 25 MG Tablet PO SCH (17:00)
[2018-03-14] MEDS: Ketorolac Inj 30 MG/ML (IVP) Vial IV.PUSH PRN (17:37)
[2018-03-14] MEDS ORDERED: INSULIN GLARGINE 17 UNIT SQ SCH (21:00)
[2018-03-14] MEDS: Insulin Detemir Inj 1,000 UNIT/10 ML Vial SQ SCH (21:06)
[2018-03-15] MEDS: Ketorolac Inj 30 MG/ML (IVP) Vial IV.PUSH PRN (00:04)
[2018-03-15] MEDS: Metoprolol Tartrate 25 MG Tablet PO SCH ×2 (00:04→08:59)
--- NOTE | 2018-03-15 08:05 | P.PN ---
Subjective Interval history: Follow-up chest pain. Patient seen and examined, sitting up in bed comfortably no apparent distress. Patient is comfortable in no acute events overnight. Chest pain resolved. Does complain of some burning when she eats. Will discharge home follow-up with PCP and possible referral to adhesive sprayer. Vital signs stable. ACS ruled out. Physical Exam Vital signs: Vital Signs 03/14/18 08:10 03/14/18 08:20 03/14/18 08:25 Temperature 98.3 F Pulse Rate 70 72 62 Respiratory Rate 18 18 18 Blood Pressure 182/75 H 182/75 H 167/77 H Pulse Oximetry 97 98 03/14/18 08:48 03/14/18 09:30 03/14/18 12:35 Temperature Pulse Rate 62 61 Respiratory Rate 16 16 18 Blood Pressure 136/78 161/72 H Pulse Oximetry 97 96 03/14/18 13:59 03/14/18 14:39 03/14/18 16:00 Temperature 98.0 F 97.6 F Pulse Rate 58 L 68 64 Respiratory Rate 16 18 18 Blood Pressure 170/68 H 179/5 H 183/80 H Pulse Oximetry 97 96 03/14/18 19:52 03/14/18 20:00 03/15/18 00:00 Temperature 96.6 F L 96.2 F L Pulse Rate 61 56 L Respiratory Rate 20 20 Blood Pressure 146/59 H 150/96 H Pulse Oximetry 97 97 97 03/15/18 04:00 03/15/18 07:37 Temperature 97.3 F L 96.4 F L Pulse Rate 52 L 51 L Respiratory Rate 20 20 Blood Pressure 138/67 149/72 H Pulse Oximetry 97 97 Intake & Output 03/14/18 03/15/18 03/15/18 18:59 06:59 18:59 Intake Total 240 / 240 0 / 0 Balance 240 / 240 0 / 0 Weight 101.5 kg 101.7 kg Intake: Oral 240 / 240 0 / 0 Other: # Voids 1 4 Narrative: GENERAL: Well-developed, well-nourished overweight patient in [facility]. SKIN: Warm and dry. No rash. HEAD: Normocephalic. Atraumatic. EYES: Pupils equal and round. No scleral icterus. No injection or drainage. ENT: No nasal bleeding or discharge. Mucous membranes pink and moist. NECK: Supple. Trachea midline. CARDIOVASCULAR: Regular rate and rhythm. S1, S2 noted. No murmur appreciated. RESPIRATORY: No accessory muscle use. Clear to auscultation. Breath sounds equal bilaterally. GASTROINTESTINAL: Abdomen soft, non-tender, nondistended. Normoactive bowel sounds x4. MUSCULOSKELETAL: No obvious deformities. Extremities without clubbing, cyanosis , or edema. NEUROLOGICAL: Awake and alert. No obvious cranial nerve deficits. Motor grossly within normal limits. 5/5 muscle strength in bilateral upper and lower extremities. Normal speech. PSYCHIATRIC: Appropriate mood and affect; insight and judgment normal. Results - Labs CBC & Chem 7: 03/14/18 08:35 03/14/18 08:35 Laboratory Results - last 24 hr 03/14/18 03/14/18 03/14/18 08:35 08:35 08:35 CBC w Diff Auto diff final WBC 4.9 RBC 4.40 Hgb 12.7 Hct 38.0 MCV 86.3 MCH 28.9 MCHC 33.5 RDW 13.4 Plt Count 222 MPV 8.8 Neut % (Auto) 61.6 Lymph % (Auto) 29.8 [place] % (Auto) 7.0 Eos % (Auto) 1.0 Baso % (Auto) 0.6 Neut # (Auto) 3.1 Lymph # (Auto) 1.5 [place] # (Auto) 0.3 Eos # (Auto) 0.0 Baso # (Auto) 0.0 WBC Differential . Differential Comment . PT 10.0 INR 1.0 APTT 26.6 Sodium 136 Potassium 3.5 Chloride 103 Carbon Dioxide 23.9 Anion Gap 9 BUN 10 Creatinine 0.63 Estimated GFR Greater than 89 POC Glucose Random Glucose 284 H Calcium 8.5 Total Creatine Kinase 40 Troponin I Less than 0.02 L 03/14/18 03/14/18 03/14/18 12:45 13:06 15:20 CBC w Diff WBC RBC Hgb Hct MCV MCH MCHC RDW Plt Count MPV Neut % (Auto) Lymph % (Auto) [place] % (Auto) Eos % (Auto) Baso % (Auto) Neut # (Auto) Lymph # (Auto) [place] # (Auto) Eos # (Auto) Baso # (Auto) WBC Differential Differential Comment PT INR APTT Sodium Potassium Chloride Carbon Dioxide Anion Gap BUN Creatinine Estimated GFR POC Glucose 168 H Random Glucose Calcium Total Creatine Kinase 40 112 Troponin I Less than 0.02 L Less than 0.02 L 03/14/18 03/14/18 03/15/18 16:18 20:05 07:39 CBC w Diff WBC RBC Hgb Hct MCV MCH MCHC RDW Plt Count MPV Neut % (Auto) Lymph % (Auto) [place] % (Auto) Eos % (Auto) Baso % (Auto) Neut # (Auto) Lymph # (Auto) [place] # (Auto) Eos # (Auto) Baso # (Auto) WBC Differential Differential Comment PT INR APTT Sodium Potassium Chloride Carbon Dioxide Anion Gap BUN Creatinine Estimated GFR POC Glucose 257 H 227 H 216 H Random Glucose Calcium Total Creatine Kinase Troponin I - Imaging Impressions Chest X-Ray 03/14/18 08:25 CONCLUSION: No acute cardiopulmonary disease. Assessment and Plan - Plan 47-year-old female patient with: Atypical chest pain History of CAD -Patient has been admitted to the chest pain center for observation. Serial EKGs and serial troponins have been ordered for ruling out ACS purposes. Troponins flat. EKG reviewed showing no ST changes. -ACS ruled out. Continue cardiac telemetry, monitor for any arrhythmias. No arrhythmias overnight. -Spoke to Dr. Cardoso, no further intervention or cardiac stress test needed. -CBC and BMP reviewed, essentially remarkable. -Chest x-ray reviewed no acute cardiopulmonary disease. -We will discharge home follow-up PCP. Maybe for referral to gastroenterology. Patient does complain of some reflux. Provided PPI. Type 2 diabetes mellitus, chronic: Accu-Chek before meals at bedtime, sliding scale, cover as needed. Monitor blood sugar trends. Stable. DVT prophylaxis: SCDs. Ambulation. Discharge home. Follow-up PCP. Activity as tolerated. Diabetic diet. Prescriptions as ordered per discharge plan.
[2018-03-15] MEDS ORDERED: Aluminum/Magnesium/Simethacone Susp 30 ML UDC PO ONE (08:39)
[2018-03-15] MEDS: Insulin NovoLOG Aspart Correctional Sugar Inj SQ SCH (08:59)
[2018-03-15] MEDS: Insulin Detemir Inj 1,000 UNIT/10 ML Vial SQ SCH (09:08)
--- NOTE | 2018-03-15 14:38 | ECG ---
Date Performed: 03/14/2018 Time Performed: 15:18:10 PTAGE: 47 years EKG: Sinus rhythm NORMAL ECG Since the PREVIOUS TRACING , no significant change noted PREVIOUS TRACIN03/14/2018 12.32 DOCTOR: Sherif Lai Interpretating Date/Time 03/15/2018 14:36:56
== END 2018-03-15 10:07 | disposition home or self-care (01) ==
LOC: PHED 08:07 → PH3 08:07 → PHEDA 08:07 → PH3 13:54
PROVIDERS: ADMIT Hospitalist; ATTEND Hospitalist
DX: R61 Generalized hyperhidrosis; R06.02 Shortness of breath; Z79.02 Long term (current) use of antithrombotics/antiplatelets; R11.0 Nausea; Z95.5 Presence of coronary angioplasty implant and graft; E11.9 Type 2 diabetes mellitus without complications; R07.89 Other chest pain; F41.9 Anxiety disorder, unspecified; I25.10 Atherosclerotic heart disease of native coronary artery without angina pectoris; F32.9 Major depressive disorder, single episode, unspecified; K21.9 Gastro-esophageal reflux disease without esophagitis; Z79.899 Other long term (current) drug therapy; E78.00 Pure hypercholesterolemia, unspecified